=== PATIENT | female | born 2000 | race Caucasian/White ===

== ENCOUNTER 2020-04-26 18:08 | Emergency (ER) | payer MEDICAID, SELFPAY ==
[2020-04-26 18:10] VITALS: BP 152/108; PULSE 99; RESP 17; TEMP 36.5; O2SAT 98; BMI 35.1
--- NOTE | 2020-04-26 19:00 | ED.VIS.LOWEX ---
History of Present Illness Chief Complaint: Lower Extremity Injury Informant: Patient Occurred: Days Narrative: Patient is a 20-year-old female without any past medical history presenting with concern for DVT of her left leg. She has had worsening left leg pain for the past 5 days. She states sometimes it even goes numb when she standing. Is mostly in her calf region. She notes she is switched to a different brand of control in January is wondering if that could be a precipitating factor. She denies any history of DVT. She states she feels a slight pressure in her calf and sometimes feels cramping. Initially she thought it was exercise related and was using ibuprofen and ice. She denies any associated trauma. No numbness or tingling. Patient denies any associated chest pain, shortness of breath or difficulty breathing. No other complaints at this time. Past Medical History - Allergies and Home Meds Allergies/Adverse Reactions: Allergies sulfamethoxazole [From Bactrim] Allergy (Verified 04/26/20 18:09) Rash trimethoprim [From Bactrim] Allergy (Verified 04/26/20 18:09) Rash Past Medical History: None Surgical History: noncontributory Lives: Spouse/ Significant Other Review of Systems General: Denies: Chills, Fever, Sweats Eyes: Denies: Visual changes - bilaterally, Diplopia ENT: Denies: Rhinorrhea, Sore throat Cardiovascular: Denies: Chest pain, Palpitations Respiratory: Denies: Dyspnea, Cough, Dyspnea on exertion Gastrointestinal: Denies: Abdominal pain, Nausea, Vomiting, Diarrhea, Melena, Hematochezia Genitourinary: Denies: Dysuria, Hematuria, Frequency Musculoskeletal: Reports: Swelling - left calf , Extremity Pain - left calf . Denies: Back pain Skin: Denies: Rash, Wounds Neurological: Denies: Headache, Weakness, Numbness Physical Exam Vital Signs/Narrative: Vital Signs Temp Pulse Resp BP Pulse Ox 04/26/20 18:10 97.7 F L 99 17 152/108 H 98 Inital Vital Signs reviewed: Yes - Extremity Exam Left Hip: Negative for: Deformity, Edema, Limited ROM Left Femur: Negative for: Deformity, Edema, Limited ROM Left Knee: Negative for: Deformity, Edema, Limited ROM Left Tib Fib: - - mild TTP of left calf. No palpable cords. Negative for: Deformity, Edema, Limited ROM Left Ankle: Negative for: Deformity, Edema, Limited ROM Left Foot: Negative for: Deformity, Edema, Limited ROM General: Well nourished, Well developed Head: Normocephalic, Atraumatic Eyes: Perrl, EOMI ENT: No Trauma, Moist Mucous Membranes Neck: Nontender, Full ROM Cardiovascular: Regular rate, Regular rhythm, No murmurs Respiratory: No distress, CTA bilaterally, Chest nontender Abdomen: Soft, Nontender, Nondistended, Normal bowel sounds Back: Nontender Skin: Normal color, No rash Neurological: Alert, Oriented x3, Cranial nerves II-XII grossly intact, Normal Strength, Normal Sensation Psychological: Normal affect Diagnostic/Tx/Re-eval Clinical Impression(s) from Imaging Studies Venous Duplex 04/26/20 19:03 IMPRESSION: No demonstrated deep vein thrombosis. Electronically Signed: Kate Ignacio MD at 19:52 EDT Tel , Service support , - Medical Decision Making Patient evaluated for atraumatic pain of her left lower leg. She is concerned she might have a DVT. She is a normal physical exam. She is neuro vastly intact. Venous duplex does not show any DVT. She does not have any findings consistent with joint infection or cellulitis. Patient is instructed to alternate Tylenol and ibuprofen for pain. The exact cause of her pain is not clear however think she is stable for outpatient follow-up. ED Disposition - Plan for ED Patient: Disposition: Home or Assisted Living Diagnosis: Left leg pain Instructions: ED Muscle Pain Leg Cramps, ED Peripheral Edema, Unilateral Additional Instructions: You do not have a blood clot today. The exact cause your pain is not clear but I think you are safe to follow-up with your primary care doctor. Alternate Tylenol and ibuprofen for pain. Return to emergency room with any worsening symptoms, shortness of breath or difficulty breathing.
--- NOTE | 2020-04-26 19:03 | US_ITS ---
STUDY: VENOUS DOPPLER ULTRASOUND - LEFT LOWER EXTREMITY REASON FOR EXAM: Female, 20 years old. LEFT THIGH AND CALF PAIN MEDIAL AND LATERAL TECHNIQUE: Ultrasound evaluation of the deep vein system to include espinoza-scale imaging and compression was performed. Espinoza-scale imaging and Doppler sonographic evaluation, including duplex spectral analysis and qualitative color flow sonography, was performed. COMPARISON: None. FINDINGS: Common Femoral Vein: Normal compression, spontaneity and augmentation. Normal color Doppler. Common Femoral Vein/Greater Saphenous Junction: Normal compression. Femoral Proximal: Normal compression. Femoral Middle: Normal compression, spontaneity and augmentation. Normal color Doppler. Femoral Distal: Normal compression. Popliteal Vein: Normal compression, spontaneity and augmentation. Normal color Doppler. Posterior Tibial Vein: Normal compression. Peroneal Vein: Normal compression. US/Venous Duplex Imag/Limited/Uni IMPRESSION: No demonstrated deep vein thrombosis. Electronically Signed: Kate Ignacio MD at 19:52 EDT Tel , Service support ,
[2020-04-26] MEDS: Acetaminophen 325 MG Tablet 650 MG PO (19:17)
== END 2020-04-26 20:17 | disposition home or self-care (01) ==
PROVIDERS: Emergency Provider Emergency Medicine
DX: M79.605 Pain in left leg (principal)
CPT/HCPCS: 93971; 99283

== ENCOUNTER → 2022-09-24 | Outpatient (CLI) | payer OTHER, SELFPAY ==
--- NOTE | 2022-09-24 08:59 | US_ITS ---
STUDY: ULTRASOUND BREAST - BILATERAL REASON FOR EXAM: Female, 22 years old. Bilateral breast itchiness. TECHNIQUE: Axial and longitudinal images of the BILATERAL breast were performed with a high resolution ultrasound transducer. # OF IMAGES: 143 COMPARISON: None. FINDINGS: BILATERAL Breast: The entire right and left breast were examined with ultrasound. Dense fibroglandular tissue. No sonographic abnormality is seen. US/Breast Complete Bilateral IMPRESSION: No sonographic abnormality is seen. ASSESSMENT CATEGORY: BIRADS Category 1: Negative. A letter regarding these results will be sent to the patient by the facility within 30 days. Electronically Signed: Bandar Stephens MD at 9:42 EST ,
== END | disposition home or self-care (01) ==
LOC: OPBI 08:55
PROVIDERS: PCP Nurse Practitioner Primary Care; Referring Provider Student in an Organized Health Care Education/Training Program; Visit Provider Student in an Organized Health Care Education/Training Program
DX: R21 Rash and other nonspecific skin eruption (principal)
CPT/HCPCS: 76641

== ENCOUNTER 2022-10-09 08:09 | Emergency (ER) | payer OTHER, SELFPAY ==
[2022-10-09 08:10] VITALS: BP 195/118; PULSE 120; RESP 16; TEMP 36; O2SAT 98; BMI 37.1
--- NOTE | 2022-10-09 09:20 | RAD_ITS ---
STUDY: X-RAY CHEST REASON FOR EXAM: Female, 22 years old. cough, R CP TECHNIQUE: PA and lateral views of the chest. COMPARISON: None. FINDINGS: The lungs are clear and expanded. There is no demonstrated pleural abnormality. Normal size heart. Normal mediastinum and celina. Normal visualized pulmonary arteries. Normal visualized aortic arch and descending thoracic aorta. Normal visualized thoracic spine. Normal visualized ribs, clavicles, and shoulders. There is no demonstrated abnormality of the visualized soft tissue structures of the upper abdomen. RAD/Chest PA and Lateral IMPRESSION: Normal x-ray examination of the chest. Electronically Signed: Darrin Chance MD at 9:40 EST ,
--- NOTE | 2022-10-09 09:37 | EX.ED.VIS.UR ---
HPI HPI - URI History of Present Illness Chief Complaint: Cough Informant: patient Onset/Context/Timing Onset: Yesterday Context: Gradual Onset Timing: Continuous Current Severity: Moderate Maximum Severity: Moderate Narrative Narrative: Patient started having nonproductive cough yesterday, this morning she noticed some dyspnea with exertion going up a flight of stairs and at 1 point this morning she started having pain in her chest just right of her sternum. It hurts worse to move and to take deep breaths. She does not have any medical problems, including asthma. No known sick contacts. She took a COVID test yesterday that was negative. She is vaccinated against COVID and influenza this year. She denies any recent long travel, leg pain or swelling, history of DVT or PE. ROS ROS ED Constitutional Constitutional ED: Denies chills or fever(s) ENT ENT ED: Reports nasal congestion and sore throat; Denies ear pain Cardiovascular Cardiovascular: Reports chest pain; Denies orthopnea or palpitations Respiratory/Chest Respiratory/Chest: Reports cough and dyspnea on exertion; Denies orthopnea Gastrointestinal Gastrointestinal: Denies abdominal pain, diarrhea, nausea or vomiting Genitourinary Genitourinary ED: Denies dysuria or hematuria Musculoskeletal Musculoskeletal: Denies myalgias or neck pain Integumentary Denies abscess or rash Neurologic Neurologic: Reports headache(s); Denies paresthesias or weakness Psychiatric Psychiatric: Denies depression or suicidal thoughts Endocrine Endocrinology: Denies polydipsia or polyuria PFSH PFSH Home Medications norgestimate 0.25 mg-ethinyl estradiol 35 mcg tablet 1 ea PO DAILY 04/26/20 [History Last Taken Unknown] albuterol sulfate 90 mcg/actuation aerosol inhaler (Ventolin HFA) 1 - 2 puff inhalation Q4H PRN PRN Wheezing ##1 10/09/22 [Rx Last Taken Unknown] hydrochlorothiazide 50 mg tablet 50 mg PO DAILY 10/09/22 [History Last Taken Unknown] Allergy/AdvReac Type Severity Reaction Status Date / Time sulfamethoxazole Allergy Rash Verified 10/09/22 10:23 [From Bactrim] trimethoprim [From Bactrim] Allergy Rash Verified 10/09/22 10:23 Social History Smoking Status: Never smoker EXAM Physical Exam Const Vital Signs: 10/09/22 08:10 10/09/22 08:44 10/09/22 09:52 Temperature 96.8 F L Temperature Source Oral Pulse Rate 120 H Respiratory Rate 16 Respiratory Effort Normal Respiratory Depth Normal Respiratory Pattern Normal Blood Pressure 195/118 H 140/92 H Blood Pressure Mean 143 108 Pulse Ox 98 Oxygen Delivery Method Room Air Positive well nourished and well developed General Appearance ED: well developed and NAD HEENT Reports moist mucous membranes normocephalic and atraumatic Throat: Negative for posterior oropharynx abnormal Eyes PERRL and EOMs intact bilaterally Neck no lymphadenopathy, supple and no meningeal signs Chest Wall Chest Narrative: Tenderness right chest wall reproducing her pain. No crepitance or subcutaneous emphysema. Resp normal respiratory effort and clear to auscultation bilaterally Cardio no murmurs Rate: regular rate; Negative for tachycardic Rhythm: regular rhythm Extremity normal to inspection, full ROM and no calf tenderness Neuro oriented x3, CN's II-XII intact bilaterally and no sensory deficits noted Sensorium / Orientation: alert Motor Exam: strength 5/5 throughout Skin Lesions: no lesions Rashes: no rashes MDM MDM MDM Narrative Medical decision making narrative: Swabs for COVID and influenza negative. Two-view chest x-ray normal my interpretation. She was given ibuprofen for her chest discomfort which helped. I reassured her. I had nurses recheck her blood pressure because initially it was 195/119, it is 140/92 on reevaluation. She states he has a history of blood pressure issues and her nurse practitioner put her on HCTZ, she does not like it because of the diuretic action and she is having to urinate all of the time and wonders if there is something else that she can take. I advised her that certainly there is no advised her to follow-up to look into getting onto a different class of blood pressure medication. I rechecked her pulse prior to discharge, it is around 100, not 120. I do not think this is a PE or any other intrathoracic dangerous pathology at this time we discussed reasons to return she comfortable with that plan. Radiography Chest X-Ray - ED: 2 View, Read by ED Physician, No Acute Disease and No Infiltrates Diagnostic Testing: Clinical Impression(s) from Imaging Studies Chest X-Ray 10/09/22 09:20 IMPRESSION: Normal x-ray examination of the chest. Electronically Signed: Darrin Chance MD at 9:40 EST , Differential Diagnosis Differential Diagnosis: Musculoskeletal chest pain, pneumothorax, pneumonia Differential Diagnosis: PE Why less likely: Less likely in context of acute illness and no risk factors or history of thromboembolic disease Discharge Plan Triage Chief Complaint: Cough ED Provider: Ayan Tinoco Dx/Rx/DC Orders Clinical Impression: Acute bronchitis Instructions: ED Bronchitis with Wheezing (Adult) Prescriptions: New albuterol sulfate [Ventolin HFA] 90 mcg/actuation HFA aerosol inhaler 1 - 2 puff inhalation Q4H PRN PRN (Reason: Wheezing) Qty: 1 0RF No Action norgestimate-ethinyl estradiol 1 EACH tablet 1 ea PO DAILY hydrochlorothiazide 50 mg tablet 50 mg PO DAILY Label Comments: TAKE 1 TABLET BY MOUTH EVERY DAY Primary Care Provider: Brionna Bui NP Referrals: Brionna Bui NP, [facility] [Primary Care Provider] - 10-14 Days if not better Disposition Disposition: Home, Self Care
[2022-10-09 09:52] VITALS: BP 140/92
[2022-10-09] MEDS: Ibuprofen 600 MG Tablet PO (09:53)
== END 2022-10-09 11:48 | disposition home or self-care (01) ==
PROVIDERS: Emergency Provider Emergency Medicine; PCP Nurse Practitioner Primary Care; Visit Provider Emergency Medicine
DX: J20.9 Acute bronchitis, unspecified (principal); R51.9 Headache, unspecified; Z20.822 Contact with and (suspected) exposure to COVID-19
CPT/HCPCS: 71046; 87428; 99283

== ENCOUNTER → 2023-01-07 | Outpatient (CLI) | payer OTHER, SELFPAY ==
[2023-01-07 09:56] LABS: Absolute Lymphocyte Count 3.67 X10^3/uL (0.83-4.51); Basophil# 0.09 X10^3/uL; Basophil% 0.6 % (0-1); Eosinophils% 2.2 % (0-5); Hematocrit 42.6 % (37-47); Hemoglobin 14.3 g/dL (12.0-15.0); Lymphocyte # 3.67 X10^3/ul (0.83-4.51); Lymphocyte % 26.4 % (19-41); Mean Corp Hgb Conc 33.6 g/dL (32-36); Mean Corpuscular Hgb 29.5 pg (27.0-32.0); Mean Platelet Vol. 10.2 fl (6.2-12.0); Monocyte% 5.8 % (0-10); NRBC Flagged by Analyzer 0 % (0-5); Neutrophil # 8.96 X10^3/uL (2.7-7.7); Neutrophil % 64.6 % (47-70); Platelet Count 420 K/mm3 (150-450); RBC Distribution Width CV 12.3 % (11.6-14.6); RBC Distribution Width SD 39.8 fl (35.1-43.9); Red Blood Count 4.84 M/mm3 (4.2-5.4); White Blood Count 13.9 K/mm3 (4.4-11.0)
[2023-01-07 10:36] LABS: ALB/GLOB Ratio 0.8 RATIO (0.9-2.4); AST(SGOT) 26 U/L (15-37); Alanine Aminotransfer ALT/SGPT 67 U/L (13-56); Albumin, Serum 3.6 g/dL (3.2-5.0); Alkaline Phosphatase 126 U/L (45-117); Anion Gap 8 (5-15); BUN 14 mg/dL (7-18); BUN/Creat Ratio 16.5 RATIO (10-20); Calcium,Total 9.8 mg/dL (8.5-10.1); Chloride 103 mmol/L (98-107); Creatinine, Serum 0.85 mg/dL (0.55-1.02); EST Glomerular Filtration Rate 87 mL/min (>60); Est Glom Filt Rate - Afr Amer 105 mL/min (>60); Free T3 2.5 pg/mL (2.18-3.98); Globulin 4.7 g/dL (2.2-4.2); Glucose 118 mg/dL (74-106); Potassium 3.9 mmol/L (3.5-5.1); Protein, Total 8.3 g/dL (6.4-8.2); Sodium Level 137 mmol/L (136-145); T4 Free Direct 1.09 ng/dL (0.76-1.46); Thyroid Stim Hormone (TSH) 3.68 uIU/mL (0.358-3.74)
[2023-01-08 16:09] LABS: Anti-Thyroglobulin AB < 1.0 IU/mL (0.0-0.9); Thyroglobulin, Serum Qt. 21.4 ng/mL (1.5-38.5); Thyroid Peroxidase AB 16 IU/mL (0-34)
== END | disposition home or self-care (01) ==
LOC: LAB 08:42
PROVIDERS: PCP Nurse Practitioner Primary Care; Visit Provider Family Medicine
DX: R63.5 Abnormal weight gain (principal); I10 Essential (primary) hypertension
CPT/HCPCS: 36415; 80053; 82533; 84432; 84439; 84443; 84481; 85025; 86376; 86800

== ENCOUNTER → 2023-03-11 | Outpatient (CLI) | payer OTHER, SELFPAY ==
[2023-03-11 08:35] LABS: Absolute Lymphocyte Count 2.94 X10^3/uL (0.83-4.51); Absolute Neutrophil Count 8.2 X10^3/uL (2.0-7.7); Basophil% 0.8 % (0-1); Eosinophil# 0.45 X10^3/uL; Eosinophils% 3.6 % (0-5); Hematocrit 44.6 % (37-47); Hemoglobin 14.4 g/dL (12.0-15.0); Lymphocyte # 2.94 X10^3/ul (0.83-4.51); Lymphocyte % 23.6 % (19-41); Mean Corp Hgb Conc 32.3 g/dL (32-36); Mean Corpuscular Hgb 28.5 pg (27.0-32.0); Mean Corpuscular Volume 88.3 fL (81-99); Mean Platelet Vol. 9.8 fl (6.2-12.0); Monocyte# 0.71 X10^3/uL; Monocyte% 5.7 % (0-10); NRBC Flagged by Analyzer 0 % (0-5); Neutrophil # 8.19 X10^3/uL (2.7-7.7); Neutrophil % 65.9 % (47-70); Platelet Count 352 K/mm3 (150-450); RBC Distribution Width CV 11.9 % (11.6-14.6); RBC Distribution Width SD 38.3 fl (35.1-43.9); Red Blood Count 5.05 M/mm3 (4.2-5.4); White Blood Count 12.4 K/mm3 (4.4-11.0)
== END | disposition home or self-care (01) ==
LOC: LAB 08:24
PROVIDERS: PCP Family Medicine; Referring Provider Family Medicine; Visit Provider Family Medicine
DX: D72.829 Elevated white blood cell count, unspecified (principal)
CPT/HCPCS: 36415; 85025

== ENCOUNTER → 2023-03-25 | Outpatient (CLI) | payer OTHER, SELFPAY ==
[2023-03-25 11:01] LABS: Absolute Lymphocyte Count 2.87 X10^3/uL (0.83-4.51); Absolute Neutrophil Count 6.7 X10^3/uL (2.0-7.7); Basophil# 0.06 X10^3/uL; Basophil% 0.6 % (0-1); Eosinophils% 2.9 % (0-5); Hematocrit 43.9 % (37-47); Hemoglobin 14.4 g/dL (12.0-15.0); Lymphocyte # 2.87 X10^3/ul (0.83-4.51); Lymphocyte % 27.5 % (19-41); Mean Corp Hgb Conc 32.8 g/dL (32-36); Mean Corpuscular Hgb 28.6 pg (27.0-32.0); Mean Corpuscular Volume 87.1 fL (81-99); Mean Platelet Vol. 10.2 fl (6.2-12.0); Monocyte# 0.45 X10^3/uL; Monocyte% 4.3 % (0-10); NRBC Flagged by Analyzer 0 % (0-5); Neutrophil % 64.2 % (47-70); Platelet Count 396 K/mm3 (150-450); RBC Distribution Width CV 11.9 % (11.6-14.6); RBC Distribution Width SD 37.9 fl (35.1-43.9); Red Blood Count 5.04 M/mm3 (4.2-5.4); White Blood Count 10.4 K/mm3 (4.4-11.0)
[2023-03-25 11:52] LABS: Estradiol 63.9 pg/mL; Luteinizing Hormone 8.4 mIU/mL; Prolactin 7.8 ng/mL; T4 Free Direct 1.12 ng/dL (0.76-1.46)
[2023-03-31 12:08] LABS: Testosterone, % Free 3.03 % (0.50-2.80); Testosterone, Free 1.12 ng/dL (0.10-0.85); Testosterone, Total 37 ng/dL (13-71)
== END | disposition home or self-care (01) ==
LOC: WOBLAB 09:53
PROVIDERS: PCP Family Medicine; Visit Provider Nurse Practitioner Women's Health
DX: N93.9 Abnormal uterine and vaginal bleeding, unspecified (principal)
CPT/HCPCS: 36415; 82670; 83001; 83002; 84146; 84402; 84403; 84439; 84443; 85025

== ENCOUNTER → 2023-06-25 | Outpatient (CLI) | payer OTHER, SELFPAY ==
[2023-06-25 10:13] LABS: Internal QC Validated? YES +Cl - CLEAR BKGD; Pregnancy, Serum, hCG Quali. NEGATIVE Negative
== END | disposition home or self-care (01) ==
LOC: LAB 09:12
PROVIDERS: PCP Family Medicine; Referring Provider Family Medicine; Visit Provider Family Medicine
DX: N92.6 Irregular menstruation, unspecified (principal)
CPT/HCPCS: 36415; 84703

== ENCOUNTER → 2023-06-27 | Outpatient (CLI) | payer OTHER, SELFPAY | END | disposition home or self-care (01) | LOC: LABSPEC 15:23 | PROVIDERS: PCP Family Medicine; Referring Provider Family Medicine; Visit Provider Family Medicine | DX: R10.2 Pelvic and perineal pain (principal) | CPT/HCPCS: 87086; 87088 ==

== ENCOUNTER 2023-07-01 18:35 | Emergency (ER) | payer OTHER, SELFPAY ==
[2023-07-01 18:39] VITALS: BP 164/115; PULSE 104; RESP 18; TEMP 36.7; O2SAT 97; BMI 39.2
--- NOTE | 2023-07-01 19:09 | ED.VIS.FEGU ---
HPI <RM Zheng - Last Filed: 07/01/23 20:29> HPI - Female History of Present Illness Chief Complaint: Female C/O Narrative Narrative: 23-year-old female has had bilateral pelvic pain over the last 2 weeks that is worse on the left. She states her periods were regular and she stopped control 2 months ago to try and conceive. Last menstrual period was May 19. Last week she was nauseated and thought she might be but had a negative serum test. Today the pelvic pain worsened and she vomited so she went to urgent care. She states her urine dip was negative. On pelvic exam they told her her cervix had a lesion and they sent swabs for testing. She denies dysuria, frequency, hematuria, or vaginal discharge. No abdominal surgical history. PFSH <MR Zheng - Last Filed: 07/01/23 20:29> PFS Home Medications norgestimate 0.25 mg-ethinyl estradiol 35 mcg tablet 1 ea PO DAILY 04/26/20 [History Last Taken Unknown] albuterol sulfate 90 mcg/actuation aerosol inhaler (Ventolin HFA) 1 - 2 puff inhalation Q4H PRN PRN Wheezing ##1 10/09/22 [Rx Last Taken Unknown] hydrochlorothiazide 50 mg tablet 50 mg PO DAILY 10/09/22 [History Last Taken Unknown] Allergy/AdvReac Type Severity Reaction Status Date / Time sulfamethoxazole Allergy Rash Verified 07/01/23 18:39 [From Bactrim] trimethoprim [From Bactrim] Allergy Rash Verified 07/01/23 18:39 Social History Smoking Status: Never smoker ROS <RM Zheng - Last Filed: 07/01/23 20:29> ROS ED ROS Narrative Constitutional: Negative for fever, chills, malaise. CVS: Negative for chest pain, syncope. Respiratory: Negative for shortness of breath. GI: Positive for abdominal pain, nausea, vomiting. : Negative for dysuria, hematuria or frequency. EXAM <RM Zheng - Last Filed: 07/01/23 20:29> Physical Exam Narrative Exam Narrative: CONST: Patient sitting in no acute distress. EYES: Normal inspection. NECK: Normal inspection. RESP: No respiratory distress, CTAB. CVS: Regular rate and rhythm, no murmur, no gallop. ABD: Obese abdomen is soft with bilateral pelvic tenderness, no guarding or rebound, nondistended. SKIN: Color normal, no rash, warm, dry, intact. EXTREMITIES: Normal appearance, no pedal edema. NEURO: Oriented x4. PSYCH: Normal affect. Const Vital Signs: 07/01/23 18:39 Temperature 98.1 F Temperature Source Temporal Pulse Rate 104 H Respiratory Rate 18 Blood Pressure 164/115 H Blood Pressure Mean 131 Pulse Ox 97 Oxygen Delivery Method Room Air <Dr. Surjit Kellogg DO - Last Filed: 07/01/23 21:22> Physical Exam Const Vital Signs: 07/01/23 18:39 Temperature 98.1 F Temperature Source Temporal Pulse Rate 104 H Respiratory Rate 18 Blood Pressure 164/115 H Blood Pressure Mean 131 Pulse Ox 97 Oxygen Delivery Method Room Air MDM <RM Zheng - Last Filed: 07/01/23 20:29> MDM MDM Narrative Medical decision making narrative: History gathered from: Patient and spouse Patient presents with 2 weeks of pelvic pain worse on the left. She had a negative urinalysis at urgent care and had STI swabs pending. She appears well and nontoxic. She is hypertensive and her heart rate is 104, otherwise normal vital signs. She does not look septic or toxic. She has a normal heart rate during my exam with no murmurs. Lungs clear. She has bilateral pelvic tenderness, greater on the left with no peritoneal signs. She is not tender over McBurney's point. Differential includes , ectopic, ovarian cyst or other etiology. Urinalysis shows no acute findings and test is negative. Transvaginal ultrasound shows no acute findings. She was treated symptomatically with IM Toradol and I recommended [id number] pain relievers and follow-up with [facility]. Lab Data Attestation: I reviewed the patient's lab results. Labs: Laboratory Results - last 24 hr 07/01/23 07/01/23 19:15 19:30 Serum , Qual NEGATIVE Urine Color Yellow Urine Clarity Cloudy Urine pH 7.0 Ur Specific [place] 1.010 Urine Protein Negative Urine Glucose (UA) Normal Urine Ketones Negative Urine Occult Blood Negative Urine Nitrite Negative Urine Bilirubin Negative Urine Urobilinogen Normal Ur Leukocyte Esterase Negative Urine RBC 0 SEEN Urine WBC 0 SEEN Ur Squamous Epith Cells 0 SEEN Amorphous Sediment 1+ Urine Bacteria 0 SEEN Urine Mucus 0 SEEN Radiography Diagnostic Testing: Clinical Impression(s) from Imaging Studies Transvaginal US 07/01/23 19:10 IMPRESSION: Normal pelvic sonogram Electronically Signed: Tej Smith MD at 20:00 EST Reading Location ID and State: [address] [place] [address] Tel , Service support , <Dr. Surjit Kellogg, DO - Last Filed: 07/01/23 21:22> [facility] Narrative Medical decision making narrative: History gathered from: Patient and spouse Patient presents with 2 weeks of pelvic pain worse on the left. She had a negative urinalysis at urgent care and had STI swabs pending. She appears well and nontoxic. She is hypertensive and her heart rate is 104, otherwise normal vital signs. She does not look septic or toxic. She has a normal heart rate during my exam with no murmurs. Lungs clear. She has bilateral pelvic tenderness, greater on the left with no peritoneal signs. She is not tender over McBurney's point. Differential includes , ectopic, ovarian cyst or other etiology. Urinalysis shows no acute findings and test is negative. Transvaginal ultrasound shows no acute findings. She was treated symptomatically with IM Toradol and I recommended [id number] pain relievers and follow-up with [facility]. I have personally performed a face to face assessment of the patient and have reviewed the SAMANTA Note. I performed a substantive portion of the visit including all aspects of the following. My pettit findings include: History is 23-year-old female presenting with lower abdominal pelvic pain of 2 weeks duration. She states is constant and seems to be getting worse. Today she had some emesis. She had abnormally prolonged period last month and ended on . She went to [facility] urgent care where she states that a pelvic exam was performed in which she was told she had a spot on her cervix. She states that if things got worse she was to come to emergency and she has a follow-up appointment with gynecology the beginning of July. Patient denies any fevers. No vaginal bleeding currently or discharge. No colon issues. Exam is tender palpation suprapubic adnexal region. No acute distress clinically appears well Medical Decison offered pelvic examination directly to the patient. Informed her that she had just had 1 but I am happy to render my opinion but most likely would necessitate gynecology's evaluation. Patient declines noting the invasiveness of the exam and the fact that she just had 1. Urinalysis shows no overt infection. test is negative. Pelvic ultrasound is negative. She received a dose of Toradol. At this point the patient has had 2-week of symptoms. She has outpatient follow-up arranged I think at this time is appropriate. Lab Data Labs: Laboratory Results - last 24 hr 07/01/23 07/01/23 19:15 19:30 Serum , Qual NEGATIVE Urine Color Yellow Urine Clarity Cloudy Urine pH 7.0 Ur Specific [place] 1.010 Urine Protein Negative Urine Glucose (UA) Normal Urine Ketones Negative Urine Occult Blood Negative Urine Nitrite Negative Urine Bilirubin Negative Urine Urobilinogen Normal Ur Leukocyte Esterase Negative Urine RBC 0 SEEN Urine WBC 0 SEEN Ur Squamous Epith Cells 0 SEEN Amorphous Sediment 1+ Urine Bacteria 0 SEEN Urine Mucus 0 SEEN Radiography Diagnostic Testing: Clinical Impression(s) from Imaging Studies Transvaginal US 07/01/23 19:10 IMPRESSION: Normal pelvic sonogram Electronically Signed: Tej Smith MD at 20:00 EST Reading Location ID and State: [address] [place] [address] Tel , Service support , Discharge Plan Triage Chief Complaint: Female C/O Other Complaint: Nausea/Vomiting ED Midlevel Provider: Norma Spangler ED Provider: Surjit Kellogg Dx/Rx/DC Orders Clinical Impression: Pelvic pain Instructions: ED Pelvic Pain, Unknown Cause Prescriptions: No Action norgestimate-ethinyl estradiol 1 EACH tablet 1 ea PO DAILY hydrochlorothiazide 50 mg tablet 50 mg PO DAILY Patient Comments: TAKE 1 TABLET BY MOUTH EVERY DAY albuterol sulfate [Ventolin HFA] 90 mcg/actuation HFA aerosol inhaler 1 - 2 puff inhalation Q4H PRN PRN (Reason: Wheezing) Qty: 1 0RF Primary Care Provider: Leila Au Referrals: Leila Au, DO [Primary Care Provider] - Activity Restrictions/Additional Instructions: Your test is negative and your transvaginal ultrasound showed no abnormalities. I am not sure what is causing her pelvic pain recommend Tylenol and ibuprofen and follow-up with [facility]. Disposition Disposition: Home, Self Care Discharge Date/Time: 07/01/23 20:53
--- NOTE | 2023-07-01 19:10 | US_ITS ---
STUDY: ULTRASOUND TRANSVAGINAL CLINICAL: Female, 23 years old. pelvic pain, left TECHNIQUE: Transvaginal COMPARISON: None. FINDINGS: Normal uterine size measuring 7.2 x 4.2 x 3.1 cm in maximal craniocaudal dimension. There are no myometrial masses. Normal endometrial thickness measuring 5 mm. There are no endometrial masses, and there is no fluid in the endometrial cavity. Normal uterine cervix. Normal right ovary, measuring 4 x 2.2 x 2.5 cm. There are multiple follicles without a dominant cyst. Normal left ovary, measuring 4.2 x 2.3 x 2.7 cm. There are multiple follicles without a dominant cyst. There is no free fluid in the pelvis. US/Transvaginal Non- IMPRESSION: Normal pelvic sonogram Electronically Signed: Tej Smith MD at 20:00 EST ,
[2023-07-01 19:38] LABS: Bacteria 0 SEEN /hpf (None Seen); Mucous, Urine 0 SEEN /hpf (<or=2+); Red Blood Cells-Urine 0 SEEN /hpf (0-5); Squamous Epithelial Cells - UA 0 SEEN /hpf (5-10); White Blood Cells 0 SEEN /hpf (0-5)
[2023-07-01 19:40] LABS: Color, Urine Yellow (Yellow); Glucose, Dipstick Normal (Normal); Ketone-Dipstick Negative (Negative); Leukocyte Esterase-Dipstick Negative /ul (Negative); Nitrite-Dipstick Negative (Negative); Occult Blood-Urine Negative /ul (Negative); Protein-Dipstick Negative (Negative); Urine Bilirubin Dipstick Negative (Negative); Urine Clarity Cloudy (Clear); Urine Urobilinogen Normal (Normal)
[2023-07-01 19:46] LABS: Amorphous Sediment 1+
[2023-07-01 19:53] LABS: Internal QC Validated? YES +Cl - CLEAR BKGD; Pregnancy, Serum, hCG Quali. NEGATIVE Negative
[2023-07-01] MEDS: Ketorolac 30 MG/ML Syringe IV (20:45)
== END 2023-07-01 20:53 | disposition home or self-care (01) ==
PROVIDERS: Physician Assistant; Emergency Provider Emergency Medicine; PCP Family Medicine; Visit Provider Emergency Medicine
DX: R10.2 Pelvic and perineal pain (principal)
CPT/HCPCS: 76830; 81001; 84703; 96374; 99284; A4216

== ENCOUNTER 2024-11-11 07:30 | Outpatient (RCR) | payer SELFPAY | END 2024-12-08 23:59 | LOC: NS 07:30 | PROVIDERS: PCP Family Medicine; Referring Provider Family Medicine; Visit Provider Family Medicine | DX: Z71.3 Dietary counseling and surveillance (principal); E66.9 Obesity, unspecified; Z68.35 Body mass index [BMI] 35.0-35.9, adult | CPT/HCPCS: 97802 ==

== ENCOUNTER 2024-12-16 07:16 | Outpatient (RCR) | payer SELFPAY | END 2025-01-08 23:59 | LOC: NS 07:16 | PROVIDERS: PCP Family Medicine; Referring Provider Family Medicine; Visit Provider Family Medicine | DX: Z71.3 Dietary counseling and surveillance (principal); E66.9 Obesity, unspecified; Z68.34 Body mass index [BMI] 34.0-34.9, adult ==

== ENCOUNTER → 2024-12-16 | Outpatient (CLI) | payer BC, SELFPAY ==
[2024-12-16 08:07] LABS: Hemoglobin A1c 5.5 % (<=5.6)
[2024-12-19 03:09] LABS: Thyroid Stim Immunoglob <0.10 IU/L (0.00-0.55)
== END | disposition home or self-care (01) ==
PROVIDERS: PCP Family Medicine; Referring Provider Family Medicine; Visit Provider Family Medicine
DX: R76.8 Other specified abnormal immunological findings in serum (principal); E11.9 Type 2 diabetes mellitus without complications
CPT/HCPCS: 36415; 83036; 84443; 84445

== ENCOUNTER → 2025-05-27 | Outpatient (CLI) | payer OTHER, SELFPAY ==
--- OUTSIDE RECORDS SUMMARY | 2025-05-27 08:08 | XMS RPT_ITS | CCD ---
Author Organization [facility] Care Team Providers Care Records Management Analyst Name Role Phone Margaret Morales Unavailable MARGARET MORALES Attending Unavailable MORALES MARGARET Referring Unavailable MORALES MARGARET Attending Unavailable MORALESDARYLY Referring Unavailable Margaret Morales M Primary Care Provider OMRALES MARGARET Referring Unavailable MORALES, MARGARET Referring Unavailable MoralesMargaret Primary Care Provider [phone] Alessandro Jeronimo MD Primary Care Provider Alessandro Jeronimo MD Primary Care Provider PODLOGAR DISTRIBUTION DISPATCHER.BRIONNA FUENTES Primary Care Physician PODLOGAR DISTRIBUTION DISPATCHER.BRIONNA FUENTES Primary Care Unavail able SIMRAN CHI, FRANK Sams Attending Unavailab le Podlogar WAFER FAB TECHNICIAN, WAFER FAB TECHNICIAN-C Brionna Primary Care Provider [phone] Podlogar WAFER FAB TECHNICIAN, WAFER FAB TECHNICIAN-C Brionna Referring Provider Roof WAFER FAB TECHNICIAN, WAFER FAB TECHNICIAN-C Chandrakant Junior Attending Provider Alessandro Jeronimo MD Primary Care Provider Jossy Au DO Primary Care Provider Jossy Au DO Primary Care Provider James Cheng MD Primary Care Provider James Cheng MD Attending Provider James Cheng MD Referring Provider James Cheng Referring Unavailable Skylar, Chalon Primary Care Unavailable Skylar, Chalon Attending Unavailable Skylar, Chalon Primary Care Unavailable Skylar, Chalon Attending Unavailable Skylar, Chalon Referring Unavailable Skylar, Chalon Primary Care Unavailable Skylar, Chalon Attending Unavailable Skylar, Chalon Referring Unavailable Skylar, Chalon Primary Care Unavailable Skylar, Chalon Attending Unavailable Skylar, Chalon Referring Unavailable Skylar, Chalon Primary Care Unavailable Skylar, Chalon Attending Unavailable CHRISTINE PAULINO Attending Unavailable SELF Referring Unavailable ROE, JOSSY YEH Primary Care Unavailabl MAGALY Osborne Attending Unavailable ROE, JOSSY YEH Primary Care Unavailabl e HAURY, TASHI Referring Unavailable ROE, JOSSY YEH Primary Care Unavailabl e HAURY, TASHI Referring Unavailable ROE, JOSSY RUBA Primary Care Unavailabl e HAURY, TASHI Referring Unavailable ROE, JOSSY YEH Primary Care Unavailabl e HAURY, TASHI Referring Unavailable ROE, JOSSY YEH Primary Care Unavailabl e CIOCEMARIELOSINNA C Referring Unavailable ROE, JOSSY YEH Primary Care Unavailabl e CIOCE NINA C Attending Unavailable HAURY, TASHI Referring Unavailable ROE, JOSSY RUBA Primary Care Unavailabl e HAURY, TASHI Referring Unavailable ROE, JOSSY RUBA Primary Care Unavailabl e HAURY, TASHI Attending Unavailable ROE, JOSSY YEH Primary Care Unavailabl e ROE, JOSSY RUBA Primary Care Unavailabl e Allergies Allergy Classification Reported Allergen(s) Allergy Type Date of Onset Reaction(s) Facility (8 sources) Sulfonamides (Antibiotic) Propensity to adverse reactions to drug 05-07-20 17 [facility] Work Phone: (20 sources) Sulfamethoxazole / Trimethoprim; Translations: [sulfamethoxazole-tr imethoprim] Drug Allergy 04-01-20 [address] [facility] (9 sources) Sulfamethoxazole Drug Allergy 04-26-20 [facility] (9 sources) Trimethoprim Drug Allergy 04-26-20 [facility] (1 source) Sulfamethoxazole Drug Allergy 09-25-19 [facility] (1 source) Trimethoprim Drug Allergy 09-25-19 [facility] Medications Current Medications Medication Drug Class(es) Dates Sig (Normalized) Sig (Original) [id number] 200 actuat albuterol 0.09 mg/actuat metered dose inhaler (8 sources) beta2-Adrenergic Agonist Start: 10-09-2022 Albuterol Sulfate (Ventolin Hfa) 90 mcg/actuation HFA aerosol inhaler Active 1 - 2 NMA INHALATION EVERY 4 HOURS NEEDED as needed for Wheezing October 09, 2022 1:00am Start: 10-09-2022 take 1 puff(s) by in halation every four hours as needed Albuterol Sulfate (Ventolin Hfa) 90 mcg/actuation HFA aerosol inhaler Active 1 - 2 PUFF INHALATION EVERY 4 HOURS NEEDED October 09, 2022 12:00am amoxicillin 875 mg / clavulanate 125 mg oral tablet (9 sources) Penicillin-class Antibacterial Start: 05-31-2024 End: 06-07-2024 take 1 tablet by mouth twice daily amoxicillin-clavulanate potassium (AUGMENTIN) 875-125 mg per tablet Take 1 tablet by mouth two times a day for 7 days. 14 tablet 05/31/2024 06/07/2024 Active Start: 01-12-2023 End: 01-19-2023 Amoxicillin-Pot Clavulanate 875-125 mg tablet Discontinued 1 {tbl} PO TWICE A DAY 14 January 12, 2023 12:00am January 18, 2023 12:00am January 19, 2023 12:04am Start: 01-12-2023 End: 01-19-2023 take 1 tablet by mouth twice daily Amoxicillin-Pot Clavulanate Discontinued 1 TABLET PO TWICE A DAY 14 January 11, 2023 11:00pm January 18, 2023 11:04pm benzonatate 100 mg oral capsule (9 sources) Non-narcotic Antitussive Start: 06-12-2022 End: 09-15-2024 take 2 capsules by mouth three times daily as needed benzonatate (TESSALON PERLE) 100 mg capsule Indications: Acute bronchitis due to COVID-19 virus Take 2 capsules by mouth three times daily as needed. 30 capsule 06/12/2022 09/15/2024 Discontinued (Other) Comment on above: Take 2 capsules by m outh three times daily as needed. bifidobacterium animalis [id number] unt / lactobacillus acidophilus [id number] unt oral capsule (8 sources) take 1 capsule by mouth once daily Probiotic Product (PROBIOTIC-10) Cap take 1 capsule by mouth daily. 0 Active cholecalciferol 1.25 mg oral capsule (15 sources) Vitamin D Start: 09-16-2024 take 1 capsule by mouth every week cholecalciferol, Vitamin D3, (VITAMIN D3) 1,250 mcg (50,000 unit) cap capsule Indications: Vitamin D deficiency Take 1 capsule by mouth one time a week. for 3 months 12 capsule 09/16/2024 Active ergocalciferol 1.25 mg oral capsule (13 sources) Provitamin D2 Compound Start: 09-16-2024 take 1 capsule by mouth every week ergocalciferol 50,000 unit capsule (VITAMIN D2, DRISDOL) Take 50,000 Units by mouth one time a week. 09/16/2024 Active fluticasone propionate 0.05 mg/actuat metered dose nasal spray (8 sources) Corticosteroid fluticasone 50 M CG/ACT Suspension 2 sprays by Nasal route daily. 0 Active hydroCHLOROthiazide 50 mg oral tablet (20 sources) Thiazide Diuretic Start: 07-23-2022 End: 09-15-2024 take 1 tablet by mouth once daily Hydrochlorothiazide 50 mg tablet Active 50 mg PO DAILY October 09, 2022 1:00am Start: 06-25-2022 End: 07-23-2022 take 1 tablet by mouth once daily hydroCHLOROthiazide (HYDRODIURIL, ESIDRIX) 25 mg tablet Indications: Hypertension, unspecified type Take 1 tablet by mouth once daily. 30 tablet 1 06/25/2022 07/23/2022 Discontinued Start: 05-14-2022 End: 06-25-2022 take 1 capsule by mouth once daily hydroCHLOROthiazide (HYDRODIURIL, ESIDRIX) 12.5 mg capsule Indications: Hypertension, unspecified type Take 1 capsule by mouth once daily. 30 capsule 12 05/14/2022 06/25/2022 Discontinued (Changing Therapy/Dosage Form) Comment on above: Take 1 capsule by mo uth once daily. Take 1 tablet by nathan th once daily. ibuprofen 800 mg oral tablet (8 sources) Nonsteroidal Anti-inflammatory Drug take 1 tablet by mouth every six hours as needed ibuprofen 800 MG Tab take 800 mg by mouth every 6 hours as needed. 0 Active levothyroxine sodium 0.025 mg oral tablet (11 sources) l-Thyroxine Start: 10-15-19 25 levothyroxine (SYNTHROID) 25 mcg tablet TAKE 1/2 TAB DAILY on empty stomach in the morning with water. Wait 30 minutes to eat. NO vitamins/minerals/sup plements for 4 hours after. 30 tablet 5 10/14/2024 Active metFORMIN hydrochloride 500 mg oral tablet (13 sources) Biguanide Start: 09-17-19 25 take 1 tablet by mouth every twelve hours metFORMIN (GLUCOPHAGE) 500 mg tablet Take 1 tablet by mouth every 12 hours. 09/17/2024 Active Multiple Vitamins-Minerals (MULTIVITAMIN ADULT PO) (8 sources) take 1 tablet by mouth once daily Multiple Vitamins-Minerals (MULTIVITAMIN ADULT PO) take 1 tablet by mouth daily. 0 Active take 1 tablet by mouth once alejandra y Multiple Vitamins-Minerals (MULTIVITAMIN ADULT PO) take 1 tablet by mouth daily. Active ondansetron 4 mg oral tablet (17 sources) Serotonin-3 Receptor Antagonist Start: 09-17-2024 take 1 tablet by mouth every eight hours as needed ondansetron (ZOFRAN) 4 mg tablet Take 4 mg by mouth three times a day as needed. 09/17/2024 Active Start: 08-15-2023 take 1 tablet by nathan th every eight hours as needed for nausea and vomiting Ondansetron Hcl 8 mg tablet Active 8 mg PO Q8H as needed for nausea and vomiting September 25, 2023 1:00am ONETOUCH VERIO FLEX METER (13 sources) Start: 09-17-2024 ONETOUCH VERIO FLEX METER 1 (ONE) KIT DAILY 09/17/2024 Active vit no.124/iron/fol ic ( VITAMIN ORAL) (5 sources) End: 09-15-2024 vit no.124/iron/fol ic ( VITAMIN ORAL) Take by mouth. 09/15/2024 Discontinued (Other) vit no. 124/iron/folic ( VITAMIN ORAL) Take by mouth. Active vit no. 124/iron/folic ( VITAMIN ORAL) Take by mouth. 0 Active Comment on above: Take by mouth. tirzepatide (MOUNJARO) 2.5 mg/0.5 mL pen injector (5 sources) Start: 2024 inject 2.5 mg by subcutaneous injection every week tirzepatide (MOUNJARO) 2.5 mg/0.5 mL pen injector Indications: Diabetes mellitus treated with injections of non-insulin medication (HCC) Inject 2.5 mg subcutaneously one time a week. 4 Each 5 10/13/2024 Active tirzepatide (MOUNJARO) 5 mg/0.5 mL pen injector (7 sources) Start: 2024 inject 5 mg by subcutaneous injection every week tirzepatide (MOUNJARO) 5 mg/0.5 mL pen injector Inject 5 mg subcutaneously one time a week. 4 each 5 12/02/2024 Active triamcinolone acetonide 1 mg/ml topical cream (2 sources) Corticosteroid Start: 2021 End: 2021 triamcinolone acetonide (KENALOG) 0.1 % cream Indications: Skin eruption Apply 1 application to affected area twice daily. Apply to affected area. Location: bilateral hands 45 g 1 06/25/2022 07/25/2022 Active Comment on above: Apply 1 application to affected area twice daily. Apply to affected area. Location: bilateral hands Completed/Discontinued Medications Medication Drug Class(es) Dates Sig (Normalized) Sig (Original) Norgestimate-Ethin yl Estradiol (17 sources) Progestin, Estrogen Start: 04-26-2020 End: 09-25-2023 Norgestimate-Ethinyl Estradiol 1 EACH tablet Discontinued 1 NMA PO DAILY April 26, 2020 12:00am September 25, 2023 9:08am Start: 04-26-2020 Norgestimate-E thinyl Estradiol Active 1 EACH PO DAILY April 26, 2020 12:00am Start: 04-26-2020 Norgestimate-E thinyl Estradiol Active 1 EACH PO DAILY April 25, 2020 11:00pm End: 07-15-2023 take 1 tablet by mouth once daily norgestimate 0.25 mg-ethinyl estradiol 35 mcg (SPRINTEC, ORTHO-CYCLEN) 0.25-35 mg-mcg per tablet Take 1 tablet by mouth once daily. 07/15/2023 Discontinued End: 07-15-2023 take 1 tablet by mouth once daily norgestimate 0.25 mg-ethinyl estradiol 35 mcg (SPRINTEC, ORTHO-CYCLEN) 0.25-35 mg-mcg per tablet Take 1 tablet by mouth once daily. 0 07/15/2023 Discontinued take 1 tablet by nathan th once daily norgestimate 0.25 mg-ethinyl estradiol 35 mcg (SPRINTEC, ORTHO-CYCLEN) 0.25-35 mg-mcg per tablet Take 1 tablet by mouth once daily. 0 Active Comment on above: Take 1 tablet by nathan th once daily. predniSONE 10 mg oral tablet (9 sources) Start: End: 2 Prednisone 10 mg tablet Discontinued 10 mg PO daily 09 08May 20, 2022 12:00am May 31, 2022 12:00am June 01, 2022 12:09am Take 4 tabs once daily days 1-3 3 tabs once daily days 4-6 2 tabs once daily days 7-9 and 1 tab once daily days 10-12. pseudoePHEDrine hydrochloride 120 mg oral tablet (1 source) alpha-Adrenergic Agonist End: take 120 mg by mouth twice daily Pseudoephedrine HCl (SUDAFED PO) take 120 mg by mouth 2 times daily. 08/19/2018 Discontinued Problems Active Problems Problem Classification Problem Date Documented Date Episodic/Chronic Abdominal pain (5 sources) Pain in pelvis; Translations: [Pelvic and perineal pain] 07-01-2023 Episodic Acute bronchitis (8 sources) Acute bronchitis; Translations: [Acute bronchitis, unspecified] 10-17-2022 Episodic Allergic reactions (8 sources) Atopic dermatitis; Translations: [Atopic eczema] 05-07-2017 Chronic Allergic reactions (9 sources) Inflammatory dermatosis; Translations: [Irritant contact dermatitis, unspecified cause] 05-20-2022 Episodic Diabetes mellitus without complication (7 sources) Diabetic on non-insulin injectable medication; Translations: [Type 2 diabetes mellitus without complication] Onset: 10-13-2024 10-13-2024 Chronic Essential hypertension (5 sources) Hypertensive disorder; Translations: [Essential (primary) hypertension] Chronic Immunizations and screening for infectious disease (6 sources) Patient encounter status; Translations: [Encounter for immunization] Onset: 12-20-2024 Episodic Menstrual disorders (11 sources) Dysmenorrhea; Translations: [Irregular periods] Onset: 12-24-2024 Resolved: 08-19-2018 08-19-2018 Chronic Noninfectious gastroenteritis (2 sources) Gastroenteritis; Translations: [Noninfective gastroenteritis and colitis, unspecified] 08-15-2023 Episodic Nutritional deficiencies (2 sources) Vitamin D deficiency; Translations: [Vitamin D deficiency, unspecified] Onset: 12-14-2024 09-16-2024 Chronic Other complications of (1 source) Supervision of high risk , unspecified, unspecified trimester; Translations: [Supervision of high risk , antepartum (HCC)] Onset: 05-18-2025 Episodic Other connective tissue disease (9 sources) Pain in left lower limb; Translations: [Pain in left leg] 04-27-2020 Episodic Other endocrine disorders (1 source) Polycystic ovary; Translations: [Polycystic ovarian syndrome] 12-26-2024 Chronic Other endocrine disorders (1 source) Polycystic ovarian syndrome; Translations: [PCOS (polycystic ovarian syndrome)] Onset: 05-18-2025 Chronic Other female genital disorders (1 source) Lesion of cervix; Translations: [Noninflammatory disorder of cervix uteri, unspecified] 07-15-2023 Episodic Other female genital disorders (1 source) Disorder of uterine cervix; Translations: [Other specified noninflammatory disorders of cervix uteri] 07-15-2023 Episodic Other female genital disorders (1 source) Labial cyst; Translations: [Vulvar cyst] 02-14-2025 Episodic Other nutritional; endocrine; and metabolic disorders (6 sources) Obesity, unspecified; Translations: [Obesity (BMI 30.0-34.9)] Onset: 08-19-2018 08-19-2018 Chronic Other nutritional; endocrine; and metabolic disorders (9 sources) Body mass index 30+ - obesity; Translations: [BMI 34.0-34.9,adult] Onset: 08-19-2018 08-19-2018 Chronic Other nutritional; endocrine; and metabolic disorders (20 sources) Obese class II; Translations: [Obesity, unspecified] Onset: 11-14-2020 Chronic Other nutritional; endocrine; and metabolic disorders (2 sources) Obese class I; Translations: [Obesity (BMI 30.0-34.9)] Onset: 08-19-2018 08-19-2018 Other and delivery including normal (1 source) Encounter for supervision of normal , unspecified, first trimester; Translations: [ with uncertain dates in first trimester (HCC)] Onset: 05-18-2025 Episodic Other skin disorders (1 source) Eruption; Translations: [Rash and other nonspecific skin eruption] Episodic Other skin disorders (1 source) Symptom of skin and integumentary tissue; Translations: [Other skin changes] Onset: 09-18-2022 Episodic Other upper respiratory disease (8 sources) Allergic rhinitis; Translations: [Allergic rhinitis] 05-07-2017 Chronic Other upper respiratory infections (11 sources) Ethmoidal sinusitis; Translations: [Chronic ethmoidal sinusitis] 01-12-2023 Chronic Other upper respiratory infections (1 source) Acute maxillary sinusitis; Translations: [Acute maxillary sinusitis, unspecified] 05-31-2024 Episodic Residual codes; unclassified (1 source) 10 weeks gestation of ; Translations: [10 weeks gestation of (HCC)] Onset: 05-18-2025 Episodic Thyroid disorders (2 sources) 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; Translations: [Autoimmune thyroiditis] Onset: 05-18-2025 10-14-2024 Chronic Unclassified (1 source) Patient encounter status; Translations: [Encounter for routine history and physical examination of adult] Unclassified (9 sources) Abrasion, right great toe, initial encounter 04-15-2022 Unclassified (1 source) Vaginal Problem Onset: 02-14-2025 Past or Other Problems Problem Classification Problem Date Documented Da te Episodic/Chronic Acute and chronic tonsillitis (8 sources) Amygdalolith; Translations: [Calculus of tonsil] Resolved: 08-19-2018 08-19-2018 Chronic Diabetes mellitus without complication (3 sources) Hyperglycemia; Translations: [Impaired fasting glucose] Onset: 10-13-2024 09-15-2024 Episodic Nonmalignant breast conditions (4 sources) Pain of breast; Translations: [Mastodynia] Onset: 11-10-2024 09-15-2024 Episodic Other lower respiratory disease (10 sources) Lung mass; Translations: [Nodule of right lung] Onset: 08-19-2018 08-19-2018 Episodic Other screening for suspected conditions (not mental disorders or infectious disease) (2 sources) Raised TSH level; Translations: [Other specified abnormal findings of blood chemistry] Onset: 10-13-2024 10-13-2024 Episodic Sprains and strains (6 sources) Sprain of ligaments of cervical spine, initial encounter; Translations: [Sprain of ligaments of cervical spine] Resolved: 08-19-2018 08-19-2018 Episodic Unclassified (2 sources) Cervical spine sprain; Translations: [Sprain of ligaments of cervical spine] Resolved: 08-19-2018 08-19-2018 Results Test Name Value Interpretation Reference Range Facility Bacteria Ur Culton Bacteria identified Cx Nom (U) ORGANISM ID: 1 <10,000 CFU/ml Normal urogenital suellen Normal [facility] Comment on above: Performed By: #### 6 30-4 ####[facility] [id number] [place] [address] [place] C. trachomatis+N. gonorrhoea e DNA JONATAN+probe Ql (Unsp spec)on 05-18-2025 C. trachomatis rRNA JONATAN+probe Ql (Unsp spec) Not detected Normal Not detected [facility] Comment on above: Order Comment: Speci men Type: SWABOrdering Facility: [facility] Address: [address] [place] [address] Performed By: #### 3 6902-5, TIMOTHY ####[facility] [id number] [place] [address] [place] N. gonorrhoeae rRNA JONATAN+probe Ql (Unsp spec) Not detected Normal Not detected [facility] Comment on above: Order Comment: Speci men Type: SWABOrdering Facility: [facility] Address: [address] [place] [address] Performed By: #### 3 6902-5, TRVAHEVER ####[facility] [id number] [place] [address] [place] TRICHOMONAS VAGINALIS NAATon 05-18-2025 T. vaginalis DNA JONATAN+probe Ql (Unsp spec) Not detected Normal Not detected [facility] Comment on above: Order Comment: Speci men Type: SWABOrdering Facility: [facility] Address: [address] [place] [address] Performed By: #### 3 6902-5, TIOMTHY ####[facility] [id number] [place] [address] [place] CNPNon 05-10-2025 CNPN Telephone (OBGYWM) ALICIA MULLINS ([id number]) 2000 F Date Time Provider Department 05/10/25 TANYA GLASS During your visit today, we recorded the following information about you: Magaly Epps RN 05/10/2025 8:35 AM Signed LMP 02/23/25 approximately 10w6d per LMP, but patient states she had an US elsewhere last week and was measuring 8 weeks. She has a NOB on 05/18. States she was working in her flower garden yesterday and now has hives up and down her one arm. Asking if she can take Benadryl. Is this okay or do you prefer she use a topical cream. She has hx of eczema. Having flares up recently, but hasn't used her Betamethasone cream since . Please advise. Thank you. BRADLEY James Karmon, MD 05/10/2025 11:29 AM Signed Benadryl is safe to use. MD Emerita Clark Trisha, RN 05/10/2025 11:33 AM Signed Left message for patient to call office. BRADLEY Villaseñor Tara, RN 05/10/2025 11:53 AM Signed Pt called back AND notified. Pt states her hives have disappeared at the moment, but good to know. Juan Paredes RN Allergies As of Date: 05/10/2025 Noted Allergy Reaction BACTRIM (SULFAMETHOXAZOLE-TRIMETH* 2 - Rash Date Reviewed: 02/14/2025 Reviewed by: Marina Hernández MA - Fully Assessed Reason for Visit: Early OB Hives [Other] Prescriptions as of 05/10/2025 - tirzepatide (MOUNJARO) 5 mg/0.5 mL pen injector Inject 5 mg subcutaneously one time a week. - levothyroxine (SYNTHROID) 25 mcg tablet TAKE 1/2 TAB DAILY on empty stomach in the morning with water. Wait 30 minutes to eat. NO vitamins/minerals/supplements for 4 hours after. - ONETOUCH VERIO TEST STRIPS test strip 1 (ONE) STRIP DAILY - ONETOUCH VERIO FLEX METER 1 (ONE) KIT DAILY - ONETOUCH DELICA PLUS LANCET 33 gauge once daily. - metFORMIN (GLUCOPHAGE) 500 mg tablet Take 1 tablet by mouth every 12 hours. - ondansetron (ZOFRAN) 4 mg tablet Take 4 mg by mouth three times a day as needed. - ergocalciferol 50,000 unit capsule (VITAMIN D2, DRISDOL) Take 50,000 Units by mouth one time a week. - cholecalciferol, Vitamin D3, (VITAMIN D3) 1,250 mcg (50,000 unit) cap capsule Take 1 capsule by mouth one time a week. for 3 months Problem List As Of Date 05/10/2025 Noted Resolved Obesity, Class II, BMI 35-39.9 [E66.812] 11/14/2020 Encounter Status:Closed by JUAN PAREDES on 05/10/25 [facility] ([id number]) 2000 F Date Time Provider Department 04/20/25 MARYANN CHAMPION OBSHARI During your visit today, we recorded the following information about you: Magaly Epps, BRADLEY 04/20/2025 12:49 PM Signed LMP 03/07 approximately 6w2d Patient called in with concern about giving herself Listeria. She ate some chicken in the fridge last night that she is unsure how long it had been there. Said that it smelled and tasted okay. She's had x2 episodes of diarrhea today, mostly watery with some formed stool. Denies vomiting. Encouraged patient to hydrate by pushing fluids and eating a bland diet and to continue to monitor her symptoms. Please advise. BRADLEY James Courtney, APRN.CNM 04/20/2025 3:03 PM Signed Agree with plan of care. Keep well hydrated so that she does not get dehydrated. Maryann Champion APRN.Negar Vickers RN 04/20/2025 3:17 PM Signed Patient notified. Negar Miguel RN Allergies As of Date: 04/20/2025 Noted Allergy Reaction BACTRIM (SULFAMETHOXAZOLE-TRIMETH* 2 - Rash Date Reviewed: 02/14/2025 Reviewed by: Marina Hernández MA - Fully Assessed Reason for Visit: Early OB Diarrhea [Other] Prescriptions as of 04/20/2025 - tirzepatide (MOUNJARO) 5 mg/0.5 mL pen injector Inject 5 mg subcutaneously one time a week. - levothyroxine (SYNTHROID) 25 mcg tablet TAKE 1/2 TAB DAILY on empty stomach in the morning with water. Wait 30 minutes to eat. NO vitamins/minerals/supplements for 4 hours after. - ONETOUCH VERIO TEST STRIPS test strip 1 (ONE) STRIP DAILY - ONETOUCH VERIO FLEX METER 1 (ONE) KIT DAILY - ONETOUCH DELICA PLUS LANCET 33 gauge once daily. - metFORMIN (GLUCOPHAGE) 500 mg tablet Take 1 tablet by mouth every 12 hours. - ondansetron (ZOFRAN) 4 mg tablet Take 4 mg by mouth three times a day as needed. - ergocalciferol 50,000 unit capsule (VITAMIN D2, DRISDOL) Take 50,000 Units by mouth one time a week. - cholecalciferol, Vitamin D3, (VITAMIN D3) 1,250 mcg (50,000 unit) cap capsule Take 1 capsule by mouth one time a week. for 3 months Problem List As Of Date 04/20/2025 Noted Resolved Obesity, Class II, BMI 35-39.9 [E66.812] 11/14/2020 Encounter Status:Closed by MARYANN CHAMPION on 04/20/25 [facility] 04-19-2025 CNPN Telephone (OBGYWM) ALICIA MULLINS ([id number]) 2000 F Date Time Provider Department 04/19/25 PAYAM FGIUEROA OBGYWM During your visit today, we recorded the following information about you: Juan Paredes RN 04/19/2025 8:18 AM Signed LMP 03/07/25 + test today, ega 6w1d Newly dx type 2 DM, saw in 08/2024 because had difficulty getting . Pt currently does not have health insurance. just started job last week and will have insurance in 23 days. PFA # given to Pt. Advised Pt that she can see care center prior to NOB here, or if desires to be self pay, may schedule visit to be seen here. Pt desires to see care center initially AND NOB scheduled for 05/19/25 AND appt added to wait list. Advised Pt to continue following diabetic provider for type 2 DM control AND if any abdominal pain/vaginal bleeding to contact the office. Pt voiced understanding. Juan Paredes RN Allergies As of Date: 04/19/2025 Noted Allergy Reaction BACTRIM (SULFAMETHOXAZOLE-TRIMETH* 2 - Rash Date Reviewed: 02/14/2025 Reviewed by: Marina Hernández MA - Fully Assessed Reason for Visit: new OB [Other] Prescriptions as of 04/19/2025 - tirzepatide (MOUNJARO) 5 mg/0.5 mL pen injector Inject 5 mg subcutaneously one time a week. - levothyroxine (SYNTHROID) 25 mcg tablet TAKE 1/2 TAB DAILY on empty stomach in the morning with water. Wait 30 minutes to eat. NO vitamins/minerals/supplements for 4 hours after. - ONETOUCH VERIO TEST STRIPS test strip 1 (ONE) STRIP DAILY - ONETOUCH VERIO FLEX METER 1 (ONE) KIT DAILY - ONETOUCH DELICA PLUS LANCET 33 gauge once daily. - metFORMIN (GLUCOPHAGE) 500 mg tablet Take 1 tablet by mouth every 12 hours. - ondansetron (ZOFRAN) 4 mg tablet Take 4 mg by mouth three times a day as needed. - ergocalciferol 50,000 unit capsule (VITAMIN D2, DRISDOL) Take 50,000 Units by mouth one time a week. - cholecalciferol, Vitamin D3, (VITAMIN D3) 1,250 mcg (50,000 unit) cap capsule Take 1 capsule by mouth one time a week. for 3 months Problem List As Of Date 04/19/2025 Noted Resolved Obesity, Class II, BMI 35-39.9 [E66.812] 11/14/2020 Encounter Status:Closed by JUAN PAREDES on 04/19/25 [facility] CNOVon 02-14-2025 CNOV Office Visit (OBGYWM ) ALICIA MULLINS ([id number]) 2000 F Date Time Provider Department 02/14/25 10:10 AM MAGALY TOVAR OBSHARI During your visit today, we recorded the following information about you: Blood pressure Weight 104/60 82.9 kg Magaly Tovar MD 02/14/2025 3:54 PM Signed Supervisor Fishing offered: Patient declines. Alicia Mullins is a 25 year old female who presents for problem visit . HPI: Labia cyst. Started on . Started on keflex by PCP. Started draining a few days ago. Still hurts. 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 History Comments: Sexual Activity: Yes; Male Contraception: No contraception data on record PAST MEDICAL HISTORY Diagnosis Date Elevated fasting glucose Essential hypertension NEGATIVE MEDICAL HISTORY PCOS (polycystic ovarian syndrome) PAST SURGICAL HISTORY Procedure Laterality Date EXTRACTION ERUPTED TOOTH/EXR 2022 FAMILY HISTORY Problem Relation Age of Onset Hypertension Mother Hypertension Father other (frateranl twin [other]) Sister Heart Sister open heart surg at 16yrs old Hypothyroidism Sister other (type 2 diabetes) Maternal Grandmother Colon Cancer Maternal Grandfather other (type 2 diabetes) Paternal Grandmother Social History Tobacco Use Smoking status: Never Smokeless tobacco: Never Vaping Use Vaping status: Never Used Substance Use Topics Alcohol use: Not Currently Drug use: Not Currently Current Outpatient Medications Medication Sig tirzepatide (MOUNJARO) 5 mg/0.5 mL pen injector Inject 5 mg subcutaneously one time a week. levothyroxine (SYNTHROID) 25 mcg tablet TAKE 1/2 TAB DAILY on empty stomach in the morning with water. Wait 30 minutes to eat. NO vitamins/minerals/supplements for 4 hours after. ONETOUCH VERIO TEST STRIPS test strip 1 (ONE) STRIP DAILY ONETOUCH VERIO FLEX METER 1 (ONE) KIT DAILY ONETOUCH DELICA PLUS LANCET 33 gauge once daily. metFORMIN (GLUCOPHAGE) 500 mg tablet Take 1 tablet by mouth every 12 hours. ondansetron (ZOFRAN) 4 mg tablet Take 4 mg by mouth three times a day as needed. ergocalciferol 50,000 unit capsule (VITAMIN D2, DRISDOL) Take 50,000 Units by mouth one time a week. cholecalciferol, Vitamin D3, (VITAMIN D3) 1,250 mcg (50,000 unit) cap capsule Take 1 capsule by mouth one time a week. for 3 months (Patient not taking: Reported on 10/13/2024) No current facility-administered medications for this visit. Allergies As of Date: 02/14/2025 Allergen Noted Reaction BACTRIM [SULFAMETHOXAZOLE-TRIMETH* Rash Fully Assessed 02/14/2025 REVIEW OF SYSTEMS Abdomen: No bloating, early satiety, indigestion, or increased flatulence. No abdominal pain, nausea, vomiting, diarrhea, or constipation. Bladder: No dysuria, gross hematuria, urinary frequency, urinary urgency, or incontinence. Breast: No breast lumps, nipple d/c, overlying skin changes, redness or skin retraction. Expanded ROS: N/A Allergies and current medication updated:Yes SENSITIVE EXAM: The sensitive examination was discussed with the Patient or Patient's Authorized Battery Inspector. As applicable, any other physician, advance practice provider, medical student, or other health professional student that will be observing or involved in the sensitive examination for educational or training purposes was discussed with the Patient or Authorized Battery Inspector. The Patient or Authorized Battery Inspector has agreed to proceed with the sensitive examination. (Sensitive examination includes inspection and/or palpation of the breasts, pelvis, prostate and anorectal regions). EXAM: BP 104/60 Wt 182 lb 12.8 oz (82.9kg) LMP 09/09/2024 GENERAL: pleasant, female in no apparent distress HEENT: Normocephalic, atraumatic, mucus membranes moist, and no lesions NECK: Supple, full range of motion, and no adenopathy DERMATOLOGY: Normal, without lesions, non-icteric, and non-hirsute BREAST: deferred CHEST: Normal inspiratory effort ABDOMEN: Deferred PELVIC: external genitalia normal, normal Bartholin's glands, urethra, [place]'s glands, no vulvar lesions, no cervical lesions, good vaginal support, physiologic discharge present, normal appearing perineal body and perianal region, Small cyst draining on inner left labia. Expressed for a small amount of purulent fluid BIMANUAL: deferred NEURO: alert and oriented x3,exam grossly non-focal EXTREMITIES: normal ASSESSMENT AND PLAN: Assessment AND Plan Labial cyst Continue kelfex. Sitz bath ok Magaly Tovar MD Allergies As of Date: 02/14/2025 Noted Allergy Reaction BACTRIM (SULFAMETHOXAZOLE-TRIMETH* 2 - Rash Date Reviewed: 02/14/2025 Reviewed by: Ludy Hernández (more content not included)... Normal [facility]ison 12-26-2024 Indication irregular menstrual cycle Impression The uterus is anteverted and measures 79 mm x 32 mm x 43 mm. The endometrial thickness is 5.1 mm. Morphology of ovaries bilaterally is polycystic. The right ovary measures 39 mm x 20 mm x 25 mm. The left ovary measures 41 mm x 24 mm x 22 mm. There is trace free fluid visualized. Recommendations polycystic morphology of ovaries. Clinical correlation. Menstrual History LMP on 11/18/2024. Cycle: irregular cycle Method Transabdominal, transvaginal, 3D ultrasound examination, Color Doppler examination. View: Adequate visualization Uterus Uterus: Visualized Uterus position: anteverted Description of uterine malformations: none Myometrium: normal Endometrium: normal Cervix details: normal Uterus length 79 mm Uterus width 43 mm Uterus height 32 mm Uterus Vol 57.8 cm Endometrial thickness, total 5.1 mm Fibroids: No fibroids identified Polyps: No polyps identified Right Ovary Rt ovary: Visualized Rt ovary morphology: premenopausal polycystic Rt ovary D1 39 mm Rt ovary D2 20 mm Rt ovary D3 25 mm Rt ovary Vol 10.2 cm Left Ovary Lt ovary: Visualized Lt ovary morphology: premenopausal polycystic Lt ovary D1 41 mm Lt ovary D2 24 mm Lt ovary D3 22 mm Lt ovary Vol 10.9 cm Cul de Sac Visualized. free fluid visualized: trace Performed By: Krystal Puente RDMS Read By: Sari Roque M.D. MATERNAL MEDICINE [facility] US [place] 12-24-2024 Radiology Study observation (narrative) [facility] Thyroid Stim Immunoglobon THY STIM IMMUNO <0.10 Normal 0.00-0.55 [facility] Comment on above: Order Comment: Order Date: 10/14/24 Order Info: [id number] - TSIMM Result Comment: Perf ormed at: [facility] [id number] Booster Pump Operator: Nikki Fernández MD, Phone: [phone] Performed By: #### L [id number], R457.7985, L6058.7010 #### [facility] [address] [place], [address] [facility] ALICIA MULLINS ([id number]) 2000 F Date Time Provider Department 12/17/24 NINA PHILLIPS During your visit today, we recorded the following information about you: Chon Guerrier 12/17/2024 10:31 AM Signed Initiated PA for tirzepatide (MOUNJARO) 5 mg/0.5 mL pen injector through [employer] via [employer] Questions Completed Waiting for determination NICOLE MEJIA Shop Service Technician II Endocrinology AND Metabolism [place] [facility] Chon Guerrier 12/17/2024 11:25 AM Signed Received the following message: Called plan and spoke to Arielle, who states a prior authorization is needed. Answered clinical questions verbally. Faxed clinical notes and lab results to [facility] Prior Authorizations [phone] Transmitted successfully. Was advised we could receive a determination in 5 calendar days. NICOLE MEJIA Shop Service Technician II Endocrinology AND Metabolism [place] [facility] X-20 Karen De La Cruz 12/22/2024 12:44 PM Signed tirzepatide (MOUNJARO) 5 mg/0.5 mL pen injector has been approved Notified patient through bryanna Low Prior Data Input Clerk Endocrinology and Metabolism [place] Allergies As of Date: 12/17/2024 Noted Allergy Reaction BACTRIM (SULFAMETHOXAZOLE-TRIMETH* 2 - Rash Date Reviewed: 10/13/2024 Reviewed by: Magaly Quinonez MA - Fully Assessed Reason for Visit: Insurance Authorization [[id number]] Cmt: tirzepatide (MOUNJARO) 5 mg/0.5 mL pen injector [[employer]] Prescriptions as of 12/22/2024 - tirzepatide (MOUNJARO) 5 mg/0.5 mL pen injector Inject 5 mg subcutaneously one time a week. - levothyroxine (SYNTHROID) 25 mcg tablet TAKE 1/2 TAB DAILY on empty stomach in the morning with water. Wait 30 minutes to eat. NO vitamins/minerals/supplements for 4 hours after. - ONETOUCH VERIO TEST STRIPS test strip 1 (ONE) STRIP DAILY - ONETOUCH VERIO FLEX METER 1 (ONE) KIT DAILY - ONETOUCH DELICA PLUS LANCET 33 gauge once daily. - metFORMIN (GLUCOPHAGE) 500 mg tablet Take 1 tablet by mouth every 12 hours. - ondansetron (ZOFRAN) 4 mg tablet Take 4 mg by mouth three times a day as needed. - ergocalciferol 50,000 unit capsule (VITAMIN D2, DRISDOL) Take 50,000 Units by mouth one time a week. - cholecalciferol, Vitamin D3, (VITAMIN D3) 1,250 mcg (50,000 unit) cap capsule Take 1 capsule by mouth one time a week. for 3 months Problem List As Of Date 12/17/2024 Noted Resolved Obesity, Class II, BMI 35-39.9 [E66.812] 11/14/2020 Encounter Status:Closed by CHON GUERRIER on 12/17/24 Normal [facility] Hemoglobin A1con 12-16-2024 HbA1c (Bld) [Mass fraction] 5.5 % Normal <=5.6 [facility] Comment on above: Order Comment: Order Date: 10/14/24 Order Info: [id number] - A1C Result Comment: Norm al < 5.7 % Prediabetic 5.7 - 6.4 % Diabetic >or= 6.5 % Please note range changes. Performed By: #### L 501.9985, L501.9520, L3400.4700 #### [facility] [address] [place] [address]. [place], [place], [id number] Hemoglobin A1c percentageOrd ered By: James Cheng on 12-16-2024 HbA1c (Bld) [Mass fraction] 5.5 % <5.7 [facility] Comment on above: Normal < 5.7 % Predi abetic 5.7 - 6.4 % Diabetic >or= 6.5 % Please note range changes. TSH DL <= 0.005 mIU/L QnOrde red By: James Cheng on 12-16-2024 TSH Qn 4.010 uIU/mL 0.300-4.20 0 [facility] Thyroid Stim Hormone (TSH)on 12-16-2024 TSH 4.010 uIU/mL Normal 0.300-4.20 0 [facility] Comment on above: Order Comment: Order Date: 10/14/24 Order Info: [id number] - TSH Performed By: #### L 501.9985, L501.9520, L3400.4700 #### [facility] [address] [place], [address] Thyroid stimulating immunogl obulins detectionOrdered By: James Cheng on 12-16-2024 Thyroid stimulating immunoglobulins Ql (S) <0.10 IU/L 0.00-0.55 [facility] Comment on above: Performed at: [address] [id number] Director: Nikki Fernández MD, Phone: [phone] 25(OH)D3 [facility] 2024 25-hydroxyvitamin D3 [Mass/Vol] 45.0 ng/mL Normal 31.0-80.0 [facility] Comment on above: Order Comment: Speci men Type: BLOOD SPECIMENOrdering Facility: [facility] Address: [address] [place] [address] Performed By: #### 1 989-3 ####[facility] [id number] [place] [address] [place] DBT Breast - left diagnostic for implanton 11-10-2024 IMPRESSION: There is no mammographic evidence of malignancy in the left breast. Return to annual screening mammogram is recommended. Annual mammogram will be due at age 40. BI-RADS Category 1: Negative RISK: Based on the Tyrer-Cuzick (TC) risk assessment model, this patient has a 11.4% lifetime risk of developing breast cancer, meaning they are at average risk for developing breast cancer. However, this is only an estimate based on available history provided on the patient's questionnaire. We encourage all patients to talk with their providers about these results, further recommendations for managing breast health, and appropriate supplemental screening options if the patient has dense breast tissue. Interpreting Radiologist: Dacia Oates M.D. Electronically signed on: 11/10/2024 Process Development Chemist: FLORENCE Transcribe Date/Time: Nov 10 2024 11:13A Dictated by: DACIA OATES MD This examination was interpreted and the report reviewed and electronically signed by: DACIA OATES MD on Nov 10 2024 11:26AM [facility] DIVISION OF RADIOLOGY * * *Final Report* * * DATE OF EXAM: Nov 10 2024 11:21AM [facility] 0628 - KIMBER[facility] DIAG W ODELL LT / PROCEDURE REASON: Breast pain * * * * Physician Interpretation * * * * RESULT: [facility] [address] [place] [address] #[id number] - KIMBERLY DIAG W ODELL LT HISTORY: 24 year-old patient seen for diagnostic evaluation of diffuse pain in the left breast. Patient states no personal history of breast cancer. The patient has a family history of ovarian cancer. COMPARISON STUDIES: The present examination has been compared to a prior imaging study dated 11/10/2024 (ultrasound). MAMMOGRAM TECHNIQUE: The study was acquired using full field digital technology and interpreted from soft copy. Digital Breast Tomosynthesis (DBT) images were obtained and used to assist in the interpretation of this examination. MAMMOGRAM FINDINGS: There are scattered areas of fibroglandular density. No suspicious masses, calcifications or other abnormalities are seen in the left breast. There are no significant interval changes. DIVISION OF RADIOLOGY Provider, [facility] - 11/10/2024 * * *Final Report* * * DATE OF EXAM: Nov 10 2024 11:21AM [facility] 0628 - KIMBERLY DIAG W ODELL LT / PROCEDURE REASON: Breast pain * * * * Physician Interpretation * * * * RESULT: [facility] [address] [id number] #[id number] - [facility] DIAG W ODELL LT HISTORY: 24 year-old patient seen for diagnostic evaluation of diffuse pain in the left breast. Patient states no personal history of breast cancer. The patient has a family history of ovarian cancer. COMPARISON STUDIES: The present examination has been compared to a prior imaging study dated 11/10/2024 (ultrasound). MAMMOGRAM TECHNIQUE: The study was acquired using full field digital technology and interpreted from soft copy. Digital Breast Tomosynthesis (DBT) images were obtained and used to assist in the interpretation of this examination. MAMMOGRAM FINDINGS: There are scattered areas of fibroglandular density. No suspicious masses, calcifications or other abnormalities are seen in the left breast. There are no significant interval changes. IMPRESSION IMPRESSION: There is no mammographic evidence of malignancy in the left breast. Return to annual screening mammogram is recommended. Annual mammogram will be due at age 38. BI-RADS Category 1: Negative RISK: Based on the Tyrer-Cuzick (TC) risk assessment model, this patient has a 11.4% lifetime risk of developing breast cancer, meaning they are at average risk for developing breast cancer. However, this is only an estimate based on available history provided on the patient's questionnaire. We encourage all patients to talk with their providers about these results, further recommendations for managing breast health, and appropriate supplemental screening options if the patient has dense breast tissue. Interpreting Radiologist: Dacia Oates M.D. Electronically signed on: 11/10/2024 Process Development Chemist: FLORENCE Transcribe Date/Time: Nov 10 2024 11:13A Dictated by: DACIA OATES MD This examination was interpreted and the report reviewed and electronically signed by: DACIA OATES MD on Nov 10 2024 11:26AM EST [facility] Radiology Study observation (narrative) [facility] DBT Breast - left diagnostic for implantOrdered By: Ccf Provider on 11-10-[address] [facility] KIMBERLY DIAG W ODELL LTon 025 KIMBERLY DIAG W ODELL LT * * *Final Report* * * DATE OF EXAM: Nov 10 2024 11:21AM [facility] 0628 - [place]IMBER[place] DIAG W ODELL LT / PROCEDURE REASON: Breast pain * * * * Physician Interpretation * * * * RESULT: [place] [address] [place] [id number] #[id number] - KIMBERLY DIAG W ODELL LT HISTORY: 24 year-old patient seen for diagnostic evaluation of diffuse pain in the left breast. Patient states no personal history of breast cancer. The patient has a family history of ovarian cancer. COMPARISON STUDIES: The present examination has been compared to a prior imaging study dated 11/10/2024 (ultrasound). MAMMOGRAM TECHNIQUE: The study was acquired using full field digital technology and interpreted from soft copy. Digital Breast Tomosynthesis (DBT) images were obtained and used to assist in the interpretation of this examination. MAMMOGRAM FINDINGS: There are scattered areas of fibroglandular density. No suspicious masses, calcifications or other abnormalities are seen in the left breast. There are no significant interval changes. IMPRESSION: There is no mammographic evidence of malignancy in the left breast. Return to annual screening mammogram is recommended. Annual mammogram will be due at age 38. BI-RADS Category 1: Negative RISK: Based on the Tyrer-Cuzick (TC) risk assessment model, this patient has a 11.4% lifetime risk of developing breast cancer, meaning they are at average risk for developing breast cancer. However, this is only an estimate based on available history provided on the patient's questionnaire. We encourage all patients to talk with their providers about these results, further recommendations for managing breast health, and appropriate supplemental screening options if the patient has dense breast tissue. Interpreting Radiologist: Dacia Oates M.D. Electronically signed on: 11/10/2024 Process Development Chemist: FLORENCE Transcribe Date/Time: Nov 10 2024 11:13A Dictated by: DACIA OATES MD This examination was interpreted and the report reviewed and electronically signed by: DACIA OATES MD on Nov 10 2024 11:26AM EST [id number] Normal [facility] CNOVon 10-13-2024 CNOV Office Visit (ENWSTR ) ALICIA MULLINS ([id number]) 2000 F Date Time Provider Department 10/13/24 7:15 AM NINA PHILLIPSTR During your visit today, we recorded the following information about you: Temperature Pulse Weight 99.3 degrees 98/minute 97.7 kg Nina Phillips, PRACHI.ASSISTANT MECHANIC 10/13/2024 7:39 AM Signed NEW CONSULT OFFICE PROGRESS NOTE Reason for Consultation: DM Type 2 Referring Physician: SELF My final recommendations will be communicated back to the requesting physician by way of shared Medical record or letter via [place] mail. HISTORY OF PRESENT ILLNESS; Alicia Mullins is a 24 year old FEMALE is presenting as a new patient to me regarding DM Type 2. She was initially diagnosed with diabetes in new onset 2024. 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 Paternal and maternal The patient has no known microvascular complications of diabetes. Alicia has no know macrovascular complications of diabetes.. DM Education No Knows how to carb count No DIETARY HISTORY: Breakfast: skips or had coffee, - in the past month high protein, following diabetic plate idea Lunch previously sandwich and some cut veggies, OR snacks at work, chips -- now is making salad eggs and veggies cut up Dinner whatever eat at home or eat out -- now is cooking at home, more keto meals Snacks chips Drinks water, tea, non sweetened Exercise: has started to yoga and twice weekly valerie CURRENT DM MEDS METFORMIN 500 mg BID SMBG Type of Monitor: Other Frequency of Monitorin times a day BG Values: Breakfast: 94-125 Lunch: Dinner: Bed-time: Values over past week: Highest ; Lowest Hypoglycemia: no Diet: as per above Exercise: as per above DM REVIEW OF SYSTEMS Last Eye Exam : none Last Podiatry Exam: declined Cardiorespiratory: negative, denies chest pain, pressure Claudication: no Dyslipidemia: No High Blood Pressure: No CURRENT LABS Latest Ref Rng 09/15/2024 Glucose 74 - 99 mg/dL 181 (H) BUN 7 - 21 mg/dL 8 Creatinine 0.58 - 0.96 mg/dL 0.57 (L) Sodium 136 - 144 mmol/L 137 Potassium 3.7 - 5.1 mmol/L 3.6 (L) Chloride 98 - 107 mmol/L 104 CO2 22 - 30 mmol/L 22 Anion Gap 8 - 15 mmol/L 11 eGFR >=60 mL/min/1.73m? 129 Hemoglobin A1C 4.3 - 5.6 % 6.8 (H) Estimated Average Glucose mg/dL 148 Legend: (H) High (L) Low Recent Labs 11/14/20 0832 05/14/22 0930 08/06/22 0848 09/15/24 0752 ALT 15 18 -- 83* AST 16 19 -- 46* TSH 3.330 -- -- 3.380 TPROT 7.6 7.6 -- 8.1* ALB 4.5 4.3 -- 4.5 CA 9.4 9.2 8.9 9.3 TBILI 0.2 0.2 -- 0.5 ALKPHOS 71 78 -- 133* GLUC 118* 106* 117* 181* BUN 9 11 12 8 CREAT 0.56* 0.62 0.54* 0.57* NA 137 137 139 137 K 4.1 4.2 4.1 3.6* CHLOR 102 102 106* 104 CO2 24 24 26 22 ANION 11 11 7* 11 EGFROTH >60 128 132 129 GLUCFAST -- -- -- 170* HBA1C -- -- -- 6.8* B12 -- -- -- 673 Recent Labs 11/14/20 0832 05/14/22 0930 09/15/24 0752 TG 171* 182* -- CHOL 200* 197 -- HDL 44 42 -- VLDL 34* 36* -- LDL 122* 119* -- FASTTIME -- 12 -- TCHDL 4.55 4.69 -- LDLHDL 2.77* 2.83* -- NONHDL 156* 155* -- HBA1C -- -- 6.8* HBA0 -- -- 148 B12 -- -- 673 PAST MEDICAL HISTORY Diagnosis Date Elevated fasting glucose Essential hypertension NEGATIVE MEDICAL HISTORY PAST SURGICAL HISTORY Procedure Laterality Date EXTRACTION ERUPTED TOOTH/EXR 2022 FAMILY HISTORY Problem Relation Age of Onset Hypertension Mother Hypertension Father other (frateranl twin [other]) Sister Heart Sister open heart surg at 16yrs old Hypothyroidism Sister other (type 2 diabetes) Maternal Grandmother Colon Cancer Maternal Grandfather other (type 2 diabetes) Paternal Grandmother Social History Tobacco Use Smoking status: Never Smokeless tobacco: Never Vaping Use Vaping status: Never Used Substance Use Topics Alcohol use: Not Currently Drug use: Not Currently Current Outpatient Medications Medication Sig cholecalciferol, Vitamin D3, (VITAMIN D3) 1,250 mcg (50,000 unit) cap capsule Take 1 capsule by mouth one time a week. for 3 months No current facility-administered medications for this visit. ALLERGIES Allergen Reactions Bactrim [Sulfametho* Rash REVIEW OF SYSTEMS - POSITIVES IN BOLD GENERAL:No weight loss, malaise or fevers HEENT:Negative for frequent or significant headaches, No changes in hearing or vision, no nose bleeds or other nasal problems NECK:Negative for lumps, goiter, pain and significant neck swelling RESPIRATORY: Negative for cough, hemoptysis, wheezing, COPD, dyspnea or shortness of breath CARDIOVASCULAR: Negative for chest pain, leg swelling, hypertensi (more content not included)... Normal [facility] CNPNon 10-13-2024 CNPN Telephone (STED) ALICIA MULLINS ([id number]) 2000 F Date Time Provider Department 10/13/24 NINA PHILLIPS During your visit today, we recorded the following information about you: Magaly Miguel RN 10/13/2024 9:48 AM Signed EPA submitted through [employer]loud/Unit[employer] for pts Mounjaro 2.5mg/0.5 ml. Attached TAJ notes/pertinent labs. Awaiting payor response. Allergies As of Date: 10/13/2024 Noted Allergy Reaction BACTRIM (SULFAMETHOXAZOLE-TRIMETH* 2 - Rash Date Reviewed: 10/13/2024 Reviewed by: Magaly Quinonez MA - Fully Assessed Reason for Visit: EPA/EPic/Mounjaro 2.5 mg/0.5 ml [Other] Prescriptions as of 10/13/2024 - ONETOUCH VERIO TEST STRIPS test strip 1 (ONE) STRIP DAILY - ONETOUCH VERIO FLEX METER 1 (ONE) KIT DAILY - ONETOUCH DELICA PLUS LANCET 33 gauge once daily. - metFORMIN (GLUCOPHAGE) 500 mg tablet Take 1 tablet by mouth every 12 hours. - ondansetron (ZOFRAN) 4 mg tablet Take 4 mg by mouth three times a day as needed. - ergocalciferol 50,000 unit capsule (VITAMIN D2, DRISDOL) Take 50,000 Units by mouth one time a week. - tirzepatide (MOUNJARO) 2.5 mg/0.5 mL pen injector Inject 2.5 mg subcutaneously one time a week. - cholecalciferol, Vitamin D3, (VITAMIN D3) 1,250 mcg (50,000 unit) cap capsule Take 1 capsule by mouth one time a week. for 3 months Problem List As Of Date 10/13/2024 Noted Resolved Obesity, Class II, BMI 35-39.9 [E66.812] 11/14/2020 Encounter Status:Closed by MAGALY MIGUEL on 10/13/24 Normal [facility] THYROGLOBULIN ANTIBODYon Thyroglobulin Ab Qn [IU]/mL Normal <4.0 [facility] Comment on above: Order Comment: Specmohsen ojeda Type: BLOOD SPECIMENOrdering Facility: [facility] Address: [address] [place] [address] Result Comment: The Thyroglobulin Antibody test was performed using the [employer]el DXI paramagnetic particle chemiluminescent immunoassay method. Results obtained with different assay methods or kits cannot be used interchangeably. Performed By: #### T CINTHIA ####[facility] [id number] [address] OF [facility] THYROID PEROXIDASE ANTIBODYo n 10-13-2024 TPO Ab Qn 10.7 [IU]/mL High <5.6 [facility] Comment on above: Order Comment: Suzette ojeda Type: BLOOD SPECIMENOrdering Facility: [facility] Address: [address] [place] [address] Result Comment: Thyr oid Peroxidase Antibody test is used as an aid in diagnosis of autoimmune thyroid disease. Clinical correlation is required. Performed By: #### M ICRO ####[facility] LABCLIA [id number] [address] [address] [facility] Phuong 09-16-2024 GINAN Telephone (OBGYWM) ALICIA MULLINS ([id number]) 2000 F Date Time Provider Department 09/16/24 TASHI COLON During your visit today, we recorded the following information about you: Magaly Epps RN 09/16/2024 11:31 AM Signed The prescription printed. Do you have it back at your desk to sign? Magaly Epps RN Allergies As of Date: 09/16/2024 Noted Allergy Reaction BACTRIM (SULFAMETHOXAZOLE-TRIMETH* 2 - Rash Date Reviewed: 09/15/2024 Reviewed by: Tashi Colon APRN.ASSISTANT MECHANIC - Fully Assessed Reason for Visit: Vitamin D [Other] Primary Visit Diagnosis:Vitamin D deficiency [E55.9] Order(s):VITAMIN D 25 HYDROXY [SQVITD] Order #: [id number] FUTURE cholecalciferol, Vitamin D3, (VITAMIN D3) 1,250 mcg (50,000 unit) cap capsuleTake 1 capsule by mouth one time a week. for 3 monthsDisp: 12 capsuleRfl: 0 Prescriptions as of 09/16/2024 - cholecalciferol, Vitamin D3, (VITAMIN D3) 1,250 mcg (50,000 unit) cap capsule Take 1 capsule by mouth one time a week. for 3 months Problem List As Of Date 09/16/2024 Noted Resolved Obesity, Class II, BMI 35-39.9 [E66.812] 11/14/2020 Prescriptions ordered this encounter Disp Refills Start End CHOLECALCIFEROL (VITAMIN D3) 1,250 M* 12 c* 0 09/16/2024 Class: Print RX Route: ORAL Sig: Take 1 capsule by mouth one time a week. for 3 months Encounter Status:Closed by MAGALY EPPS on 09/16/24 Normal [facility] 25(OH)D3 SerPl-mCncon 2024 25-hydroxyvitamin D3 [Mass/Vol] 10.0 ng/mL Low 31.0-80.0 [facility] Comment on above: Order Comment: Speci men Type: BLOOD SPECIMENOrdering Facility: [facility] Address: [address] [place] [address] Result Comment: Clas sification of 25 OH Vitamin D status: Deficiency/Insufficiency: < or = 30 ng/ml. Sufficiency/Optimal Levels: 31-80 ng/mL Toxicity: > 100 ng/mL. Test performed by chemiluminescent immunoassay. Performed By: #### 1 989-3 ####[facility] LABCLIA [id number] [facility] [id number] [place] [address] [place] [facility] CBC panel Auto (Bld)on 09-15 Erythrocyte distribution width (RBC) [Ratio] 12.0 % 11.5 - 15.0 % [facility] Hematocrit (Bld) [Volume fraction] 45.0 % 36.0 - 46.0 % [facility] Hemoglobin (Bld) [Mass/Vol] 15.2 g/dL 11.5 - 15.5 g/dL [facility] Interpretation and review of laboratory results Abnormal [facility] MCH (RBC) [Entitic mass] 28.6 pg 26.0 - 34.[address] [facility] MCHC (RBC) [Mass/Vol] 33.8 g/dL 30.5 - 36.0 g/dL [facility] MCV (RBC) [Entitic vol] 84.7 fL 80.0 - 100.[address] [facility] Nucleated RBC (Bld) [#/Vol] NINF [facility] Platelet mean volume (Bld) [Entitic vol] 9.9 fL 9.0 - 12.[address] [facility] Platelets (Bld) [#/Vol] 343 10*3/uL [facility] RBC (Bld) [#/Vol] 5.31 10*6/uL High 3.90 - 5.20 m/uL [facility] WBC (Bld) [#/Vol] 10.60 10*3/uL [facility] Erythrocyte distribution width (RBC) [Ratio] 12.0 % Normal 11.5-15.0 [facility] Comment on above: Order Comment: Speci men Type: BLOOD SPECIMENOrdering Facility: [facility] Address: [address] [place] [address] Performed By: #### 5 8410-2 ####[facility] RIVERNCTRISTIAN [id number] [place] [address] [place] Hematocrit (Bld) [Volume fraction] 45.0 % Normal 36.0-46.0 [facility] Comment on above: Order Comment: Speci men Type: BLOOD SPECIMENOrdering Facility: [facility] Address: [address] [place] [address] Performed By: #### 5 8410-2 ####[facility] RIVERNCLI [id number] [place] [address] [place] Hemoglobin (Bld) [Mass/Vol] 15.2 g/dL Normal 11.5-15.5 [facility] Comment on above: Order Comment: Speci men Type: BLOOD SPECIMENOrdering Facility: [facility] Address: [address] [place] [address] Performed By: #### 5 8410-2 ####[facility] RIVERNCLIA [id number] [place] [address] [place] MCH (RBC) [Entitic mass] 28.6 pg Normal 26.0-34.0 [facility] Comment on above: Order Comment: Speci men Type: BLOOD SPECIMENOrdering Facility: [facility] Address: [address] [place] [address] Performed By: #### 5 8410-2 ####[facility] RIVERNCLIA [id number] [place] [address] [place] MCHC (RBC) [Mass/Vol] 33.8 g/dL Normal 30.5-36.0 [facility] Comment on above: Order Comment: Speci men Type: BLOOD SPECIMENOrdering Facility: [facility] Address: [address] [place] [address] Performed By: #### 5 8410-2 ####[facility] INOCONCHAS DAMNCTRISTIAN [id number] [place] [address] [place] MCV (RBC) [Entitic vol] 84.7 fL Normal 80.0-100.0 [facility] Comment on above: Order Comment: Speci men Type: BLOOD SPECIMENOrdering Facility: [facility] Address: [address] [place] [address] Performed By: #### 5 8410-2 ####[facility] RIVERNCLIA [id number] [place] [address] [place] Nucleated RBC (Bld) [#/Vol] 10*3/uL Normal <0.01 [facility] Comment on above: Order Comment: Speci men Type: BLOOD SPECIMENOrdering Facility: [facility] Address: [address] [place] [address] Performed By: #### 5 8410-2 ####[facility] RIVERNCLIA [id number] [place] [address] [place] Platelet mean volume (Bld) [Entitic vol] 9.9 fL Normal 9.0-12.7 [facility] Comment on above: Order Comment: Speci men Type: BLOOD SPECIMENOrdering Facility: [facility] Address: [address] [place] [address] Performed By: #### 5 8410-2 ####[facility] RIVERNCLIA [id number] [place] [address] [place] Platelets (Bld) [#/Vol] 343 10*3/uL Normal 150-400 [facility] Comment on above: Order Comment: Speci men Type: BLOOD SPECIMENOrdering Facility: [facility] Address: [address] [place] [address] Performed By: #### 5 8410-2 ####[facility] RIVERNCLIA [id number] [place] [address] [place] RBC (Bld) [#/Vol] 5.31 10*6/uL High 3.90-5.20 [facility] Comment on above: Order Comment: Speci men Type: BLOOD SPECIMENOrdering Facility: [facility] Address: [address] [place] [address] Performed By: #### 5 8410-2 ####[facility] RIVERNCLIA [id number] [place] [address] [place] WBC (Bld) [#/Vol] 10.60 10*3/uL Normal 3.70-11.00 [facility] Comment on above: Order Comment: Speci men Type: BLOOD SPECIMENOrdering Facility: [facility] Address: [address] [place] [address] Performed By: #### 5 8410-2 ####[facility] RIVERNCLIA [id number] [address] OF [place] CNOVon 09-15-2024 CNOV Office Visit (OBGYWM ) ALICIA MULLINS ([id number]) 2000 F Date Time Provider Department 09/15/24 7:15 AM TASHI COLON During your visit today, we recorded the following information about you: Blood pressure Weight Height Last Period 138/96 103 kg 1.626 m 09/09/24 Tashi Colon APRN.ASSISTANT MECHANIC 09/15/2024 7:49 AM Addendum Alicia is a 24 year old who presents for an annual gynecologic exam with complaints, irregular bleeding. Bleeding is inconsistent/irregular. Trying to become . Has been trying for a year. Has had ultrasound at [facility] in the past. 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: 09/09/2024 (Approximate), Having periods Age at Menarche: Age at First : Age at Menopause: Animal Husbandry Worker History Comments: Sexual Activity: Yes; Male Contraception: No contraception data on record PAST MEDICAL HISTORY Diagnosis Date Essential hypertension NEGATIVE MEDICAL HISTORY PAST SURGICAL HISTORY Procedure Laterality Date EXTRACTION ERUPTED TOOTH/EXR 2022 FAMILY HISTORY Problem Relation Age of Onset Hypertension Mother Hypertension Father other (frateranl twin [other]) Sister Heart Sister open heart surg at 16yrs old Hypothyroidism Sister other (type 2 diabetes) Maternal Grandmother Colon Cancer Maternal Grandfather other (type 2 diabetes) Paternal Grandmother SOCIAL HISTORY Social History Tobacco Use Smoking status: Never Smokeless tobacco: Never Vaping Use Vaping status: Never Used Substance Use Topics Alcohol use: Not Currently Drug use: Not Currently REVIEW OF SYSTEMS Abdomen: No abdominal pain, nausea, vomiting, diarrhea, or constipation. No bloating, early satiety, indigestion, or increased flatulence. Bladder: No dysuria, gross hematuria, urinary frequency, urinary urgency, or incontinence. Breast: No breast lumps, nipple d/c, overlying skin changes, redness or skin retraction + pain to left breast Allergies and current medication updated:Yes SENSITIVE EXAM: The sensitive examination was discussed with the Patient or Patient's Authorized Battery Inspector. As applicable, any other physician, advance practice provider, medical student, or other health professional student that will be observing or involved in the sensitive examination for educational or training purposes was discussed with the Patient or Authorized Battery Inspector. The Patient or Authorized Battery Inspector has agreed to proceed with the sensitive examination. (Sensitive examination includes inspection and/or palpation of the breasts, pelvis, prostate and anorectal regions). EXAM: BP 138/96 Ht 5' 4 (1.63m) Wt 227 lb (103.0kg) LMP 09/09/2024 BMI 38.95 kg/(m2). GENERAL: pleasant, female in no apparent distress HEENT: Normocephalic, atraumatic, mucus membranes moist, and no lesions NECK: Supple, full range of motion, no adenopathy, and thyroid normal DERMATOLOGY: Normal, without lesions, non-icteric, and non-hirsute BREAST: soft, non-tender, symmetric, no dominant mass, normal nipple-areolar complex, no lymphadenopathy, and no nipple discharge + eczema to left CHEST: Normal inspiratory effort ABDOMEN: soft, non-tender, and no masses PELVIC: external genitalia normal, normal Bartholin's glands, urethra, [place]'s glands, no vulvar lesions, no cervical lesions, good vaginal support, physiologic discharge present, normal appearing perineal body and perianal region BIMANUAL: uterus normal size, shape and consistency, no adnexal masses, and non-tender, limited due to habitus RECTOVAGINAL: deferred. NEURO: alert and oriented x3,exam grossly non-focal EXTREMITIES: normal ASSESSMENT/PLAN: 1) Health maintenance: Pap/HPV up to date 2022. Deferred until 2025. Mammogram starting age 40. Nutrition, exercise and routine health maintenance exams reviewed. Calcium/Vitamin D supplementation information provided. HPV vaccine: discussed, not interested 2) Contraception: none. Recommend PNV. 3) STD screening: Declined STD check. 4) Follow up one year or sooner as needed 2. Irregular menstrual cycle - ICD9: 626.4, ICD10: N92.6 - Labs and ultrasound ordered - Consider referral to [facility] - Consider semen analysis 3. Essential hypertension - ICD9: 401.9, ICD10: I10 - Discussed risks of HTN with - No longer taking meds - Recommend taking BP nightly and following up with PCP - Let PCP know trying to achieve 4. Breast pain - ICD9: 611.71, ICD10: N64.4 - Reports tenderness throughout - Had imaging at [facility] in 2022 - reviewed - Nipple is consistent with ecz (more content not included)... Normal [facility] CNPNon 09-15-2024 CNPN Telephone (OBGYWM) ALICIA MULLINS ([id number]) 2000 F Date Time Provider Department 09/15/24 TASHI COLON During your visit today, we recorded the following information about you: Allergies As of Date: 09/15/2024 Noted Allergy Reaction BACTRIM (SULFAMETHOXAZOLE-TRIMETH* 2 - Rash Date Reviewed: 09/15/2024 Reviewed by: Tashi Colon APRN.ASSISTANT MECHANIC - Fully Assessed Reason for Visit: Results [95] Primary Visit Diagnosis:Elevated fasting glucose [R73.01] Order(s):CONSULT TO ENDOCRINOLOGY [9007] Order #: [id number]: 1 FUTURE Problem List As Of Date 09/15/2024 Noted Resolved Obesity, Class II, BMI 35-39.9 [E66.812] 11/14/2020 Encounter Status:Closed by NEGAR MIGUEL on 09/15/24 Normal [facility] Comprehensive metabolic 2000 panelOrdered By: Harriett Drew on 09-15-2024 Albumin [Mass/Vol] 4.5 g/dL 3.9 - 4.9 g/dL [facility] ALP [Catalytic activity/Vol] 133 U/L High 34 - 123 U/L [facility] ALT [Catalytic activity/Vol] 83 U/L High 7 - 38 U/L [facility] Anion gap [Moles/Vol] 11 mmol/L 8 - 15 mmol/L [facility] AST [Catalytic activity/Vol] 46 U/L High 13 - 35 U/L [facility] Bilirubin [Mass/Vol] 0.5 mg/dL 0.2 - 1 .3 mg/dL [facility] Calcium [Mass/Vol] 9.3 mg/dL 8.5 - 10. 2 mg/dL [facility] Chloride [Moles/Vol] 104 mmol/L 98 - 10 7 mmol/L [facility] CO2 [Moles/Vol] 22 mmol/L 22 - 30 mmol/L [facility] Creatinine [Mass/Vol] 0.57 mg/dL Low 0.58 - 0.96 mg/dL [facility] GFR/1.73 sq M.predicted among non-blacks MDRD (S/P/Bld) [Vol rate/Area] 129 mL/min/{1.73_m2} - PINF [facility] Comment on above: Estimated Glomerular Filtration Rate (eGFR) is calculated using the 2020 CKD-EPI creatinine equation. This equation utilizes serum creatinine, sex, and age as parameters. The creatinine assay has traceable calibration to isotope dilution-mass spectrometry. Refer to KDIGO guidelines for clinical interpretation. In patients with unstable renal function, e.g. those with acute kidney injury, the eGFR may not accurately reflect actual GFR. Glucose [Mass/Vol] 181 mg/dL High 74 - 99 mg/dL [facility] Comment on above: The [place] Diabete s Association (ADA) provides guidance for cutoff values for fasting glucose and random glucose. The ADA defines fasting as no caloric intake for at least 8 hours. Fasting plasma glucose results between 100 to 125 mg/dL indicate increased risk for diabetes (prediabetes). Fasting plasma glucose results greater than or equal to 126 mg/dL meet the criteria for diagnosis of diabetes. In the absence of unequivocal hyperglycemia, results should be confirmed by repeat testing. In a patient with classic symptoms of hyperglycemia or hyperglycemic crisis, random plasma glucose results greater than or equal to 200 mg/dL meet the criteria for diagnosis of diabetes. Reference: Standards of Medical Care in Diabetes 2016, [place] [employer] Association. Diabetes Care. 2016.39(Suppl 1). Interpretation and review of laboratory results Abnormal [facility] Potassium [Moles/Vol] 3.6 mmol/L Low 3.7 - 5.1 mmol/L [facility] Protein [Mass/Vol] 8.1 g/dL High 6.3 - 8.0 g/dL [facility] Sodium [Moles/Vol] 137 mmol/L 136 - 144 mmol/L [facility] Urea nitrogen [Mass/Vol] 8 mg/dL 7 - 21 mg/dL [facility] Comprehensive metabolic 2000 panelon 09-15-2024 Albumin [Mass/Vol] 4.5 g/dL Normal 3.9-4.9 [facility] Comment on above: Order Comment: Speci men Type: BLOOD SPECIMENOrdering Facility: [facility] Address: [address] [place] [address] Performed By: #### 2 4323-8 ####[facility] SHANICE MILLTOWNCLIA [id number] [place] [address] [place] ALP [Catalytic activity/Vol] 133 U/L High 34-123 [facility] Comment on above: Order Comment: Speci men Type: BLOOD SPECIMENOrdering Facility: [facility] Address: [address] [place] [address] Performed By: #### 2 4323-8 ####[facility] MILLTOWNCLIA [id number] [place] [address] [place] ALT [Catalytic activity/Vol] 83 U/L High 7-38 [facility] Comment on above: Order Comment: Speci men Type: BLOOD SPECIMENOrdering Facility: [facility] Address: [address] [place] [address] Performed By: #### 2 4323-8 ####[facility] MILLTOWNCLIA [id number] [place] [address] [place] Anion gap [Moles/Vol] 11 mmol/L Normal 8-15 [facility] Comment on above: Order Comment: Speci men Type: BLOOD SPECIMENOrdering Facility: [facility] Address: [address] [place] [address] Performed By: #### 2 4323-8 ####[facility] SHANICE MILLTOWNCLIA [id number] [place] [address] [place] AST [Catalytic activity/Vol] 46 U/L High 13-35 [facility] Comment on above: Order Comment: Speci men Type: BLOOD SPECIMENOrdering Facility: [facility] Address: [address] [place] [address] Performed By: #### 2 4323-8 ####[facility] SHANICE MILLTOWNCLIA [id number] [place] [address] [place] Bilirubin [Mass/Vol] 0.5 mg/dL Normal 0.2-1.3 [facility] Comment on above: Order Comment: Speci men Type: BLOOD SPECIMENOrdering Facility: [facility] Address: [address] [place] [address] Performed By: #### 2 4323-8 ####[facility] MILLWNCLIA [id number] [place] [address] [place] Calcium [Mass/Vol] 9.3 mg/dL Normal 8.5-10.2 [facility] Comment on above: Order Comment: Speci men Type: BLOOD SPECIMENOrdering Facility: [facility] Address: [address] [place] [address] Performed By: #### 2 4323-8 ####[facility] RIVERNCLIA [id number] [place] [address] [place] Chloride [Moles/Vol] 104 mmol/L Normal 98-107 [facility] Comment on above: Order Comment: Speci men Type: BLOOD SPECIMENOrdering Facility: [facility] Address: [address] [place] [address] Performed By: #### 2 4323-8 ####[facility] CHILDREN'S HOSPITALLIA [id number] [place] [address] [place] CO2 [Moles/Vol] 22 mmol/L Normal 22-30 [facility] Comment on above: Order Comment: Speci men Type: BLOOD SPECIMENOrdering Facility: [facility] Address: [address] [place] [address] Performed By: #### 2 4323-8 ####[facility] RIVERNCLIA [id number] [place] [address] [place] Creatinine [Mass/Vol] 0.57 mg/dL Low 0.58-0.96 [facility] Comment on above: Order Comment: Suzette ojeda Type: BLOOD SPECIMENOrdering Facility: [facility] Address: [address] [place] [address] Performed By: #### 2 4323-8 ####[facility]ERNCS[facility] [id number] [place] [address] [place] Creatinine and Glomerular filtration rate.predicted panel (S/P/Bld) 129 mL/min/1.73m??? Normal >=60 [facility] Comment on above: Order Comment: Suzette ojeda Type: BLOOD SPECIMENOrdering Facility: [facility] Address: [address] [place] [address] Result Comment: Joelle mated Glomerular Filtration Rate (eGFR) is calculated using the 2020 CKD-EPI creatinine equation. This equation utilizes serum creatinine, sex, and age as parameters. The creatinine assay has traceable calibration to isotope dilution-mass spectrometry. Refer to KDIGO guidelines for clinical interpretation. In patients with unstable renal function, e.g. those with acute kidney injury, the eGFR may not accurately reflect actual GFR. Performed By: #### 2 4323-8 ####[facility] [id number] [place] [address] [place] Glucose [Mass/Vol] 181 mg/dL High 74-99 [facility] Comment on above: Order Comment: Suzette ojeda Type: BLOOD SPECIMENOrdering Facility: [facility] Address: [address] [place] [address] Result Comment: The [place] Diabetes Association (ADA) provides guidance for cutoff values for fasting glucose and random glucose. The ADA defines fasting as no caloric intake for at least 8 hours. Fasting plasma glucose results between 100 to 125 mg/dL indicate increased risk for diabetes (prediabetes). Fasting plasma glucose results greater than or equal to 126 mg/dL meet the criteria for diagnosis of diabetes. In the absence of unequivocal hyperglycemia, results should be confirmed by repeat testing. In a patient with classic symptoms of hyperglycemia or hyperglycemic crisis, random plasma glucose results greater than or equal to 200 mg/dL meet the criteria for diagnosis of diabetes. Reference: Standards of Medical Care in Diabetes 2016, [place] Diabetes Association. Diabetes Care. 2016.39(Suppl 1). Performed By: #### 2 4323-8 ####[facility] MILLTOWNCLIA [id number] [place] [address] [place] Potassium [Moles/Vol] 3.6 mmol/L Low 3.7-5.1 [facility] Comment on above: Order Comment: Speci men Type: BLOOD SPECIMENOrdering Facility: [facility] Address: [address] [place] [address] Performed By: #### 2 4323-8 ####[facility] MILLTOWNCLIA [id number] [place] [address] [place] Protein [Mass/Vol] 8.1 g/dL High 6.3-8.0 [facility] Comment on above: Order Comment: Speci men Type: BLOOD SPECIMENOrdering Facility: [facility] Address: [address] [place] [address] Performed By: #### 2 4323-8 ####[facility] RIVERNCLIA [id number] [place] [address] [place] Sodium [Moles/Vol] 137 mmol/L Normal 136-144 [facility] Comment on above: Order Comment: Speci men Type: BLOOD SPECIMENOrdering Facility: [facility] Address: [address] [place] [address] Performed By: #### 2 4323-8 ####[facility] MILLTOWNCLIA [id number] [place] [address] [place] Urea nitrogen [Mass/Vol] 8 mg/dL Normal 7-21 [facility] Comment on above: Order Comment: Speci men Type: BLOOD SPECIMENOrdering Facility: [facility] Address: [address] [place] [address] Performed By: #### 2 4323-8 ####[facility] MILLTOWNCLIA [id number] [place] [address] [place] DHEA-S BLDon 09-15-2024 DHEA-S [Mass/Vol] 142.8 ug/dL Normal 98.8-340.0 [facility] Comment on above: Order Comment: Speci men Type: BLOOD SPECIMENOrdering Facility: [facility] Address: [address] [place] [address] Result Comment: Refe rence ranges are age and gender specific. For additional information, reference range tables can be found in the laboratory test directory. The normal values are based on the following source: Dehydroepiandrosterone sulfate (DHEA S) [package insert V 17.0 Slovak]. [facility], [place], [place]: March 2013. Performed By: ###Alejandro CAI, 2243-4, 53771-3, 62771-9 ####[facility] [id number] [place] [address] [place] Estradiol SerPl-mCncon 09-15 E2 [Mass/Vol] 54 pg/mL Normal [facility] Comment on above: Order Comment: Speci men Type: BLOOD SPECIMENOrdering Facility: [facility] Address: [address] [place] [address] Result Comment: This test is not suitable for patients receiving treatment with the drug Fulvestrant (Faslodex). The drug causes an interference leading to falsely elevated estradiol results. Menstrual cycle Estradiol reference ranges: Follicular : < 234 pg/mL Ovulation : 41 to 398 pg/mL Luteal : < 342 pg/mL Estradiol reference ranges vary by gestational period: First trimester : 154 to 3243 pg/mL Second trimester : 1561 to 84961 pg/mL Third trimester : 8285 to >21853 pg/mL Post-menopausal Estradiol reference range: < 41 pg/mL Reference: 1. Estradiol - E2 (Estradiol III) [package insert V 3.0 Slovak]. [facility], [place], [place], January 2016. Performed By: #### Leia CAI, 2243-4, 27818-9, 34017-3 ####[facility] [id number] [place] [address] [place] FSH SerPl-aCncon 09-15-2024 Follitropin Qn 6.5 m[IU]/mL Normal See comment [facility] Comment on above: Order Comment: Suzette ojeda Type: BLOOD SPECIMENOrdering Facility: [facility] Address: [address] [place] [address] Result Comment: Refe rence range: Follicular: 3.5-12.5 mIU/mL Ovulation: 4.7-21.5 mIU/mL Luteal: 1.7-7.7 mIU/mL Postmenopausal: 25.8-134.8 mIU/mL Performed By: #### D TRELL, 2243-4, 19669-7, 21566-8 ####[facility] LABIA [id number] [place] [address] [place] Glucose p fast SerPl-mCncon 09-15-2024 Glucose post fast [Mass/Vol] 170 mg/dL High 74-99 [facility] Comment on above: Order Comment: Speci lynette Type: BLOOD SPECIMENOrdering Facility: [facility] Address: [address] [place] [address] Result Comment: [place] Diabetes Association guidelines state that a diabetes mellitus diagnosis is preliminarily made when the fasting plasma glucose meets or exceeds 126 mg/dL. In the absence of unequivocal hyperglycemia, results should be confirmed with repeat testing. Patients are at increased risk for diabetes mellitus (prediabetes) when the fasting glucose is 100 to 125 mg/dL. Performed By: #### 1 558-6 ####[facility] [id number] [address] [place] HYDROXYPROGESTERONE-17on 17-HYDROXYPROGESTERON E QUANTITATIVE BY HPLC-MS/MS, SERUM OR PLASMA 32.12 ng/dL Normal <=206.00 [facility] Comment on above: Order Comment: Suzette lynette Type: BLOOD SPECIMENOrdering Facility: [facility] Address: [address] [place] [address] Result Comment: INTE RPRETIVE INFORMATION for 17-Hydroxyprogesterone in females: Follicular 15 to 70 ng/dL Luteal 35 to 290 ng/dL REFERENCE INTERVAL: 17-Hydroxyprogesterone Qnt, HPLC-MS/MS Access complete set of age- and/or gender-specific reference intervals for this test in the [facility] Laboratory Test Directory ([employer]). This test was developed and its performance characteristics determined by [facility]. It has not been cleared or approved by the US Food and Drug Administration. This test was performed in a CLIA certified laboratory and is intended for clinical purposes. Performed By: [facility] [address] [place] [address] Elementary Science Teacher: Marco Feldman MD, PhD CLIA Number: [id number] Performed By: #### H PROG ####[facility] Hitch RadioIA [id number] [place] [address] HbA1c (Bld)on 09-15-2024 Average glucose Estimated from glycated hemoglobin (Bld) [Mass/Vol] 148 mg/dL Normal [facility] Comment on above: Order Comment: Speci men Type: BLOOD SPECIMENOrdering Facility: [facility] Address: [address] [place] [address] Result Comment: eAG: (Estimated average glucose) is a calculated value from HgbA1c and is service liaison representative of the average blood glucose level in the last 2-3 month period. Performed By: #### 5 5454-3 ####[facility] [id number] [facility] [id number] [place] [address] [place] HbA1c (Bld) [Mass fraction] 6.8 % High 4.3-5.6 [facility] Comment on above: Order Comment: Suzette ojeda Type: BLOOD SPECIMENOrdering Facility: [facility] Address: [address] [place] [address] Result Comment: Amer ican Diabetes Association guidelines indicate that patients with HgbA1c in the range 5.7-6.4% are at increased risk for development of diabetes, and intervention by lifestyle modification may be beneficial. HgbA1c greater or equal to 6.5% is considered diagnostic of diabetes. Performed By: #### 5 5454-3 ####[facility] [id number] [place] [address] [place] LH SerPl-aCncon 09-15-2024 Lutropin Qn 8.0 m[IU]/mL Normal See comment [facility] Comment on above: Order Comment: Speci men Type: BLOOD SPECIMENOrdering Facility: [facility] Address: [address] [place] [address] Result Comment: Refe rence range: Follicular: 2.4-12.6 mIU/mL Midcycle: 14.0-95.6 mIU/mL Luteal: 1.0-11.4 mIU/mL Post Phuong: 7.7-58.5 mIU/mL Performed By: #### D TRELL, 2243-4, 98860-0, 38054-4 ####[facility] [id number] [place] [address] [place] Prolactin SerPl-mCncon 09-15 Prolactin [Mass/Vol] 6.0 ng/mL Normal 4.4-33.8 [facility] Comment on above: Order Comment: Speci men Type: BLOOD SPECIMENOrdering Facility: [facility] Address: [address] [place] [address] Result Comment: Prol actin test is performed using the [facility] Electrochemiluminescence Immunoassay method. Results obtained with different methods or kits cannot be used interchangeably. Performed By: #### 2 132-9, 2842-3, 3016-3 ####[facility] [id number] [place] [address] [place] TESTOSTERONE, FREE AND TOTAL , BY EQUILIBRIUM ULTRAFILTRATION MASS SPECTROMETRYon 09-15-2024 Testosterone [Mass/Vol] 42.3 ng/dL Normal 10.0-55.0 [facility] Comment on above: Order Comment: Speci men Type: BLOOD SPECIMENOrdering Facility: [facility] Address: [address] [place] [address] Performed By: #### T FTEST ####[facility] LAB[facility]IA [id number] [place] [address] Testosterone Free [Mass/Vol] 1.10 ng/dL High 0.10-0.85 [facility] Comment on above: Order Comment: Speci men Type: BLOOD SPECIMENOrdering Facility: [facility] Address: [address] [place] [address] Performed By: #### T FTEST ####[facility] LABCLIA [id number] [place] [address] Testosterone Free/Testosterone.tot al [Mass fraction] 2.61 % Normal 0.50-2.80 [facility] Comment on above: Order Comment: Speci men Type: BLOOD SPECIMENOrdering Facility: [facility] Address: [address] [place] [address] Performed By: #### T FTEST ####[facility] LABCLIA [id number] [place] [address] [facility] 09-15-2024 TSH Qn 3.380 m[IU]/L Normal 0.270-4.20 0 [facility] Comment on above: Order Comment: Speci men Type: BLOOD SPECIMENOrdering Facility: [facility] Address: [address] [place] [address] Result Comment: If t he patient is , TSH reference range varies by gestational period: First Trimester (weeks 9-12): 0.180-2.990 mIU/L Second Trimester: 0.110-3.980 mIU/L Third Trimester: 0.480-4.710 mIU/L Ulises Elizondo et al. A Practical Approach for the Verifications and Determination of Site- and Trimester-Specific Reference Intervals for Thyroid Function tests in . Thyroid, 2019:29:3:412-420. Robson E, et al. 2017 Guidelines of the [place] Thyroid Association for the Diagnosis and Management of Thyroid Disease during and the . Thyroid, 2017:27:3:315-389. Performed By: #### 2 132-9, 2842-3, 3016-3 ####[facility] [id number] [address] [place] Vit B12 SerPl-ncon 05- 025 Cobalamin (Vitamin B12) [Mass/Vol] 673 pg/mL Normal 232-1245 [facility] Comment on above: Order Comment: Speci men Type: BLOOD SPECIMENOrdering Facility: [facility] Address: [address] [place] [address] Performed By: #### 2 132-9, 2842-3, 3016-3 ####[facility] [id number] [facility] DEER[facility]EL[facility] [address] [facility] CNOVon 05-31-2024 CNOV Office Visit (UCWSTR ) ALICIA MULLINS ([id number]) 2000 F Date Time Provider Department 05/31/24 8:15 AM JACK AGUILAR [facility] During your visit today, we recorded the following information about you: Temperature Pulse Respiration Blood pressure 97.7 degrees 101/minute 21/minute 130/88 Weight 105.7 kg Jack Aguilar PA-C 05/31/2024 8:56 AM Signed This note was created using GreenSandriter. Subjective Alicia Mullins is a 24 year old female. HPI Presents with a chief complaint of right sided sinus pressure and sore throat for 8 days. She states yesterday sinus pressure and sore throat seem to worsen. She denies a fever. She has had a cough. Some postnasal drip. No vomiting or diarrhea. 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 She tried some ibuprofen [id number]. Review of Systems Constitutional: Negative. HENT: Positive for congestion, sinus pressure, sinus pain and sore throat. Negative for ear pain. Respiratory: Positive for cough. Cardiovascular: Negative. Gastrointestinal: Negative. Genitourinary: Negative. Musculoskeletal: Negative. All other systems reviewed and are negative. PAST MEDICAL HISTORY Diagnosis Date Essential hypertension NEGATIVE MEDICAL HISTORY Current Outpatient Medications Medication Sig Dispense Refill amoxicillin-clavulanate potassium (AUGMENTIN) 875-125 mg per tablet Take 1 tablet by mouth two times a day for 7 days. 14 tablet 0 vit no.124/iron/folic ( VITAMIN ORAL) Take by mouth. (Patient not taking: Reported on 05/31/2024) hydroCHLOROthiazide (HYDRODIURIL, ESIDRIX) 50 mg tablet Take 1 tablet by mouth once daily. (Patient not taking: Reported on 07/01/2023) 90 tablet 1 benzonatate (TESSALON PERLE) 100 mg capsule Take 2 capsules by mouth three times daily as needed. 30 capsule 0 No current facility-administered medications for this visit. PAST SURGICAL HISTORY Procedure Laterality Date NONE FAMILY HISTORY Problem Relation Age of Onset Hypertension Mother Hypertension Father other (frateranl twin [other]) Sister other (type 2 diabetes) Maternal Grandmother Colon Cancer Maternal Grandfather other (type 2 diabetes) Paternal Grandmother Social History Tobacco Use Smoking status: Never Smokeless tobacco: Never Vaping Use Vaping status: Never Used Substance Use Topics Alcohol use: Not Currently Drug use: Not Currently Objective BP 130/88 Pulse 101 Temp 36.5 ?C (97.7 ?F) Resp 21 Wt 105.7 kg (233 lb 0.4 oz) LMP 07/31/2023 (Approximate) SpO2 98% BMI 40.00 kg/m? Physical Exam Vitals reviewed. Constitutional: Appearance: Normal appearance. HENT: Head: Normocephalic and atraumatic. Right Ear: Tympanic membrane, ear canal and external ear normal. Left Ear: Tympanic membrane, ear canal and external ear normal. Nose: Congestion present. Right Sinus: Maxillary sinus tenderness present. Mouth/Throat: Mouth: Mucous membranes are moist. Pharynx: Oropharynx is clear. Cardiovascular: Rate and Rhythm: Normal rate and regular rhythm. Heart sounds: Normal heart sounds. Pulmonary: Effort: Pulmonary effort is normal. Breath sounds: Normal breath sounds. Musculoskeletal: Cervical back: Neck supple. Lymphadenopathy: Cervical: No cervical adenopathy. Skin: General: Skin is warm and dry. Neurological: Mental Status: She is alert. Assessment and Plan ASSESSMENT/PLAN: 1. Acute non-recurrent maxillary sinusitis - ICD9: 461.0, ICD10: J01.00 - Will begin treatment with Augmentin 875 mg PO BID for 7 days - Supportive care with plenty of fluids, rest, and analgesia prn. - Follow up in 3-5 days if symptoms persist or worsen. Jack Aguilar PA-C Allergies As of Date: 05/31/2024 Noted Allergy Reaction BACTRIM (SULFAMETHOXAZOLE-TRIMETH* 2 - Rash Date Reviewed: 05/31/2024 Reviewed by: Crystal Ambrocio MA - Fully Assessed Reason for Visit: Sore Throat [200] Cmt: Pt has tonsil stones and are irritating, sinus, PENALOZA x 1 week Primary Visit Diagnosis:Acute non-recurrent maxillary sinusitis [J01.00] Order(s):amoxicillin-clavulan ate potassium (AUGMENTIN) 875-125 mg per tabletTake 1 tablet by mouth two times a day for 7 days.Disp: 14 tabletRfl: 0 Prescriptions as of 05/31/2024 - amoxicillin-clavulanate potassium (AUGMENTIN) 875-125 mg per tablet Take 1 tablet by mouth two times a day for 7 days. - vit no.124/iron/folic ( VITAMIN ORAL) Take by mouth. - hydroCHLOROthiazide (HYDRODIURIL, ESIDRIX) 50 mg tablet Take 1 tablet by mouth once daily. - benzonatate (TESSALON PERLE) 100 mg capsule Take 2 capsules by mouth three times daily as needed. Problem List As Of Date 05/31/2024 Noted Resolved Obesity, Class II, BMI 35-39.9 [E66.812] 11/14/2020 Prescriptions ordered this encounter Disp Refills Start End A (more content not included)... Normal [facility] Amorphous sediment detection in urine sediment by light microscopyOrdered By: Norma Spangler on 07-01-2023 Amorphous sediment LM Ql (Urine sed) 1+ [facility] Basophil percentageOrdered B y: Norma Spangler on 07-01-2023 Basophil percentage 0 SEEN /hpf 0-5 [facility] Beta hCG serum qualOrdered B y: Norma Spangler on 07-01-2023 Beta HCG ( test) Ql Negative [facility] Bilirubin Test strip Ql (U)O rdered By: Norma Spangler on 07-01-2023 Bilirubin Ql (U) Negative Negative [facility] Ketones Test strip Ql (U)Ord ered By: Norma Spangler on 07-01-2023 Ketones Ql (U) Negative Negative [facility] Mucus LM Ql (Urine sed)Order ed By: Norma Spangler on 07-01-2023 Mucus Ql (Urine sed) 0 SEEN /hpf [facility] Nitrite Test strip Ql (U)Ord ered By: Norma Spangler on 07-01-2023 Nitrite Ql (U) Negative Negative [facility] Protein Test strip Ql (U)Ord ered By: Norma Spangler on 07-01-2023 Protein Ql (U) Negative Negative [facility] Squamous epithelial cells de tection in urine sediment by light microscopyOrdered By: Norma Spangler on 07-01-2023 Epithelial cells.squamous LM Ql (Urine sed) 0 SEEN /hpf 5-10 [facility] Urine blood detectionOrdered By: Norma Spangler on 07-01-2023 RBC Ql (U) Negative Negative [facility] RBC Ql (U) 0 SEEN /hpf 0-5 [facility] Urine clarityOrdered By: Oriana Spangler on 07-01-2023 Clarity (U) Cloudy Clear [facility] Urine color determinationOrd ered By: Norma Spangler on 07-01-2023 Color (U) Yellow Yellow [facility] Urine glucose detectionOrder ed By: Norma Spangler on 07-01-2023 Glucose Ql (U) Normal mg/dl Normal [facility] Urine leukocyte esterase det ection by dipstickOrdered By: Norma Spangler on 07-01-2023 Leukocyte esterase Test strip Ql (U) Negative Negative [facility] Urine pHOrdered By: Norma buckley on 07-01-2023 pH (U) 7.0 [pH] 5.0 - 8.0 [facility] Urine sediment bacteria coun t by microscopy (number/high power field)Ordered By: Norma Spangler on 07-01-2023 Bacteria LM.HPF (Urine sed) [#/Area] 0 /[HPF] None Seen [facility] Urine specific gravity measu rementOrdered By: Norma Spangler on 07-01-2023 Specific gravity (U) [Rel density] 1.010 1.002-1.03 0 [facility] Urobilinogen Auto test strip Ql (U)Ordered By: Norma Spangler on 07-01-2023 Urobilinogen Ql (U) Normal mg/dl Normal [facility] Culture, urineOrdered By: Ludy Rdz on 06-27-2023 Bacteria identified Cx Nom (U) Mixed Gram Pos & Gram Neg Org [facility] Beta hCG serum qualOrdered B y: Jossy Au on 06-25-2023 Beta HCG ( test) Ql Negative [facility] Absolute lymphocyte countOrd ered By: Tashi Colon on 03-25-2023 Lymphocytes Auto (Unsp spec) [#/Vol] 2.87 10*3/uL 0.83-4.51 [facility] Basophil percentageOrdered B y: Tashi Colon on 03-25-2023 Basophils/100 WBC (Bld) 0.6 % 0-1 [facility] Eosinophils/100 WBC (Bld) 2.9 % 0-5 [facility] Neutrophils (Bld) [#/Vol] 6.7 10*3/uL 2.0-7.7 [facility] Neutrophils/100 WBC (Bld) 64.2 % 47-70 [facility] Testosterone [Mass/Vol] 37 ng/dL 13-71 [facility] WBC (Bld) [#/Vol] 10.4 10*3/uL 4.4-11.0 [facility] Blood erythrocytes count (nu mber/volume)Ordered By: Tashi Colon on 03-25-2023 RBC (Bld) [#/Vol] 5.04 10*6/uL 4.2-5.4 [facility] Blood hemoglobin measurement (mass/volume)Ordered By: Tashi Colon on 03-25-2023 Hemoglobin (Bld) [Mass/Vol] 14.4 g/dL 12.0-15.0 [facility] Blood lymphocytes/100 leukoc ytesOrdered By: Tashi Colon on 03-25-2023 Lymphocytes/100 WBC (Bld) 27.5 % 19-41 [facility] Blood monocytes/100 leukocyt esOrdered By: Tashi Colon on 03-25-2023 Monocytes/100 WBC (Bld) 4.3 % 0-10 [facility] Blood platelet mean volumeOr dered By: Tashi Colon on 03-25-2023 Platelet mean volume (Bld) [Entitic vol] 10.2 fL 6.2-12.0 [facility] Determination of erythrocyte mean corpuscular volume (MCV)Ordered By: Tashi Colon on 03-25-2023 MCV (RBC) [Entitic vol] 87.1 fL 81-99 [facility] Free testosterone percentage Ordered By: Tashi Colon on 03-25-2023 Testosterone Free/Testosterone.tot al [Mass fraction] 3.03 % 0.50-2.80 [facility] Comment on above: Performed at: [address] [id number] Director: Boris Chiang PhD, Phone: [phone] at: [address] [id number] Director: Nikki Fernández MD, Phone: [phone] Hematocrit Auto (Bld) [Volum e fraction]Ordered By: Tashi Colon on 03-25-2023 Hematocrit (Bld) [Volume fraction] 43.9 % 37-47 [facility] - Chemistry and C hemistry - challengeOrdered By: Tashi Colon on 03-25-2023 Free T4 [Mass/Vol] 1.12 ng/dL 0.76-1.46 [facility] - Hematology and Cell countsOrdered By: Tashi Colon on 03-25-2023 Erythrocyte distribution width (RBC) [Entitic vol] 37.9 fL 35.1-43.9 [facility] Erythrocyte distribution width (RBC) [Ratio] 11.9 % 11.6-14.6 [facility] Immature granulocytes/100 WBC (Bld) 0.500 % 0.0-0.9 [facility] Comment on above: IG% - Immature Granu locytes (promyelocytes, myelocytes and metamyelocytes) > 1% indicates that a LEFT SHIFT is Present. MCH (RBC) [Entitic mass] 28.6 pg 27.0-32.0 [facility] Nucleated RBC/100 WBC (Bld) [Ratio] 0 % 0-5 [facility] MCHC Auto (RBC) [Mass/Vol]Or dered By: Tashi Colon on 03-25-2023 MCHC (RBC) [Mass/Vol] 32.8 g/dL 32-36 [facility] No Panel InformationOrdered By: Tashi Colon on 03-25-2023 Follicle Stimulating Hormone 6.0 mIU/mL [facility] Comment on above: NORMAL REFERENCE RAN GES FEMALE FOLLICULAR 2.3 - 12.6 mIU/mL MID-CYCLE PEAK 5.2 - 17.5 mIU/mL LUTEAL 1.7 - 12.9 mIU/mL POST-MENOPAUSAL ON MHT 5.9 - 72.8 mIU/mL NOT ON MHT 12.7 - 132.2 mlU/mL MALE 0.7 - 10.8 mIU/mL Luteinizing Hormone 8.4 mIU/mL [facility] Comment on above: NORMAL REFERENCE RAN [facility] FEMALE FOLLICULAR 1.9 - 26.2 mIU/mL MID-CYCLE PEAK 22.8 - 76.1 mIU/mL LUTEAL 0.6 - 16.6 mIU/mL POST-MENOPAUSAL ON MHT 1.1 - 52.4 mIU/mL NOT ON MHT 8.6 - 61.8 mIU/mL MALE 1.2 - 10.6 mIU/mL Thyroid Stimulating Hormone (TSH) 2.40 uIU/mL 0.358-3.74 [facility] Platelets bldOrdered By: Windy Colon on 03-25-2023 Platelets (Bld) [#/Vol] 396 10*3/uL 150-450 [facility] Serum or plasma estradiol (E 2) measurement (mass/volume)Ordered By: Tashi Colon on 03-25-2023 E2 [Mass/Vol] 63.9 pg/mL [facility] Comment on above: NORMAL REFERENCE RAN GES FEMALE FOLLICULAR 21.4 - 164.8 pg/mL MID-CYCLE PEAK 49.9 - 367.2 pg/mL LUTEAL 40.2 - 259.0 pg/mL POST-MENOPAUSAL ON MHT <11.0 - 462.1 pg/mL NOT ON MHT <11.0 - 58.3 pg/mL MALE <11.0 - 52.5 pg/mL NOTE:[employer] HAS CONFIRMED THE DRUG FULVETRANT (FASLODEX) MAY CAUSE FALSELY ELEVATED ESTRADIOL RESULTS WHEN USING THIS TEST METHOD. IF PATIENT IS TAKING FULVESTRANT AN ALTERNATIVE METHOD SHOULD BE USED TO DETERMINE ESTRADIOL CONCENTRATION. Serum or plasma prolactin me asurement (mass/volume)Ordered By: Tashi Colon on 03-25-2023 Prolactin [Mass/Vol] 7.8 ng/mL [facility] Comment on above: NORMAL REFERENCE RAN GES FEMALE NON- 2.2 - 30.3 ng/mL 8.1 - 347.6 ng/mL POST-MENOPAUSAL 0.7 - 31.5 ng/mL MALE 2.5 - 17.4 ng/mL Serum or plasma testosterone free measurement (mass/volume)Ordered By: Tashi Colon on 03-25-2023 Testosterone Free [Mass/Vol] 1.12 ng/dL 0.10-0.85 [facility] Absolute lymphocyte countOrd ered By: Jossy Au on 03-11-2023 Lymphocytes Auto (Unsp spec) [#/Vol] 2.94 10*3/uL 0.83-4.51 [facility] Basophil percentageOrdered B y: Jossy Au on 03-11-2023 Basophils/100 WBC (Bld) 0.8 % 0-1 [facility] Eosinophils/100 WBC (Bld) 3.6 % 0-5 [facility] Neutrophils (Bld) [#/Vol] 8.2 10*3/uL 2.0-7.7 [facility] Neutrophils/100 WBC (Bld) 65.9 % 47-70 [facility] WBC (Bld) [#/Vol] 12.4 10*3/uL 4.4-11.0 [facility] Blood erythrocytes count (nu mber/volume)Ordered By: Jossy Au on 03-11-2023 RBC (Bld) [#/Vol] 5.05 10*6/uL 4.2-5.4 [facility] Blood hemoglobin measurement (mass/volume)Ordered By: Jossy Au on 03-11-2023 Hemoglobin (Bld) [Mass/Vol] 14.4 g/dL 12.0-15.0 [facility] Blood lymphocytes/100 leukoc ytesOrdered By: Jossy Au on 03-11-2023 Lymphocytes/100 WBC (Bld) 23.6 % 19-41 [facility] Blood monocytes/100 leukocyt esOrdered By: Jossy Au on 03-11-2023 Monocytes/100 WBC (Bld) 5.7 % 0-10 [facility] Blood platelet mean volumeOr dered By: Jossy Au on 03-11-2023 Platelet mean volume (Bld) [Entitic vol] 9.8 fL 6.2-12.0 [facility] Determination of erythrocyte mean corpuscular volume (MCV)Ordered By: Jossy Au on 03-11-2023 MCV (RBC) [Entitic vol] 88.3 fL 81-99 [facility] Hematocrit Auto (Bld) [Volum e fraction]Ordered By: Jossy Au on 03-11-2023 Hematocrit (Bld) [Volume fraction] 44.6 % 37-47 [facility] Laboratory - Hematology and Cell countsOrdered By: Jossy Au on 03-11-2023 Erythrocyte distribution width (RBC) [Entitic vol] 38.3 fL 35.1-43.9 [facility] Erythrocyte distribution width (RBC) [Ratio] 11.9 % 11.6-14.6 [facility] Immature granulocytes/100 WBC (Bld) 0.400 % 0.0-0.9 [facility] Comment on above: IG% - Immature Granu locytes (promyelocytes, myelocytes and metamyelocytes) > 1% indicates that a LEFT SHIFT is Present. MCH (RBC) [Entitic mass] 28.5 pg 27.0-32.0 [facility] Nucleated RBC/100 WBC (Bld) [Ratio] 0 % 0-5 [facility] MCHC Auto (RBC) [Mass/Vol]Or dered By: Jossy Au on 03-11-2023 MCHC (RBC) [Mass/Vol] 32.3 g/dL 32-36 [facility] Platelets bldOrdered By: Puneet Au on 03-11-2023 Platelets (Bld) [#/Vol] 352 10*3/uL 150-450 [facility] Absolute lymphocyte countOrd ered By: Jossy Au on 01-07-2023 Lymphocytes Auto (Unsp spec) [#/Vol] 3.67 10*3/uL 0.83-4.51 [facility] Basophil percentageOrdered B y: Jossy Au on 01-07-2023 Basophils/100 WBC (Bld) 0.6 % 0-1 [facility] Bilirubin [Mass/Vol] 0.20 mg/dL 0.20-1.00 [facility] Comment on above: For patients on eltr ombopag therapy, use of Dimension [place] TBIL is not recommended. Chloride [Moles/Vol] 103 mmol/L 98-107 [facility] Eosinophils/100 WBC (Bld) 2.2 % 0-5 [facility] Glucose [Mass/Vol] 118 mg/dL 74-106 [facility] Comment on above: Fasting Glucose resu lt from 100 to 125 mg/dL suggests IMPAIRED HOMEOSTASIS per A.D.A. criteria. Neutrophils (Bld) [#/Vol] 9.0 10*3/uL 2.0-7.7 [facility] Neutrophils/100 WBC (Bld) 64.6 % 47-70 [facility] Potassium [Moles/Vol] 3.9 mmol/L 3.5-5.1 [facility] Protein [Mass/Vol] 8.3 g/dL 6.4-8.2 [facility] Sodium [Moles/Vol] 137 mmol/L 136-145 [facility] WBC (Bld) [#/Vol] 13.9 10*3/uL 4.4-11.0 [facility] Blood erythrocytes count (nu mber/volume)Ordered By: Jossy Au on 01-07-2023 RBC (Bld) [#/Vol] 4.84 10*6/uL 4.2-5.4 [facility] Blood hemoglobin measurement (mass/volume)Ordered By: Jossy Au on 01-07-2023 Hemoglobin (Bld) [Mass/Vol] 14.3 g/dL 12.0-15.0 [facility] Blood lymphocytes/100 leukoc ytesOrdered By: Jossy Au on 05-30-2023 Lymphocytes/100 WBC (Bld) 26.4 % 19-41 [facility] Blood monocytes/100 leukocyt esOrdered By: Jossy Au on 01-07-2023 Monocytes/100 WBC (Bld) 5.8 % 0-10 [facility] Blood platelet mean volumeOr dered By: Jossy Au on 01-07-2023 Platelet mean volume (Bld) [Entitic vol] 10.2 fL 6.2-12.0 [facility] Determination of erythrocyte mean corpuscular volume (MCV)Ordered By: Jossy Au on 01-07-2023 MCV (RBC) [Entitic vol] 88.0 fL 81-99 [facility] Hematocrit Auto (Bld) [Volum e fraction]Ordered By: Jossy Au on 01-07-2023 Hematocrit (Bld) [Volume fraction] 42.6 % 37-47 [facility] - Chemistry and C hemistry - challengeOrdered By: Jossyravi Au on 01-07-2023 ALP [Catalytic activity/Vol] 126 U/L 45-117 [facility] ALT [Catalytic activity/Vol] 67 U/L 13-56 [facility] CO2 [Moles/Vol] 26.0 mmol/L 21.0-32.0 [facility] Free T4 [Mass/Vol] 1.09 ng/dL 0.76-1.46 [facility] Globulin (S) [Mass/Vol] 4.7 g/dL 2.2-4.2 [facility] Urea nitrogen/Creatinine [Mass ratio] 16.5 mg/mg 10-20 [facility] - Hematology and Cell countsOrdered By: Jossy Au on 01-07-2023 Erythrocyte distribution width (RBC) [Entitic vol] 39.8 fL 35.1-43.9 [facility] Erythrocyte distribution width (RBC) [Ratio] 12.3 % 11.6-14.6 [facility] Immature granulocytes/100 WBC (Bld) 0.400 % 0.0-0.9 [facility] Comment on above: IG% - Immature Granu locytes (promyelocytes, myelocytes and metamyelocytes) > 1% indicates that a LEFT SHIFT is Present. MCH (RBC) [Entitic mass] 29.5 pg 27.0-32.0 [facility] Nucleated RBC/100 WBC (Bld) [Ratio] 0 % 0-5 [facility] Auto ([facility]BC) [Mass/Vol]Or dered By: Jossy Au on 01-07-2023 MCHC (RBC) [Mass/Vol] 33.6 g/dL 32-36 [facility] No Panel InformationOrdered By: Jossy Au on 01-07-2023 Thyroglobulin Antibody < 1.0 IU/mL 0.0-0.9 [facility] Comment on above: Thyroglobulin Antibo dy measured by Shelton CoulterMethodology Thyroglobulin Level 21.4 ng/mL 1.5-38.5 [facility] Comment on above: According to the [facility] [employer] of [employer],the reference interval for Thyroglobulin (TG) should berelated to euthyroid patients and not for patients whounderwent thyroidectomy. TG reference intervals for thesepatients depend on the residual mass of the thyroid tissueleft after surgery. Establishing a post-operative baselineis recommended. The assay limit of quantitation is 0.1ng/mLThyroglobulin measured by Shelton Kimball ImmunometricAssay Estimated GFR (MDRD) Amer 105 mL/min >60 [facility] Comment on above: GFR Calc Estimated GFR (MDRD) Non-Af Amer 87 mL/min >60 [facility] Comment on above: Non- GFR Calc Free Triiodothyronine (T3) pg/dL 2.5 pg/mL 2.18-3.98 [facility] Thyroid Stimulating Hormone (TSH) 3.68 uIU/mL 0.358-3.74 [facility] Platelets bldOrdered By: Puneet Au on 01-07-2023 Platelets (Bld) [#/Vol] 420 10*3/uL 150-450 [facility] Serum or plasma albumin arnold urement (mass/volume)Ordered By: Jossy Au on 01-07-2023 Albumin [Mass/Vol] 3.6 g/dL 3.2-5.0 [facility] Serum or plasma albumin/glob ulin mass ratioOrdered By: Jossy Au on 01-07-2023 Albumin/Globulin [Mass ratio] 0.8 {ratio} 0.9-2.4 [facility] Serum or plasma calcium arnold urement (mass/volume)Ordered By: Jossy Au on 01-07-2023 Calcium [Mass/Vol] 9.8 mg/dL 8.5-10.1 [facility] Serum or plasma cortisol ángela surement (mass/volume)Ordered By: Jossy Au on 01-07-2023 Cortisol [Mass/Vol] 6.70 ug/dL 3.44-22.45 [facility] Comment on above: Adult (AM) 5.27 - 22 .45 ug/dL Adult (PM) 3.44 - 16.76 ug/dLPlease note revised CORTISOL reference range effective 2019. Serum or plasma creatinine m easurement (mass/volume)Ordered By: Jossy Au on 01-07-2023 Creatinine [Mass/Vol] 0.85 mg/dL 0.55-1.02 [facility] Comment on above: The validity of the calculated GFR & GFRAA in patients over 70 years has not been determined. Clinical correlation is essential. Serum or plasma thyroperoxid ase antibody assay (units/volume)Ordered By: Jossy Au on 01-07-2023 TPO Ab Qn 16 [IU]/mL 0-34 [facility] Comment on above: Performed at: [address] [id number] Director: Boris Chiang PhD, Phone: [phone] Serum or plasma urea nitroge n measurement (mass/volume)Ordered By: Jossy Au on 01-07-2023 Urea nitrogen [Mass/Vol] 14 mg/dL 7-18 [facility] Thin prep Papanicolaou smear with manual screeningOrdered By: Jossy Au on 01-07-2023 Thin prep Papanicolaou smear with manual screening 26 U/L 15-37 [facility] Thin prep Papanicolaou smear with manual screening 8 5-15 [facility] XR Chest PA and Lateralon IMPRESSION: Mild central bronchointerstitial prominence suspicious for a viral process/bronchiolitis. Process Development Chemist: RIGO Transcribe Date/Time: Jun 12 2022 11:45A Dictated by : LENORA GERMAIN MD This examination was interpreted and the report reviewed and electronically signed by: LENORA GERMAIN MD on Jun 12 2022 11:46AM [facility] DIVISION OF RADIOLOGY * * *Final Report* * * DATE OF EXAM: Jun 12 2022 11:30AM WOX [id number] - XR CHEST 2V FRONTAL/LAT / PROCEDURE REASON: Acute cough * * * * Physician Interpretation * * * * EXAMINATION: CHEST RADIOGRAPH (2 VIEW FRONTAL & LATERAL) CLINICAL HISTORY: Acute cough MQ: XC2_6 EXAM DATE/TIME: 06/12/2022 11:30 AM COMPARISON: No relevant prior studies available. RESULT: Lines, tubes, and devices: None. Lungs and pleura: No consolidation. Mild central bronchointerstitial prominence suspicious for a viral process/bronchiolitis. No lung mass. No pleural effusion. No pneumothorax. Cardiomediastinal silhouette: Normal cardiomediastinal silhouette. Bones and soft tissues: Unremarkable. DIVISION OF RADIOLOGY Provider, [facility] - 06/12/2022 * * *Final Report* * * DATE OF EXAM: Jun 12 2022 11:30AM WOX [id number] - XR CHEST 2V FRONTAL/LAT / PROCEDURE REASON: Acute cough * * * * Physician Interpretation * * * * EXAMINATION: CHEST RADIOGRAPH (2 VIEW FRONTAL & LATERAL) CLINICAL HISTORY: Acute cough MQ: XC2_6 EXAM DATE/TIME: 06/12/2022 11:30 AM COMPARISON: No relevant prior studies available. RESULT: Lines, tubes, and devices: None. Lungs and pleura: No consolidation. Mild central bronchointerstitial prominence suspicious for a viral process/bronchiolitis. No lung mass. No pleural effusion. No pneumothorax. Cardiomediastinal silhouette: Normal cardiomediastinal silhouette. Bones and soft tissues: Unremarkable. IMPRESSION IMPRESSION: Mild central bronchointerstitial prominence suspicious for a viral process/bronchiolitis. Process Development Chemist: RIGO Transcribe Date/Time: Jun 12 2022 11:45A Dictated by : LENORA GERMAIN MD This examination was interpreted and the report reviewed and electronically signed by: LENORA GERMAIN MD on Jun 12 2022 11:46AM [facility] Radiology Study observation (narrative) [facility] XR Chest PA and LateralOrder ed By: [facility] Provider on 06-12-[address] [facility] CT CHEST WO CONTRASTon 01-19 CT CHEST WO CONTRAST Comparison: September 05, 2018. Axial, sagittal, and coronal computed tomography of the chest was performed without contrast. Macrolobulated nodule within the right posterior costophrenic angle measuring 3.2 x 1.2 cm is unchanged compared to prior scans. There is dependent atelectasis bilaterally. The lungs are negative for dominant mass or airspace consolidation elsewhere. There is no evidence for effusion, pneumothorax or severe interstitial change. Within the thoracic inlet, the thyroid gland is grossly unremarkable. The major airways are patent. There is no mediastinal or hilar mass or lymphadenopathy. The heart is not enlarged. There is no evidence of pericardial fluid. The upper abdominal structures are unremarkable. There are minimal degenerative changes of the spine. The skeletal structures are otherwise negative for progressive process or acute fracture. IMPRESSION: Stable nodularity of the right posterior costophrenic angle. No evidence for new or worrisome change as compared to the prior study. Interpreted by: Daniel Chance DO Signed by: Daniel Chance DO 01/19/19 Final result Normal [facility] Provider Note - EDon 01-04-2 019 Protein mass conc TIME SEEN: Time [id number] 14:09 CHIEF COMPLAINT/REASON FOR VISIT: REASON FOR VISITheadache began this morning(1) ALLERGIES: Allergies: Bactrim: Drug, Rash, Active OUTPATIENT MEDICATION, REVIEW/ADD MEDICATIONS: * Incomplete Medication History as of 04-Jan-2019 14:06 documented in Structured Notes PAST MEDICAL HISTORY: Past Medical History: noncontributory (1) PAST SURGICAL HISTORY: Past Surgical History: noncontributory (1) SUBSTANCE USE: Smoking Statusnever smoker(1) Alcohol Use Statusalcohol never used (1) Street Drug/Inhalant/Medication Use Statusstreet drug/inhalants/medication never used (1) Exposure to Second Hand Smokenone (1) HISTORY ATTESTATION: AttestationI have reviewed and confirmed nurse's/medic's notes for patient's medications, allergies, medical history, and surgical history VITAL SIGNS: 2. Vital Signs: Date/TimeTemp (degrees F) (degrees F)Temp (degrees C) (degrees C)Heart Rate (beats/min) beats/minBP Systolic (mm Hg) SystolicBP Diastolic (mm Hg) Diastolic (mm Hg) 04-Jan-2019 14:[id number] Respiration (breaths/min) Respiration (breaths/min)SpO2 (%) SpO2 (%)Height (ft) Height (ft)Height (remainder in inches) Height (in)Height (cm) Height (cm) 068634948.5 BSA (m2)BMI (kg/m2) BMI (kg/m2)Weight (lbs) Weight (lbs)Weight (kg) Weight (kg)Presence of Pain [id number] of pain/discomfort Pain Rating 6/10 PROGRESS NOTE: ED Course: HPI: A 18-year-old female presents to the urgent care with concern for headache and left-sided neck pain that occurred this morning. She rolled over in bed and hit the left side of her head off of her boyfriend's hand. No loss consciousness, no vomiting. No vision changes. She does have a diffuse headache and left side of her head in the left side of the neck and trapezius area and down in the left arm. No paresthesias or weakness in the extremities. No dizziness or vertiginous type symptoms. No blurry vision or double vision. No history of head injuries. She is not on blood thinners. No other injuries. REVIEW OF SYSTEMS: Review of systems is otherwise negative unless stated above or in history of present illness. 10 systems reviewed and otherwise negative. PMH: Reviewed and noncontributory PSH: Reviewed and noncontributory Social History: Reviewed. Allergies reviewed. PHYSICAL EXAM: GENERAL: Vitals noted, no distress. Alert and oriented x 3. Non-toxic. HEAD: Normocephalic, atraumatic.There is diffuse over left-sided scalp without overlying hematoma, ecchymosis or step-offs. EYES: Pupils equal, round and reactive to light bilaterally, extraocular eye movements are intact bilaterally, sclera are anicteric, no nystagmus. ENT: Posterior oropharynx pink and moist, uvula is midline, no exudate or erythema. , L and raccoon sign negative, without hemotympanum. . TMs without effusion, normal light reflex, no erythema or edema of the external acoustic meatus or mastoid process bilaterally. NECK: Normal range of motion in flexion, extension, and lateral rotation. No meningismus. No palpable cervical lymphadenopathy, trachea midline.Tenderness along the left paravertebral muscles of the cervical spine, trapezius and sternocleidomastoid muscle and the left posterior scalp area. CARDIAC: Regular rate and rhythm. No murmurs rubs or gallops. No JVD. Radial pulses 2+ bilaterally. PULMONARY: Lungs clear bilaterally with good aeration. No wheezes rales or rhonchi. No respiratory distress. EXTREMITIES: Patient exhibits good range of motion in all 4 extremities and good muscular tone. SKIN: Warm and dry, capillary refill is less than 2 seconds, no cyanosis or pallor. NEURO: Cranial nerves II through XII intact, motor and sensory function of the upper and lower extremities is intact, proprioception and cerebellar function are within normal limits, no ataxia, dysarthria, or aphasia.Normal gait. Romberg negative. MEDICAL DECISION MAKING: Patient seen and examined by myself. Patient is neurologically intact without deficits. No severe mechanism of injury, no vomiting. Clinically, appears well. Suspect strain from jerking her neck, back, after hitting the left side of her head on the patient's hand. She is tender along the paravertebral muscles and the trapezius and pain is worse when she tries to abduct the left shoulder as well as shrugging the shoulders and turned the neck to the right. Stretching the left side muscles. She is educated regarding range of motion exercises as well as warm compresses. She'll be started on anti-inflammatories and muscle relaxers. She'll follow up with primary care provider a few days. Denies chance return for confusion, vision changes, vertiginous type symptoms or changes in symptoms. Low suspicion for vertebral artery dissectio or acute intracranial hemorrhage at this point, given her presentation. Discharged stable condition. Final impression Acute left sided neck pain, headache DIAGNOSES/PROBLEM LIST: Problem [id number] HeadacheED [id number] Neck pain, acuteED [id number] DISCHARGE DISPOSITION: Disposition: discharged Discharge Type: home CONDITION ON DISCHARGE: Condition on Dispositionstable MEDICATION RECONCILIATION AND DISCHARGE MEDS: * Incomplete Medication History as of 04-Jan-2019 14:06 documented in Structured Notes MedicationInstructionsStart DateStop DateQuantityRefillsSubmitted By cyclobenzaprine 10 mg oral tablet1 tab(s) orally every 8 hours as needed for muscle spasms. Do not drive after taking. [id number], John B naproxen 500 mg oral tablet1 tab(s) orally every 12 hours with food as needed for pain. 14Chandrakant Duffy [id number] Salgado CO-SIGN/ATTESTATION: Attestation: Supervising physician on site, available for consultation, non-participatory in the evaluation of the care of this patient. Electronic Signatures: Chandrakant Leonard (RM) (Signed 04-Jan-2019 14:28) Authored: Time Seen/ED Notes, Chief Complaint/Reason for Visit via Triage Note, Patient History, History Attestation, Vital Signs, Progress Note, ED Disposition (REQUIRED), Attestation Joshua Thibodeaux) (Signed 04-Jan-2019 16:13) Co-Signer: Time Seen/ED Notes, Chief Complaint/Reason for Visit via Triage Note, Patient History, History Attestation, Vital Signs, Progress Note, ED Disposition (REQUIRED), Attestation Last Updated: 04-Jan-2019 16:13 by Joshua Thibodeaux) Normal [facility] HEP PANEL A,B,Con 09-20-2018 HBSAB Non Reactive Normal [facility] Comment on above: Result Comment: (NOT E) Non Reactive: Inconsistent with immunity, less than 10 mIU/mL Reactive: Consistent with immunity, greater than 9.9 mIU/mL Performed By: #### L IVR, GGT, TSH2 #### Testing performed at [address] [address] #### LHEPP #### [place] [address] HBSAG SCREEN Negative Normal Negative [facility] Comment on above: Performed By: #### L IVR, GGT, TSH2 #### Testing performed at [address] [address] #### LHEPP #### Testing performed at [address] [place] [address] HEP A AB TOTAL Negative Normal Negative [facility] Comment on above: Performed By: #### L IVR, GGT, TSH2 #### Testing performed at [place] [id number] #### LHEPP #### Testing performed at [address] [address] HEP B CORE AB Negative Normal Negative [facility] Comment on above: Performed By: #### L IVR, GGT, TSH2 #### [place] [address] #### LHEPP #### Testing performed at [address] [address] HEP C VIRUS AB 0.2 s/co ratio Normal 0.0-0.9 [facility] Comment on above: Result Comment: (NOT E) Negative: < 0.8 Indeterminate: 0.8 - 0.9 Positive: > 0.9 The CDC recommends that a positive HCV antibody result be followed up with a HCV Nucleic Acid Amplification test ([id number]). PERFORMED AT [facility] Performed By: #### L IVR, GGT, TSH2 #### [place] [address] #### LHEPP #### Testing performed at [address] [address] FREE T3on 09-19-2018 T3 free mass conc 3.56 pg/mL Normal 2.77-5.27 [facility] Comment on above: Performed By: #### L IVR, GGT, TSH2 #### Testing performed at [address] [address] #### LHEPP #### Testing performed at [address] [address] FREE T4on 09-19-2018 T4 free mass conc 1.50 ng/dL Normal 0.78-2.19 [facility] Comment on above: Result Comment: Test ing performed at [facility], [place] [address] Performed By: #### C MPF, LIP2, RTSH, ACBC, T42 #### [place] [address] GGTon 09-19-2018 Gamma glutamyl transferase enzyme act/vol 72 U/L High 12-43 [facility] Comment on above: Result Comment: Test ing performed at [place] [address] Performed By: #### L IVR, GGT, TSH2 #### [place] [address] #### LHEPP #### Testing performed at [address] [place] [address] LIVER PANELon 09-19-2018 Albumin mass conc 4.2 g/dL Normal 2.9-5.3 [facility] Comment on above: Performed By: #### L IVR, GGT, TSH2 #### [place] [address] #### LHEPP #### Testing performed [address] [facility] [place] [address] ALP enzyme act/vol 101 U/L Normal 38-126 [facility] Comment on above: Performed By: #### L IVR, GGT, TSH2 #### [place] [address] #### LHEPP #### Testing performed at [address] [place] [address] ALT enzyme act/vol 61 U/L High 9-52 [facility] Comment on above: Result Comment: Test ing performed at [place] [address] Performed By: #### L IVR, GGT, TSH2 #### [place] [address] #### LHEPP #### Testing performed [address] [place] [address] [address] AST enzyme act/vol 35 U/L Normal 14-36 [facility] Comment on above: Performed By: #### L IVR, GGT, TSH2 #### Testing performed at [address] [address] #### LHEPP #### Testing performed [address] [facility] [place] [address] Bilirubin mass conc 0.4 mg/dL Normal 0.2-1.3 [facility] Comment on above: Performed By: #### L IVR, GGT, TSH2 #### Testing performed at [place] [id number] #### LHEPP #### Testing performed at [address] [address] Bilirubin.direct mass conc 0.2 mg/dL Normal 0-0.4 [facility] Comment on above: Performed By: #### L IVR, GGT, TSH2 #### [place] [address] #### LHEPP #### Testing performed at [address] [address] Protein mass conc 7.5 g/dL Normal 6.3-8.2 [facility] Comment on above: Performed By: #### L IVR, GGT, TSH2 #### [place] [address] #### LHEPP #### Testing performed at [address] [address] TSHon 09-19-2018 Thyrotropin Qn 2.520 uIU/ML Normal 0.46-4.68 [facility] Comment on above: Result Comment: Test ing performed at [place] [address] Performed By: #### L IVR, GGT, TSH2 #### Testing performed at [place] [id number] #### LHEPP #### Testing performed [address] [facility] [place] [address] CT CHEST WO CONTRASTon 09-05 CT CHEST WO CONTRAST Patient 54 : 2000 Age: 18 years Gender: Female Order Date: 09/05/2018 9:49 AM EXAM: CT CHEST WO CONTRAST NUMBER OF IMAGES: [id number] INDICATION: R91.1 Lung nodule COMPARISON: CT abdomen with contrast dated April 05, 2017. FINDINGS: Several centimeters greatest diameter area of endobronchial thickening and some surrounding interstitial density in the medial right posterior costophrenic sulcal region which has an appearance compatible with scar. This is minimally more conspicuous when compared with images from the contrast-enhanced abdominal and pelvic CT scan dated April 05, 2017. There are no calcifications are other elements within this area of soft tissue density which overlies an area of minimal pleural tenting and which extends along the posterior aspect of the right hemidiaphragm. The lungs are otherwise clear. The major airways are widely patent. No enlarged axillary, mediastinal, hilar lymph nodes are identified. The heart is not enlarged. Moderate generalized hepatic steatosis is seen in the visualized portions of the liver. Is no evidence of adrenal mass. No osseous lesion is identified. IMPRESSION: Minimal increase in conspicuity of an area of bronchial and endobronchial disease most compatible with scarring in the right lower lobe on 19 month follow-up. PET scan could be performed for further evaluation to determine whether this area is now quiescent or alternatively follow-up CT evaluation can be done in 3 months. Hepatic steatosis is incidentally again noted. Interpreted by: Mark Mcclendon MD Signed by: Mark Mcclendon MD 09/05/18 Final result Normal [facility] CBCon 08-19-2018 ABSOLUTE BAS 0.0 X10 Normal [facility] Comment on above: Result Comment: Test ing performed at [place] [address] Performed By: #### C MPF, LIP2, RTSH, ACBC, T42 #### [place] [address] ABSOLUTE EOS 0.50 X10 Normal [facility] Comment on above: Performed By: #### C MPF, LIP2, RTSH, ACBC, T42 #### [place] [address] ABSOLUTE NEUTROPHIL COUNT 6.2 x10 Normal 1.0-7.0 [facility] Comment on above: Performed By: #### C MPF, LIP2, RTSH, ACBC, T42 #### Testing performed at [address] [address] Basophils/100 WBC (Bld) 0.5 % Normal 0.0-2.0 [facility] Comment on above: Performed By: #### C MPF, LIP2, RTSH, ACBC, T42 #### Testing performed at [address] [address] DTYPE AUTO DIFF Normal [facility] Comment on above: Performed By: #### C MPF, LIP2, RTSH, ACBC, T42 #### Testing performed at [address] [address] Eosinophils/100 WBC (Bld) 4.7 % Normal 0.0-11.0 [facility] Comment on above: Performed By: #### C MPF, LIP2, RTSH, ACBC, T42 #### Testing performed at [address] [address] Lymphocytes #/vol (Bld) 2.40 X10 Normal [facility] Comment on above: Performed By: #### C MPF, LIP2, RTSH, ACBC, T42 #### Testing performed at [address] [address] Lymphocytes/100 WBC (Bld) 24.9 % Normal 20.0-55.0 [facility] Comment on above: Performed By: #### C MPF, LIP2, RTSH, ACBC, T42 #### Testing performed at [address] [address] Monocytes #/vol (Bld) 0.7 X10 Normal [facility] Comment on above: Performed By: #### C MPF, LIP2, RTSH, ACBC, T42 #### Testing performed at [address] [address] Monocytes/100 WBC (Bld) 7.2 % Normal 0.0-10.0 [facility] Comment on above: Performed By: #### C MPF, LIP2, RTSH, ACBC, T42 #### Testing performed at [place] [id number] Neutrophils/100 WBC (Bld) 62.7 % Normal 37.0-75.0 [facility] Comment on above: Performed By: #### C MPF, LIP2, RTSH, ACBC, T42 #### [place] [address] Erythrocyte distribution width Ratio (RBC) 12.7 % Normal 11.5-14.5 [facility] Comment on above: Performed By: #### C MPF, LIP2, RTSH, ACBC, T42 #### [place] [address] Hematocrit Volume Fraction (Bld) 43.2 % Normal 36.0-48.0 [facility] Comment on above: Performed By: #### C MPF, LIP2, RTSH, ACBC, T42 #### [place] [address] Hemoglobin mass conc (Bld) 14.9 g/dL Normal 12.0-16.0 [facility] Comment on above: Performed By: #### C MPF, LIP2, RTSH, ACBC, T42 #### Testing performed at [place] [id number] MCH Entitic mass (RBC) 30.1 pg Normal 26.0-35.0 [facility] Comment on above: Performed By: #### C MPF, LIP2, RTSH, ACBC, T42 #### Testing performed at [place] [id number] MCHC mass conc (RBC) 34.4 g/dL Normal 27.0-37.0 [facility] Comment on above: Performed By: #### C MPF, LIP2, RTSH, ACBC, T42 #### [place] [address] MCV Entitic volume (RBC) 87.3 fL Normal 80.0-100.0 [facility] Comment on above: Performed By: #### C MPF, LIP2, RTSH, ACBC, T42 #### [place] [address] Platelet mean volume Entitic volume (Bld) 8.4 fL Normal 7.4-11.0 [facility] Comment on above: Performed By: #### C MPF, LIP2, RTSH, ACBC, T42 #### [place] [address] Platelets #/vol (Bld) 336 /cmm Normal 130.0- 400. 0 [facility] Comment on above: Performed By: #### C MPF, LIP2, RTSH, ACBC, T42 #### [place] [address] RBC #/vol (Bld) 4.95 /cmm Normal 4.0-5.4 [facility] Comment on above: Performed By: #### C MPF, LIP2, RTSH, ACBC, T42 #### [place] [address] WBC #/vol (Bld) 9.8 /cmm Normal 3.6-11.0 [facility] Comment on above: Performed By: #### C MPF, LIP2, RTSH, ACBC, T42 #### [place] [address] CMP FASTINGon 08-19-2018 A:G RATIO 1.3 RATIO Normal 1.3-2.2 [facility] Comment on above: Performed By: #### C MPF, LIP2, RTSH, ACBC, T42 #### [place] [address] Albumin mass conc 4.4 G/dl Normal 3.5-5.0 [facility] Comment on above: Performed By: #### C MPF, LIP2, RTSH, ACBC, T42 #### [place] [address] ALP enzyme act/vol 94 U/L Normal 38-126 [facility] Comment on above: Performed By: #### C MPF, LIP2, RTSH, ACBC, T42 #### [place] [address] ALT enzyme act/vol 85 U/L High 9-52 [facility] Comment on above: Performed By: #### C MPF, LIP2, RTSH, ACBC, T42 #### [place] [address] AST enzyme act/vol 46 U/L High 14-36 [facility] Comment on above: Performed By: #### C MPF, LIP2, RTSH, ACBC, T42 #### [place] [address] Bilirubin mass conc 0.6 mg/dL Normal 0.2-1.3 [facility] Comment on above: Performed By: #### C MPF, LIP2, RTSH, ACBC, T42 #### [place] [address] Calcium mass conc 9.4 mg/dL Normal 8.4-10.2 [facility] Comment on above: Performed By: #### C MPF, LIP2, RTSH, ACBC, T42 #### [place] [address] Chloride molar conc 104 mmol/L Normal 98-107 [facility] Comment on above: Result Comment: Mitchell cruz note: Triglyceride levels of 600mg/dL or higher may positively bias chloride results by approximately 2.1 mmol Performed By: #### C MPF, LIP2, RTSH, ACBC, T42 #### [place] [address] CO2 molar conc 26 mmol/L Normal 22-30 [facility] Comment on above: Performed By: #### C MPF, LIP2, RTSH, ACBC, T42 #### [place] [address] Creatinine mass conc 0.6 mg/dL Low 0.7-1.2 [facility] Comment on above: Performed By: #### C MPF, LIP2, RTSH, ACBC, T42 #### [place] [address] EST. GFR, >60 Normal [facility] Comment on above: Performed By: #### C MPF, LIP2, RTSH, ACBC, T42 #### [place] [address] EST. GFR,Non >60 Normal [facility] Comment on above: Performed By: #### C MPF, LIP2, RTSH, ACBC, T42 #### [place] [address] GFR/1.73 sq M predicted among non-blacks MDRD vol rate/area (S/P/Bld) Average GFR for 20-29 years old = 116. Normal [facility] Comment on above: Result Comment: Overhauler Helper sisi Kidney disease, GFR = <60. Kidney failure, GFR = <15. The GFR estimate is not adjusted for extreme body surface area or acute process, nor has it been validated for women or ethnic groups other than and . Testing performed at [place] [address] Performed By: #### C MPF, LIP2, RTSH, ACBC, T42 #### [place] [address] Glucose mass conc 98 mg/dL Normal 70-100 [facility] Comment on above: Result Comment: NORMAL <100 mg/dL PREDIABETES 101-126 mg/dL DIABETES 126 mg/dL or higher Performed By: #### C MPF, LIP2, RTSH, ACBC, T42 #### [place] [address] Potassium molar conc 4.2 mmol/L Normal 3.5-5.1 [facility] Comment on above: Performed By: #### C MPF, LIP2, RTSH, ACBC, T42 #### Testing performed at [address] [address] Protein mass conc 7.9 g/dL Normal 6.3-8.2 [facility] Comment on above: Performed By: #### C MPF, LIP2, RTSH, ACBC, T42 #### Testing performed at [place] [id number] Sodium molar conc 141 mmol/L Normal 137-145 [facility] Comment on above: Performed By: #### C MPF, LIP2, RTSH, ACBC, T42 #### Testing performed at [place] [id number] Urea nitrogen mass conc 15 mg/dL Normal 7-20 [facility] Comment on above: Performed By: #### C MPF, LIP2, RTSH, ACBC, T42 #### [place] [address] FREE T4on 08-19-2018 T4 free mass conc 1.00 ng/dL Normal 0.78-2.19 [facility] Comment on above: Result Comment: Test ing performed at [place] [address] Performed By: #### C MPF, LIP2, RTSH, ACBC, T42 #### Testing performed at [address] [address] LIPID PROFILEon 08-19-2018 Cholesterol in HDL mass conc 40 mg/dL Normal 33-75 [facility] Comment on above: Performed By: #### C MPF, LIP2, RTSH, ACBC, T42 #### Testing performed at [address] [address] Cholesterol in LDL mass conc 103 mg/dL Normal [facility] Comment on above: Performed By: #### C MPF, LIP2, RTSH, ACBC, T42 #### Testing performed at [place] [id number] Cholesterol in VLDL mass conc 21 mg/dL Normal 5.0-25 [facility] Comment on above: Performed By: #### C MPF, LIP2, RTSH, ACBC, T42 #### [place] [address] Cholesterol mass conc 164 mg/dL Normal 107-217 [facility] Comment on above: Performed By: #### C MPF, LIP2, RTSH, ACBC, T42 #### [place] [address] Cholesterol.total/Cho lesterol in HDL mass ratio 4.10 {ratio} Normal [facility] Comment on above: Result Comment: RISK TOTAL/HDL RATIO MEN WOMEN 1/2 AVERAGE 3.43 3.27 AVERAGE 4.97 4.44 2X AVERAGE 9.55 7.05 3X AVERAGE 23.99 11.04 Testing performed at [place] [address] Performed By: #### C MPF, LIP2, RTSH, ACBC, T42 #### [place] [address] Triglyceride mass conc 105 mg/dL Normal 0-150 [facility] Comment on above: Performed By: #### C MPF, LIP2, RTSH, ACBC, T42 #### [place] [address] TSH,REFLEX FREE T4on 019 TSH,REFLEX FREE T4 4.700 uIU/ML High 0.46-4.68 [facility] Comment on above: Result Comment: Test ing performed at [place] [address] Performed By: #### C MPF, LIP2, RTSH, ACBC, T42 #### [place] [address] Vital Signs Date Time Vital Sign Value Performing Clinician Randy ch 02-14-2025 10:20-0400 Body mass index (BMI) [Ratio] 31.38 kg/m2 Magaly Tovar MD Work Phone: [facility] 02-14-2025 10:20-0400 Body weight 82.92 kg Magaly Tovar MD Work Phone: [facility] 02-14-2025 10:20-0400 Diastolic blood pressure 60 mm[Hg] Magaly Tovar MD Work Phone: [facility] 02-14-2025 10:20-0400 Systolic blood pressure 104 mm[Hg] Magaly Tovar MD Work Phone: [facility] 12-16-2024 07:27-0400 Body height 162.56 cm James Cheng MD Work Phone: [facility] 12-16-2024 07:27-0400 Body weight 91.08 kg James Cheng MD Work Phone: [facility] 11-11-2024 07:36-0400 Body weight 93.53 kg James Cheng MD Work Phone: [facility] 10-13-2024 07:16-0500 Body mass index (BMI) [Ratio] 36.97 kg/m2 Nina Cioce DISTRIBUTION DISPATCHER.ASSISTANT MECHANIC Work Phone: [facility] 10-13-2024 07:16-0500 Body temperature 99.3 [degF] Nina Cioce DISTRIBUTION DISPATCHER.ASSISTANT MECHANIC Work Phone: [facility] 10-13-2024 07:16-0500 Body weight 97.7 kg Nina Cioce DISTRIBUTION DISPATCHER.ASSISTANT MECHANIC Work Phone: [facility] 10-13-2024 07:16-0500 Heart rate 98 /min Nina Cioce DISTRIBUTION DISPATCHER.ASSISTANT MECHANIC Work Phone: [facility] 10-13-2024 07:16-0500 SaO2% (BldA) [Mass fraction] 98 % Nina Cioce DISTRIBUTION DISPATCHER.ASSISTANT MECHANIC Work Phone: [facility] 09-15-2024 07:13-0500 Body height 162.6 cm Tashi Colon APRN.ASSISTANT MECHANIC Work Phone: [facility] 09-15-2024 07:13-0500 Body mass index (BMI) [Ratio] 38.96 kg/m2 Tashi Colon DISTRIBUTION DISPATCHER.ASSISTANT MECHANIC Work Phone: [facility] 09-15-2024 07:13-0500 Body weight 102.97 kg Tashi Colon DISTRIBUTION DISPATCHER.ASSISTANT MECHANIC Work Phone: [facility] 09-15-2024 07:13-0500 Diastolic blood pressure 96 mm[Hg] Tashi Colon DISTRIBUTION DISPATCHER.ASSISTANT MECHANIC Work Phone: [facility] 09-15-2024 07:13-0500 Systolic blood pressure 138 mm[Hg] Tashi Colon DISTRIBUTION DISPATCHER.ASSISTANT MECHANIC Work Phone: [facility] 05-31-2024 08:25-0400 Body mass index (BMI) [Ratio] 40 kg/m2 Jack Athy PA-C Work Phone: [facility] 05-31-2024 08:25-0400 Body temperature 97.7 [degF] Jack Athy PA-C Work Phone: [facility] 05-31-2024 08:25-0400 Body weight 105.7 kg Jack Athy PA-C Work Phone: [facility] 05-31-2024 08:25-0400 Diastolic blood pressure 88 mm[Hg] Jack Athy PA-C Work Phone: [facility] 05-31-2024 08:25-0400 Heart rate 101 /min Jack Athy PA-C Work Phone: [facility] 05-31-2024 08:25-0400 Respiratory rate 21 /min Jack Athy PA-C Work Phone: [facility] 05-31-2024 08:25-0400 SaO2% (BldA) [Mass fraction] 98 % Jack Athy PA-C Work Phone: [facility] 05-31-2024 08:25-0400 Systolic blood pressure 130 mm[Hg] Jack Athy PA-C Work Phone: [facility] 07-15-2023 11:55-0500 Body height 162.6 cm Payam Figueroa MD Work Phone: [facility] 07-15-2023 11:55-0500 Body weight 101.42 kg Payam Figueroa MD Work Phone: [facility] 07-15-2023 11:55-0500 Diastolic blood pressure 100 mm[Hg] Payam Figueroa MD Work Phone: [facility] 07-15-2023 11:55-0500 Systolic blood pressure 152 mm[Hg] Payam Figueroa MD Work Phone: [facility] 07-01-2023 18:39-0500 Body height 162.56 cm [facility] 07-01-2023 18:39-0500 Body mass index (BMI) [Ratio] 39.2 kg/m2 [facility] 07-01-2023 18:39-0500 Body temperature 98.1 [degF] [facility] 07-01-2023 18:39-0500 Body weight 103.82 kg [facility] 07-01-2023 18:39-0500 Diastolic blood pressure 115 mm[Hg] [facility] 07-01-2023 18:39-0500 Heart rate 104 /min [facility] 07-01-2023 18:39-0500 Respiratory rate 18 /min [facility] 07-01-2023 18:39-0500 SaO2% (BldA) [Mass fraction] 97 % [facility] 07-01-2023 18:39-0500 Systolic blood pressure 164 mm[Hg] [facility] 01-12-2023 11:08-0400 Body temperature 97.8 [degF] WAFER FAB TECHNICIAN-C Brionna Podlogar WAFER FAB TECHNICIAN Work Phone: [facility] 01-12-2023 11:08-0400 Diastolic blood pressure 78 mm[Hg] WAFER FAB TECHNICIAN-C Brionna Podlogar WAFER FAB TECHNICIAN Work Phone: [facility] 01-12-2023 11:08-0400 Heart rate 98 /min WAFER FAB TECHNICIAN-C Brionna Podlogar WAFER FAB TECHNICIAN Work Phone: [facility] 01-12-2023 11:08-0400 Respiratory rate 16 /min WAFER FAB TECHNICIAN-C Brionna Podlogar WAFER FAB TECHNICIAN Work Phone: [facility] 01-12-2023 11:08-0400 SaO2% (BldA) [Mass fraction] 97 % WAFER FAB TECHNICIAN-C Brionna Bui WAFER FAB TECHNICIAN Work Phone: [facility] 01-12-2023 11:08-0400 Systolic blood pressure 128 mm[Hg] WAFER FAB TECHNICIAN-C Brionna Bui WAFER FAB TECHNICIAN Work Phone: [facility] 09-18-2022 13:28-0500 Body height 162.[address] FRANK KHALIL MD [facility] 09-18-2022 13:28-0500 Body weight 98.[address] FRANK KHALIL MD [facility] 09-18-2022 13:28-0500 Diastolic Blood Pressure Non-Invasive [address] FRANK KHALIL MD [facility] 09-18-2022 13:28-0500 Heart rate 114 /min DR FRANK KHALIL MD [facility] 09-18-2022 13:28-0500 Respiratory rate 20 /min DR FRANK KHALIL MD [facility] 09-18-2022 13:28-0500 Systolic Blood Pressure Non-Invasive [address] FRANK KHALIL MD [facility] 08-06-2022 09:27-0500 Diastolic blood pressure 86 mm[Hg] Brionna Podloggenia DISTRIBUTION DISPATCHER.ASSISTANT MECHANIC Work Phone: [facility] 08-06-2022 09:27-0500 Heart rate 93 /min Brionna Bui DISTRIBUTION DISPATCHER.ASSISTANT MECHANIC Work Phone: [facility] 08-06-2022 09:27-0500 Systolic blood pressure 127 mm[Hg] Brionna Podlogar DISTRIBUTION DISPATCHER.ASSISTANT MECHANIC Work Phone: [facility] 08-06-2022 08:12-0500 Body weight 98.61 kg Brionna Podlogar DISTRIBUTION DISPATCHER.ASSISTANT MECHANIC Work Phone: [facility] 08-06-2022 08:12-0500 Respiratory rate 16 /min Brionna Podlogar DISTRIBUTION DISPATCHER.ASSISTANT MECHANIC Work Phone: [facility] 08-06-2022 08:12-0500 SaO2% (BldA) [Mass fraction] 94 % Brionna Podlogar DISTRIBUTION DISPATCHER.ASSISTANT MECHANIC Work Phone: [facility] 07-23-2022 08:11-0500 Body weight 97.8 kg Brionna Podlogar DISTRIBUTION DISPATCHER.ASSISTANT MECHANIC Work Phone: [facility] 07-23-2022 08:11-0500 Diastolic blood pressure 93 mm[Hg] Brionna Podlogar DISTRIBUTION DISPATCHER.ASSISTANT MECHANIC Work Phone: [facility] 07-23-2022 08:11-0500 Heart rate 88 /min Brionna Podlogar DISTRIBUTION DISPATCHER.ASSISTANT MECHANIC Work Phone: [facility] 07-23-2022 08:11-0500 Respiratory rate 16 /min Brionna Podlogar DISTRIBUTION DISPATCHER.ASSISTANT MECHANIC Work Phone: [facility] 07-23-2022 08:11-0500 SaO2% (BldA) [Mass fraction] 95 % Brionna Podlogar DISTRIBUTION DISPATCHER.ASSISTANT MECHANIC Work Phone: [facility] 07-23-2022 08:11-0500 Systolic blood pressure 141 mm[Hg] Brionna Podlogar DISTRIBUTION DISPATCHER.ASSISTANT MECHANIC Work Phone: [facility] 06-25-2022 08:44-0500 Diastolic blood pressure 86 mm[Hg] Brionna Podlogar DISTRIBUTION DISPATCHER.ASSISTANT MECHANIC Work Phone: [facility] 06-25-2022 08:44-0500 Heart rate 95 /min Brionna Podlogar DISTRIBUTION DISPATCHER.ASSISTANT MECHANIC Work Phone: [facility] 06-25-2022 08:44-0500 Systolic blood pressure 146 mm[Hg] Brionna Podlogar DISTRIBUTION DISPATCHER.ASSISTANT MECHANIC Work Phone: [facility] 06-25-2022 08:19-0500 Body weight 98.52 kg Brionna Podlogar DISTRIBUTION DISPATCHER.ASSISTANT MECHANIC Work Phone: [facility] 06-25-2022 08:19-0500 Respiratory rate 18 /min Brionna Podlogar DISTRIBUTION DISPATCHER.ASSISTANT MECHANIC Work Phone: [facility] 06-25-2022 08:19-0500 SaO2% (BldA) [Mass fraction] 98 % Brionna Podlogar DISTRIBUTION DISPATCHER.ASSISTANT MECHANIC Work Phone: [facility] 05-14-2022 08:27-0400 Diastolic blood pressure 91 mm[Hg] Brionna Podlogar DISTRIBUTION DISPATCHER.ASSISTANT MECHANIC Work Phone: [facility] 05-14-2022 08:27-0400 Heart rate 93 /min Brionna Podlogar DISTRIBUTION DISPATCHER.ASSISTANT MECHANIC Work Phone: [facility] 05-14-2022 08:27-0400 Systolic blood pressure 141 mm[Hg] Brionna Podlogar DISTRIBUTION DISPATCHER.ASSISTANT MECHANIC Work Phone: [facility] 08-19-2018 08:40-0500 BMI (Body Mass Index) 34.04 kg/m2 [facility] Work Phone: 08-19-2018 08:40-0500 Body Temperature 97.7 [degF] [facility] Work Phone: 08-19-2018 08:40-0500 BP Diastolic 68 mm[Hg] [facility] Work Phone: 08-19-2018 08:40-0500 BP Systolic 118 mm[Hg] [facility] Work Phone: 08-19-2018 08:40-0500 Height 164.5 cm [facility] Work Phone: 08-19-2018 08:40-0500 Pulse (Heart Rate) 84 /min Margaret Morales [facility] Work Phone: 08-19-2018 08:40-0500 Pulse Oximetry 97 % Margaret Morales [facility] Work Phone: 08-19-2018 08:40-0500 Respiratory Rate 12 /min Margaret Morales [facility] Work Phone: 08-19-2018 08:40-0500 Weight 92.08 kg Margaret Morales [facility] Work Phone: Encounters Encounter Date Encounter Type Care Provider Facility Start: 05-18-2025 End: 05-18-2025 ambulatory CHRISTINE MAYFIELDCALF Facility:[facility] Start: 04-20-2025 End: 04-20-2025 Telephone encounter Maryann Champion PRITIM Work Phone: OB/Gynecology Comment on above: Early OB Diarrhea Start: 04-19-2025 End: 04-19-2025 Telephone encounter Payam Figueroa MD Work Phone: OB/Gynecology Comment on above: new OB Start: 02-14-2025 End: 02-14-2025 ambulatory MAGALY TOVAR Facility:[facility] Start: 02-14-2025 End: 02-14-2025 Office outpatient visit 15 minutes Magaly Tovar MD Work Phone: OB/Gynecology Comment on above: Labial cyst (Primary Dx) Start: 01-28-2025 ambulatory Chalon Skylar Facility:[facility] Start: 01-19-2025 ambulatory Chalon Skylar Facility:[facility] Start: 12-24-2024 End: 12-24-2024 Patient encounter procedure [facility]/Gynecology Start: 12-24-2024 End: 12-24-2024 ambulatory Chipper [employer] [facility] [employer] Work Phone: OB/Gynecology Start: 12-17-2024 End: 12-17-2024 ambulatory Nina Phillips APRN.ASSISTANT MECHANIC Work Phone: Endocrinology Comment on above: Pre Approval Start: 12-17-2024 End: 12-17-2024 Telephone encounter Nina Phillips APRN.ASSISTANT MECHANIC Work Phone: Endocrinology Comment on above: Insurance Authorizat ion (tirzepatide (MOUNJARO) 5 mg/0.5 mL pen injector [[facility]]) Start: 12-16-2024 End: 01-08-[address] James Cheng MD -Nutritional Servic es Work Phone: Start: 12-16-[address] James Cheng MD -Nutritional Services Work Phone: Start: 12-16-2024 End: 01-08-2025 ambulatory James Cheng MD Work Phone: [facility] Work Phone: Start: 12-16-2024 End: 12-16-[address] James Cheng MD -Laboratory Work Phone: Start: 12-16-2024 End: 12-16-2024 ambulatory James Cheng Facility:[facility] Start: 12-15-2024 End: 02-14-2025 Follow-up encounter Tashi Colon APRN.ASSISTANT MECHANIC Work Phone: OB/Gynecology Start: 12-14-2024 End: 12-14-2024 ambulatory TASHI COLON Facility:[facility] Start: 11-11-2024 End: 12-08-[address] James Cheng MD -Nutritional Servic es Work Phone: Start: 11-11-2024 End: 12-08-2024 ambulatory James Cheng Facility:[facility] Start: 11-10-2024 End: 01-10-2025 Follow-up encounter Tashi Colon APRN.ASSISTANT MECHANIC Work Phone: OB/Gynecology Start: 11-10-2024 End: 11-10-2024 ambulatory TASHI COLON Facility:[facility] Start: 11-10-2024 End: 11-10-2024 Subsequent hospital visit by physician Diagnostic Mammo [facility] Mammogram Start: 10-13-2024 End: 10-13-2024 Telephone encounter Nina Phillips APRN.CNP Work Phone: Endocrinology Comment on above: EPA/EPic/Mounjaro 2. 5 mg/0.5 ml Start: 10-13-2024 End: 10-15-2024 ambulatory Nina Phillips APRN.CNP Work Phone: Endocrinology Comment on above: Hypothyroidism Start: 10-13-2024 End: 10-13-2024 Patient encounter procedure Nina Phillips APRN.CNP Work Phone: Endocrinology Comment on above: Controlled type 2 di abetes mellitus without complication, without long-term current use of insulin (HCC) (Primary Dx); Elevated fasting glucose; Diabetes mellitus treated with injections of non-insulin medication (HCC); TSH elevation Start: 09-23-2024 End: 11-23-2024 Follow-up encounter Tashi Colon APRN.CNP Work Phone: OB/Gynecology Start: 09-16-2024 End: 09-16-2024 Telephone encounter Tashi Colon APRN.CNP Work Phone: OB/Gynecology Comment on above: Vitamin D Start: 09-15-2024 End: 09-15-2024 Telephone encounter Tashi Colon APRN.CNP Work Phone: OB/Gynecology Comment on above: Results Start: 09-15-2024 End: 09-15-2024 ambulatory TASHI COLON Facility:[facility] Start: 09-15-2024 End: 09-15-2024 Patient encounter procedure Tashi Colon APRN.CNP Work Phone: OB/Gynecology Comment on above: Encounter for gyneco logical examination with abnormal finding (Primary Dx); Irregular menstrual cycle; Essential hypertension; Breast pain Start: 09-15-2024 End: 09-15-2024 Patient encounter status Tashi Colon APRN.CNP Work Phone: [facility] Work Phone: Start: 05-31-2024 End: 05-31-2024 ambulatory JOSSY AU Facility:[facility] Start: 05-31-2024 End: 05-31-2024 Patient encounter procedure Jack Aguilar PA-C Work Phone: [facility] Comment on above: Acute non-recurrent maxillary sinusitis (Primary Dx) Start: 01-19-2024 ambulatory Payam Dupree Work Phone: OB/Gynecology Comment on above: Fertility Questions Start: 07-15-2023 End: 07-15-2023 Patient encounter procedure Payam Figueroa MD Work Phone: OB/Gynecology Comment on above: Pelvic pain (Primary Dx); Cervical lesion; Encounter for screening for malignant neoplasm of cervix; Friable cervix Start: 07-02-2023 Telephone encounter Tanya Nasreen hernandez DISTRIBUTION DISPATCHER.ASSISTANT MECHANIC Work Phone: [facility] Comment on above: Results Start: 07-01-2023 End: 07-01-2023 Emergency department patient visit [facility] Work Phone: Start: 06-27-2023 End: 06-27-2023 ambulatory [facility] Work Phone: Start: 06-27-2023 End: 06-27-2023 Patient encounter procedure [facility], Specimen Work Phone: Start: 06-25-2023 End: 06-25-2023 ambulatory [facility] Work Phone: Start: 06-25-2023 End: 06-25-2023 Patient encounter procedure [facility] Work Phone: Start: 03-25-2023 End: 03-25-2023 ambulatory WAFER FAB TECHNICIAN-C Brionna Bui WAFER FAB TECHNICIAN Work Phone: [facility] Work Phone: Start: 03-25-2023 End: 03-25-2023 Patient encounter procedure WAFER FAB TECHNICIAN-C Brionna Bui WAFER FAB TECHNICIAN Work Phone: [facility], [place] 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 Start: 03-11-2023 End: 03-11-2023 ambulatory WAFER FAB TECHNICIAN-C Brionna Bui WAFER FAB TECHNICIAN Work Phone: [facility] Work Phone: Start: 03-11-2023 End: 03-11-2023 Patient encounter procedure WAFER FAB TECHNICIAN-C Brionna Willsar WAFER FAB TECHNICIAN [facility] Start: 01-12-2023 End: 01-12-2023 Patient encounter procedure WAFER FAB TECHNICIAN-C Brionna Bui WAFER FAB TECHNICIAN Work Phone: [facility] Work Phone: Start: 01-07-2023 End: 01-07-2023 ambulatory WAFER FAB TECHNICIAN-C Brionna Willsar WAFER FAB TECHNICIAN Work Phone: [facility] Work Phone: Start: 01-07-2023 End: 01-07-2023 Patient encounter procedure WAFER FAB TECHNICIAN-C Brionna Bui WAFER FAB TECHNICIAN [facility] Start: 09-24-2022 End: 09-24-2022 ambulatory [facility] Work Phone: Start: 09-24-2022 End: 09-24-2022 Patient encounter procedure [facility] Start: 09-18-2022 End: 09-18-2022 Emergency department patient visit BRIONNA BUI APRNDayronASSISTANT MECHANIC Facility:B Start: 09-18-2022 End: 09-18-2022 Emergency department patient visit DR FRANK KHALIL MD [facility] Start: 08-07-2022 Telephone encounter Brionna starr DISTRIBUTION DISPATCHER.ASSISTANT MECHANIC Work Phone: [facility] [place] Comment on above: Results Start: 08-06-2022 End: 08-06-2022 Patient encounter procedure Brionna Podlogar DISTRIBUTION DISPATCHER.ASSISTANT MECHANIC Work Phone: [facility] [place] Comment on above: Hypertension, unspec ified type Start: 07-23-2022 End: 07-23-2022 Patient encounter procedure Brionna Podlogar DISTRIBUTION DISPATCHER.ASSISTANT MECHANIC Work Phone: [facility] [place] Comment on above: Hypertension, unspec ified type Start: 06-25-2022 End: 06-25-2022 Patient encounter procedure Brionna Podlogar DISTRIBUTION DISPATCHER.ASSISTANT MECHANIC Work Phone: [facility] [place] Comment on above: Hypertension, unspec ified type (Primary Dx); Skin eruption Start: 06-12-2022 End: 06-12-2022 Subsequent hospital visit by physician Xr [facility] [place] Work Phone: Radiology Comment on above: Acute cough [R05.1] Start: 05-14-2022 End: 05-14-2022 Patient encounter procedure Brionna Podloggenia NORRISN.ASSISTANT MECHANIC Work Phone: [facility] [place] Comment on above: Hypertension, unspec ified type (Primary Dx); Encounter for immunization; Screening for cholesterol level; Obesity, Class II, BMI 35-39.9 Start: 02-26-2019 End: 02-26-2019 Telephone encounter Nena Gonzalez [facility] ly Medicine Comment on above: Results Start: 02-16-2019 End: 02-16-2019 Telephone encounter [facility] Comment on above: 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 Comment on above: Results Start: 11-23-2018 End: 11-23-2018 Telephone encounter Samia Jeff [facility] Comment on above: Results Start: 10-05-2018 End: 10-05-2018 Patient encounter procedure Margaret Morales Work Phone: [facility] Start: 10-05-2018 End: 10-05-2018 Telephone encounter Nena Gonzalez [facility] Comment on above: Results Start: 09-19-2018 Patient encounter procedure MARGARET MORALES [facility] Start: 09-05-2018 End: 09-08-2018 Patient encounter procedure MARGARET MORALES [facility] Start: 08-19-2018 End: 08-19-2018 Patient encounter procedure Nicole Valencia [facility] Comment on above: Other Start: 08-19-2018 End: 08-19-2018 Periodic preventive med est patient 18-39 yrs Margaret Gladis Joseph Work Phone: [facility] Comment on above: Encounter for routin e history and physical examination of adult (Primary Dx); Nodule of right lung; BMI 34.0-34.9,adult Procedures Date Procedure Procedure Detail Performing Clinician Start: 12-24-2024 Us pelvic nonobstetr ic real-time image complete Tashi Colon APRN.ASSISTANT MECHANIC Work Phone: Start: 11-10-2024 Digital breast tomosynthesis unilateral Tashi Colon APRN.ASSISTANT MECHANIC Work Phone: Start: 07-01-2023 Transvaginal echography Start: 06-27-2023 Bacteria identified in Urine by Culture Start: 06-27-2023 Urine culture Start: 06-12-2022 Radiologic exam ches t 2 views Marco Blandon DISTRIBUTION DISPATCHER.ASSISTANT MECHANIC Work Phone: Start: 05-14-2022 INFLUENZA VACCINE QUADRIVALENT 6 MO - 64 YRS IM Brionna Bui DISTRIBUTION DISPATCHER.ASSISTANT MECHANIC Work Phone: Start: 01-19-2019 Ct thorax w/o contra st material MARGARET MORALES Start: 09-05-2018 CT (OUTSIDE) Margaret veronica Work Phone: Start: 09-05-2018 Ct thorax w/o contra st material MARGARET MORALES Plan of Treatment Date Care Activity Detail Author Start: 04-15-2032 Urine microalbumin profile DTaP,Tdap,Td Vaccine (8 - Td or Tdap) [facility] Start: 07-15-2026 Screening for malignant neoplasm of cervix Cervical Cancer Screening [facility] Start: 09-16-2025 End: 09-16-2025 Patient encounter procedure 09/16/2025 7:15 AM EST Office Visit OB/Gynecology [address] [place] [address] Tashi Colon APRN.ASSISTANT MECHANIC [address] [place] [address] Annual OB/Gynecology Comment on above: Annual Start: 05-19-2025 End: 05-19-2025 Patient encounter procedure 05/19/2025 8:15 AM EDT Initial Office Visit OB/Gynecology [address] [place] [address] Christine Paulino APRN.ASSISTANT MECHANIC [address] [place] [address] NOB-LMP 03/07/25 OB/Gynecology Comment on above: NOB-LMP 03/07/25 Start: 04-20-2025 End: 04-20-2025 Patient encounter procedure 04/20/2025 12:15 PM EDT Office Visit Endocrinology [address] [place] [address] Nina Phillips DISTRIBUTION DISPATCHER.ASSISTANT MECHANIC [address] [place] [address] 6 MO OV Endocrinology Comment on above: 6 MO OV Start: 04-11-2025 End: 07-11-2025 Comprehensive metabolic 2000 panel - Serum or Plasma COMPREHENSIVE METABOLIC PANEL Lab Routine Controlled type 2 diabetes mellitus without complication, without long-term current use of insulin (HCC) Expected: 04/11/2025, Expires: 07/11/[address] [facility] Work Phone: Comment on above: Expected: 04/11/2025, Expires: Start: 04-11-2025 End: 07-11-2025 Hemoglobin A1c in Blood HEMOGLOBIN A1C Lab Routine Controlled type 2 diabetes mellitus without complication, without long-term current use of insulin (HCC) Expected: 04/11/2025, Expires: 07/11/[address] [facility] Comment on above: Expected: 04/11/2025, Expires: Start: 04-11-2025 Influenza vaccination [facility] Start: 04-11-2025 End: 07-11-2025 LIPID PANEL, NONFASTING LIPID PANEL, NONFASTING Lab Routine Controlled type 2 diabetes mellitus without complication, without long-term current use of insulin (HCC) Expected: 04/11/2025, Expires: 07/11/[address] [facility] Comment on above: Expected: 04/11/2025, Expires: Start: 04-11-2025 End: 07-11-2025 Microalbumin/Creatinine [Mass Ratio] in Urine ALBUMIN/CREATININE RATIO, URINE Lab Routine Controlled type 2 diabetes mellitus without complication, without long-term current use of insulin (HCC) Expected: 04/11/2025, Expires: 07/11/[address] [facility] Comment on above: Expected: 04/11/2025, Expires: Start: 2025 HPV Vaccine (1 - 3-dose SCDM series) HPV Vaccine (1 - 3-dose SCDM series) [facility] Start: 12-24-2024 End: 12-24-2024 ambulatory 12/24/2024 8:00 AM EDT Procedure OB/Gynecology [address] [place] [address] [facility], Chipper Machine Operator [facility] [address] [place] [address] Irregular menstrual cycle [N92.6] OB/Gynecology Comment on above: Irregular menstrual cycle [N92.6] Start: 12-14-2024 End: 03-15-2025 25-hydroxyvitamin D3 [Mass/volume] in Serum or Plasma VITAMIN D 25 HYDROXY Lab Routine Vitamin D deficiency Expected: 12/14/2024, Expires: 03/15/[address] 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 Comment on above: Expected: 11/29/2024, Expires: Start: 11-10-2024 End: 11-10-2024 Patient encounter procedure Mammogram Comment on above: Breast pain [N64.4] Comp- Lt breast pain diffuse. Unilat due to age, still start with MG. Start: 11-08-2024 End: 11-08-2024 ambulatory 11/08/2024 1:00 PM EDT Education Endocrinology [address] [place] [address] Molly Vazquez, RD [address] [address] Controlled type 2 diabetes mellitus without complication, without long-term current use of insulin (HCC) [E11.9] Endocrinology Comment on above: Controlled type 2 diabetes mellitus with out complication, without long-term current use of insulin (HCC) [E11.9] Start: 10-19-2024 End: 10-19-2024 ambulatory OB/Gynecology Comment on above: Dx: Irregular menstrual cycle [N92.6] Start: 10-13-2024 End: 01-12-2025 THYROGLOBULIN ANTIBODY [facility] Comment on above: Expected: 10/13/2024, Expires: Start: 10-13-2024 End: 01-12-2025 THYROID PEROXIDASE ANTIBODY 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 Comment on above: Expected: 09/15/2024, Expires: Start: 09-15-2024 End: 12-15-2024 25-hydroxyvitamin D3 [Mass/volume] in Serum or Plasma [facility] Comment on above: Expected: 09/15/2024, Expires: Start: 09-15-2024 End: 12-15-2024 Cobalamin (Vitamin B12) [Mass/volume] in Serum or Plasma [facility] Comment on above: Expected: 09/15/2024, Expires: Start: 09-15-2024 End: 12-15-2024 DHEA-S BLD [facility] Comment on above: Expected: 09/15/2024, Expires: Start: 09-15-2024 End: 12-15-2024 Estradiol (E2) [Mass/volume] in Serum or Plasma [facility] Comment on above: Expected: 09/15/2024, Expires: Start: 09-15-2024 End: 12-15-2024 Fasting glucose [Mass/volume] in Serum or Plasma [facility] Comment on above: Expected: 09/15/2024, Expires: Start: 09-15-2024 End: 12-15-2024 Follitropin [Units/volume] in Serum or Plasma [facility] Comment on above: Expected: 09/15/2024, Expires: Start: 09-15-2024 End: 12-15-2024 Hemoglobin A1c in Blood [facility] Comment on above: Expected: 09/15/2024, Expires: Start: 09-15-2024 End: 12-15-2024 Lutropin [Units/volume] in Serum or Plasma [facility] Comment on above: Expected: 09/15/2024, Expires: Start: 09-15-2024 End: 12-15-2024 Prolactin [Mass/volume] in Serum or Plasma [facility] Comment on above: Expected: 09/15/2024, Expires: Start: 09-15-2024 End: 12-15-2024 TESTOSTERONE, FREE AND TOTAL, BY EQUILIBRIUM ULTRAFILTRATION MASS SPECTROMETRY [facility] Comment on above: Expected: 09/15/2024, Expires: Start: 09-15-2024 End: 12-15-2024 Thyrotropin [Units/volume] in Serum or Plasma [facility] Work Phone: Comment on above: Expected: 09/15/2024, Expires: Start: 09-15-2024 End: 09-15-2025 US Pelvis PELVIC US [facility] Anc Imaging Routine Irregular menstrual cycle Expected: 09/15/2024, Expires: 09/15/[address] [facility] Comment on above: Expected: 09/15/2024, Expires: Start: 08-21-2024 PAP TESTING PAP TESTING [facility] Start: 07-01-2024 BP Controlled (<130/80) BP Controlled (<130/80) [facility] Start: 04-11-2024 Covid-19 Vaccine () Covid-19 Vaccine () [facility] Start: 04-11-2024 Influenza vaccination [facility] Start: 02-02-2024 End: 02-02-2024 Patient encounter procedure 02/02/2024 4:00 PM EDT Office Visit OB/Gynecology [address] [place] [address] Tashi Colon APRN.ASSISTANT MECHANIC [address] [place] [address] Spotting, no full period since August, fertility OB/Gynecology Comment on above: Spotting, no full period since August, fertility Start: 08-11-2023 Behavioral Health Screening Behavioral Health Screening [facility] Start: 08-06-2023 ANNUAL PCP TEAM CHRONIC DISEASE VISIT ANNUAL PCP TEAM CHRONIC DISEASE VISIT [facility] Start: 07-23-2023 ANNUAL PCP TEAM CHRONIC DISEASE VISIT ANNUAL PCP TEAM CHRONIC DISEASE VISIT [facility] Start: 07-01-2023 [facility] Start: 06-25-2023 ANNUAL PCP TEAM CHRONIC DISEASE VISIT ANNUAL PCP TEAM CHRONIC DISEASE VISIT [facility] Start: 05-14-2023 COVID-19 VACCINE (4 - Booster for Moderna series) COVID-19 VACCINE (4 - Booster for Moderna series) [facility] Comment on above: Postponed from 10/19/2021 (Declined at t his time) Start: 05-14-2023 HEPATITIS B (1 of 3 - 3-dose series) HEPATITIS B (1 of 3 - 3-dose series) [facility] Comment on above: Postponed from 1998 (Declined at t his time) Start: 05-14-2023 HEPATITIS C SCREENING HEPATITIS C SCREENING [facility] Comment on above: Postponed from 02/10/2016 (Declined at t his time) Start: 05-14-2023 HIV SCREENING HIV SCREENING [facility] Comment on above: Postponed from 02/10/2016 (Declined at t his time) Start: 05-14-2023 HPV VACCINE (1 - 2-dose series) HPV VACCINE (1 - 2-dose series) [facility] Comment on above: Postponed from 2009 (Declined at t his time) Start: 05-14-2023 Urine microalbumin profile DTAP,TDAP,TD (1 - Tdap) [facility] Comment on above: Postponed from 2017 (Declined at t his time) Start: 04-11-2023 Covid-19 Vaccine () Covid-19 Vaccine () [facility] Start: 04-11-2023 Influenza vaccination Influenza Vaccine (#1) [facility] Start: 08-11-2022 Depression Assessment Depression Assessment [facility] Start: 06-25-2022 End: 08-25-2022 Basic metabolic 2000 panel - Serum or Plasma BASIC METABOLIC PNL Lab Routine Hypertension, unspecified type Expected: 06/25/2022, Expires: 08/25/[address] [facility] Work Phone: Comment on above: Expected: 06/25/2022, Expires: 3 Start: 05-14-2022 End: 07-14-2022 Comprehensive metabolic 2000 panel - Serum or Plasma [facility] Work Phone: Comment on above: Expected: 05/14/2022, Expires: 2 Start: 05-14-2022 End: 07-14-2022 Lipid 1996 panel - Serum or Plasma [facility] Work Phone: Comment on above: Expected: 05/14/2022, Expires: 2 Start: 08-11-2021 DEPRESSION ASSESSMENT DEPRESSION ASSESSMENT [facility] Start: 03-28-2021 Tetanus vaccination TETANUS [facility] Work Phone: Start: 04-11-2019 Influenza vaccination INFLUENZA VACCINE (#1) [facility] Start: 2019 Screening for malignant neoplasm of cervix PAP SMEAR DISCUSSION [facility] Start: 11-24-2018 End: 11-25-[address] CHEST WITHOUT CONTRAST Imaging Routine Nodule of right lung Expected: 11/24/2018, Expires: 11/25/2019 [facility] Comment on above: Expected: 11/24/2018, Expires: 0 Start: 08-19-2018 End: 08-19-2019 CBC, EDIF, PLATELET CBC, EDIF, PLATELET Routine Encounter for routine history and physical examination of adult Expected: 08/19/2018, Expires: 08/19/2019 [facility] Work Phone: Comment on above: Expected: 08/19/2018, Expires: 0 Start: 08-19-2018 End: 08-19-2019 Comprehensive metabolic 2000 panel - Serum or Plasma COMPREHENSIVE METABOLIC PANEL Routine Encounter for routine history and physical examination of adult Expected: 08/19/2018, Expires: 08/19/2019 [facility] Work Phone: Comment on above: Expected: 08/19/2018, Expires: 0 Start: 08-19-2018 End: 08-19-[address] CHEST WITHOUT CONTRAST Routine Nodule of right lung Expected: 08/19/2018, Expires: 08/19/2019 [facility] Work Phone: Comment on above: Expected: 08/19/2018, Expires: 0 Start: 08-19-2018 End: 08-19-2019 LIPID PANEL W CALCULATED LDL LIPID PANEL W CALCULATED LDL Routine Encounter for routine history and physical examination of adult Expected: 08/19/2018, Expires: 08/19/2019 [facility] Work Phone: Comment on above: Expected: 08/19/2018, Expires: 0 Start: 08-19-2018 End: 08-19-2019 TSH W/FT4 REFLEX TSH W/FT4 REFLEX Routine Encounter for routine history and physical examination of adult Expected: 08/19/2018, Expires: 08/19/2019 [facility] Work Phone: Comment on above: Expected: 08/19/2018, Expires: 0 Start: 2017 Third diphtheria, tetanus and acellular pertussis (DTaP) vaccination TDAP (ADULT) [facility] Start: 02-10-2016 Anxiety Screening Anxiety Screening [facility] Start: 02-10-2016 BP CONTROLLED (<130/80) BP CONTROLLED (<130/80) [facility] Start: 02-10-2016 Depression Screening Depression Screening [facility] Start: 02-10-2016 GONORRHEA SCREEN GONORRHEA SCREEN [facility] Work Phone: Start: 02-10-2016 Hepatitis C Screening Hepatitis C Screening [facility] Start: 02-10-2016 Hepatitis C screening Hepatitis C Screening [facility] Start: 02-10-2016 HIV Screening HIV Screening [facility] Start: 02-10-2016 HIV screening HIV Screening [facility] Start: 2014 Screening for Chlamydia trachomatis CHLAMYDIA SCREEN [facility] Work Phone: Start: 2013 HPV Vaccine (1 - 3-dose series) HPV Vaccine (1 - 3-dose series) [facility] Start: 2013 Vaccination for human papillomavirus HPV VACCINE ADOL (1 - Female 3-dose series) [facility] Start: 02-10-2012 PEDS TO ADULT TRANSITION ANNUAL ASSESSMENT PEDS TO ADULT TRANSITION ANNUAL ASSESSMENT [facility] Start: 2011 HIV screening HIV SCREENING DISCUSSION [facility] Work Phone: Start: 2010 PEDS TO ADULT TRANSITION INITIAL DISCUSSION PEDS TO ADULT TRANSITION INITIAL DISCUSSION [facility] Start: 2009 Vaccination for human papillomavirus HPV VACCINE ADOL (1 - Female 3-dose series) [facility] Work Phone: Start: 2007 HPV Vaccine (1 - 2-dose series) HPV Vaccine (1 - 2-dose series) [facility] Start: 1998 GONORRHEA SCREEN GONORRHEA SCREEN [facility] Biopsy cervix single/mult/excision of lesion spx CERVICAL BIOPSY OR EXCISION Procedures Routine Cervical lesion Ordered: 07/15/[address] [facility] Work Phone: Comment on above: Ordered: 07/15/2023 End: 10-15-2025 MG Breast - left Diagnostic for implant [facility] LEFT Radiology Routine Breast pain 1 Occurrences starting 09/15/2024 until 10/15/[address] [facility] Comment on above: 1 Occurrences starting 09/15/2024 until 10/15/2025 PAP TEST PAP TEST Lab [facility] Encounter for screening for malignant neoplasm of cervix Ordered: 07/15/[address] [facility] Work Phone: Comment on above: Ordered: 07/15/2023 Patient Education ED Pelvic Pain , Unknown Cause [facility] Work Phone: Patient referral [facility] Work Phone: End: 10-15-2025 US Breast - left limited US BREAST LTD LEFT Radiology Routine Breast pain 1 Occurrences starting 09/15/2024 until 10/15/[address] [facility] Comment on above: 1 Occurrences starting 09/15/2024 until 10/15/2025 [facility] Immunization Date Immunization Notes Care Provider Ish montelongo 05-14-2022 influenza, injectabl e, quadrivalent, contains preservative Brionna Podloggenia DISTRIBUTION DISPATCHER.ASSISTANT MECHANIC Work Phone: [facility] 05-14-2022 influenza virus vacc ine, unspecified formulation Tanya Cano DISTRIBUTION DISPATCHER.ASSISTANT MECHANIC Work Phone: [facility] 04-15-2022 tetanus toxoid, redu dilan diphtheria toxoid, and acellular pertussis vaccine, adsorbed [facility] 08-19-2018 influenza virus vacc ine, unspecified formulation [facility] 03-28-2016 Meningococcal Vaccin e IM (Conjugate) [facility] Work Phone: 03-28-2011 Meningococcal Vaccin e IM (Conjugate) [facility] Work Phone: 03-28-2011 tetanus toxoid, redu dilan diphtheria toxoid, and acellular pertussis vaccine, adsorbed [facility] Work Phone: 11-10-2006 varicella virus vaccine Margaretelvia Morales [facility] Work Phone: 05-19-2003 diphtheria, tetanus toxoids and acellular pertussis vaccine Margaret [facility] Work Phone: 05-19-2003 measles, mumps and rubella virus vaccine [facility] Work Phone: 05-19-2003 poliovirus vaccine, inactivated Margaret [facility] Work Phone: 05-06-2001 varicella virus vaccine Margaret Morales [facility] Work Phone: 08-25-1999 diphtheria, tetanus toxoids and acellular pertussis vaccine [facility] Work Phone: 08-25-1999 poliovirus vaccine, inactivated [facility] Work Phone: 07-26-1999 measles, mumps and rubella virus vaccine [facility] Work Phone: 07-04-1999 influenza virus vacc ine, whole virus [facility] Work Phone: 06-02-1999 haemophilus influenz ae type b vaccine, conjugate unspecified formulation [facility] Work Phone: 06-02-1999 influenza virus vacc ine, whole virus [facility] Work Phone: 1998 hepatitis B vaccine, pediatric or pediatric/adolescent dosage [facility] Work Phone: 1998 diphtheria, tetanus toxoids and acellular pertussis vaccine Margaret [facility] Work Phone: 1998 haemophilus influenz ae type b vaccine, conjugate unspecified formulation [facility] Work Phone: 1998 diphtheria, tetanus toxoids and acellular pertussis vaccine [facility] Work Phone: 1998 haemophilus influenz ae type b vaccine, conjugate unspecified formulation [facility] Work Phone: 1998 poliovirus vaccine, inactivated [facility] Work Phone: 1998 diphtheria, tetanus toxoids and acellular pertussis vaccine [facility] Work Phone: 1998 haemophilus influenz ae type b vaccine, conjugate unspecified formulation [facility] Work Phone: 1998 hepatitis B vaccine, pediatric or pediatric/adolescent dosage [facility] Work Phone: 1998 poliovirus vaccine, inactivated [facility] Work Phone: 1998 hepatitis B vaccine, pediatric or pediatric/adolescent dosage [facility] Work Phone: Payers Date Payer Category Payer Unknown [id number] 2025 Medicaid [place]ICAID [place] [id number] 2024 Unknown [id number] 2024 Self-pay [id number] 2024 Self-pay [id number] 2023 Blue Cross Blue Shield [id number] 2023 Unknown [id number] 2022 Unknown [id number] 2022 Unknown [id number] 2018 Unknown [facility] xxxxxxxxxxx 2018-Present xxxxxxxxxxx [id number] 2018 Unknown [id number] 1998 Unknown [id number] 1998 Unknown [id number] 1998 Unknown [id number] Unknown [id number] Unknown [id number] Unknown [id number] Unknown [id number] Unknown [id number] Social History Date Type Detail Facility Start: 08-19-2018 End: 06-12-2022 Tobacco smoking status NHIS Never smoker [facility] Sex Assigned At Not on file [facility] Work Phone: Start: 04-01-2019 End: 06-12-2022 Tobacco use and exposure Smokeless tobacco non-user [facility] Start: 08-27-2021 End: 12-27-2024 Alcohol intake Ex-drinker (finding) [facility] Start: 08-27-2021 End: 07-23-2022 History SDOH Alcohol Frequency [address] [facility] Start: 08-27-2021 End: 07-23-2022 History SDOH Alcohol Std Drinks [address] [facility] Start: 08-27-2021 End: 07-23-2022 History SDOH Social Connections Phone [address] [facility] Start: 08-27-2021 History SDOH Physica l Activity DPW [address] [facility] Start: 08-27-2021 End: 07-23-2022 History SDOH Financial [address] [facility] Start: 2000 Sex Assigned At Female C [facility] Start: 06-02-2022 End: 06-12-2022 Exposure to SARS-CoV-2 (event) Not sure [facility] Start: 07-23-2022 History SDOH Social Connections [employer] [address] [facility] Tobacco smoking status No Smokin g Status Entered [facility] Start: 05-20-2022 End: 07-01-2023 Tobacco smoking status NHIS Unknown if ever smoked [facility] Start: 04-26-2020 Spouse/ Signif icant Other [facility] Start: 07-22-2022 End: 07-15-2023 History of Social function [facility] Start: 07-22-2022 End: 07-15-2023 Social connection and isolation panel [facility] Start: 04-01-2019 How often do you att end anglican or yazidism services? Patient refused [facility] Do you belong to any clubs or organizations such as anglican groups, unions, fraternal or athletic groups, or school groups? No [facility] Are you now , , , , never or living with a partner? [facility] How often to you hav e a drink containing alcohol? Monthly or less [facility] How many standard drinks containing alcohol do you have on a typical day? 1 or [address] [facility] How often do you hav e 6 or more drinks on 1 occasion? Never [facility] Do you feel stress - tense, restless, nervous, or anxious, or unable to sleep at night because your mind is troubled all the time - these days [OSQ] Not at all [facility] (I/We) worried wheth er (my/our) food would run out before (I/we) got money to buy more. Never true [facility] Start: 04-23-2021 Gender identity Identifies as female gender (finding) [facility] Start: 04-23-2021 Sexual orientation Heterosexual (fin ding) [facility] How often to you hav e a drink containing alcohol? 2-4 times a month [facility] Do you feel stress - tense, restless, nervous, or anxious, or unable to sleep at night because your mind is troubled all the time - these days [OSQ] Only a little [facility] NEGATED: Highlighted row [facility] Medical Equipment Procedure Code Equipment Code Equipment Origin al Text Equipment Identifier Dates Start: 09-17-2024 Functional Status Date Assessment Result Facility 09-18-2022 Functional Status Independent [facility] Mental Status Date Assessment Result Facility 09-18-2022 Mental Status Orientation Oriented x 4 [facility] Clinical Notes 05-14-2022 to 05-16-2025 Telephone Encounter - Negar Miguel RN - 04/20/2025 3:16 PM EDTTelephone Encounter - Negar Miguel RN - 04/20/2025 3:16 PM EDTTelephone Encounter - Juan Paredes RN - 04/19/2025 8:07 AM EDT Note Date & Type Note Facility 05-16-2025 Note HNO ID: [id number] Author: CHRISTINE PAULINO APRN.ASSISTANT MECHANIC Service: ? Author Type: Nurse Practitioner Type: Progress Notes Filed: 05/18/2025 09:03 Note Text: Patient declined mercury washer. INITIAL OB ASSESSMENT HPI: Alicia is a 25 year old White Female here to establish Obstetrical Care. Patient's last menstrual period was 02/23/2025 (exact date). from OB Dating Form. was planned Complaints: (!) Rash or viral illness (possible eczema flare on breast) OB History Gravida1 Para0 Term0 Preterm0 AB0 Living0 SAB0 IAB0 Ectopic0 Multiple0 Live Births0 Previous history: Prior : never History of 4th degree laceration: No History of shoulder dystocia: No History of Hypertensive disorders including pre-eclampsia or gestational hypertension: No History of gestational diabetes: No Patient's Risk Screening for delivery: Have you had a prior small between 20w and 36w6d? No How many pregnancies have you had before? 0 Did you have a previous baby with a GBS Infection? No Please select all that apply for any prior : N/A MEDICAL/PSYCHOSOCIAL HISTORY: History of hemorrhage or bleeding concerns: No Thyroid Disease: Yes History of chronic hypertension: No History of pre-existing diabetes: Yes No results found for: ABORHD BMI 29.29 kg/(m2) Last Pap: 07/25/2023 History of abnormal pap: No Prior treatment for cervical dysplasia: none. Last HPV: History of STDs: None Partner History of STDs: None Did you have a partner with Herpes? No Tobacco use: No E-Cigarette/Vaping Use: No Caffeine use: Yes, under 200mg/day Drug use: No Alcohol use: No Multivitamin with Folic acid: Yes Would refuse blood transfusion if medically necessary: No Social Needs: How often does this describe you? I don't have enough money to pay my bills: Never Within the past 12 months, have you worried that your food would run out before you had money to buy more? Never In the past 12 months, has lack of reliable transportation kept you from going to medical appointments or work, or from getting things needed for daily living? Never In the past 12 months, have you had any concerns about having a place to live, or about the condition or quality of your housing? Never Would you like more information on any of the following (please check all that apply)? Centering (group care classes), Candy Attendant, and Bridge Instructor care Social History: Do you have any history of depression, anxiety, PTSD, or other mood problems? Yes , anxiety Do you have a history of abuse or trauma that may impact your experience? No Are you currently employed? Yes Depression/Anxiety Screening: denies symptoms of depression. OB Depression and Anxiety Screening- This Encounter Feeling down, depressed, or hopeless: Not at all Little interest or pleasure in doing things: Not at all Feeling nervous, anxious, or on edge More than half the days Not being able to stop or control worrying Not at all Anxiety Pre-Screening Total (If >/= 3 additional questions will be reviewed) 2 Genetic Screening: Partner present: No Patient verbalized knowledge of partner family health history: Yes Do you or your partner have any personal or family history of defects not previously discussed: No Do you have history of a complicated by anomaly, genetic condition, or demise: No Preeclampsia Risk Screening: Screening for prevention of preeclampsia: High risk factors: Type I or II diabetes mellitus Moderate risk ractors: Nulliparity OB Risk Screening: Completed, no positive findings documented. 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 levothyroxine (SYNTHROID) 25 mcg tablet TAKE 1/2 TAB DAILY on empty stomach in the morning with water. Wait 30 minutes to eat. NO vitamins/minerals/supplements for 4 hours after. 30 tablet 5 metFORMIN (GLUCOPHAGE) 500 mg tablet Take 1 tablet by mouth every 12 hours. aspirin, enteric coated (ECOTRIN LOW STRENGTH) 81 mg EC tablet Take 1 tablet by mouth once daily. 90 tablet 3 No current facility-administered medications for this visit. Allergies As of Date: 05/18/2025 Allergen Noted Reaction BACTRIM [SULFAMETHOXAZOLE-TRIMETH*04/01/20 19 Rash Fully Assessed 05/16/2025 Does patient have penicillin allergy: No REVIEW OF SYSTEMS: GENERAL: Negative for: Fever or Chills HEENT: Negative for: Headache, Impaired Vision, Rin (more content not included)... [facility] 04-20-2025 Telephone encounter Note Patient notified. Negar Miguel RN [facility] 04-20-2025 Miscellaneous Notes Patient notified. Negar Miguel RN Agree with plan of care. Keep well hydrated so that she does not get dehydrated. Maryann Champion APRN.CNM LMP 7 approximately 6w2d Patient called in with concern about giving herself Listeria. She ate some chicken in the fridge last night that she is unsure how long it had been there. Said that it smelled and tasted okay. She's had x2 episodes of diarrhea today, mostly watery with some formed stool. Denies vomiting. Encouraged patient to hydrate by pushing fluids and eating a bland diet and to continue to monitor her symptoms. Please advise. Magaly Epps RN documented in this encounter [facility] 04-20-2025 Telephone encounter Note Agree with plan of care. Keep well hydrated so that she does not get dehydrated. Maryann Champion APRN.CNM [facility] Work Phone: 04-20-2025 Telephone encounter Note LMP 7 approximately 6w2d Patient called in with concern about giving herself Listeria. She ate some chicken in the fridge last night that she is unsure how long it had been there. Said that it smelled and tasted okay. She's had x2 episodes of diarrhea today, mostly watery with some formed stool. Denies vomiting. Encouraged patient to hydrate by pushing fluids and eating a bland diet and to continue to monitor her symptoms. Please advise. Magaly Epps RN [facility] 04-19-2025 Telephone encounter Note LMP 03/07/25 + test today, ega 6w1d Newly dx type 2 DM, saw [facility] in 08/2024 because had difficulty getting . Pt currently does not have health insurance. just started job last week and will have insurance in 23 days. PFA # given to Pt. Advised Pt that she can see care center prior to NOB here, or if desires to be self pay, may schedule visit to be seen here. Pt desires to see care center initially & NOB scheduled for 05/19/25 & appt added to wait list. Advised Pt to continue following diabetic provider for type 2 DM control & if any abdominal pain/vaginal bleeding to contact the office. Pt voiced understanding. Juan Paredes RN [facility] 04-19-2025 Miscellaneous Notes LMP 03/07/25 + test today, ega 6w1d Newly dx type 2 DM, saw E[facility] in 08/2024 because had difficulty getting . Pt currently does not have health insurance. just started job last week and will have insurance in 23 days. PFA # given to Pt. Advised Pt that she can see care center prior to NOB here, or if desires to be self pay, may schedule visit to be seen here. Pt desires to see care center initially & NOB scheduled for 05/19/25 & appt added to wait list. Advised Pt to continue following diabetic provider for type 2 DM control & if any abdominal pain/vaginal bleeding to contact the office. Pt voiced understanding. Juan Paredes RN documented in this encounter [facility] 02-14-2025 Note HNO ID: [id number] Author: MAGALY TOVAR MD Service: ? Author Type: Physician Type: Progress Notes Filed: 02/14/2025 15:54 Note Text: Supervisor Fishing offered: Patient declines. Alicia Mullins is a 25 year old female who presents for problem visit . HPI: Labia cyst. Started on . Started on keflex by PCP. Started draining a few days ago. Still hurts. 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 History Comments: Sexual Activity: Yes; Male Contraception: No contraception data on record PAST MEDICAL HISTORY Diagnosis Date Elevated fasting glucose Essential hypertension NEGATIVE MEDICAL HISTORY PCOS (polycystic ovarian syndrome) PAST SURGICAL HISTORY Procedure Laterality Date EXTRACTION ERUPTED TOOTH/EXR 2022 FAMILY HISTORY Problem Relation Age of Onset Hypertension Mother Hypertension Father other (frateranl twin [other]) Sister Heart Sister open heart surg at 16yrs old Hypothyroidism Sister other (type 2 diabetes) Maternal Grandmother Colon Cancer Maternal Grandfather other (type 2 diabetes) Paternal Grandmother Social History Tobacco Use Smoking status: Never Smokeless tobacco: Never Vaping Use Vaping status: Never Used Substance Use Topics Alcohol use: Not Currently Drug use: Not Currently Current Outpatient Medications Medication Sig tirzepatide (MOUNJARO) 5 mg/0.5 mL pen injector Inject 5 mg subcutaneously one time a week. levothyroxine (SYNTHROID) 25 mcg tablet TAKE 1/2 TAB DAILY on empty stomach in the morning with water. Wait 30 minutes to eat. NO vitamins/minerals/supplements for 4 hours after. ONETOUCH VERIO TEST STRIPS test strip 1 (ONE) STRIP DAILY ONETOUCH VERIO FLEX METER 1 (ONE) KIT DAILY ONETOUCH DELICA PLUS LANCET 33 gauge once daily. metFORMIN (GLUCOPHAGE) 500 mg tablet Take 1 tablet by mouth every 12 hours. ondansetron (ZOFRAN) 4 mg tablet Take 4 mg by mouth three times a day as needed. ergocalciferol 50,000 unit capsule (VITAMIN D2, DRISDOL) Take 50,000 Units by mouth one time a week. cholecalciferol, Vitamin D3, (VITAMIN D3) 1,250 mcg (50,000 unit) cap capsule Take 1 capsule by mouth one time a week. for 3 months (Patient not taking: Reported on 10/13/2024) No current facility-administered medications for this visit. Allergies As of Date: 02/14/2025 Allergen Noted Reaction BACTRIM [SULFAMETHOXAZOLE-TRIMETH*04/01/20 19 Rash Fully Assessed 02/14/2025 REVIEW OF SYSTEMS Abdomen: No bloating, early satiety, indigestion, or increased flatulence. No abdominal pain, nausea, vomiting, diarrhea, or constipation. Bladder: No dysuria, gross hematuria, urinary frequency, urinary urgency, or incontinence. Breast: No breast lumps, nipple d/c, overlying skin changes, redness or skin retraction. Expanded ROS: N/A Allergies and current medication updated:Yes SENSITIVE EXAM: The sensitive examination was discussed with the Patient or Patient's Authorized Battery Inspector. As applicable, any other physician, advance practice provider, medical student, or other health professional student that will be observing or involved in the sensitive examination for educational or training purposes was discussed with the Patient or Authorized Battery Inspector. The Patient or Authorized Battery Inspector has agreed to proceed with the sensitive examination. (Sensitive examination includes inspection and/or palpation of the breasts, pelvis, prostate and anorectal regions). EXAM: BP 104/60 Wt 182 lb 12.8 oz (82.9kg) LMP 09/09/2024 GENERAL: pleasant, female in no apparent distress HEENT: Normocephalic, atraumatic, mucus membranes moist, and no lesions NECK: Supple, full range of motion, and no adenopathy DERMATOLOGY: Normal, without lesions, non-icteric, and non-hirsute BREAST: deferred CHEST: Normal inspiratory effort ABDOMEN: Deferred PELVIC: external genitalia normal, normal Bartholin's glands, urethra, [place]'s glands, no vulvar lesions, no cervical lesions, good vaginal support, physiologic discharge present, normal appearing perineal body and perianal region, Small cyst draining on inner left labia. Expressed for a small amount of purulent fluid BIMANUAL: deferred NEURO: alert and oriented x3,exam grossly non-focal EXTREMITIES: normal ASSESSMENT AND PLAN: Assessment AND Plan Labial cyst Continue kelfex. Sitz bath ok Magaly Tovar MD [facility] 02-14-2025 History of Present illness Narrative Supervisor Fishing offered: Patient declines. Alicia Mullins is a 25 year old female who presents for problem visit . HPI: Labia cyst. Started on . Started on keflex by PCP. Started draining a few days ago. Still hurts. 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 History Comments: Sexual Activity: Yes; Male Contraception: No contraception data on record PAST MEDICAL HISTORY Diagnosis Date Elevated fasting glucose Essential hypertension NEGATIVE MEDICAL HISTORY PCOS (polycystic ovarian syndrome) PAST SURGICAL HISTORY Procedure Laterality Date EXTRACTION ERUPTED TOOTH/EXR 2022 FAMILY HISTORY Problem Relation Age of Onset Hypertension Mother Hypertension Father other (frateranl twin [other]) Sister Heart Sister open heart surg at 16yrs old Hypothyroidism Sister other (type 2 diabetes) Maternal Grandmother Colon Cancer Maternal Grandfather other (type 2 diabetes) Paternal Grandmother Social History Tobacco Use Smoking status: Never Smokeless tobacco: Never Vaping Use Vaping status: Never Used Substance Use Topics Alcohol use: Not Currently Drug use: Not Currently Current Outpatient Medications Medication Sig tirzepatide (MOUNJARO) 5 mg/0.5 mL pen injector Inject 5 mg subcutaneously one time a week. levothyroxine (SYNTHROID) 25 mcg tablet TAKE 1/2 TAB DAILY on empty stomach in the morning with water. Wait 30 minutes to eat. NO vitamins/minerals/supplements for 4 hours after. ONETOUCH VERIO TEST STRIPS test strip 1 (ONE) STRIP DAILY ONETOUCH VERIO FLEX METER 1 (ONE) KIT DAILY ONETOUCH DELICA PLUS LANCET 33 gauge once daily. metFORMIN (GLUCOPHAGE) 500 mg tablet Take 1 tablet by mouth every 12 hours. ondansetron (ZOFRAN) 4 mg tablet Take 4 mg by mouth three times a day as needed. ergocalciferol 50,000 unit capsule (VITAMIN D2, DRISDOL) Take 50,000 Units by mouth one time a week. cholecalciferol, Vitamin D3, (VITAMIN D3) 1,250 mcg (50,000 unit) cap capsule Take 1 capsule by mouth one time a week. for 3 months (Patient not taking: Reported on 10/13/2024) No current facility-administered medications for this visit. Allergies As of Date: 02/14/2025 Allergen Noted Reaction BACTRIM [SULFAMETHOXAZOLE-TRIMETH*04/01/20 19 Rash Fully Assessed 02/14/2025 REVIEW OF SYSTEMS Abdomen: No bloating, early satiety, indigestion, or increased flatulence. No abdominal pain, nausea, vomiting, diarrhea, or constipation. Bladder: No dysuria, gross hematuria, urinary frequency, urinary urgency, or incontinence. Breast: No breast lumps, nipple d/c, overlying skin changes, redness or skin retraction. Expanded ROS: N/A Allergies and current medication updated:Yes SENSITIVE EXAM: The sensitive examination was discussed with the Patient or Patient's Authorized Battery Inspector. As applicable, any other physician, advance practice provider, medical student, or other health professional student that will be observing or involved in the sensitive examination for educational or training purposes was discussed with the Patient or Authorized Battery Inspector. The Patient or Authorized Battery Inspector has agreed to proceed with the sensitive examination. (Sensitive examination includes inspection and/or palpation of the breasts, pelvis, prostate and anorectal regions). EXAM: BP 104/60 Wt 182 lb 12.8 oz (82.9kg) LMP 09/09/2024 GENERAL: pleasant, female in no apparent distress HEENT: Normocephalic, atraumatic, mucus membranes moist, and no lesions NECK: Supple, full range of motion, and no adenopathy DERMATOLOGY: Normal, without lesions, non-icteric, and non-hirsute BREAST: deferred CHEST: Normal inspiratory effort ABDOMEN: Deferred PELVIC: external genitalia normal, normal Bartholin's glands, urethra, [place]'s glands, no vulvar lesions, no cervical lesions, good vaginal support, physiologic discharge present, normal appearing perineal body and perianal region, Small cyst draining on inner left labia. Expressed for a small amount of purulent fluid BIMANUAL: deferred NEURO: alert and oriented x3,exam grossly non-focal EXTREMITIES: normal ASSESSMENT AND PLAN: Assessment & Plan Labial cyst Continue kelfex. Sitz bath ok Magaly Tovar MD documented in this encounter [facility] 12-24-2024 Note HNO ID: [id number] Author: SARI ROQUE MD Service: ? Author Type: Physician Type: Progress Notes Filed: 12/26/2024 09:38 Note Text: The patient presents for requested ultrasound. Full report available in the Imaging tab in Qloud. Sari Roque MD [facility] 12-24-2024 History of Present illness Narrative The patient presents for requested ultrasound. Full report available in the Imaging tab in Epic. Sari Roque MD documented in this encounter [facility] 12-17-2024 Telephone encounter Note Images from the original note were not included. Received the following message: Called plan and spoke to Arielle, who states a prior authorization is needed. Answered clinical questions verbally. Faxed clinical notes and lab results to [place] Prior Authorizations [phone] Transmitted successfully. Was advised we could receive a determination in 5 calendar days. NICOLE MEJIA Shop Service Technician Endocrinology & Metabolism [facility] X-[address] [facility] 12-17-2024 Miscellaneous Notes Images from the original note were not included. Received the following message: Called plan and spoke to Arielle, who states a prior authorization is needed. Answered clinical questions verbally. Faxed clinical notes and lab results to [place] Prior Authorizations [phone] Transmitted successfully. Was advised we could receive a determination in 5 calendar days. NICOLE MEJIA Shop Service Technician Endocrinology & Metabolism [facility] X-20 Images from the original note were not included. Initiated PA for tirzepatide (MOUNJARO) 5 mg/0.5 mL pen injector through [facility] via [employer] Questions Completed Waiting for determination NICOLE MEJIA Shop Service Technician II Endocrinology & Metabolism [facility] X-20 documented in this encounter [facility] 12-17-2024 Telephone encounter Note Images from the original note were not included. Initiated PA for tirzepatide (MOUNJARO) 5 mg/0.5 mL pen injector through [facility] via [employer] Questions Completed Waiting for determination NICOLE MEJIA Shop Service Technician II Endocrinology & Metabolism [facility] X-[address] [facility] 12-17-2024 Telephone encounter Note Sent patient request to [facility] shanice. Stephenie Christie MA [facility] 12-17-2024 Miscellaneous Notes Sent patient request to KRISTY prasad. Stephenie Christie MA documented in this encounter [facility] 11-10-2024 History of Present illness Narrative Radiology Service Progress Note PATIENT NAME: Alicia Mullins DATE OF SERVICE: November 10, 2024 TIME: 11:08 AM PATIENT IDENTITY VERIFICATION COMPLETED USING TWO (2) IDENTIFIERS: Name and Date of confirmed by patient verbally. FALL SCREENING: Has the patient had 2 falls in the last year or 1 fall with injury or currently using an Ambulatory Assistive Device (Walker, Cane, Wheelchair, Crutches, etc.)? No PATIENT GENDER DATA: Assigned female at . status: : No status: NO. PATIENT RELEVANT IMPLANT DATA REVIEWED: Not Applicable PATIENT PRESENTS WITH AN IMPLANTABLE OR ATTACHED TRAFFIC CONTROL OFFICER: No RADIOLOGY DEPARTMENT: Mammography PERIPHERAL IV DATA: Not applicable SIGNED BY: RT Debra(R) November 10, 2024 11:08 AM documented in this encounter [facility] 11-10-2024 Note HNO ID: [id number] Author: KARON LEMUS RT(Gal) Service: ? Author Type: Technologist Type: Progress Notes Filed: 11/10/2024 11:08 Note Text: Radiology Service Progress Note PATIENT NAME: Alicia Mullins DATE OF SERVICE: November 10, 2024 TIME: 11:08 AM PATIENT IDENTITY VERIFICATION COMPLETED USING TWO (2) IDENTIFIERS: Name and Date of confirmed by patient verbally. FALL SCREENING: Has the patient had 2 falls in the last year or 1 fall with injury or currently using an Ambulatory Assistive Device (Walker, Cane, Wheelchair, Crutches, etc.)? No PATIENT GENDER DATA: Assigned female at . status: : No status: NO. PATIENT RELEVANT IMPLANT DATA REVIEWED: Not Applicable PATIENT PRESENTS WITH AN IMPLANTABLE OR ATTACHED TRAFFIC CONTROL OFFICER: No RADIOLOGY DEPARTMENT: Mammography PERIPHERAL IV DATA: Not applicable SIGNED BY: RT Debra(R) November 10, 2024 11:08 AM [facility] 10-15-2024 Telephone encounter Note Phoned patient as requested Left voicemail for patient to return call. Magaly Quinonez MA [facility] 10-15-2024 Miscellaneous Notes Phoned patient as requested Left voicemail for patient to return call. Magaly Quinonez MA Please call the patient. Her TSH was 3.3 which is elevated for a 24 year old AND her antibody is positive HASHIMOTOs autoimmune hypothyroid. I will start her on 12.5 mcg of SYNTHROID daily. Request she recheck her TSH and Free T4 in 6 weeks. (NOVEMBER 29, no fasting needed) PLEASE CALL OFFICE FOR FURTHER ADJUST. Synthroid is to be taken on EMPTY stomach in the morning with some water, wait 30 minutes to eat breakfast. NO VITAMINS, MINERALS, other SUPPLEMENTS for at least 4 hours. Sent to her local pharmacy. In regards to her question regarding MOUNJARO - Mounjaro is used for diabetes, one of the side effects is appetite suppression and weight loss among other benefits. 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 Mounjaro is a tool to help the process only . Patient's request for medication is as follows Requested Prescriptions Signed Prescriptions Disp Refills levothyroxine (SYNTHROID) 25 mcg tablet 30 tablet 5 Sig: TAKE 1/2 TAB DAILY on empty stomach in the morning with water. Wait 30 minutes to eat. NO vitamins/minerals/supplements for 4 hours after. Order entered - please phone pharmacy and notify patient. Nina Phillips APRN.GINA documented in this encounter [facility] 10-14-2024 Telephone encounter Note Please call the patient. Her TSH was 3.3 which is elevated for a 24 year old AND her antibody is positive HASHIMOTOs autoimmune hypothyroid. I will start her on 12.5 mcg of SYNTHROID daily. Request she recheck her TSH and Free T4 in 6 weeks. (NOVEMBER 29, no fasting needed) PLEASE CALL OFFICE FOR FURTHER ADJUST. Synthroid is to be taken on EMPTY stomach in the morning with some water, wait 30 minutes to eat breakfast. NO VITAMINS, MINERALS, other SUPPLEMENTS for at least 4 hours. Sent to her local pharmacy. In regards to her question regarding MOUNJARO - Mounjaro is used for diabetes, one of the side effects is appetite suppression and weight loss among other benefits. 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 Mounjaro is a tool to help the process only . Patient's request for medication is as follows Requested Prescriptions Signed Prescriptions Disp Refills levothyroxine (SYNTHROID) 25 mcg tablet 30 tablet 5 Sig: TAKE 1/2 TAB DAILY on empty stomach in the morning with water. Wait 30 minutes to eat. NO vitamins/minerals/supplements for 4 hours after. Order entered - please phone pharmacy and notify patient. Nina Phillips APRN.ASSISTANT MECHANIC [facility] 10-13-2024 Telephone encounter Note EPA submitted through [employer]loud/[employer] for pts Mounjaro 2.5mg/0.5 ml. Attached TAJ notes/pertinent labs. Awaiting payor response. [facility] 10-13-2024 Miscellaneous Notes EPA submitted through [employer] for pts Mounjaro 2.5mg/0.5 ml. Attached TAJ notes/pertinent labs. Awaiting payor response. documented in this encounter [facility] 10-13-2024 History of Present illness Narrative NEW CONSULT OFFICE PROGRESS NOTE Reason for Consultation: DM Type 2 Referring Physician: SELF My final recommendations will be communicated back to the requesting physician by way of shared Medical record or letter via [place] mail. HISTORY OF PRESENT ILLNESS; Alicia Mullins is a 24 year old FEMALE is presenting as a new patient to me regarding DM Type 2. She was initially diagnosed with diabetes in new onset 2024. 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 Paternal and maternal The patient has no known microvascular complications of diabetes. Alicia has no know macrovascular complications of diabetes.. DM Education No Knows how to carb count No DIETARY HISTORY: Breakfast: skips or had coffee, - in the past month high protein, following diabetic plate idea Lunch previously sandwich and some cut veggies, OR snacks at work, chips -- now is making salad eggs and veggies cut up Dinner whatever eat at home or eat out -- now is cooking at home, more keto meals Snacks chips Drinks water, tea, non sweetened Exercise: has started to yoga and twice weekly valerie CURRENT DM MEDS METFORMIN 500 mg BID SMBG Type of Monitor: Other Frequency of Monitorin times a day BG Values: Breakfast: 94-125 Lunch: Dinner: Bed-time: Values over past week: Highest ; Lowest Hypoglycemia: no Diet: as per above Exercise: as per above DM REVIEW OF SYSTEMS Last Eye Exam : none Last Podiatry Exam: declined Cardiorespiratory: negative, denies chest pain, pressure Claudication: no Dyslipidemia: No High Blood Pressure: No CURRENT LABS Latest Ref Rng 09/15/2024 Glucose 74 - 99 mg/dL 181 (H) BUN 7 - 21 mg/dL 8 Creatinine 0.58 - 0.96 mg/dL 0.57 (L) Sodium 136 - 144 mmol/L 137 Potassium 3.7 - 5.1 mmol/L 3.6 (L) Chloride 98 - 107 mmol/L 104 CO2 22 - 30 mmol/L 22 Anion Gap 8 - 15 mmol/L 11 eGFR >=60 mL/min/1.73m 129 Hemoglobin A1C 4.3 - 5.6 % 6.8 (H) Estimated Average Glucose mg/dL 148 Legend: (H) High (L) Low Recent Labs 11/14/20 0832 05/14/22 0930 08/06/22 0848 09/15/24 0752 ALT 15 18 -- 83* AST 16 19 -- 46* TSH 3.330 -- -- 3.380 TPROT 7.6 7.6 -- 8.1* ALB 4.5 4.3 -- 4.5 CA 9.4 9.2 8.9 9.3 TBILI 0.2 0.2 -- 0.5 ALKPHOS 71 78 -- 133* GLUC 118* 106* 117* 181* BUN 9 11 12 8 CREAT 0.56* 0.62 0.54* 0.57* NA 137 137 139 137 K 4.1 4.2 4.1 3.6* CHLOR 102 102 106* 104 CO2 24 24 26 22 ANION 11 11 7* 11 EGFROTH >60 128 132 129 GLUCFAST -- -- -- 170* HBA1C -- -- -- 6.8* B12 -- -- -- 673 Recent Labs 11/14/20 0832 05/14/22 0930 09/15/24 0752 TG 171* 182* -- CHOL 200* 197 -- HDL 44 42 -- VLDL 34* 36* -- LDL 122* 119* -- FASTTIME -- 12 -- TCHDL 4.55 4.69 -- LDLHDL 2.77* 2.83* -- NONHDL 156* 155* -- HBA1C -- -- 6.8* HBA0 -- -- 148 B12 -- -- 673 PAST MEDICAL HISTORY Diagnosis Date Elevated fasting glucose Essential hypertension NEGATIVE MEDICAL HISTORY PAST SURGICAL HISTORY Procedure Laterality Date EXTRACTION ERUPTED TOOTH/EXR 2022 FAMILY HISTORY Problem Relation Age of Onset Hypertension Mother Hypertension Father other (frateranl twin [other]) Sister Heart Sister open heart surg at 16yrs old Hypothyroidism Sister other (type 2 diabetes) Maternal Grandmother Colon Cancer Maternal Grandfather other (type 2 diabetes) Paternal Grandmother Social History Tobacco Use Smoking status: Never Smokeless tobacco: Never Vaping Use Vaping status: Never Used Substance Use Topics Alcohol use: Not Currently Drug use: Not Currently Current Outpatient Medications Medication Sig cholecalciferol, Vitamin D3, (VITAMIN D3) 1,250 mcg (50,000 unit) cap capsule Take 1 capsule by mouth one time a week. for 3 months No current facility-administered medications for this visit. ALLERGIES Allergen Reactions Bactrim [Sulfametho* Rash REVIEW OF SYSTEMS - POSITIVES IN BOLD GENERAL:No weight loss, malaise or fevers HEENT:Negative for frequent or significant headaches, No changes in hearing or vision, no nose bleeds or other nasal problems NECK:Negative for lumps, goiter, pain and significant neck swelling RESPIRATORY: Negative for cough, hemoptysis, wheezing, COPD, dyspnea or shortness of breath CARDIOVASCULAR: Negative for chest pain, leg swelling, hypertension, CHF or palpitations PHYSICAL EXAMINATION: Pulse 98 Temp 37.4 C (99.3 F) (Temporal Artery) Wt 97.7 kg (215 lb 6.4 oz) LMP 09/09/2024 (Approximate) SpO2 98% BMI 36.97 kg/m General appearance: Well appearing, alert, in no acute distress, well-hydrated, well nourished. and Morbidly obese Skin: Skin color, texture, turgor normal, no suspicious rashes or lesions Head: Normocephalic, no masses, lesions, tenderness or abnormalities Eyes: ROSALBA Neck: thyroid symmetric to inspection Acanthosis: none noted Extremities: Edema: none Neuro: Negative., Oriented X 3 ASSESSMENT/PLAN (E11.9) Controlled type 2 diabetes mellitus without complication, without long-term current use of insulin ([facility]) (primary encounter diagnosis) Comment: Patient is on METFORMIN 500 BID Will start GLP1 to assist with DM2 control and weight loss Patient is planning is trying to achieve optimum physical condition prior to Consult to DM ED Consult to ENDO COUNSELOR AT LAW Recommended diet: Low carbohydrate and Low saturated fat, low simple sugar, high fiber diet Exercise minimally 150 minutes per week, increase as tolerated. Adequate hydration - 1/2 body wgt in oz of water daily, unless fluid restriction applies. I instructed the patient to monitor blood sugars 1 PRE MEAL VARIED times per day If blood sugars are persistently high or low, to call our office. Patient to continue to follow up with her PCP and with other consultants regarding her other medical problems. Plan: COMPREHENSIVE METABOLIC PANEL, LIPID PANEL, NONFASTING, ALBUMIN/CREATININE RATIO, URINE, HEMOGLOBIN A1C, CONSULT TO DIABETES EDUCATION DSME, ENDOCRINOLOGY DIETITIAN VISIT (MNT) Nina Phillips CNP documented in this encounter [facility] 10-13-2024 Note HNO ID: [id number] Author: NINA PHILLIPS APRN.CNP Service: ? Author Type: Nurse Practitioner Type: Progress Notes Filed: 10/13/2024 07:39 Note Text: NEW CONSULT OFFICE PROGRESS NOTE Reason for Consultation: DM Type 2 Referring Physician: SELF My final recommendations will be communicated back to the requesting physician by way of shared Medical record or letter via [place] mail. HISTORY OF PRESENT ILLNESS; Alicia Mullins is a 24 year old FEMALE is presenting as a new patient to me regarding DM Type 2. She was initially diagnosed with diabetes in new onset 2024. 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 Paternal and maternal The patient has no known microvascular complications of diabetes. Alicia has no know macrovascular complications of diabetes.. DM Education No Knows how to carb count No DIETARY HISTORY: Breakfast: skips or had coffee, - in the past month high protein, following diabetic plate idea Lunch previously sandwich and some cut veggies, OR snacks at work, chips -- now is making salad eggs and veggies cut up Dinner whatever eat at home or eat out -- now is cooking at home, more keto meals Snacks chips Drinks water, tea, non sweetened Exercise: has started to yoga and twice weekly valerie CURRENT DM MEDS METFORMIN 500 mg BID SMBG Type of Monitor: Other Frequency of Monitorin times a day BG Values: Breakfast: 94-125 Lunch: Dinner: Bed-time: Values over past week: Highest ; Lowest Hypoglycemia: no Diet: as per above Exercise: as per above DM REVIEW OF SYSTEMS Last Eye Exam : none Last Podiatry Exam: declined Cardiorespiratory: negative, denies chest pain, pressure Claudication: no Dyslipidemia: No High Blood Pressure: No CURRENT LABS Latest Ref Rng 09/15/2024 Glucose 74 - 99 mg/dL 181 (H) BUN 7 - 21 mg/dL 8 Creatinine 0.58 - 0.96 mg/dL 0.57 (L) Sodium 136 - 144 mmol/L 137 Potassium 3.7 - 5.1 mmol/L 3.6 (L) Chloride 98 - 107 mmol/L 104 CO2 22 - 30 mmol/L 22 Anion Gap 8 - 15 mmol/L 11 eGFR >=60 mL/min/1.73m? 129 Hemoglobin A1C 4.3 - 5.6 % 6.8 (H) Estimated Average Glucose mg/dL 148 Legend: (H) High (L) Low Recent Labs 11/14/20 0832 05/14/22 0930 08/06/22 0848 09/15/24 0752 ALT 15 18 -- 83* AST 16 19 -- 46* TSH 3.330 -- -- 3.380 TPROT 7.6 7.6 -- 8.1* ALB 4.5 4.3 -- 4.5 CA 9.4 9.2 8.9 9.3 TBILI 0.2 0.2 -- 0.5 ALKPHOS 71 78 -- 133* GLUC 118* 106* 117* 181* BUN 9 11 12 8 CREAT 0.56* 0.62 0.54* 0.57* NA 137 137 139 137 K 4.1 4.2 4.1 3.6* CHLOR 102 102 106* 104 CO2 24 24 26 22 ANION 11 11 7* 11 EGFROTH >60 128 132 129 GLUCFAST -- -- -- 170* HBA1C -- -- -- 6.8* B12 -- -- -- 673 Recent Labs 11/14/20 0832 05/14/22 0930 09/15/24 0752 TG 171* 182* -- CHOL 200* 197 -- HDL 44 42 -- VLDL 34* 36* -- LDL 122* 119* -- FASTTIME -- 12 -- TCHDL 4.55 4.69 -- LDLHDL 2.77* 2.83* -- NONHDL 156* 155* -- HBA1C -- -- 6.8* HBA0 -- -- 148 B12 -- -- 673 PAST MEDICAL HISTORY Diagnosis Date Elevated fasting glucose Essential hypertension NEGATIVE MEDICAL HISTORY PAST SURGICAL HISTORY Procedure Laterality Date EXTRACTION ERUPTED TOOTH/EXR 2022 FAMILY HISTORY Problem Relation Age of Onset Hypertension Mother Hypertension Father other (frateranl twin [other]) Sister Heart Sister open heart surg at 16yrs old Hypothyroidism Sister other (type 2 diabetes) Maternal Grandmother Colon Cancer Maternal Grandfather other (type 2 diabetes) Paternal Grandmother Social History Tobacco Use Smoking status: Never Smokeless tobacco: Never Vaping Use Vaping status: Never Used Substance Use Topics Alcohol use: Not Currently Drug use: Not Currently Current Outpatient Medications Medication Sig cholecalciferol, Vitamin D3, (VITAMIN D3) 1,250 mcg (50,000 unit) cap capsule Take 1 capsule by mouth one time a week. for 3 months No current facility-administered medications for this visit. ALLERGIES Allergen Reactions Bactrim [Sulfametho* Rash REVIEW OF SYSTEMS - POSITIVES IN BOLD GENERAL:No weight loss, malaise or fevers HEENT:Negative for frequent or significant headaches, No changes in hearing or vision, no nose bleeds or other nasal problems NECK:Negative for lumps, goiter, pain and significant neck swelling RESPIRATORY: Negative for cough, hemoptysis, wheezing, COPD, dyspnea or shortness of breath CARDIOVASCULAR: Negative for chest pain, leg swelling, hypertension, CHF or palpitations PHYSICAL EXAMINATION: Pulse 98 Temp 37.4 ?C (99.3 ?F) (Temporal Artery) Wt 97.7 kg (215 lb 6.4 oz) LMP 09/09/2024 (Approximate) SpO2 98% BMI 36.97 kg/m? General appearance: Well appearing, alert, i (more content not included)... [facility] 09-16-2024 Telephone encounter Note The prescription printed. Do you have it back at your desk to sign? Magaly Epps RN [facility] 09-16-2024 Miscellaneous Notes The prescription printed. Do you have it back at your desk to sign? Magaly Epps RN documented in this encounter [facility] 09-15-2024 Instructions Tashi Colon APRN.ASSISTANT MECHANIC - 09/15/2024 7:29 AM EST Calcium and Vitamin D Supplementation (from the National Institutes of Health Office of Dietary Supplements 2011) Calcium is required by the body for blood vessel, muscle, hormone and nerve functioning. Most of the body's calcium is stored in the bones and teeth where it supports structure and function. Bone is continuously broken down and reformed. When bone breakdown exceeds formation, especially in postmenopausal women, bone loss can increase the risk of osteoporosis and fractures. In addition to low calcium intake, women who smoke, have a family history of osteoporosis, are thin, or , or who take certain medications such as cancer chemotherapy, seizure mediations and steroids are at increased risk of osteoporosis. The calcium requirements in women change with age. The National Institutes of Health (NIH) recommends: 1000mg elemental calcium for premenopausal women age 19-50 1200mg elemental calcium for postmenopausal women and all women over 50 Milk, yogurt, and cheese are rich natural sources of calcium and are the major food contributors in the [place]. For example, 8oz of milk (whole, lowfat or skim) contains about 300mg calcium, 8oz of yogurt contains 415mg. Nondairy sources include salmon and sardines and vegetables, such as [place] cabbage, kale, and broccoli. Foods fortified with calcium include many fruit juices, tofu and cereals. For more food calcium content information, visit http://ods.od.nih.gov/factsheets/c ronium. Calcium supplements come in several different forms. Remember that the recommendations are for millgrams (mg) of elemental calcium which may be less than the total weight of the supplement. The amount of elemental calcium is required to be printed on the label. Calcium carbonate is the least expensive form. It must be taken on a full stomach to be properly absorbed. Some patients may experience gas or constipation. Calcium phosphate and calcium citrate may be taken either with or without food and tend to have less side effects but are generally more expensive. Because of its ability to neutralize stomach acid, calcium carbonate is found in some basx-hvz-odtwuba antacid products, such as Tums and Rolaids . Depending on its strength, each chewable pill or softchew provides 200 to 400 mg of elemental calcium. The percentage of calcium absorbed depends on the total amount of elemental calcium consumed at one time. Absorption is highest in doses <500mg. So a woman who takes 1,000mg/day of calcium from supplements should split the dose and take 500mg at two separate times during the day. Too much calcium can cause kidney stones, constipation, difficulty absorbing other nutrients and calcium buildup in blood vessels. Women under 50 should not exceed 2500mg/day (2000mg/day for women over 50) of calcium from food and supplements. Excessive alcohol and caffeine intake can inhibit absorption of calcium. Calcium can reduce the absorption of some medications if taken at the same time of day (bisphosphonates, thyroid medication, Phenytoin and other seizure medications, some antibiotics and iron supplements). Vitamin D promotes calcium absorption in the gut and maintains adequate blood levels of calcium and phosphate for normal bone growth and bone remodeling. Vitamin D also helps regulate cell growth as well as nerve, muscle and immune system function. Vitamin D is produced in the skin as a result of ultraviolet sunlight rays and must be altered in the liver and kidney to become its active form. Recommended intake according to the National Institutes of Health is 600 International Units (IU) for girls and women ages 1-70 and 800 IU for women over 70. Very few foods in nature contain vitamin D. The flesh of fatty fish (such as salmon, tuna, and mackerel) and fish liver oils are among the best sources. Small amounts of vitamin D are found in beef liver, cheese, mushrooms and egg yolks. Most people meet at least some of their vitamin D needs through exposure to sunlight. Season, time of day, length of day, cloud cover, smog, skin melanin content, and sunscreen are among the factors that affect UV radiation exposure and vitamin D synthesis. Despite the importance of the sun for vitamin D synthesis, it is prudent to limit exposure of skin to sunlight and avoid tanning beds. UV radiation is a carcinogen responsible for most of the estimated 1.5 million skin cancers that occur annually in the [place]. Lifetime cumulative UV damage to skin is also responsible for some age-associated dryness and other cosmetic changes. In supplements and fortified foods, vitamin D is available in two forms, D2 (ergocalciferol) and D3 (cholecalciferol). The two are equivalent at normal supplement doses. For women who require high supplement doses because of vitamin D deficiency, D3 may work better to raise blood levels. Some medications can prevent proper absorption of Vitamin D. These include laxatives, corticosteroids like prednisone, the seizure drugs phenobarbital and phenytoin, the weight-loss drug orlistat ( Xenical and AlliTM) and the cholesterol-lowering drug cholestyramine (Questran , LoCholest , and Prevalite ). Talk to your doctor about adjusting your recommended daily vitamin D dosage if you take these medications. You should not exceed 4000 mg of vitamin D supplementation daily unless specifically prescribed by your doctor. documented in this encounter [facility] 09-15-2024 Note HNO ID: [id number] Author: TASHI COLON APRN.GINA Service: ? Author Type: Nurse Practitioner Type: Progress Notes Filed: 09/15/2024 07:49 Note Text: Alicia is a 24 year old who presents for an annual gynecologic exam with complaints, irregular bleeding. Bleeding is inconsistent/irregular. Trying to become . Has been trying for a year. Has had ultrasound at [facility] in the past. 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: 09/09/2024 (Approximate), Having periods Age at Menarche: Age at First : Age at Menopause: Animal Husbandry Worker History Comments: Sexual Activity: Yes; Male Contraception: No contraception data on record PAST MEDICAL HISTORY Diagnosis Date Essential hypertension NEGATIVE MEDICAL HISTORY PAST SURGICAL HISTORY Procedure Laterality Date EXTRACTION ERUPTED TOOTH/EXR 2022 FAMILY HISTORY Problem Relation Age of Onset Hypertension Mother Hypertension Father other (frateranl twin [other]) Sister Heart Sister open heart surg at 16yrs old Hypothyroidism Sister other (type 2 diabetes) Maternal Grandmother Colon Cancer Maternal Grandfather other (type 2 diabetes) Paternal Grandmother SOCIAL HISTORY Social History Tobacco Use Smoking status: Never Smokeless tobacco: Never Vaping Use Vaping status: Never Used Substance Use Topics Alcohol use: Not Currently Drug use: Not Currently REVIEW OF SYSTEMS Abdomen: No abdominal pain, nausea, vomiting, diarrhea, or constipation. No bloating, early satiety, indigestion, or increased flatulence. Bladder: No dysuria, gross hematuria, urinary frequency, urinary urgency, or incontinence. Breast: No breast lumps, nipple d/c, overlying skin changes, redness or skin retraction + pain to left breast Allergies and current medication updated:Yes SENSITIVE EXAM: The sensitive examination was discussed with the Patient or Patient's Authorized Battery Inspector. As applicable, any other physician, advance practice provider, medical student, or other health professional student that will be observing or involved in the sensitive examination for educational or training purposes was discussed with the Patient or Authorized Battery Inspector. The Patient or Authorized Battery Inspector has agreed to proceed with the sensitive examination. (Sensitive examination includes inspection and/or palpation of the breasts, pelvis, prostate and anorectal regions). EXAM: BP 138/96 Ht 5' 4 (1.63m) Wt 227 lb (103.0kg) LMP 09/09/2024 BMI 38.95 kg/(m2). GENERAL: pleasant, female in no apparent distress HEENT: Normocephalic, atraumatic, mucus membranes moist, and no lesions NECK: Supple, full range of motion, no adenopathy, and thyroid normal DERMATOLOGY: Normal, without lesions, non-icteric, and non-hirsute BREAST: soft, non-tender, symmetric, no dominant mass, normal nipple-areolar complex, no lymphadenopathy, and no nipple discharge + eczema to left CHEST: Normal inspiratory effort ABDOMEN: soft, non-tender, and no masses PELVIC: external genitalia normal, normal Bartholin's glands, urethra, [place]'s glands, no vulvar lesions, no cervical lesions, good vaginal support, physiologic discharge present, normal appearing perineal body and perianal region BIMANUAL: uterus normal size, shape and consistency, no adnexal masses, and non-tender, limited due to habitus RECTOVAGINAL: deferred. NEURO: alert and oriented x3,exam grossly non-focal EXTREMITIES: normal ASSESSMENT/PLAN: 1) Health maintenance: Pap/HPV up to date 2022. Deferred until 2025. Mammogram starting age 40. Nutrition, exercise and routine health maintenance exams reviewed. Calcium/Vitamin D supplementation information provided. HPV vaccine: discussed, not interested 2) Contraception: none. Recommend PNV. 3) STD screening: Declined STD check. 4) Follow up one year or sooner as needed 2. Irregular menstrual cycle - ICD9: 626.4, ICD10: N92.6 - Labs and ultrasound ordered - Consider referral to [facility] - Consider semen analysis 3. Essential hypertension - ICD9: 401.9, ICD10: I10 - Discussed risks of HTN with - No longer taking meds - Recommend taking BP nightly and following up with PCP - Let PCP know trying to achieve 4. Breast pain - ICD9: 611.71, ICD10: N64.4 - Reports tenderness throughout - Had imaging at [facility] in 2022 - reviewed - Nipple is consistent with eczema - Recommend up to date imaging as this issue has persisted Tashi Colon, DISTRIBUTION DISPATCHER.ASSISTANT MECHANIC Medical Decision Making: Problems: Moderate: 2+ stable chronic illnesses Data: Unique test result(s) reviewed: 2 Unique test(s) ordered: 3+ Risk: Min (more content not included)... [facility] 09-15-2024 History of Present illness Narrative Alicia is a 24 year old who presents for an annual gynecologic exam with complaints, irregular bleeding. Bleeding is inconsistent/irregular. Trying to become . Has been trying for a year. Has had ultrasound at [facility] in the past. 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: 09/09/2024 (Approximate), Having periods Age at Menarche: Age at First : Age at Menopause: Animal Husbandry Worker History Comments: Sexual Activity: Yes; Male Contraception: No contraception data on record PAST MEDICAL HISTORY Diagnosis Date Essential hypertension NEGATIVE MEDICAL HISTORY PAST SURGICAL HISTORY Procedure Laterality Date EXTRACTION ERUPTED TOOTH/EXR 2022 FAMILY HISTORY Problem Relation Age of Onset Hypertension Mother Hypertension Father other (frateranl twin [other]) Sister Heart Sister open heart surg at 16yrs old Hypothyroidism Sister other (type 2 diabetes) Maternal Grandmother Colon Cancer Maternal Grandfather other (type 2 diabetes) Paternal Grandmother SOCIAL HISTORY Social History Tobacco Use Smoking status: Never Smokeless tobacco: Never Vaping Use Vaping status: Never Used Substance Use Topics Alcohol use: Not Currently Drug use: Not Currently REVIEW OF SYSTEMS Abdomen: No abdominal pain, nausea, vomiting, diarrhea, or constipation. No bloating, early satiety, indigestion, or increased flatulence. Bladder: No dysuria, gross hematuria, urinary frequency, urinary urgency, or incontinence. Breast: No breast lumps, nipple d/c, overlying skin changes, redness or skin retraction + pain to left breast Allergies and current medication updated:Yes SENSITIVE EXAM: The sensitive examination was discussed with the Patient or Patient's Authorized Battery Inspector. As applicable, any other physician, advance practice provider, medical student, or other health professional student that will be observing or involved in the sensitive examination for educational or training purposes was discussed with the Patient or Authorized Battery Inspector. The Patient or Authorized Battery Inspector has agreed to proceed with the sensitive examination. (Sensitive examination includes inspection and/or palpation of the breasts, pelvis, prostate and anorectal regions). EXAM: BP 138/96 Ht 5' 4 (1.63m) Wt 227 lb (103.0kg) LMP 09/09/2024 BMI 38.95 kg/(m^2). GENERAL: pleasant, female in no apparent distress HEENT: Normocephalic, atraumatic, mucus membranes moist, and no lesions NECK: Supple, full range of motion, no adenopathy, and thyroid normal DERMATOLOGY: Normal, without lesions, non-icteric, and non-hirsute BREAST: soft, non-tender, symmetric, no dominant mass, normal nipple-areolar complex, no lymphadenopathy, and no nipple discharge + eczema to left CHEST: Normal inspiratory effort ABDOMEN: soft, non-tender, and no masses PELVIC: external genitalia normal, normal Bartholin's glands, urethra, [place]'s glands, no vulvar lesions, no cervical lesions, good vaginal support, physiologic discharge present, normal appearing perineal body and perianal region BIMANUAL: uterus normal size, shape and consistency, no adnexal masses, and non-tender, limited due to habitus RECTOVAGINAL: deferred. NEURO: alert and oriented x3,exam grossly non-focal EXTREMITIES: normal ASSESSMENT/PLAN: 1) Health maintenance: Pap/HPV up to date 2022. Deferred until 2025. Mammogram starting age 40. Nutrition, exercise and routine health maintenance exams reviewed. Calcium/Vitamin D supplementation information provided. HPV vaccine: discussed, not interested 2) Contraception: none. Recommend PNV. 3) STD screening: Declined STD check. 4) Follow up one year or sooner as needed 2. Irregular menstrual cycle - ICD9: 626.4, ICD10: N92.6 - Labs and ultrasound ordered - Consider referral to [facility] - Consider semen analysis 3. Essential hypertension - ICD9: 401.9, ICD10: I10 - Discussed risks of HTN with - No longer taking meds - Recommend taking BP nightly and following up with PCP - Let PCP know trying to achieve 4. Breast pain - ICD9: 611.71, ICD10: N64.4 - Reports tenderness throughout - Had imaging at [facility] in 2022 - reviewed - Nipple is consistent with eczema - Recommend up to date imaging as this issue has persisted Tashi Colon APRN.CNP Medical Decision Making: Problems: Moderate: 2+ stable chronic illnesses Data: Unique test result(s) reviewed: 2 Unique test(s) ordered: 3+ Risk: Minimal: Minimal risk from testing/treatment Medical Decision Making Level: 4 - Moderate documented in this encounter [facility] 05-31-2024 Note HNO ID: [id number] Author: JACK AGUILAR PA-C Service: ? Author Type: Physician Financial Service Rep Type: Progress Notes Filed: 05/31/2024 08:56 Note Text: This note was created using Nanomix[employer]. Subjective Alicia Mullins is a 24 year old female. HPI Presents with a chief complaint of right sided sinus pressure and sore throat for 8 days. She states yesterday sinus pressure and sore throat seem to worsen. She denies a fever. She has had a cough. Some postnasal drip. No vomiting or diarrhea. 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 She tried some ibuprofen [id number]. Review of Systems Constitutional: Negative. HENT: Positive for congestion, sinus pressure, sinus pain and sore throat. Negative for ear pain. Respiratory: Positive for cough. Cardiovascular: Negative. Gastrointestinal: Negative. Genitourinary: Negative. Musculoskeletal: Negative. All other systems reviewed and are negative. PAST MEDICAL HISTORY Diagnosis Date Essential hypertension NEGATIVE MEDICAL HISTORY Current Outpatient Medications Medication Sig Dispense Refill amoxicillin-clavulanate potassium (AUGMENTIN) 875-125 mg per tablet Take 1 tablet by mouth two times a day for 7 days. 14 tablet 0 vit no.124/iron/folic ( VITAMIN ORAL) Take by mouth. (Patient not taking: Reported on 05/31/2024) hydroCHLOROthiazide (HYDRODIURIL, ESIDRIX) 50 mg tablet Take 1 tablet by mouth once daily. (Patient not taking: Reported on 07/01/2023) 90 tablet 1 benzonatate (TESSALON PERLE) 100 mg capsule Take 2 capsules by mouth three times daily as needed. 30 capsule 0 No current facility-administered medications for this visit. PAST SURGICAL HISTORY Procedure Laterality Date NONE FAMILY HISTORY Problem Relation Age of Onset Hypertension Mother Hypertension Father other (frateranl twin [other]) Sister other (type 2 diabetes) Maternal Grandmother Colon Cancer Maternal Grandfather other (type 2 diabetes) Paternal Grandmother Social History Tobacco Use Smoking status: Never Smokeless tobacco: Never Vaping Use Vaping status: Never Used Substance Use Topics Alcohol use: Not Currently Drug use: Not Currently Objective BP 130/88 Pulse 101 Temp 36.5 ?C (97.7 ?F) Resp 21 Wt 105.7 kg (233 lb 0.4 oz) LMP 07/31/2023 (Approximate) SpO2 98% BMI 40.00 kg/m? Physical Exam Vitals reviewed. Constitutional: Appearance: Normal appearance. HENT: Head: Normocephalic and atraumatic. Right Ear: Tympanic membrane, ear canal and external ear normal. Left Ear: Tympanic membrane, ear canal and external ear normal. Nose: Congestion present. Right Sinus: Maxillary sinus tenderness present. Mouth/Throat: Mouth: Mucous membranes are moist. Pharynx: Oropharynx is clear. Cardiovascular: Rate and Rhythm: Normal rate and regular rhythm. Heart sounds: Normal heart sounds. Pulmonary: Effort: Pulmonary effort is normal. Breath sounds: Normal breath sounds. Musculoskeletal: Cervical back: Neck supple. Lymphadenopathy: Cervical: No cervical adenopathy. Skin: General: Skin is warm and dry. Neurological: Mental Status: She is alert. Assessment and Plan ASSESSMENT/PLAN: 1. Acute non-recurrent maxillary sinusitis - ICD9: 461.0, ICD10: J01.00 - Will begin treatment with Augmentin 875 mg PO BID for 7 days - Supportive care with plenty of fluids, rest, and analgesia prn. - Follow up in 3-5 days if symptoms persist or worsen. Jack Aguilar PA-C [facility] 05-31-2024 History of Present illness Narrative This note was created using NoteWriter. Subjective Alicia Mullins is a 24 year old female. HPI Presents with a chief complaint of right sided sinus pressure and sore throat for 8 days. She states yesterday sinus pressure and sore throat seem to worsen. She denies a fever. She has had a cough. Some postnasal drip. No vomiting or diarrhea. 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 She tried some ibuprofen [id number]. Review of Systems Constitutional: Negative. HENT: Positive for congestion, sinus pressure, sinus pain and sore throat. Negative for ear pain. Respiratory: Positive for cough. Cardiovascular: Negative. Gastrointestinal: Negative. Genitourinary: Negative. Musculoskeletal: Negative. All other systems reviewed and are negative. PAST MEDICAL HISTORY Diagnosis Date Essential hypertension NEGATIVE MEDICAL HISTORY Current Outpatient Medications Medication Sig Dispense Refill amoxicillin-clavulanate potassium (AUGMENTIN) 875-125 mg per tablet Take 1 tablet by mouth two times a day for 7 days. 14 tablet 0 vit no.124/iron/folic ( VITAMIN ORAL) Take by mouth. (Patient not taking: Reported on 05/31/2024) hydroCHLOROthiazide (HYDRODIURIL, ESIDRIX) 50 mg tablet Take 1 tablet by mouth once daily. (Patient not taking: Reported on 07/01/2023) 90 tablet 1 benzonatate (TESSALON PERLE) 100 mg capsule Take 2 capsules by mouth three times daily as needed. 30 capsule 0 No current facility-administered medications for this visit. PAST SURGICAL HISTORY Procedure Laterality Date NONE FAMILY HISTORY Problem Relation Age of Onset Hypertension Mother Hypertension Father other (frateranl twin [other]) Sister other (type 2 diabetes) Maternal Grandmother Colon Cancer Maternal Grandfather other (type 2 diabetes) Paternal Grandmother Social History Tobacco Use Smoking status: Never Smokeless tobacco: Never Vaping Use Vaping status: Never Used Substance Use Topics Alcohol use: Not Currently Drug use: Not Currently Objective BP 130/88 Pulse 101 Temp 36.5 C (97.7 F) Resp 21 Wt 105.7 kg (233 lb 0.4 oz) LMP 07/31/2023 (Approximate) SpO2 98% BMI 40.00 kg/m Physical Exam Vitals reviewed. Constitutional: Appearance: Normal appearance. HENT: Head: Normocephalic and atraumatic. Right Ear: Tympanic membrane, ear canal and external ear normal. Left Ear: Tympanic membrane, ear canal and external ear normal. Nose: Congestion present. Right Sinus: Maxillary sinus tenderness present. Mouth/Throat: Mouth: Mucous membranes are moist. Pharynx: Oropharynx is clear. Cardiovascular: Rate and Rhythm: Normal rate and regular rhythm. Heart sounds: Normal heart sounds. Pulmonary: Effort: Pulmonary effort is normal. Breath sounds: Normal breath sounds. Musculoskeletal: Cervical back: Neck supple. Lymphadenopathy: Cervical: No cervical adenopathy. Skin: General: Skin is warm and dry. Neurological: Mental Status: She is alert. Assessment and Plan ASSESSMENT/PLAN: 1. Acute non-recurrent maxillary sinusitis - ICD9: 461.0, ICD10: J01.00 - Will begin treatment with Augmentin 875 mg PO BID for 7 days - Supportive care with plenty of fluids, rest, and analgesia prn. - Follow up in 3-5 days if symptoms persist or worsen. Jack Aguilar PA-C documented in this encounter [facility] 01-20-2024 Telephone encounter Note She is welcome to schedule a visit to discuss. However, no evaluation needed until as been attempting for 1 year. Payam Figueroa MD [facility] 01-20-2024 Miscellaneous Notes She is welcome to schedule a visit to discuss. However, no evaluation needed until as been attempting for 1 year. Payam Figueroa MD documented in this encounter [facility] 07-15-2023 History of Present illness Narrative Alicia Mullins is a 23 year old female who presents for problem visit. HPI: Patient reports pelvic pain for the past 4 weeks. She stopped control in November. Patient started trying to conceive in May. She went to urgent care & then the ED for this pain. In urgent care she was told she had a cervical lesion. Also she reports some spotting after intercourse for the last 2-3 weeks. She was having nausea but then started taking the PNV at night & that resolved. tests have all been negative. 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 History Comments: Sexual Activity: Yes; Male Contraception: No contraception data on record PAST MEDICAL HISTORY Diagnosis Date Essential hypertension NEGATIVE MEDICAL HISTORY PAST SURGICAL HISTORY Procedure Laterality Date NONE FAMILY HISTORY Problem Relation Age of Onset Hypertension Mother Hypertension Father other (frateranl twin [other]) Sister other (type 2 diabetes) Maternal Grandmother Colon Cancer Maternal Grandfather other (type 2 diabetes) Paternal Grandmother Social History Tobacco Use Smoking status: Never Smokeless tobacco: Never Vaping Use Vaping Use: Never used Substance Use Topics Alcohol use: Not Currently Drug use: Not Currently Current Outpatient Medications Medication Sig vit no.124/iron/folic ( VITAMIN ORAL) Take by mouth. hydroCHLOROthiazide (HYDRODIURIL, ESIDRIX) 50 mg tablet Take 1 tablet by mouth once daily. (Patient not taking: Reported on 07/01/2023) benzonatate (TESSALON PERLE) 100 mg capsule Take 2 capsules by mouth three times daily as needed. norgestimate 0.25 mg-ethinyl estradiol 35 mcg (SPRINTEC, ORTHO-CYCLEN) 0.25-35 mg-mcg per tablet Take 1 tablet by mouth once daily. (Patient not taking: Reported on 07/01/2023) No current facility-administered medications for this visit. Allergies As of Date: 07/15/2023 Allergen Noted Reaction BACTRIM [SULFAMETHOXAZOLE-TRIMETH*04/01/20 19 Rash Fully Assessed 07/15/2023 Allergies and current medication updated:Yes EXAM: BP 152/100 Ht 5' 4 (1.63m) Wt 223 lb 9.6 oz (101.4kg) LMP 05/19/2023 BMI 38.36 kg/(m^2). GENERAL: pleasant, female in no apparent distress ABDOMEN: soft and no masses; mild lower abdominal tenderness PELVIC: external genitalia normal, normal Bartholin's glands, urethra, [place]'s glands, no vulvar lesions, no cervical lesions other than 2 small white lesions at 11 o'clock, good vaginal support, physiologic discharge present, normal appearing perineal body and perianal region BIMANUAL: uterus normal size, shape and consistency, no adnexal masses, and mildly tender ASSESSMENT AND PLAN: 23yo female with pelvic pain, cervical lesions & friable cervix Pap today Reviewed negative vaginal infection testing Pelvic US at 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 07-02-2023 Miscellaneous Notes Patient notified of results, verbalizes understanding of instructions. Shira Sauceda LPN Please inform patient that her results have returned and are negative. Gonorrhea and chlamydia are negative BV negative Joana and trich negative HSV and herpes negative. Please advise patient. documented in this encounter [facility] 09-18-2022 Hospital Discharge instructions Patient Education 09/18/2022 14:08:13 Allergic Reaction, Other (General) General Allergic Reactions An allergic reaction is a set of symptoms caused by an allergen. An allergen is something that causes a person s immune system to react. When a person comes in contact with an allergen, it causes the body to release chemicals. These include the chemical histamine. Histamine causes swelling and itching. It may affect the entire body. This is called a general allergic reaction. Often symptoms affect only 1 part of the body. This is called a local allergic reaction. You are having an allergic reaction. Almost anything can cause one. Different people are allergic to different things. It is usually something that you ate or swallowed, came into contact with by getting or putting it on your skin or clothes, or something you breathed in the air. This can be very annoying and sometimes scary. Most of us think of allergic reactions when we have a rash or itchy skin. Symptoms can include: Itching of the eyes, nose, and roof of the mouth Runny or stuffy nose Watery eyes Sneezing or coughing A blocked feeling in the ear Red, itchy rash called hives Red and purple spots Rash, redness, welts, blisters Itching, burning, stinging, pain Dry, flaky, cracking, scaly skin Severe symptoms include: Swelling of the face, lips, or other parts of the body Hoarse voice Trouble swallowing, feeling like your throat is closing Trouble breathing, wheezing Nausea, vomiting, diarrhea, stomach cramps Feeling faint or lightheaded, rapid heart rate Sometimes the cause may be obvious. But there are so many things that can cause a reaction that you may not be able to figure out. The most important things to help find your allergen are: Remembering when it started What you were doing at the time or just before that Any activities you were involved in Any new products or contacts Below are some common causes. But remember that almost anything can cause a reaction. You may not even be aware that you came into contact with one of these things: Dust, mold, pollen Plants (common ones are poison julianna and poison oak, but there are many others) Animals Foods such as shrimp, shellfish, peanuts, milk products, gluten, and eggs. Also food colorings, flavorings, and additives. Insect bites or stings such as bees, mosquitos, fleas, ticks Medicines such as penicillin, sulfa medicines, amoxicillin, aspirin, and ibuprofen. But any medicine can cause a reaction. Jewelry such as nickel or gold. This can be new, or something you ve worn for a while, including zippers and buttons. Latex such as in gloves, clothes, toys, balloons, or some tapes. Some people allergic to latex may also have problems with foods like bananas, avocados, kiwi, papaya, or chestnuts. Lotions, perfumes, cosmetics, soaps, shampoos, skincare products, nail products Chemicals or dyes in clothing, linen, form setter steel forms, hair dyes, soaps, iodine Many viruses and common colds can cause a rash that is not an allergic reaction. Sometimes it is hard to tell the difference between allergies, sensitivity, or an intolerance to something. This is especially true with food. Many things can cause diarrhea, vomiting, stomach cramps, and skin irritation. Home care The goal of treatment is to help relieve the symptoms and get you feeling better. The rash will usually fade over several days. But it can sometimes last a couple of weeks. Over the next couple of days, there may be times when it is gets a little worse, and then better again. Here are some things to do: If you know what you are allergic to, stay away from it. Future reactions could be worse than this one. Avoid tight clothing and anything that heats up your skin (hot showers or baths, direct sunlight). Heat will make itching worse. An ice pack will relieve local areas of intense itching and redness. To make an ice pack, put ice cubes in a plastic bag that seals at the top. Wrap it in a thin, clean towel. Don t put the ice directly on the skin because it can damage the skin. Oral diphenhydramine is an xjax-xec-ckblztp antihistamine sold at pharmacy and grocery stores. Unless a prescription antihistamine was given, diphenhydramine may be used to reduce itching if large areas of the skin are involved. It may make you sleepy. So be careful using it in the daytime or when going to school, working, or driving. Note: Don t use diphenhydramine if you have glaucoma or if you are a man with trouble urinating due to an enlarged prostate. There are other antihistamines that won t make you so sleepy. These are good choices for daytime use. Ask your pharmacist for suggestions. Don t use diphenhydramine cream on your skin. It can cause a further reaction in some people. To help prevent an infection, don't scratch the affected area. Scratching may worsen the reaction and damage your skin. It can also lead to an infection. Always check the affected for signs of an infection. Call your healthcare provider and ask what you can use to help decrease the itching. To decrease allergic reactions, try the following: Use heat-steam to clean your home Use high-efficiency particulate (HEPA) vacuums and filters Stay away from food and pet triggers Kill any cockroaches Clean your house often Follow-up care Follow up with your healthcare provider, or as advised. If you had a severe reaction today, or if you have had several mild to medium allergic reactions in the past, ask your provider about allergy testing. This can help you find out what you are allergic to. If your reaction included dizziness, fainting, or trouble breathing or swallowing, ask your provider about carrying auto-injectable epinephrine. Call 911 Call 911 if any of these occur: Trouble breathing or swallowing, wheezing Cool, moist, pale skin Shortness of breath Hoarse voice or trouble speaking Confused Very drowsy or trouble awakening Fainting or loss of consciousness Rapid heart rate Feeling of dizziness or weakness or a sudden drop in blood pressure Feeling of doom Feeling lightheaded Severe nausea or vomiting, or diarrhea Seizure Swelling in the face, eyelids, lips, mouth, throat or tongue Drooling When to seek medical advice Call your healthcare provider right away if any of these occur: Spreading areas of itching, redness or swelling Nausea or stomach cramps or abdominal pain Continuing or recurring symptoms Spreading areas of redness, swelling, or itching Signs of infection at the affected site: oSpreading redness oIncreased pain or swelling oFluid or colored drainage from the site oFever of 100.4 F (38 C) or above lasting for 24 to 48 hours, or as directed by your provider [id number] [employer]. [address] [place] [address]. All rights reserved. This information is not intended as a substitute for professional medical care. Always follow your healthcare professional's instructions. Follow Up Care 09/18/2022 13:22:03 With:BRIONNA BUI APRN.CNP Address: [address] [place] [phone] When:2-4 days [facility] 09-18-2022 Note Discharge Instructions Thank you for allowing [facility] to assist you with your healthcare needs. The following is important discharge information regarding your hospital visit. Diagnosis from Today's Visit Skin irritation due to topical agent Allergic reaction - minor What to Do Next Instructions from Your Care Team Discharge Return to Work, School, or Sports (Return to Work, School, or Sports) - Ordered -- 09/19/22, May return to: work, 09/18/22 14:08:00 EST Post Acute Orders No qualifying data available. You Need to Schedule the Following Appointments Follow Up with BRIONNA BUI APRN.CNP When Within 2-4 days Where: [address] [place] [phone]- [phone] Allergies Bactrim Medications Please ask your primary doctor or pharmacist before taking any other medication not listed, including over the counter drugs, herbal medications, vitamins and or supplements as they may interact with your home medications. What How Much When Instructions Last Dose Unchanged hydroCHLOROthiazide (hydroCHLOROthiazide 50 mg oral tablet) 1 tab(s) by mouth Every day Please take this list to your next doctor s visit. Bring all medications you take, including over the counter medications, herbals and other supplements with you to your doctor s visit. Patients and families are reminded to discard old lists and to update any records with all medication providers or retail pharmacies. Education Materials General Allergic Reactions An allergic reaction is a set of symptoms caused by an allergen. An allergen is something that causes a person s immune system to react. When a person comes in contact with an allergen, it causes the body to release chemicals. These include the chemical histamine. Histamine causes swelling and itching. It may affect the entire body. This is called a general allergic reaction. Often symptoms affect only 1 part of the body. This is called a local allergic reaction. You are having an allergic reaction. Almost anything can cause one. Different people are allergic to different things. It is usually something that you ate or swallowed, came into contact with by getting or putting it on your skin or clothes, or something you breathed in the air. This can be very annoying and sometimes scary. Most of us think of allergic reactions when we have a rash or itchy skin. Symptoms can include: Itching of the eyes, nose, and roof of the mouth Runny or stuffy nose Watery eyes Sneezing or coughing A blocked feeling in the ear Red, itchy rash called hives Red and purple spots Rash, redness, welts, blisters Itching, burning, stinging, pain Dry, flaky, cracking, scaly skin Severe symptoms include: Swelling of the face, lips, or other parts of the body Hoarse voice Trouble swallowing, feeling like your throat is closing Trouble breathing, wheezing Nausea, vomiting, diarrhea, stomach cramps Feeling faint or lightheaded, rapid heart rate Sometimes the cause may be obvious. But there are so many things that can cause a reaction that you may not be able to figure out. The most important things to help find your allergen are: Remembering when it started What you were doing at the time or just before that Any activities you were involved in Any new products or contacts Below are some common causes. But remember that almost anything can cause a reaction. You may not even be aware that you came into contact with one of these things: Dust, mold, pollen Plants (common ones are poison julianna and poison oak, but there are many others) Animals Foods such as shrimp, shellfish, peanuts, milk products, gluten, and eggs. Also food colorings, flavorings, and additives. Insect bites or stings such as bees, mosquitos, fleas, ticks Medicines such as penicillin, sulfa medicines, amoxicillin, aspirin, and ibuprofen. But any medicine can cause a reaction. Jewelry such as nickel or gold. This can be new, or something you ve worn for a while, including zippers and buttons. Latex such as in gloves, clothes, toys, balloons, or some tapes. Some people allergic to latex may also have problems with foods like bananas, avocados, kiwi, papaya, or chestnuts. Lotions, perfumes, cosmetics, soaps, shampoos, skincare products, nail products Chemicals or dyes in clothing, linen, form setter steel forms, hair dyes, soaps, iodine Many viruses and common colds can cause a rash that is not an allergic reaction. Sometimes it is hard to tell the difference between allergies, sensitivity, or an intolerance to something. This is especially true with food. Many things can cause diarrhea, vomiting, stomach cramps, and skin irritation. Home care The goal of treatment is to help relieve the symptoms and get you feeling better. The rash will usually fade over several days. But it can sometimes last a couple of weeks. Over the next couple of days, there may be times when it is gets a little worse, and then better again. Here are some things to do: If you know what you are allergic to, stay away from it. Future reactions could be worse than this one. Avoid tight clothing and anything that heats up your skin (hot showers or baths, direct sunlight). Heat will make itching worse. An ice pack will relieve local areas of intense itching and redness. To make an ice pack, put ice cubes in a plastic bag that seals at the top. Wrap it in a thin, clean towel. Don t put the ice directly on the skin because it can damage the skin. Oral diphenhydramine is an zetd-dxs-elnoxrv antihistamine sold at pharmacy and grocery stores. Unless a prescription antihistamine was given, diphenhydramine may be used to reduce itching if large areas of the skin are involved. It may make you sleepy. So be careful using it in the daytime or when going to school, working, or driving. Note: Don t use diphenhydramine if you have glaucoma or if you are a man with trouble urinating due to an enlarged prostate. There are other antihistamines that won t make you so sleepy. These are good choices for daytime use. Ask your pharmacist for suggestions. Don t use diphenhydramine cream on your skin. It can cause a further reaction in some people. To help prevent an infection, don't scratch the affected area. Scratching may worsen the reaction and damage your skin. It can also lead to an infection. Always check the affected for signs of an infection. Call your healthcare provider and ask what you can use to help decrease the itching. To decrease allergic reactions, try the following: Use heat-steam to clean your home Use high-efficiency particulate (HEPA) vacuums and filters Stay away from food and pet triggers Kill any cockroaches Clean your house often Follow-up care Follow up with your healthcare provider, or as advised. If you had a severe reaction today, or if you have had several mild to medium allergic reactions in the past, ask your provider about allergy testing. This can help you find out what you are allergic to. If your reaction included dizziness, fainting, or trouble breathing or swallowing, ask your provider about carrying auto-injectable epinephrine. Call 911 Call 911 if any of these occur: Trouble breathing or swallowing, wheezing Cool, moist, pale skin Shortness of breath Hoarse voice or trouble speaking Confused Very drowsy or trouble awakening Fainting or loss of consciousness Rapid heart rate Feeling of dizziness or weakness or a sudden drop in blood pressure Feeling of doom Feeling lightheaded Severe nausea or vomiting, or diarrhea Seizure Swelling in the face, eyelids, lips, mouth, throat or tongue Drooling When to seek medical advice Call your healthcare provider right away if any of these occur: Spreading areas of itching, redness or swelling Nausea or stomach cramps or abdominal pain Continuing or recurring symptoms Spreading areas of redness, swelling, or itching Signs of infection at the affected site: oSpreading redness oIncreased pain or swelling oFluid or colored drainage from the site oFever of 100.4 F (38 C) or above lasting for 24 to 48 hours, or as directed by your provider [id number] [employer]. [address] [place] [address], [place] [address]. All rights reserved. This information is not intended as a substitute for professional medical care. Always follow your healthcare professional's instructions. Additional Information VACCINATE! IT SAVES LIVES! Members of the community who have not yet received the COVID-19 vaccine and would like to receive it can visit one of [facility] vaccine clinics. There are many vaccine clinic locations within the [facility]. For locations and available times, please visit [email or web address]. It is important to note that some COVID mobile vaccine clinics are held outdoors and may be canceled in rainy or stormy conditions. To learn more about pediatric vaccinations (ages 5-11), we invite you to visit the [facility] webpage. [email or web address] [email or web address].[email or web address] To learn more about the COVID-19 vaccine, we invite you to visit the [facility] website for a list of frequently asked questions. [email or web address] [email or web address] [facility] Patient Portal Access Instructions: Stay connected with your healthcare team and access your personal medical information anytime with the [facility] Patient Portal. If you would like a full copy of your medical records please contact the [facility] Medical Records Department Friday through Friday between 8a.m. and 4:30p.m. Please follow the directions below to access the portal: 1.Access the email account you provided upon registration to the hospital.2.Look for an invitation email from [facility].3.Open the email and access the invitation link: Accept Invitation to [facility].Fill in the required em to create your account. Sign into www.[facility] [employer] with your username and password that you created in the above steps to stay up to date. You can then view a summary of results, a summary of your visits, and the ability to download your summaries to your computer or send the information securely to a physician. Remember that your healthcare information is confidential, so carefully consider who you will allow to register on the [email or web address] Patient Portal for access to your information. You can also access the [email or web address] Patient Portal on the [employer] shruti. Simply click on Health Records under Health Data and then click on the [employer] logo. HOW TO SAFELY DISPOSE OF PRESCRIPTION MEDICATIONS Please use one of the following methods to safely dispose of your unused medications. 1.Use a drug disposal kit: the drug disposal pouch allows you to safely discard your old and unused drugs. Ask your nurse to give you one when you are discharged.2.Visit a local take-back location: Many local pharmacies and police departments have programs that collect old and unwanted prescription drugs. Call your local pharmacy or go to http://[employer].Revolut/3K8Ar6f to find one close to you.3.Make use of household items: Use cat litter or old coffee grounds to dispose medications if other options are not available. Mix your drugs with these household products, seal them in an airtight container and throw it into the garbage. Call [facility]: [phone] to be sure your drugs can be disposed of in this way. Some medicines may require a different approach.4.Never flush your medications down the toilet. IF YOU HAVE BEEN PRESCRIBED AN OPIOIDS FOR PAIN If you have been prescribed an opioid (such as hydrocodone, oxycodone or morphine), it is critical to understand the possible side effects and risks of opioid pain medications. Even when taken as directed, opioids can have several side effects including: Tolerance, meaning you might need to take more of a medication for the same pain relief. Nausea, vomiting and/or constipation. Sleepiness, dizziness, dry mouth, confusion, depression or itching. Physical dependence, meaning you have withdrawal symptoms when a medication is stopped ? this can develop within a few days. KNOW YOUR RESPONSIBILITIES It is important to know exactly how much and how often to take the opioid pain medications you are prescribed. Never take opioids in higher amounts or more often than prescribed. Do not combine opioids with alcohol or other drugs that cause drowsiness, such as benzodiazepines, also known as benzos, including diazepam and alprazolam, muscle relaxants or sleep aids. Never sell or share prescription opioids. This is illegal. Store opioids in a secure place and out of reach of others (including children, family, friends and visitors). The last page(s) of this document has been signed and retained as a CHART COPY Signatures Patient Education Materials Allergic Reaction, Other (General) Medication Leaflets My discharge plan and instructions have been reviewed and explained to me and I,ALICIA MULLINS M understand my current condition and have read and understand these discharge instructions. I have received a written copy of the plan/instructions. If I have questions, I am aware that I should contact my doctor. 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 Aubree Dominguez LPN Please call patient and let her know her blood work is in acceptable ranges. Brionna Bui APRN.GINA documented in this encounter [facility] 08-06-2022 History of Present illness Narrative 08/06/2022 Patient presents with: Blood Pressure: Follow up SUBJECTIVE: This is a 22 year old that is here today for Above Complaints. BP remained elevated after last appointment. Patient called in with higher BP readings and HCTZ increased to 50 mg. Has been taking and tolerating without side effects. Has not been checking BP at home. Did not bring home cuff today. Denies visual changes, headaches, slurred speech, facial drooping, dizziness, lightheadedness, extremity numbness, tingling or weaknesses. PAST MEDICAL HISTORY Diagnosis Date Essential hypertension NEGATIVE MEDICAL HISTORY ALLERGIES Bactrim [Sulfamethoxazole-Trimethoprim] MEDICATIONS Current Outpatient Medications Medication Sig hydroCHLOROthiazide (HYDRODIURIL, ESIDRIX) 50 mg tablet Take 1 tablet by mouth once daily. norgestimate 0.25 mg-ethinyl estradiol 35 mcg (SPRINTEC, ORTHO-CYCLEN) 0.25-35 mg-mcg per tablet Take 1 tablet by mouth once daily. benzonatate (TESSALON PERLE) 100 mg capsule Take 2 capsules by mouth three times daily as needed. No current facility-administered medications for this visit. Medications and allergies reviewed by this provider. SOCIAL HISTORY Social History Tobacco Use Smoking status: Never Smokeless tobacco: Never Vaping Use Vaping Use: Never used Substance Use Topics Alcohol use: Not Currently Drug use: Not Currently REVIEW OF SYSTEMS All other reviewed and negative other than HPI. OBJECTIVE: BP 127/86 Pulse 93 Resp 16 Wt 98.6 kg (217 lb 6.4 oz) LMP 07/27/2022 (Approximate) SpO2 94% BMI 36.18 kg/m . Vital signs reviewed by this provider. APPEARANCE Well appearing, alert, in no acute distress, well-hydrated, well nourished. EYES conjunctiva and sclera normal. HEART RRR with normal S1 and S2, no murmurs, no gallops, no JVD appreciated LUNG clear to auscultation. No wheezes, rhonchi or rales EXTREMITIES Extremities normal, No deformities, No skin discoloration, No edema, and Normal pulses bilaterally. SKIN Skin color, texture, turgor normal, no suspicious rashes or lesions to exposed skin BP CONTROLLED (<130/80) Never done DEPRESSION ASSESSMENT Never done DTAP,TDAP,TD(1 - Tdap) due on 05/14/2023 HEPATITIS B(1 of 3 - 3-dose series) due on 05/14/2023 HPV VACCINE(1 - 2-dose series) due on 05/14/2023 HEPATITIS C SCREENING due on 05/14/2023 HIV SCREENING due on 05/14/2023 COVID-19 VACCINE(4 - Booster for Moderna series) due on 05/14/2023 ANNUAL PCP TEAM CHRONIC DISEASE VISIT due on 08/06/2023 PAP TESTING due on 08/21/2024 INFLUENZA Completed MENINGOCOCCAL B: Consider based on risk Discontinued ASSESSMENT/PLAN: 1. Hypertension, unspecified type - ICD9: 401.9, ICD10: I10 Improved control. Parameters of monitoring explained to patient. - Continue current medication(s) - Check BMP today - Encouraged dietary sodium restriction/DASH diet - Recommended regular aerobic exercise. - Recommend home blood pressure monitoring, to bring results in on next visit - Discussed need and benefit for weight loss. - Recheck in 6 months, sooner should new symptoms or problems arise. - Goal of BP <140/90 - Recommend home or pharmacy blood pressure monitoring - Recommended no refined sugar, low refined starch, healthy oil intake (olive oil), healthy protein (fish) along the lines of the Mediterranean diet. - HYDROCHLOROTHIAZIDE 50 MG TABLET Brionna Bui APRN.GINA Prescription instructions reviewed with patient as applicable. Patient advised if symptoms do not improve or if symptoms worsen sooner, to contact their primary care physician. Potential red flag symptoms discussed with the patient. Reviewed appropriate action plan to take if red flag symptoms occur. Patient agreeable to treatment plan. I spent a total of 20 minutes on the date of the service which included preparing to see the patient, [id number] patient care, completing clinical documentation, obtaining and/or reviewing separately obtained history, performing a medically appropriate examination, counseling and educating the patient/family/caregiver, and ordering medications, tests, or procedures. documented in this encounter [facility] 07-23-2022 History of Present illness Narrative 07/23/2022 Patient presents with: Follow Up: Blood pressure SUBJECTIVE: This is a 22 year old that is here today for Above Complaints. BP remained elevated at last appointment after being started on HCTZ at the previous appointment. Contiues to take medication without side effects. Did get a BP cuff but not sure she is putting it on right or that it is the right size because BP was 170 on the top one day. Did not bring cuff with her today. Denies visual changes, headache, lightheadedness, dizziness, extremity numbness, tingling, weakness, facial drooping or slurred speech. PAST MEDICAL HISTORY Diagnosis Date NEGATIVE MEDICAL HISTORY ALLERGIES Bactrim [Sulfamethoxazole-Trimethoprim] MEDICATIONS Current Outpatient Medications Medication Sig triamcinolone acetonide (KENALOG) 0.1 % cream Apply 1 application to affected area twice daily. Apply to affected area. Location: bilateral hands hydroCHLOROthiazide (HYDRODIURIL, ESIDRIX) 25 mg tablet Take 1 tablet by mouth once daily. benzonatate (TESSALON PERLE) 100 mg capsule Take 2 capsules by mouth three times daily as needed. norgestimate 0.25 mg-ethinyl estradiol 35 mcg (SPRINTEC, ORTHO-CYCLEN) 0.25-35 mg-mcg per tablet Take 1 tablet by mouth once daily. No current facility-administered medications for this visit. Medications and allergies reviewed by this provider. SOCIAL HISTORY Social History Tobacco Use Smoking status: Never Smokeless tobacco: Never Vaping Use Vaping Use: Never used Substance Use Topics Alcohol use: Not Currently Drug use: Not Currently REVIEW OF SYSTEMS All other reviewed and negative other than HPI. OBJECTIVE: BP 141/93 Pulse 88 Resp 16 Wt 97.8 kg (215 lb 9.6 oz) LMP 08/27/2021 (Exact Date) SpO2 95% BMI 35.88 kg/m . Vital signs reviewed by this provider. APPEARANCE Well appearing, alert, in no acute distress, well-hydrated, well nourished. EYES PERRLA, conjunctiva and sclera normal. HEART RRR with normal S1 and S2, no murmurs, no gallops, no JVD appreciated LUNG clear to auscultation. No wheezes, rhonchi, or rales SKIN Skin color, texture, turgor normal, no suspicious rashes or lesions BP CONTROLLED (<130/80) Never done DEPRESSION ASSESSMENT Never done DTAP,TDAP,TD(1 - Tdap) due on 05/14/2023 HEPATITIS B(1 of 3 - 3-dose series) due on 05/14/2023 HPV VACCINE(1 - 2-dose series) due on 05/14/2023 HEPATITIS C SCREENING due on 05/14/2023 HIV SCREENING due on 05/14/2023 COVID-19 VACCINE(4 - Booster for Moderna series) due on 05/14/2023 ANNUAL PCP TEAM CHRONIC DISEASE VISIT due on 06/25/2023 PAP TESTING due on 08/21/2024 INFLUENZA Completed MENINGOCOCCAL B: Consider based on risk Discontinued ASSESSMENT/PLAN: 1. Hypertension, unspecified type - ICD9: 401.9, ICD10: I10 - suboptimal control - Continue current medication(s) - Encouraged dietary sodium restriction/DASH diet - Recommended regular aerobic exercise. - Recommend home blood pressure monitoring, to bring results in on next visit - Discussed need and benefit for weight loss. - Recheck in 2 weeks, sooner should new symptoms or problems arise. - Goal of BP <140/90 - Recommend home or pharmacy blood pressure monitoring - Recommended no refined sugar, low refined starch, healthy oil intake (olive oil), healthy protein (fish) along the lines of the Mediterranean diet. - HYDROCHLOROTHIAZIDE 50 MG TABLET - bring home cuff to next office appointment to validate Brionna Bui APRN.GINA Prescription instructions reviewed with patient as applicable. Patient advised if symptoms do not improve or if symptoms worsen sooner, to contact their primary care physician. Potential red flag symptoms discussed with the patient. Reviewed appropriate action plan to take if red flag symptoms occur. Patient agreeable to treatment plan. I spent a total of 22 minutes on the date of the service which included preparing to see the patient, [id number] patient care, completing clinical documentation, obtaining and/or reviewing separately obtained history, performing a medically appropriate examination, counseling and educating the patient/family/caregiver, and ordering medications, tests, or procedures. documented in this encounter [facility] 06-25-2022 History of Present illness Narrative 06/25/2022 Patient presents with: Blood Pressure: Follow up SUBJECTIVE: This is a 22 year old that is here today for Above Complaints. BP elevated at last appointment and started on HCTZ. Taking medication as prescribed. Not checking BP at home. Denies visual changes, headaches, dizziness, lightheadedness, slurred speech, facial drooping, extremity numbness, tingling or weakness Reports has noticed some itching and a rash to her hands since she started. Thinks maybe an eczema flare. Using cerave lotions and Aquaphor with minimal relief. Is itching and feels raw. PAST MEDICAL HISTORY Diagnosis Date NEGATIVE MEDICAL HISTORY ALLERGIES Bactrim [Sulfamethoxazole-Trimethoprim] MEDICATIONS Current Outpatient Medications Medication Sig benzonatate (TESSALON PERLE) 100 mg capsule Take 2 capsules by mouth three times daily as needed. hydroCHLOROthiazide (HYDRODIURIL, ESIDRIX) 12.5 mg capsule Take 1 capsule by mouth once daily. norgestimate 0.25 mg-ethinyl estradiol 35 mcg (SPRINTEC, ORTHO-CYCLEN) 0.25-35 mg-mcg per tablet Take 1 tablet by mouth once daily. No current facility-administered medications for this visit. Medications and allergies reviewed by this provider. SOCIAL HISTORY Social History Tobacco Use Smoking status: Never Smokeless tobacco: Never Vaping Use Vaping Use: Never used Substance Use Topics Alcohol use: Not Currently Drug use: Not Currently REVIEW OF SYSTEMS All other reviewed and negative other than HPI. OBJECTIVE: BP 146/86 Pulse 95 Resp 18 Wt 98.5 kg (217 lb 3.2 oz) LMP 08/27/2021 (Exact Date) SpO2 98% BMI 36.14 kg/m . Vital signs reviewed by this provider. APPEARANCE Well appearing, alert, in no acute distress, well-hydrated, well nourished. EYES conjunctiva and sclera normal. HEART RRR with normal S1 and S2, no murmurs, no gallops, no JVD appreciated LUNG clear to auscultation. No wheezes, rhonchi, or rales SKIN dorsal bilateral hands with some scattered papules otherwise skin color, texture, turgor normal, no suspicious rashes or lesions BP CONTROLLED (<130/80) Never done DEPRESSION ASSESSMENT Never done DTAP,TDAP,TD(1 - Tdap) due on 05/14/2023 HEPATITIS B(1 of 3 - 3-dose series) due on 05/14/2023 HPV VACCINE(1 - 2-dose series) due on 05/14/2023 HEPATITIS C SCREENING due on 05/14/2023 HIV SCREENING due on 05/14/2023 COVID-19 VACCINE(4 - Booster for Moderna series) due on 05/14/2023 ANNUAL PCP TEAM CHRONIC DISEASE VISIT due on 06/25/2023 PAP TESTING due on 08/21/2024 INFLUENZA Completed MENINGOCOCCAL B: Consider based on risk Discontinued ASSESSMENT/PLAN: 1. Hypertension, unspecified type - ICD9: 401.9, ICD10: I10 (primary diagnosis) - suboptimal control - Continue current medication(s) - Encouraged dietary sodium restriction/DASH diet - Recommended regular aerobic exercise. - Recommend home blood pressure monitoring, to bring results in on next visit - Follow up in 1 month for BP recheck, sooner if needed - Goal of BP <140/90 - Recommended no refined sugar, low refined starch, healthy oil intake (olive oil), healthy protein (fish) along the lines of the Mediterranean diet. - BASIC METABOLIC PNL - HYDROCHLOROTHIAZIDE 25 MG TABLET 2. Skin eruption - ICD9: 782.1, ICD10: R21 - consider eczema vs related to HCTZ - TRIAMCINOLONE ACETONIDE 0.1 % TOPICAL CREAM - discussed skin care - follow-up in one month, sooner if needed Brionna Bui APRN.CNP Prescription instructions reviewed with patient as applicable. Patient advised if symptoms do not improve or if symptoms worsen sooner, to contact their primary care physician. Potential red flag symptoms discussed with the patient. Reviewed appropriate action plan to take if red flag symptoms occur. Patient agreeable to treatment plan. I spent a total of 25 minutes on the date of the service which included preparing to see the patient, [id number] patient care, completing clinical documentation, obtaining and/or reviewing separately obtained history, performing a medically appropriate examination, counseling and educating the patient/family/caregiver, and ordering medications, tests, or procedures. documented in this encounter [facility] 06-12-2022 History of Present illness Narrative Radiology Service Progress Note PATIENT NAME: Alicia Mullins DATE OF SERVICE: June 12, 2022 TIME: 11:31 AM PATIENT IDENTITY VERIFICATION COMPLETED USING TWO (2) IDENTIFIERS: Name and Date of confirmed by patient verbally. FALL SCREENING: Has the patient had 2 falls in the last year or 1 fall with injury or currently using an Ambulatory Assistive Device (Walker, Cane, Wheelchair, Crutches, etc.)? No PATIENT GENDER DATA: Female. status: : No status: NO. PATIENT RELEVANT IMPLANT DATA REVIEWED: Not Applicable RADIOLOGY DEPARTMENT: General X-ray: Exam(s) Completed: Chest X-Ray PERIPHERAL IV DATA: Not applicable SIGNED BY: RT Sanjana(R) June 12, 2022 11:31 AM documented in this encounter [facility] 05-14-2022 History of Present illness Narrative 05/14/2022 Patient presents with: Blood Pressure: Follow up SUBJECTIVE: This is a 22 year old that is here today for Above Complaints. Since lat office appointment has been in good health without ER appointments or hospitalizations. Has not been taking blood pressures at home. Recently had BP taken at another appointment and it was 140/?. Patient here today to have BP checked. PAST MEDICAL HISTORY Diagnosis Date NEGATIVE MEDICAL HISTORY ALLERGIES Bactrim [Sulfamethoxazole-Trimethoprim] MEDICATIONS Current Outpatient Medications Medication Sig norgestimate 0.25 mg-ethinyl estradiol 35 mcg (SPRINTEC) 0.25-35 mg-mcg per tablet Take 1 tablet by mouth once daily. No current facility-administered medications for this visit. Medications and allergies reviewed by this provider. SOCIAL HISTORY Social History Tobacco Use Smoking status: Never Smokeless tobacco: Never Vaping Use Vaping Use: Never used Substance Use Topics Alcohol use: Not Currently Drug use: Not Currently REVIEW OF SYSTEMS GENERAL: No weight loss, malaise or fevers HEENT: Negative for frequent or significant headaches, No changes in hearing or vision, no nose bleeds or other nasal problems RESPIRATORY: Negative for cough, hemoptysis, wheezing, COPD, dyspnea or shortness of breath CARDIOVASCULAR: Negative for chest pain, leg swelling, hypertension, CHF or palpitations All other reviewed and negative other than HPI. OBJECTIVE: Pulse (P) 98 Resp (P) 16 Wt (P) 99.2 kg (218 lb 12.8 oz) LMP 08/27/2021 (Exact Date) SpO2 (P) 97% BMI (P) 36.41 kg/m . Vital signs reviewed by this provider. APPEARANCE Well appearing, alert, in no acute distress, well-hydrated, well nourished. and Obese EYES conjunctiva and sclera normal. HEART RRR with normal S1 and S2, no murmurs, no gallops, no JVD appreciated LUNG clear to auscultation. No wheezes, rhonchi, or rales EXTREMITIES Extremities normal, No deformities, No skin discoloration, and No edema SKIN Skin color, texture, turgor normal, no suspicious rashes or lesions to exposed skin DTAP,TDAP,TD(1 - Tdap) Never done DEPRESSION ASSESSMENT Never done INFLUENZA(1) due on 04/11/2022 HEPATITIS B(1 of 3 - 3-dose series) due on 05/14/2023 HPV VACCINE(1 - 2-dose series) due on 05/14/2023 HEPATITIS C SCREENING due on 05/14/2023 HIV SCREENING due on 05/14/2023 COVID-19 VACCINE(4 - Booster for Moderna series) due on 05/14/2023 PAP TESTING due on 08/21/2024 MENINGOCOCCAL B: Consider based on risk Discontinued ASSESSMENT/PLAN: 1. Hypertension, unspecified type - ICD9: 401.9, ICD10: I10 (primary diagnosis) - newly diagnosed - Begin HCTZ - Encouraged dietary sodium restriction/DASH diet - Recommended regular aerobic exercise. - Recommend home blood pressure monitoring, to bring results in on next visit - Discussed need and benefit for weight loss. - Follow up in 1 month for BP recheck. - Goal of BP <130/80 - Recommended no refined sugar, low refined starch, healthy oil intake (olive oil), healthy protein (fish) along the lines of the Mediterranean diet. - HYDROCHLOROTHIAZIDE 12.5 MG CAPSULE 2. Encounter for immunization - ICD9: V03.89, ICD10: Z23 - INFLUENZA VACCINE QUADRIVALENT 6 MO - 64 YRS IM 3. Screening for cholesterol level - ICD9: V77.91, ICD10: Z13.220 - LIPID PANEL BASIC - COMP METABOLIC PANEL 4. Obesity, Class II, BMI 35-39.9 - ICD9: 278.00, ICD10: E66.9 Weight increasing - Behavioral intervention - LIPID PANEL BASIC - COMP METABOLIC PANEL - Lengthy discussion in office today regarding diet and exercise. Discussed use of small plate to eat meals from, drink 1 glass of water 10-15 minutes prior to eating meal, drink 8 glasses of water daily, eat fresh fruit and vegetable during meal first then lean protein such as grilled/baked chicken breast or fish, limit carbohydrate intake (less pasta, breads, rice and snack foods) as well as limiting sugars (desserts etc). Important to count / track your calories and exercise as well. Brionna Podlogar, DISTRIBUTION DISPATCHER.ASSISTANT MECHANIC Prescription instructions reviewed with patient as applicable. Patient advised if symptoms do not improve or if symptoms worsen sooner, to contact their primary care physician. Potential red flag symptoms discussed with the patient. Reviewed appropriate action plan to take if red flag symptoms occur. Patient agreeable to treatment plan. I spent a total of 30 minutes on the date of the service which included preparing to see the patient, [id number] patient care, completing clinical documentation, obtaining and/or reviewing separately obtained history, performing a medically appropriate examination, counseling and educating the patient/family/caregiver, and ordering medications, tests, or procedures. documented in this encounter [facility] Evaluation + Plan note No data available for this section [facility] Evaluation note Diagnosis Hypertension, unspecified type- Primary Encounter for immunization Need for other specified prophylactic vaccination against single bacterial disease Screening for cholesterol level Screening for lipoid disorders Obesity, Class II, BMI 35-39.9 Obesity, unspecified [facility] Diagnosis Hypertension, unspecified type- Primary Skin eruption Rash and other nonspecific skin eruption [facility] Diagnosis Hypertension, unspecified type [facility] Diagnosis Hypertension, unspecified type documented [facility] this encounter [facility] noteNo assessment information availableWWayne [facility] Work Phone: Evaluation note* Diagnosis Onset Date Resolution Status Ethmoid sinusitis acute [facility] Work Phone: Evtudation note* Diagnosis Pelvic pain- Primary Cervical lesion Unspecified noninflammatory disorder of cervix Encounter for screening for malignant neoplasm of cervix Screening for malignant neoplasm of the cervix Friable cervix Other specified noninflammatory disorder of cervix [facility] Diagnosis Acute non-recurrent maxillary sinusitis- Primary [facility] Diagnosis Encounter for gynecological examination with abnormal finding- Primary Routine gynecological examination Irregular menstrual cycle Essential hypertension Unspecified essential hypertension Breast pain Mastodynia documented [facility]* Diagnosis Elevated fasting glucose- Primary Impaired fasting glucose [facility]* Diagnosis Vitamin D deficiency- Primary Unspecified vitamin D deficiency [facility]* Diagnosis Controlled type 2 diabetes mellitus without complication, without long-term current use of insulin (HCC)- Primary Elevated fasting glucose Impaired fasting glucose Diabetes mellitus treated with injections of non-insulin medication (HCC) TSH elevation Nonspecific abnormal results of thyroid function study documented 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* Diagnosis Breast pain Mastodynia documented [facility]* Diagnosis Breast pain Mastodynia documented [facility]* Diagnosis Irregular menstrual cycle- Primary Polycystic ovaries documented [facility]* Diagnosis Labial cyst- Primary Other specified noninflammatory disorder of vulva and perineum [facility] Additional Instructions Your test is negative and your transvaginal ultrasound showed no abnormalities. I am not sure what is causing her pelvic pain recommend Tylenol and ibuprofen and follow- up with [facility] Work Phone: Reason for referral (narrative)* Diagnostic Procedure Only (Routine) - Authorized Specialty Diagnoses / Procedures Referred By Yuli stevens Referred To Contact [facility] Diagnoses Breast pain Procedures KIMBERLY DIAGNOSTIC LEFT DIAGNOSTIC MAMMOGRAPHY COMPUTER-AIDED DETCJ UNI Tashi Colon APRN.CNP [address] [place] [address] [facility] [address] [place] [address] Referral ID Status Reason Start Date Expiration Date Visits Requested Visits Authorized [id number] Authorized Auto-Generat ed Referral 09/15/2024 10/15/2025 1 1 * Diagnostic Procedure Only (Routine) - Authorized Specialty Diagnoses / Procedures Referred By Yuli stevens Referred To Contact [facility] Diagnoses Breast pain Procedures US BREAST LTD LEFT US BREAST UNI REAL TIME WITH IMAGE LIMITED Tashi Colon APRN.CNP [address] [place] [address] [facility] [address] [place] [address] Referral ID Status Reason Start Date Expiration Date Visits Requested Visits Authorized [id number] Authorized Auto-Generat ed Referral 09/15/2024 10/15/2025 1 1 * Diagnostic Procedure Only (Routine) - Open Specialty Diagnoses / Procedures Referred By Contac t Referred To Contact [facility] Diagnoses Irregular menstrual cycle Procedures PELVIC US WHI US PELVIC NONOBSTETRIC REAL-TIME IMAGE COMPLETE Tashi Colon APRN.CNP [address] [place] [address] [facility] [address] [place] [address] Referral ID Status Reason Start Date Expiration Date V isits Requested Visits Authorized [id number] Open Auto-Generate d Referral 09/15/2024 09/15/2025 [address] [facility] (narrative)No reason for referral information availableWWayne Health[facility] Work Phone: Reason for visit Narrative* Diagnostic Procedure Only (Routine) - Closed Specialty Diagnoses / Procedures Referred By Contac t Referred To Contact [facility] Diagnoses Breast pain Procedures KIMBERLY DIAGNOSTIC LEFT DIAGNOSTIC MAMMOGRAPHY COMPUTER-AIDED DETCJ UNI Tashi Colon APRN.CNP [address] [place] [address] Phone: tel: fax: [facility] [address] [place] [address] Referral ID Status Reason Start Date Expiration Date V isits Requested Visits Authorized [id number] Closed Auto-Generate d Referral 09/15/2024 10/15/2025 1 1 [facility] for visit Narrative* Diagnostic Procedure Only (Routine) - Authorized Specialty Diagnoses / Procedures Referred By Contac t Referred To Contact [facility] Diagnoses Breast pain Procedures US BREAST LTD LEFT US BREAST UNI REAL TIME WITH IMAGE LIMITED Tashi Colon APRN.CNP [address] [place] [address] Phone: tel: fax:5 [facility] [address] [place] [address] Referral ID Status Reason Start Date Expiration Date Visits Requested Visits Authorized [id number] Authorized Auto-Generat ed Referral 09/15/2024 10/15/2025 [address] [facility] N[facility]ative* Diagnostic Procedure Only (Routine) - Closed Specialty Diagnoses / Procedures Referred By Contac t Referred To Contact [facility] Diagnoses Irregular menstrual cycle Procedures PELVIC US WHI US PELVIC NONOBSTETRIC REAL-TIME IMAGE COMPLETE Tashi Colon APRN.ASSISTANT MECHANIC [address] [place] [address] Phone: tel: fax:5 [facility] [address] [place] [address] Referral ID Status Reason Start Date Expiration Date V isits Requested Visits Authorized [id number] Closed Auto-Generate d Referral 09/16/2024 08/10/2025 [address] 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 [address] Referral ID Status Reason Start Date Expiration Date Visits Requested Visits Authorized [id number] Authorized PCP Requested Referral 09/15/2024 09/15/2025 1 1 History of Present Illness * Margaret Morales, DISTRIBUTION DISPATCHER-ASSISTANT MECHANIC - 08/19/2018 8:30 AM EST Formatting of this note may be different from the original. Chief Complaint: Chief Complaint Patient presents with Annual Exam Past due for repeat CT scan of chest. No recent labs done. Notes approx weight gain of 20 lb in thepast year. History of Present Illness Alicia Bernal is a 18 y.o. female who comes in for a physical exam. She is not currently on control. Her periods are regular. She is not currently sexually active She does not currently feel she is at risk for a sexually transmitted infection. She has not had any diagnosed sexually transmitted infections in the past. Regarding self breast exams, she does not endorse doing these. Current BMI: Body mass index is 34.04 kg/m ., Last BP: good today, Last Cholesterol: unknown Immunizations: UTD Last Eye Exam: 6 months ago Last Dental Exam: a year ago. Patient has gained 27 pounds since her last visit on 05/08/17. She states that the past 2 semesters in college have been really busy for her. She stopped exercising regularly and her diet has not beenthe best.. Patient had a CT on 04/05/17 that showed an 8 mm nodule to right lung base. It was recommended that CT be repeated in 6-12 months. We attempted to contact patient to verify insurance information for prior authorization. Patient never returned phone call and CT has not been repeated. Current Medications Outpatient Medications Prior to Visit Medication Sig Dispense Refill fluticasone 50 MCG/ACT Suspension 2 sprays by Nasal route daily. ibuprofen 800 MG Tab take 800 mg by mouth every 6 hours as needed. Multiple Vitamins-Minerals (MULTIVITAMIN ADULT PO) take 1 tablet by mouth daily. Probiotic Product (PROBIOTIC-10) Cap take 1 capsule by mouth daily. Pseudoephedrine HCl (SUDAFED PO) take 120 mg by mouth 2 times daily. No facility-administered medications prior to visit. Allergies Allergies Allergen Reactions Sulfa Antibiotics Rash Past Medical History Past Medical History: Diagnosis Date Allergic rhinitis Atopic eczema Calculus of tonsil Coxsackieviruses Dysmenorrhea Sprain of ligaments of cervical spine Past Surgical History No past surgical history on file. Social History Social History Social History Marital status: Single Spouse name: N/A Number of children: N/A Years of education: N/A Occupational History Not on file. Social History Main Topics Smoking status: Never Smoker Smokeless tobacco: Never Used Alcohol use No Drug use: Unknown Sexual activity: No Other Topics Concern Not on file Social History Narrative No narrative on file Family History Family History Problem Relation Age of Onset Migraines Mother Alcoholism Father Colorectal Cancer Maternal Grandfather Myocardial Infarction Paternal Grandmother Hypertension Paternal Grandmother Heart Failure Paternal Grandmother Diabetes Paternal Grandmother Thyroid Disease Paternal Grandmother Immunizations Immunization History Administered Date(s) Administered DTaP 1998, 1998, 1998, 08/25/1999, 05/19/2003 HIB, Unspecified Formulation 1998, 1998, 1998, 06/02/1999 Hepatitis B Vaccine 1998, 1998, 1998 INACTIVATED POLIOVIRUS (IPV) 1998, 1998, 08/25/1999, 05/19/2003 Influenza Vaccine 06/02/1999, 07/04/1999 MMR Vaccine 07/26/1999, 05/19/2003 Meningococcal Vaccine IM (Conjugate) 03/28/2011, 03/28/2016 Tdap Vaccine 03/28/2011 Varicella Vaccine 05/06/2001, 11/10/2006 Health Maintenance Topic Date Due HPV VACCINE ADOL (1 - Female 3-dose series) 2009 HIV SCREENING DISCUSSION 2011 CHLAMYDIA SCREEN 2014 GONORRHEA SCREEN 02/10/2016 TETANUS 03/28/2021 INFLUENZA VACCINE Completed TDAP (ADULT) Completed ROS Review of Systems Constitutional: Negative for fatigue, fever and unexpected weight change (27 lb weight gain in the past 15 months). HENT: Negative for dental problem, ear pain, hearing loss, sore throat and trouble swallowing. Eyes: Negative for visual disturbance. Respiratory: Negative for cough, chest tightness and shortness of breath. Cardiovascular: Negative for chest pain, palpitations and leg swelling. Gastrointestinal: Negative for abdominal pain, blood in stool, constipation and diarrhea. Endocrine: Negative. Genitourinary: Negative for dysuria, frequency and urgency. Musculoskeletal: Negative for back pain, gait problem, joint swelling and myalgias. Skin: Negative for rash. Allergic/Immunologic: Negative for environmental allergies. Neurological: Negative for dizziness, speech difficulty, weakness, light- headedness and headaches. Psychiatric/Behavioral: Negative for confusion, dysphoric mood and sleep disturbance. The patient is not nervous/anxious. Physical Exam Blood pressure 118/68, pulse 84, temperature 97.7 F (36.5 C), temperature source Temporal, resp. rate 12, height 1.645 m (5' 4.75), weight 92.1 kg (203 lb), last menstrual period 08/12/2018, SpO2 97%.Body mass index is 34.04 kg/m . Physical Exam Constitutional: She is oriented to person, place, and time. She appears well- developed and well-nourished. No distress. Obese HENT: Head: Normocephalic and atraumatic. Right Ear: External ear and ear canal normal. Tympanic membrane is bulging. Left Ear: External ear and ear canal normal. Tympanic membrane is bulging. Mouth/Throat: Uvula is midline, oropharynx is clear and moist and mucous membranes are normal. Eyes: Lids are normal. Cardiovascular: Normal rate, regular rhythm, S1 normal and S2 normal. Exam reveals no gallop, no S3and no S4. No murmur heard. Pulmonary/Chest: Effort normal and breath sounds normal. No respiratory distress. Abdominal: Soft. Bowel sounds are increased. There is no tenderness. Obese Musculoskeletal: Normal range of motion. Neurological: She is alert and oriented to person, place, and time. No cranial nerve deficit. Gait normal. Skin: Skin is warm and dry. Psychiatric: She has a normal mood and affect. Her speech is normal and behavior is normal. Judgment and thought content normal. Cognition and memory are normal. Nursing note and vitals reviewed. Assessment/Plan 1. Encounter for routine history and physical examination of adult Discussed with patient as noted on after visit summary from this encounter. Follow up in 1 year. - CBC, EDIF, PLATELET; Future - COMPREHENSIVE METABOLIC PANEL; Future - LIPID PANEL W CALCULATED LDL; Future - TSH W/FT4 REFLEX; Future 2. Nodule of right lung Pt was to have chest CT repeated last year. She is in college in [place] and will need to have CT done there. - CT CHEST WITHOUT CONTRAST; Future 3. BMI 34.0-34.9,adult The patient is asked to make an attempt to improve diet and exercise patterns to aid in medical management of this problem. * Nena GonzalezSRIRAM - 08/19/2018 8:30 AM EST Formatting of this note may be different from the original. Nurse Note: Review of Systems Constitutional: Positive for unexpected weight change. Negative for fatigue and fever. HENT: Negative for dental problem, ear pain, hearing loss, sore throat and trouble swallowing. Eyes: Negative for visual disturbance. Respiratory: Negative for cough, chest tightness and shortness of breath. Cardiovascular: Negative for chest pain, palpitations and leg swelling. Gastrointestinal: Negative for abdominal pain, blood in stool, constipation and diarrhea. Endocrine: Negative. Genitourinary: Negative for dysuria, frequency and urgency. Musculoskeletal: Negative for back pain, gait problem, joint swelling and myalgias. Skin: Negative for rash. Allergic/Immunologic: Negative for environmental allergies. Neurological: Negative for dizziness, speech difficulty, weakness, light- headedness and headaches. Psychiatric/Behavioral: Negative for confusion, dysphoric mood and sleep disturbance. The patient is not nervous/anxious. Nursing Assessment:Labs drawn as ordered 23 G butterfly right antecub Physical Exam in this encounter Assessments Diagnosis Encounter for routine history and physical examination of adult- Primary Nodule of right lung Solitary pulmonary nodule BMI 34.0-34.9,adult Body Mass Index 34.0-34.9, adult Diagnosis Nodule of right lung- Primary Solitary pulmonary nodule Summary Purpose Family History No Family History Records FoundNo Family History Records FoundNo Family History Records FoundNo Family History Records FoundNo Family History Records FoundNo Family History Records Found Advance Directives No Advanced Directives Records Found Advance Directive Response Recorded Date/ Time Living Will No April 26, 2020 6:18pm Power of Parts Department Supervisor No April 6:18pm Advance Directive Response Recorded Date/ Time Living Will No October 09, 2022 9:44am Power of Parts Department Supervisor No October 09 9:44am Advance Directive Response Recorded Date/ Time Living Will No October 09, 2022 8:44am Power of Parts Department Supervisor No October 09 8:44am Advance Directive Response Recorded Date/ Time Living Will No July 01, 023 7:06pm Power of Parts Department Supervisor No July 01, 2023 7:06pm Chief Complaint and Reason for Visit Chief Complaint Rash Chief Complaint e order SINUS CONGESTION Reason for Visit Ethmoid sinusitis Chief Complaint e order SINUS CONGESTION EORDER Reason for Visit Ethmoid sinusitis Chief Complaint EORDER E ORDER Chief Complaint EORDER E ORDER pelvic pain, N/V Chief Complaint Admit Date WW November 11, 2024 7:30 am INT LABS December 16, 2024 7:05am WW December 16, 2024 7:16am Additional Source Comments Reason for Visit (unrecogniz ed section and content) Reason Comments Annual Exam Past due for repeat CT scan of chest. No recent labs done. Notes approx weight gain of 20 lb in the past year. Reason Comments Other Reason Comments Results Reason Comments Results Reason Comments Health Maintenance Reminder Reason Comments Blood Pressure Follow up Reason Comments Blood Pressure Follow up Hives Recurrent Reason Comments Follow Up Blood pressure Reason Comments Blood Pressure Follow up Reason Onset Date Comments Yearly Exam 07/15/2023 Reason Comments Sore Throat Pt has tonsil stones and are irritating, sinus, PENALOZA x 1 week Reason Comments Yearly Exam Reason Comments Results Reason Comments Vitamin D Reason Comments High Blood Sugar Specialty Diagnoses / Procedures Referred By Yuli t Referred To Contact Endocrinology Diagnoses Elevated fasting glucose Procedures CONSULT TO ENDOCRINOLOGY OFFICE/OUTPATIENT NEW HIGH MDM 60 MINUTES Tashi Colon, PRACHI.ASSISTANT MECHANIC [address] [place] [address] Phone: tel: fax: Referral ID Status Reason Start Date Expiration Date V isits Requested Visits Authorized [id number] Closed PCP Requested Referral 09/15/2024 09/15/2025 1 1 Reason Comments EPA/EPic/Mounjaro 2.5 mg/0.5 ml Reason Comments Insurance Authorization tirzepatide (NATHAN NJARO) 5 mg/0.5 mL pen injector [[facility]] Reason Comments Vaginal Problem Reason Comments new OB Reason Comments Early OB Diarrhea INFORMATION SOURCE (unrecogn ized section and content) DATE CREATED AUTHOR 09/30/2018 Darryl issa DATE CREATED AUTHOR AUTHOR'S ORGANIZ ATION 01/17/2019 [facility] DATE CREATED AUTHOR AUTHOR'S ORGANIZ ATION 01/22/2019 [facility] DATE CREATED AUTHOR AUTHOR'S ORGANIZ ATION 09/19/2022 [facility] ([place]) DATE CREATED AUTHOR AUTHOR'S ORGANIZ ATION 01/27/2025 [facility] DATE CREATED AUTHOR AUTHOR'S ORGANIZ ATION 05/20/2025 [facility] Source Comments (unrecognize d section and content) In the event this informatio n is protected by the Federal Confidentiality of Alcohol and Drug Abuse Patient Records regulations: The Federal rules restrict any use of the information to criminally investigate or prosecute any alcohol or drug abuse patient.[facility] the event this information is protected by the Federal Confidentiality of Alcohol and Drug Abuse Patient Records regulations: The Federal rules restrict any use of the information to criminally investigate or prosecute any alcohol or drug abuse patient.[facility] the event this information is protected by the Federal Confidentiality of Alcohol and Drug Abuse Patient Records regulations: The Federal rules restrict any use of the information to criminally investigate or prosecute any alcohol or drug abuse patient.[facility] the event this information is protected by the Federal Confidentiality of Alcohol and Drug Abuse Patient Records regulations: The Federal rules restrict any use of the information to criminally investigate or prosecute any alcohol or drug abuse patient.[facility] the event this information is protected by the Federal Confidentiality of Alcohol and Drug Abuse Patient Records regulations: The Federal rules restrict any use of the information to criminally investigate or prosecute any alcohol or drug abuse patient.[facility] the event this information is protected by the Federal Confidentiality of Alcohol and Drug Abuse Patient Records regulations: The Federal rules restrict any use of the information to criminally investigate or prosecute any alcohol or drug abuse patient.[facility] the event this information is protected by the Federal Confidentiality of Alcohol and Drug Abuse Patient Records regulations: The Federal rules restrict any use of the information to criminally investigate or prosecute any alcohol or drug abuse patient.[facility] the event this information is protected by the Federal Confidentiality of Alcohol and Drug Abuse Patient Records regulations: The Federal rules restrict any use of the information to criminally investigate or prosecute any alcohol or drug abuse patient.[facility] the event this information is protected by the Federal Confidentiality of Alcohol and Drug Abuse Patient Records regulations: The Federal rules restrict any use of the information to criminally investigate or prosecute any alcohol or drug abuse patient.[facility] the event this information is protected by the Federal Confidentiality of Alcohol and Drug Abuse Patient Records regulations: The Federal rules restrict any use of the information to criminally investigate or prosecute any alcohol or drug abuse patient.[facility] the event this information is protected by the Federal Confidentiality of Alcohol and Drug Abuse Patient Records regulations: The Federal rules restrict any use of the information to criminally investigate or prosecute any alcohol or drug abuse patient.[facility] the event this information is protected by the Federal Confidentiality of Alcohol and Drug Abuse Patient Records regulations: The Federal rules restrict any use of the information to criminally investigate or prosecute any alcohol or drug abuse patient.[facility] the event this information is protected by the Federal Confidentiality of Alcohol and Drug Abuse Patient Records regulations: The Federal rules restrict any use of the information to criminally investigate or prosecute any alcohol or drug abuse patient.[facility] the event this information is protected by the Federal Confidentiality of Alcohol and Drug Abuse Patient Records regulations: The Federal rules restrict any use of the information to criminally investigate or prosecute any alcohol or drug abuse patient.[facility] the event this information is protected by the Federal Confidentiality of Alcohol and Drug Abuse Patient Records regulations: The Federal rules restrict any use of the information to criminally investigate or prosecute any alcohol or drug abuse patient.[facility] the event this information is protected by the Federal Confidentiality of Alcohol and Drug Abuse Patient Records regulations: The Federal rules restrict any use of the information to criminally investigate or prosecute any alcohol or drug abuse patient.[facility] Hospital[facility] the event this information is protected by the Federal Confidentiality of Alcohol and Drug Abuse Patient Records regulations: The Federal rules restrict any use of the information to criminally investigate or prosecute any alcohol or drug abuse patient.[facility] the event this information is protected by the Federal Confidentiality of Alcohol and Drug Abuse Patient Records regulations: The Federal rules restrict any use of the information to criminally investigate or prosecute any alcohol or drug abuse patient.[facility] HospitalIn the event this information is protected by the Federal Confidentiality of Alcohol and Drug Abuse Patient Records regulations: The Federal rules restrict any use of the information to criminally investigate or prosecute any alcohol or drug abuse patient.[facility] HospitalIn the event this information is protected by the Federal Confidentiality of Alcohol and Drug Abuse Patient Records regulations: The Federal rules restrict any use of the information to criminally investigate or prosecute any alcohol or drug abuse patient.[facility] HospitalIn the event this information is protected by the Federal Confidentiality of Alcohol and Drug Abuse Patient Records regulations: The Federal rules restrict any use of the information to criminally investigate or prosecute any alcohol or drug abuse patient.[facility] HospitalIn the event this information is protected by the Federal Confidentiality of Alcohol and Drug Abuse Patient Records regulations: The Federal rules restrict any use of the information to criminally investigate or prosecute any alcohol or drug abuse patient.[facility] HospitalIn the event this information is protected by the Federal Confidentiality of Alcohol and Drug Abuse Patient Records regulations: The Federal rules restrict any use of the information to criminally investigate or prosecute any alcohol or drug abuse patient.[facility] HospitalIn the event this information is protected by the Federal Confidentiality of Alcohol and Drug Abuse Patient Records regulations: The Federal rules restrict any use of the information to criminally investigate or prosecute any alcohol or drug abuse patient.[facility] HospitalIn the event this information is protected by the Federal Confidentiality of Alcohol and Drug Abuse Patient Records regulations: The Federal rules restrict any use of the information to criminally investigate or prosecute any alcohol or drug abuse patient.[facility] HospitalIn the event this information is protected by the Federal Confidentiality of Alcohol and Drug Abuse Patient Records regulations: The Federal rules restrict any use of the information to criminally investigate or prosecute any alcohol or drug abuse patient.[facility] HospitalIn the event this information is protected by the Federal Confidentiality of Alcohol and Drug Abuse Patient Records regulations: The Federal rules restrict any use of the information to criminally investigate or prosecute any alcohol or drug abuse patient.[facility] Care Teams (unrecognized sec tion and content) Team Status: Active Member Role Status Dates Jossy Au , DO Primary Care Provider Active Team Status: Inactive Member Role Status Dates Jossy Au , DO Primary Care Provider Active Dr. Jailene Rdz MD Attending Provider, Referring P rovider Active Team Status: Inactive Member Role Status Dates Jossy Au , DO Primary Care Provi karen, Attending Provider, Referring Provider Active Team Status: Inactive Member Role Status Dates Jossy Au , Primary Care Provider Active Tashi Colon NP-C Attending Provider Active Team Status: Inactive Member Role Status Dates Jossy Au , Primary Care Provider Active Dr. Surjit Kellogg , Emergency Provider Active Team Status: Active Member Role Status Dates Jossy Au , Primary Care Provider Active Dr. Jailene Rdz MD Attending Provider, Referring P rovider Active Records Management Analyst Relationship Specialty Start Date End Date Alessandro Jeronimo MD [address] [place], [place] [address] PCP - General Family Medicine 11/14/20 Records Management Analyst Relationship Specialty Start Date End Date Alessandro Jeronimo MD [address] [place], [place] [id number] PCP - General Family Medicine 11/14/20 Records Management Analyst Relationship Specialty Start Date End Date Alessandro Jeronimo MD [address] [place] [address] PCP - General Family Medicine 11/14/20 Records Management Analyst Relationship Specialty Start Date End Date Alessandro Jeronimo MD [address] [place] [address] PCP - General Family Medicine 11/14/20 Team Status: Active Member Role Status Dates Brionna Podlogar WAFER FAB TECHNICIAN, WAFER FAB TECHNICIAN-C Primary Care Provider Active Team Status: Inactive Member Role Status Dates Dr. Dipika Padgett , Attending Provider, Referrin g Provider Active Brionna Carreralogar WAFER FAB TECHNICIAN, WAFER FAB TECHNICIAN-C Primary Care Provider Active Team Status: Inactive Member Role Status Dates Brionna Podlogar WAFER FAB TECHNICIAN, WAFER FAB TECHNICIAN-C Primary Care Provider, Referri ng Provider Active Chandrakant Castellon WAFER FAB TECHNICIAN, WAFER FAB TECHNICIAN-C Attending Provider Active Team Status: Inactive Member Role Status Dates Brionna Podlogar WAFER FAB TECHNICIAN, WAFER FAB TECHNICIAN-C Primary Care Provider Active Jossy Au DO Attending Provider Active Records Management Analyst Relationship Specialty Start Date End Date Alessandro Jeronimo MD [address] [place], [place] [address] PCP - General Family Medicine 11/14/20 Records Management Analyst Relationship Specialty Start Date End Date Alessandro Jeronimo MD [address] [place] [address] PCP - General Family Medicine 11/14/20 Records Management Analyst Relationship Specialty Start Date End Date Alessandro Jeronimo MD [address] [place] [address] PCP - General Family Medicine 11/14/20 Records Management Analyst Relationship Specialty Start Date End Date Jossy Au DO [address] [address] PCP - General Family Medicine 05/31/24 Records Management Analyst Relationship Specialty Start Date End Date Jossy Au DO PCP - General Family Medicine 05/31/24 Records Management Analyst Relationship Specialty Start Date End Date Jossy Au DO PCP - General Family Medicine 05/31/24 Records Management Analyst Relationship Specialty Start Date End Date Jossy Au PCP - General Family Medicine 05/31/24 Records Management Analyst Relationship Specialty Start Date End Date Jossy Au PCP - General Family Medicine 05/31/24 Records Management Analyst Relationship Specialty Start Date End Date Roe Jossy RubaDO PCP - General Family Medicine 05/31/24 Records Management Analyst Relationship Specialty Start Date End Date Roe Jossy RubaDO PCP - General Family Medicine 05/31/24 Records Management Analyst Relationship Specialty Start Date End Date Roe Jossyravi BarajaseDO PCP - General Family Medicine 05/31/24 Records Management Analyst Relationship Specialty Start Date End Date Roe Jossyravi BarajaseDO PCP - General Family Medicine 05/31/24 Records Management Analyst Relationship Specialty Start Date End Date Roe Jossyravi Yeh DO PCP - General Family Medicine 05/31/24 Records Management Analyst Relationship Specialty Start Date End Date Roe Jossyravi Yeh DO PCP - General Family Medicine 05/31/24 Records Management Analyst Relationship Specialty Start Date End Date oReJossy DO PCP - General Family Medicine 05/31/24 Team Status: Active Member Role Status Dates James Cheng MD Primary Care Provider Active Team Status: Inactive Member Role Status Dates Chalon Skylar , MD Primary Care Provider Active St art: November 11, 2024 End: December 08, 2024 James Cheng MD Attending Provider Active Start : November 11, 2024 End: December 08, 2024 James Cheng MD Referring Provider Active Start : November 11, 2024 End: December 08, 2024 Team Status: Inactive Member Role Status Akilah Cheng MD Primary Care Provider Active St art: December 16, 2024 End: December 16, 2024 James Cheng MD Attending Provider Active Start : December 16, 2024 End: December 16, 2024 James Cheng MD Referring Provider Active Start : December 16, 2024 End: December 16, 2024 Team Status: Active Member Role Status Akilah Cheng MD Primary Care Provider Active St art: December 16, 2024 James Cheng MD Attending Provider Active Start : December 16, 2024 James Cheng MD Referring Provider Active Start : December 16, 2024 Team Status: Inactive Member Role Status Akilah Cheng MD Primary Care Provider Active St art: December 16, 2024 End: January 08, 2025 James Cheng MD Attending Provider Active Start : December 16, 2024 End: January 08, 2025 James Cheng MD Referring Provider Active Start : December 16, 2024 End: January 08, 2025 Records Management Analyst Relationship Specialty Start Date End Date Jossy Au DO PCP - General Family Medicine 05/31/24 Records Management Analyst Relationship Specialty Start Date End Date Jossy Au DO PCP - General Family Medicine 05/31/24 Records Management Analyst Relationship Specialty Start Date End Date Jossy Au DO PCP - General Family Medicine 05/31/24 Care Team (unrecognized sect ion and content) Care Team Personnel Name: BRIONNA BUI APRN.ASSISTANT MECHANIC Member Role: Primary Care Physician Address: Address: [address] [place] [phone]- Goals (unrecognized section and content) Goals may be documented in a n alternate section FOR RECORDS PERTAINING TO PATIENTS WHO ARE OR HAVE BEEN ENROLLED IN A CHEMICAL DEPENDENCY/SUBSTANCEABUSE PROGRAM, SOME INFORMATION MAY BE OMITTED. This clinical summary was aggregated from multiple sources. Caution should be exercised in using it in the provision of clinical care. This summary normalizes information from multiple sources, and as a consequence, information in this document may materially change the coding, format and clinical context of patient data. In addition, data may be omitted in some cases. CLINICAL DECISIONS SHOULD BE BASED ON THE PRIMARY CLINICAL RECORDS. [facility] [employer] [facility]. provides no warranty or guarantee of the accuracy or completeness of information in this document.
--- OUTSIDE RECORDS SUMMARY | 2025-05-27 08:08 | XMS RPT_ITS | CCD ---
Author Organization [facility] Care Team Providers Care Time Motion Analyst Name Role Phone Margaret Morales Unavailable MARGARET MORALES Attending Unavailable MORALES MARGARET Referring Unavailable MORALES MARGARET Attending Unavailable MORALESDARYLY Referring Unavailable Margaret Morales M Primary Care Provider MORALES MARGARET Referring Unavailable MORALES, MARGARET Referring Unavailable MoralesMargaret Primary Care Provider Alessandro Jeronimo MD Primary Care Provider Alessandro Jeronimo MD Primary Care Provider [employer] SECURITIES TRADER.BRIONNA FUENTES Primary Care Physician [employer]URITIES TRADER.BRIONNA FUENTES Primary Care Unavail able SIMRAN CHI, FRANK Sams Attending Unavailab le [employer] FOOT TENDER, FOOT TENDER-C Brionna Primary Care Provider [employer] FOOT TENDER, FOOT TENDER-C Brionna Referring Provider Roof FOOT TENDER, FOOT TENDER-C Chandrakant Junior Attending Provider Alessandro Jeronimo MD [...] ROE, JOSSY YEH Primary Care Unavailabl e CIOCEMARIELOSNINA C Referring Unavailable ROE, JOSSY YEH Primary [...] adverse reactions to drug 05-07-20 17 [facility] Work Phone: (20 sources) Sulfamethoxazole / Trimethoprim; Translations: [sulfamethoxazole-tr imethoprim] Drug Allergy 04-01-20 19 [facility] (9 sources) Sulfamethoxazole Drug Allergy 04-26-20 [facility] (9 sources) Trimethoprim Drug Allergy 04-26-20 [facility] (1 source) Sulfamethoxazole Drug Allergy 09-25-19 [facility] (1 source) Trimethoprim Drug Allergy 09-25-19 [facility] Medications Current Medications Medication Drug Class(es) Dates Sig (Normalized) Sig (Original) [id number] 200 actuat albuterol 0.09 mg/actuat metered dose [...] three times daily as needed. bifidobacterium animalis [id number] unt / lactobacillus acidophilus [id number] unt oral capsule (8 sources) take 1 [...] 1 <10,000 CFU/ml Normal urogenital suellen Normal [facility] Comment on above: Performed By: #### 6 30-4 ####[facility] LABCLIA [id number] [place] [address] [place] C. trachomatis+N. gonorrhoea e DNA JONATAN+probe Ql (Unsp spec)on 05-18-2025 C. trachomatis rRNA JONATAN+probe Ql (Unsp spec) Not detected Normal Not detected [facility] Comment on above: Order Comment: Speci men Type: SWABOrdering Facility: [facility] Address: [address] [place] [address] Performed By: #### 3 6902-5, TIMOTHY ####[facility] LABCLIA [id number] [place] [address] [place] N. gonorrhoeae rRNA JONATAN+probe Ql (Unsp spec) Not detected Normal Not detected [facility] Comment on above: Order Comment: Speci men Type: SWABOrdering Facility: [facility] Address: [address] [place] [address] Performed By: #### 3 6902-5, TRVAHEVER ####[facility] LABCLIA [id number] [place] [address] [place] TRICHOMONAS VAGINALIS NAATon 05-18-2025 T. vaginalis DNA JONATAN+probe Ql (Unsp spec) Not detected Normal Not detected [facility] Comment on above: Order Comment: Speci men Type: SWABOrdering Facility: [facility] Address: [address] [place] [address] Performed By: #### 3 6902-5, TIMOTHY ####[facility] LABCLIA [id number] [place] [address] [place] CNPNon 05-10-2025 CNPN Telephone (OBGYWM) ALICIA MULLINS ([id number]) 2000 F Date Time Provider Department 05/10/25 [...] Encounter Status:Closed by JUAN PAREDES on 05/10/25 [facility] ALIC[facility] MULLINS ([id number]) 2000 F Date Time Provider Department 04/20/25 [...] Encounter Status:Closed by MARYANN CHAMPION on 04/20/25 [facility] 04-19-2025 CNPN Telephone (OBGYWM) ALICIA MULLINS ([id number]) 2000 F Date Time Provider Department 04/19/25 PAYAM FIGUEROA OBGYWM During your visit today, we recorded [...] Encounter Status:Closed by JUAN PAREDES on 04/19/25 [facility] CNOVon 02-14-2025 CNOV Office Visit (OBGYWM ) ALICIA MULLINS ([id number]) 2000 F Date Time Provider Department 02/14/25 10:10 AM MAGALY TOVAR OBSHARI During your visit today, we recorded the following information about you: Blood pressure Weight 104/60 82.9 kg Magaly Tovar MD 02/14/2025 3:54 PM Signed Health Care Coach offered: Patient declines. Alicia Mullins is a 25 year old female who presents for problem visit . HPI: Labia cyst. Started on . Started on keflex by PCP. Started draining a few days ago. Still hurts. 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 As applicable, any other physician, advance practice provider, medical student, or other health professional student that will be observing or involved in the sensitive examination for educational or training purposes was discussed with the Patient or Authorized Director Of Planning. The Patient or Authorized Director Of Planning has agreed to proceed with the sensitive [...] external genitalia normal, normal Bartholin's glands, urethra, Dows's glands, no vulvar lesions, no cervical lesions, [...] Ludy Hernández (more content not included)... Normal [facility] 12-26-2024 Indication irregular menstrual cycle Impression [...] Read By: Sari Roque M.D. MATERNAL MEDICINE [facility] US [facility] 12-24-2024 Radiology Study observation (narrative) [facility] Thyroid Stim Immunoglobon THY STIM IMMUNO <0.10 Normal 0.00-0.55 [facility] Comment on above: Order Comment: Order Date: 10/14/24 Order Info: [id number] - TSIMM Result Comment: Perf ormed at: BN - [facility] [id number] Gas Well Pumper: Nikki Fernández MD, Phone: [phone] Performed By: #### L [id number], Q999.4724, H4353.0803 #### [facility] [address] [place], [address] [facility] ALICIA MULLINS ([id number]) 2000 F Date Time Provider Department 12/17/24 NINA PHILLIPS During your visit today, we recorded the following information about you: Chon Guerrier 12/17/2024 10:31 AM Signed Initiated PA for tirzepatide (MOUNJARO) 5 mg/0.5 mL pen injector through [employer] via [employer] Questions Completed Waiting for determination NICOLE MEJIA Linoleum Tile Floor Layer II Endocrinology AND Metabolism [facility] 12/17/2024 11:25 AM Signed Received the following message: Called plan and spoke to Arielle, who states a prior authorization is needed. Answered clinical questions verbally. Faxed clinical notes and lab results to [facility] [employer] Authorizations [phone] Transmitted successfully. Was advised we could receive a determination in 5 calendar days. NICOLE MEJIA Linoleum Tile Floor Layer II Endocrinology AND Metabolism [facility] X-20 Karen De La Cruz 12/22/2024 12:44 PM Signed tirzepatide (MOUNJARO) 5 mg/0.5 mL pen injector has been approved Notified patient through bryanna Low Prior Machine Plaster Mixer Endocrinology and Metabolism [place] Allergies As of Date: 12/17/2024 Noted Allergy Reaction BACTRIM (SULFAMETHOXAZOLE-TRIMETH* 2 - Rash Date Reviewed: 10/13/2024 Reviewed by: Magaly Quinonez MA - Fully Assessed Reason for Visit: Insurance Authorization [1693] Cmt: tirzepatide (MOUNJARO) 5 mg/0.5 mL pen injector [[employer]] Prescriptions as of 12/22/2024 - tirzepatide (MOUNJARO) [...] 35-39.9 [E66.812] 11/14/2020 Encounter Status:Closed by CHON GEURRIER on 12/17/24 Normal [facility] Hemoglobin A1con 12-16-2024 HbA1c (Bld) [Mass fraction] 5.5 % Normal <=5.6 [facility] Comment on above: Order Comment: Order Date: 10/14/24 Order Info: [id number] - A1C Result Comment: Norm al < 5.7 % Prediabetic 5.7 - 6.4 % Diabetic >or= 6.5 % Please note range changes. Performed By: #### L 501.9985, L501.9520, L3400.4700 #### [facility] [address] [place] [address]. [place], [place], [id number] Hemoglobin A1c percentageOrd ered By: James Cheng on 12-16-2024 HbA1c (Bld) [Mass fraction] 5.5 % <5.7 [facility] Comment on above: Normal < 5.7 % Predi abetic 5.7 - 6.4 % Diabetic >or= 6.5 % Please note range changes. TSH DL <= 0.005 mIU/L QnOrde red By: James Cheng on 12-16-2024 TSH Qn 4.010 uIU/mL 0.300-4.20 0 [facility] Thyroid Stim Hormone (TSH)on 12-16-2024 TSH 4.010 uIU/mL Normal 0.300-4.20 0 [facility] Comment on above: Order Comment: Order Date: 10/14/24 Order Info: [id number] - TSH Performed By: #### L 501.9985, L501.9520, L3400.4700 #### [facility] [address] [place], [address] Thyroid stimulating immunogl obulins detectionOrdered By: James Cheng on 12-16-2024 Thyroid stimulating immunoglobulins Ql (S) <0.10 IU/L 0.00-0.55 [facility] Comment on above: Performed at: [address] [id number] Director: Nikki Fernández MD, Phone: [phone] 25(OH)D3 [facility] 2024 25-hydroxyvitamin D3 [Mass/Vol] 45.0 ng/mL Normal 31.0-80.0 [facility] Comment on above: Order Comment: Speci men Type: BLOOD SPECIMENOrdering Facility: [facility] Address: [address] [place] [address] Performed By: #### 1 989-3 ####[facility] LABCLIA [id number] [place] [address] [place] DBT Breast - [...] Dacia Oates M.D. Electronically signed on: 11/10/2024 Raschel Knitting Machine Operator: FLORENCE Transcribe Date/Time: Nov 10 2024 11:13A Dictated by: DACIA OATES MD This examination was interpreted and the report reviewed and electronically signed by: DACIA OATES MD on Nov 10 2024 11:26AM [facility] DIVISION OF RADIOLOGY * * *Final Report* * * DATE OF EXAM: Nov 10 2024 11:21AM [facility] 0628 - KIMBER[place] DIAG W ODELL LT / PROCEDURE REASON: Breast pain * * * * Physician Interpretation * * * * RESULT: [facility] [address] [place] [address] #[id number] - KIMBERLY DIAG W ODELL LT HISTORY: [...] significant interval changes. DIVISION OF RADIOLOGY Provider, [facility] - 11/10/2024 * * *Final Report* * * DATE OF EXAM: Nov 10 2024 11:21AM [facility] 0628 - [place]IM[place] DIAG W ODELL LT / PROCEDURE REASON: Breast pain * * * * Physician Interpretation * * * * RESULT: [facility] [address] [place] [id number] #[id number] - [facility] DIAG W ODELL LT HISTORY: 24 year-old [...] Dacia Oates M.D. Electronically signed on: 11/10/2024 Raschel Knitting Machine Operator: FLORENCE Transcribe Date/Time: Nov 10 2024 11:13A Dictated by: DACIA OATES MD This examination was interpreted and the report reviewed and electronically signed by: DACIA OATES MD on Nov 10 2024 11:26AM EST [facility] Radiology Study observation (narrative) [facility] DBT Breast - left diagnostic for implantOrdered By: Ccf Provider on 11-10-2024 [facility] KIMBERLY DIAG W ODELL LTon 025 KIMBERLY DIAG W ODELL LT * * *Final Report* * * DATE OF EXAM: Nov 10 2024 11:21AM [facility] 0628 - [place]IM[place] DIAG W ODELL LT / PROCEDURE REASON: Breast pain * * * * Physician Interpretation * * * * RESULT: [place] [address] [place] [id number] #[id number] - KIMBERLY DIAG W ODELL LT HISTORY: [...] Dacia Oates M.D. Electronically signed on: 11/10/2024 Raschel Knitting Machine Operator: FLORENCE Transcribe Date/Time: Nov 10 2024 11:13A Dictated by: DACIA OATES MD This examination was interpreted and the report reviewed and electronically signed by: DACIA OATES MD on Nov 10 2024 11:26AM EST [id number] Normal [facility] CNOVon 10-13-2024 CNOV Office Visit (ENWSTR ) ALICIA MULLINS ([id number]) 2000 F Date Time Provider Department 10/13/24 7:15 AM NINA PHILLIPSTR During your visit today, we recorded the following information about you: Temperature Pulse Weight 99.3 degrees 98/minute 97.7 kg Nina Phillips, PRACHI.TERMINAL MAKEUP OPERATOR 10/13/2024 7:39 AM Signed NEW CONSULT OFFICE [...] is trying to go toward and saw ASSISTANT BRANCH OPERATIONS MANAGER for labs She does have a [...] swelling, hypertensi (more content not included)... Normal [facility] CNPNon 10-13-2024 CNPN Telephone (STED) ALICIA MULLINS ([id number]) 2000 F Date Time Provider Department 10/13/24 NINA PHILLIPS During your visit today, we recorded the following information about you: Magaly Miguel RN 10/13/2024 9:48 AM Signed EPA submitted through [employer] for pts Mounjaro 2.5mg/0.5 ml. Attached TAJ [...] Status:Closed by MAGALY MIGUEL on 10/13/24 Normal [facility] THYROGLOBULIN ANTIBODYon Thyroglobulin Ab Qn [IU]/mL Normal <4.0 [facility] Comment on above: Order Comment: Specmohsen ojeda Type: BLOOD SPECIMENOrdering Facility: [facility] Address: [address] [place] [address] Result Comment: The Thyroglobulin Antibody test was performed using the [employer] Unicel DXI paramagnetic particle chemiluminescent immunoassay method. Results obtained with different assay methods or kits cannot be used interchangeably. Performed By: #### T CINTHIA ####[facility] LABIA [id number] [address] OF [facility] THYROID PEROXIDASE ANTIBODYo n 10-13-2024 TPO Ab Qn 10.7 [IU]/mL High <5.6 [facility] Comment on above: Order Comment: Suzette ojeda Type: BLOOD SPECIMENOrdering Facility: [facility] Address: [address] [place] [address] Result Comment: Thyr oid Peroxidase Antibody test is used as an aid in diagnosis of autoimmune thyroid disease. Clinical correlation is required. Performed By: #### M ICRO ####[facility] LABCLIA [id number] [address] [address] [facility] Phuong 09-16-2024 GINAN Telephone (OBGYWM) ALICIA MULLINS ([id number]) 2000 F Date Time Provider Department 09/16/24 TASHI COLON During your visit today, we recorded the following information about you: Magaly Epps RN 09/16/2024 11:31 AM Signed The prescription printed. Do you have it back at your desk to sign? Magaly Epps RN Allergies As of Date: 09/16/2024 Noted Allergy Reaction BACTRIM (SULFAMETHOXAZOLE-TRIMETH* 2 - Rash Date Reviewed: 09/15/2024 Reviewed by: Tashi Colon APRN.TERMINAL MAKEUP OPERATOR - Fully Assessed Reason for Visit: Vitamin D [Other] Primary Visit Diagnosis:Vitamin D deficiency [E55.9] Order(s):VITAMIN D 25 HYDROXY [SQVITD] Order #: [id number] FUTURE cholecalciferol, Vitamin D3, (VITAMIN D3) 1,250 [...] Status:Closed by MAGALY EPPS on 09/16/24 Normal [facility] 25(OH)D3 SerPl-mCncon 2024 25-hydroxyvitamin D3 [Mass/Vol] 10.0 ng/mL Low 31.0-80.0 [facility] Comment on above: Order Comment: Speci men Type: BLOOD SPECIMENOrdering Facility: [facility] Address: [address] [place] [address] Result Comment: Clas sification of 25 [place] Vitamin D status: Deficiency/Insufficiency: < or = 30 ng/ml. Sufficiency/Optimal Levels: 31-80 ng/mL Toxicity: > 100 ng/mL. Test performed by chemiluminescent immunoassay. Performed By: #### 1 989-3 ####[facility] LABCLIA [id number] [facility] [id number] [place] [address] [place] [facility] CBC panel Auto (Bld)on 09-15 Erythrocyte distribution width (RBC) [Ratio] 12.0 % 11.5 - 15.0 % [facility] Hematocrit (Bld) [Volume fraction] 45.0 % 36.0 - 46.0 % [facility] Hemoglobin (Bld) [Mass/Vol] 15.2 g/dL 11.5 - 15.5 g/dL [facility] Interpretation and review of laboratory results Abnormal [facility] MCH (RBC) [Entitic mass] 28.6 pg 26.0 - 34.0 pg [facility] MCHC (RBC) [Mass/Vol] 33.8 g/dL 30.5 - 36.0 g/dL [facility] MCV (RBC) [Entitic vol] 84.7 fL 80.0 - 100.0 fL [facility] Nucleated RBC (Bld) [#/Vol] NINF [facility] Platelet mean volume (Bld) [Entitic vol] 9.9 fL 9.0 - 12.7 fL [facility] Platelets (Bld) [#/Vol] 343 10*3/uL [facility] RBC (Bld) [#/Vol] 5.31 10*6/uL High 3.90 - 5.20 m/uL [facility] WBC (Bld) [#/Vol] 10.60 10*3/uL [facility] Erythrocyte distribution width (RBC) [Ratio] 12.0 % Normal 11.5-15.0 [facility] Comment on above: Order Comment: Speci men Type: BLOOD SPECIMENOrdering Facility: [facility] Address: [address] [place] [address] Performed By: #### 5 8410-2 ####[facility]ACIDNCTRISTIAN [id number] [place] [address] [place] Hematocrit (Bld) [Volume fraction] 45.0 % Normal 36.0-46.0 [facility] Comment on above: Order Comment: Speci men Type: BLOOD SPECIMENOrdering Facility: [facility] Address: [address] [place] [address] Performed By: #### 5 8410-2 ####[facility]ACIDNCLI [id number] [place] [address] [place] Hemoglobin (Bld) [Mass/Vol] 15.2 g/dL Normal 11.5-15.5 [facility] Comment on above: Order Comment: Speci men Type: BLOOD SPECIMENOrdering Facility: [facility] Address: [address] [place] [address] Performed By: #### 5 8410-2 ####[facility] [id number] [place] [address] [place] MCH (RBC) [Entitic mass] 28.6 pg Normal 26.0-34.0 [facility] Comment on above: Order Comment: Speci men Type: BLOOD SPECIMENOrdering Facility: [facility] Address: [address] [place] [address] Performed By: #### 5 8410-2 ####[facility] [id number] [place] [address] [place] MCHC (RBC) [Mass/Vol] 33.8 g/dL Normal 30.5-36.0 [facility] Comment on above: Order Comment: Speci men Type: BLOOD SPECIMENOrdering Facility: [facility] Address: [address] [place] [address] Performed By: #### 5 8410-2 ####[facility] INOFLAT ROCKNCTRISTIAN [id number] [place] [address] [place] MCV (RBC) [Entitic vol] 84.7 fL Normal 80.0-100.0 [facility] Comment on above: Order Comment: Speci men Type: BLOOD SPECIMENOrdering Facility: [facility] Address: [address] [place] [address] Performed By: #### 5 8410-2 ####[facility] [id number] [place] [address] [place] Nucleated RBC (Bld) [#/Vol] 10*3/uL Normal <0.01 [facility] Comment on above: Order Comment: Speci men Type: BLOOD SPECIMENOrdering Facility: [facility] Address: [address] [place] [address] Performed By: #### 5 8410-2 ####[facility] [id number] [place] [address] [place] Platelet mean volume (Bld) [Entitic vol] 9.9 fL Normal 9.0-12.7 [facility] Comment on above: Order Comment: Speci men Type: BLOOD SPECIMENOrdering Facility: [facility] Address: [address] [place] [address] Performed By: #### 5 8410-2 ####[facility] [id number] [place] [address] [place] Platelets (Bld) [#/Vol] 343 10*3/uL Normal 150-400 [facility] Comment on above: Order Comment: Speci men Type: BLOOD SPECIMENOrdering Facility: [facility] Address: [address] [place] [address] Performed By: #### 5 8410-2 ####[facility] [id number] [place] [address] [place] RBC (Bld) [#/Vol] 5.31 10*6/uL High 3.90-5.20 [facility] Comment on above: Order Comment: Speci men Type: BLOOD SPECIMENOrdering Facility: [facility] Address: [address] [place] [address] Performed By: #### 5 8410-2 ####[facility] [id number] [place] [address] [place] WBC (Bld) [#/Vol] 10.60 10*3/uL Normal 3.70-11.00 [facility] Comment on above: Order Comment: Speci men Type: BLOOD SPECIMENOrdering Facility: [facility] Address: [address] [place] [address] Performed By: #### 5 8410-2 ####[facility]ID[facility] [id number] [address] OF [place] CNOVon 09-15-2024 CNOV Office Visit (OBGYWM ) ALICIA MULLINS ([id number]) 2000 F Date Time Provider Department 09/15/24 7:15 AM TASHI COLON During your visit today, we recorded the following information about you: Blood pressure Weight Height Last Period 138/96 103 kg 1.626 m 09/09/24 Tashi Colon APRN.TERMINAL MAKEUP OPERATOR 09/15/2024 7:49 AM Addendum Alicia is a 24 year old who presents for an annual gynecologic exam with complaints, irregular bleeding. Bleeding is inconsistent/irregular. Trying to become . Has been trying for a year. Has had ultrasound at [facility] in the past. 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 As applicable, any other physician, advance practice provider, medical student, or other health professional student that will be observing or involved in the sensitive examination for educational or training purposes was discussed with the Patient or Authorized Director Of Planning. The Patient or Authorized Director Of Planning has agreed to proceed with the sensitive [...] external genitalia normal, normal Bartholin's glands, urethra, Dows's glands, no vulvar lesions, no cervical lesions, [...] Reports tenderness throughout - Had imaging at [facility] in 2022 - reviewed - Nipple is consistent with ecz (more content not included)... Normal [facility] CNPNon 09-15-2024 CNPN Telephone (OBGYWM) ALICIA MULLINS ([id number]) 2000 F Date Time Provider Department 09/15/24 TASHI COLON During your visit today, we recorded the following information about you: Allergies As of Date: 09/15/2024 Noted Allergy Reaction BACTRIM (SULFAMETHOXAZOLE-TRIMETH* 2 - Rash Date Reviewed: 09/15/2024 Reviewed by: Tashi Colon APRN.TERMINAL MAKEUP OPERATOR - Fully Assessed Reason for Visit: Results [95] Primary Visit Diagnosis:Elevated fasting glucose [R73.01] Order(s):CONSULT TO ENDOCRINOLOGY [9007] Order #: [id number]: 1 FUTURE Problem List As Of Date 09/15/2024 Noted Resolved Obesity, Class II, BMI 35-39.9 [E66.812] 11/14/2020 Encounter Status:Closed by NEGAR MIGUEL on 09/15/24 Normal [facility] Comprehensive metabolic 2000 panelOrdered By: Harriett Drew on 09-15-2024 Albumin [Mass/Vol] 4.5 g/dL 3.9 - 4.9 g/dL [facility] ALP [Catalytic activity/Vol] 133 U/L High 34 - 123 U/L [facility] ALT [Catalytic activity/Vol] 83 U/L High 7 - 38 U/L [facility] Anion gap [Moles/Vol] 11 mmol/L 8 - 15 mmol/L [facility] AST [Catalytic activity/Vol] 46 U/L High 13 - 35 U/L [facility] Bilirubin [Mass/Vol] 0.5 mg/dL 0.2 - 1 .3 mg/dL [facility] Calcium [Mass/Vol] 9.3 mg/dL 8.5 - 10. 2 mg/dL [facility] Chloride [Moles/Vol] 104 mmol/L 98 - 10 7 mmol/L [facility] CO2 [Moles/Vol] 22 mmol/L 22 - 30 mmol/L [facility] Creatinine [Mass/Vol] 0.57 mg/dL Low 0.58 - 0.96 mg/dL [facility] GFR/1.73 sq M.predicted among non-blacks MDRD (S/P/Bld) [Vol rate/Area] 129 mL/min/{1.73_m2} - PINF [facility] Comment on above: Estimated Glomerular Filtration [...] 181 mg/dL High 74 - 99 mg/dL [facility] Comment on above: The [place] Diabete s Association (ADA) provides guidance for [...] Standards of Medical Care in Diabetes 2016, [place] Diabetes Association. Diabetes Care. 2016.39(Suppl 1). Interpretation and review of laboratory results Abnormal [facility] Potassium [Moles/Vol] 3.6 mmol/L Low 3.7 - 5.1 mmol/L [facility] Protein [Mass/Vol] 8.1 g/dL High 6.3 - 8.0 g/dL [facility] Sodium [Moles/Vol] 137 mmol/L 136 - 144 mmol/L [facility] Urea nitrogen [Mass/Vol] 8 mg/dL 7 - 21 mg/dL [facility] Comprehensive metabolic 2000 panelon 09-15-2024 Albumin [Mass/Vol] 4.5 g/dL Normal 3.9-4.9 [facility] Comment on above: Order Comment: Speci men Type: BLOOD SPECIMENOrdering Facility: [facility] Address: [address] [place] [address] Performed By: #### 2 4323-8 ####[facility] SHANICE MILLTOWNCLIA [id number] [place] [address] [place] ALP [Catalytic activity/Vol] 133 U/L High 34-123 [facility] Comment on above: Order Comment: Speci men Type: BLOOD SPECIMENOrdering Facility: [facility] Address: [address] [place] [address] Performed By: #### 2 4323-8 ####[facility] MILLTOWNCLIA [id number] [place] [address] [place] ALT [Catalytic activity/Vol] 83 U/L High 7-38 [facility] Comment on above: Order Comment: Speci men Type: BLOOD SPECIMENOrdering Facility: [facility] Address: [address] [place] [address] Performed By: #### 2 4323-8 ####[facility] MILLTOWNCLIA [id number] [place] [address] [place] Anion gap [Moles/Vol] 11 mmol/L Normal 8-15 [facility] Comment on above: Order Comment: Speci men Type: BLOOD SPECIMENOrdering Facility: [facility] Address: [address] [place] [address] Performed By: #### 2 4323-8 ####[facility] SHANICE MILLTOWNCLIA [id number] [place] [address] [place] AST [Catalytic activity/Vol] 46 U/L High 13-35 [facility] Comment on above: Order Comment: Speci men Type: BLOOD SPECIMENOrdering Facility: [facility] Address: [address] [place] [address] Performed By: #### 2 4323-8 ####[facility] SHANICE MILLTOWNCLIA [id number] [place] [address] [place] Bilirubin [Mass/Vol] 0.5 mg/dL Normal 0.2-1.3 [facility] Comment on above: Order Comment: Speci men Type: BLOOD SPECIMENOrdering Facility: [facility] Address: [address] [place] [address] Performed By: #### 2 4323-8 ####[facility] MILLWNCLIA [id number] [place] [address] [place] Calcium [Mass/Vol] 9.3 mg/dL Normal 8.5-10.2 [facility] Comment on above: Order Comment: Speci men Type: BLOOD SPECIMENOrdering Facility: [facility] Address: [address] [place] [address] Performed By: #### 2 4323-8 ####[facility] [id number] [place] [address] [place] Chloride [Moles/Vol] 104 mmol/L Normal 98-107 [facility] Comment on above: Order Comment: Speci men Type: BLOOD SPECIMENOrdering Facility: [facility] Address: [address] [place] [address] Performed By: #### 2 4323-8 ####[facility]ITALL[facility] [id number] [place] [address] [place] CO2 [Moles/Vol] 22 mmol/L Normal 22-30 [facility] Comment on above: Order Comment: Speci men Type: BLOOD SPECIMENOrdering Facility: [facility] Address: [address] [place] [address] Performed By: #### 2 4323-8 ####[facility]ID[facility]CL[facility] [id number] [place] [address] [place] Creatinine [Mass/Vol] 0.57 mg/dL Low 0.58-0.96 [facility] Comment on above: Order Comment: Suzette ojeda Type: BLOOD SPECIMENOrdering Facility: [facility] Address: [address] [place] [address] Performed By: #### 2 4323-8 ####[facility] [id number] [place] [address] [place] Creatinine and Glomerular filtration rate.predicted panel (S/P/Bld) 129 mL/min/1.73m??? Normal >=60 [facility] Comment on above: Order Comment: Suzette ojeda Type: BLOOD SPECIMENOrdering Facility: [facility] Address: [address] [place] [address] Result Comment: Joelle mated Glomerular Filtration Rate [...] actual GFR. Performed By: #### 2 4323-8 ####[facility] [id number] [place] [address] [place] Glucose [Mass/Vol] 181 mg/dL High 74-99 [facility] Comment on above: Order Comment: Suzette ojeda Type: BLOOD SPECIMENOrdering Facility: [facility] Address: [address] [place] [address] Result Comment: The [place] Diabetes Association (ADA) provides guidance for cutoff [...] Standards of Medical Care in Diabetes 2016, [place] Diabetes Association. Diabetes Care. 2016.39(Suppl 1). Performed By: #### 2 4323-8 ####[facility] MILLTOWNCLIA [id number] [place] [address] [place] Potassium [Moles/Vol] 3.6 mmol/L Low 3.7-5.1 [facility] Comment on above: Order Comment: Speci men Type: BLOOD SPECIMENOrdering Facility: [facility] Address: [address] [place] [address] Performed By: #### 2 4323-8 ####[facility] MILLTOWNCLIA [id number] [place] [address] [place] Protein [Mass/Vol] 8.1 g/dL High 6.3-8.0 [facility] Comment on above: Order Comment: Speci men Type: BLOOD SPECIMENOrdering Facility: [facility] Address: [address] [place] [address] Performed By: #### 2 4323-8 ####[facility]CL[facility] [id number] [place] [address] [place] Sodium [Moles/Vol] 137 mmol/L Normal 136-144 [facility] Comment on above: Order Comment: Speci men Type: BLOOD SPECIMENOrdering Facility: [facility] Address: [address] [place] [address] Performed By: #### 2 4323-8 ####[facility] MILLTOWNCLIA [id number] [place] [address] [place] Urea nitrogen [Mass/Vol] 8 mg/dL Normal 7-21 [facility] Comment on above: Order Comment: Speci men Type: BLOOD SPECIMENOrdering Facility: [facility] Address: [address] [place] [address] Performed By: #### 2 4323-8 ####[facility] MILLTOWNCLIA [id number] [place] [address] [place] DHEA-S BLDon 09-15-2024 DHEA-S [Mass/Vol] 142.8 ug/dL Normal 98.8-340.0 [facility] Comment on above: Order Comment: Speci men Type: BLOOD SPECIMENOrdering Facility: [facility] Address: [address] [place] [address] Result Comment: Refe rence ranges are age and gender specific. For additional information, reference range tables can be found in the laboratory test directory. The normal values are based on the following source: Dehydroepiandrosterone sulfate (DHEA S) [package insert V 17.0 Mongolian]. [employer], [place], [place]: March 2013. Performed By: ###Alejandro CAI, 2243-4, 69131-2, 49659-0 ####[facility] LABCLIA [id number] [place] [address] [place] Estradiol SerPl-mCncon 09-15 E2 [Mass/Vol] 54 pg/mL Normal [facility] Comment on above: Order Comment: Speci men Type: BLOOD SPECIMENOrdering Facility: [facility] Address: [address] [place] [address] Result Comment: This test is not suitable [...] 3243 pg/mL Second trimester : 1561 to 42043 pg/mL Third trimester : 8285 to >97322 pg/mL Post-menopausal Estradiol reference range: < 41 pg/mL Reference: 1. Estradiol - E2 (Estradiol III) [package insert V 3.0 Mongolian]. [employer], [place], [place], January 2016. Performed By: #### Leia CAI, 2243-4, 40004-7, 44489-1 ####[facility] LABCLIA [id number] [place] [address] [place] FSH SerPl-aCncon 09-15-2024 Follitropin Qn 6.5 m[IU]/mL Normal See comment [facility] Comment on above: Order Comment: Suzette ojeda Type: BLOOD SPECIMENOrdering Facility: [facility] Address: [address] [place] [address] Result Comment: Refe rence range: Follicular: 3.5-12.5 mIU/mL Ovulation: 4.7-21.5 mIU/mL Luteal: 1.7-7.7 mIU/mL Postmenopausal: 25.8-134.8 mIU/mL Performed By: #### D TRELL, 2243-4, 37446-3, 45530-5 ####[facility] LABIA [id number] [place] [address] [place] Glucose p fast SerPl-mCncon 09-15-2024 Glucose post fast [Mass/Vol] 170 mg/dL High 74-99 [facility] Comment on above: Order Comment: Speci lynette Type: BLOOD SPECIMENOrdering Facility: [facility] Address: [address] [place] [address] Result Comment: [place] Diabetes Association guidelines state that a diabetes mellitus diagnosis is preliminarily made when the fasting plasma glucose meets or exceeds 126 mg/dL. In the absence of unequivocal hyperglycemia, results should be confirmed with repeat testing. Patients are at increased risk for diabetes mellitus (prediabetes) when the fasting glucose is 100 to 125 mg/dL. Performed By: #### 1 558-6 ####[facility] LABIA [id number] [address] [place] HYDROXYPROGESTERONE-17on 17-HYDROXYPROGESTERON E QUANTITATIVE BY HPLC-MS/MS, SERUM OR PLASMA 32.12 ng/dL Normal <=206.00 [facility] Comment on above: Order Comment: Suzette lynette Type: BLOOD SPECIMENOrdering Facility: [facility] Address: [address] [place] [address] Result Comment: INTE RPRETIVE INFORMATION for 17-Hydroxyprogesterone in females: Follicular 15 to 70 ng/dL Luteal 35 to 290 ng/dL REFERENCE INTERVAL: 17-Hydroxyprogesterone Qnt, HPLC-MS/MS Access complete set of age- and/or gender-specific reference intervals for this test in the [employer] [facility] Test Directory (Cohes[employer]FT). This test was developed and its performance characteristics determined by [facility]. It has not been cleared or approved by the US Food and Drug Administration. This test was performed in a CLIA certified laboratory and is intended for clinical purposes. Performed By: [facility] [address] [place] [address] Corporate Manager: Marco Feldman MD, PhD CLIA Number: [id number] Performed By: #### H PROG ####[facility] PulmonxIA [id number] [place] [address] HbA1c (Bld)on 09-15-2024 Average glucose Estimated from glycated hemoglobin (Bld) [Mass/Vol] 148 mg/dL Normal [facility] Comment on above: Order Comment: Speci men Type: BLOOD SPECIMENOrdering Facility: [facility] Address: [address] [place] [address] Result Comment: eAG: (Estimated average glucose) is a calculated value from HgbA1c and is players club representative of the average blood glucose level in the last 2-3 month period. Performed By: #### 5 5454-3 ####[facility] LABCLIA [id number] [facility] [id number] [place] [address] [place] HbA1c (Bld) [Mass fraction] 6.8 % High 4.3-5.6 [facility] Comment on above: Order Comment: Suzette ojeda Type: BLOOD SPECIMENOrdering Facility: [facility] Address: [address] [place] [address] Result Comment: [place] Diabetes Association guidelines indicate that patients with HgbA1c in the range 5.7-6.4% are at increased risk for development of diabetes, and intervention by lifestyle modification may be beneficial. HgbA1c greater or equal to 6.5% is considered diagnostic of diabetes. Performed By: #### 5 5454-3 ####[facility] LABCLIA [id number] [place] [address] [place] LH SerPl-aCncon 09-15-2024 Lutropin Qn 8.0 m[IU]/mL Normal See comment [facility] Comment on above: Order Comment: Speci men Type: BLOOD SPECIMENOrdering Facility: [facility] Address: [address] [place] [address] Result Comment: Refe rence range: Follicular: 2.4-12.6 mIU/mL Midcycle: 14.0-95.6 mIU/mL Luteal: 1.0-11.4 mIU/mL Post Phuong: 7.7-58.5 mIU/mL Performed By: #### D TRELL, 2243-4, 88106-6, 08952-7 ####[facility] LABCLIA [id number] [place] [address] [place] Prolactin SerPl-mCncon 09-15 Prolactin [Mass/Vol] 6.0 ng/mL Normal 4.4-33.8 [facility] Comment on above: Order Comment: Speci men Type: BLOOD SPECIMENOrdering Facility: [facility] Address: [address] [place] [address] Result Comment: Prol actin test is performed using the [employer] Electrochemiluminescence Immunoassay method. Results obtained with different methods or kits cannot be used interchangeably. Performed By: #### 2 132-9, 2842-3, 3016-3 ####[facility] LABCLIA [id number] [place] [address] [place] TESTOSTERONE, FREE AND TOTAL , BY EQUILIBRIUM ULTRAFILTRATION MASS SPECTROMETRYon 09-15-2024 Testosterone [Mass/Vol] 42.3 ng/dL Normal 10.0-55.0 [facility] Comment on above: Order Comment: Speci men Type: BLOOD SPECIMENOrdering Facility: [facility] Address: [address] [place] [address] Performed By: #### T FTEST ####[facility] LABCLIA [id number] [place] [address] Testosterone Free [Mass/Vol] 1.10 ng/dL High 0.10-0.85 [facility] Comment on above: Order Comment: Speci men Type: BLOOD SPECIMENOrdering Facility: [facility] Address: [address] [place] [address] Performed By: #### T FTEST ####[facility] LABCLIA [id number] [place] [address] Testosterone Free/Testosterone.tot al [Mass fraction] 2.61 % Normal 0.50-2.80 [facility] Comment on above: Order Comment: Speci men Type: BLOOD SPECIMENOrdering Facility: [facility] Address: [address] [place] [address] Performed By: #### T FTEST ####[facility] LABCLIA [id number] [place] [address] TSH [facility] 09-15-2024 TSH Qn 3.380 m[IU]/L Normal 0.270-4.20 0 [facility] Comment on above: Order Comment: Speci men Type: BLOOD SPECIMENOrdering Facility: [facility] Address: [address] [place] [address] Result Comment: If t he patient is , TSH reference range varies by gestational period: First Trimester (weeks 9-12): 0.180-2.990 mIU/L Second Trimester: 0.110-3.980 mIU/L Third Trimester: 0.480-4.710 mIU/L Ulises Elizondo et al. A Practical Approach for the Verifications and Determination of Site- and Trimester-Specific Reference Intervals for Thyroid Function tests in . Thyroid, 2019:29:3:412-420. Robson E, et al. 2017 Guidelines of the [place] Thyroid Association for the Diagnosis and Management of Thyroid Disease during and the . Thyroid, 2017:27:3:315-389. Performed By: #### 2 132-9, 2842-3, 3016-3 ####[facility] LABCLIA [id number] [address] [place] Vit B12 SerPl-ncon 05- 025 Cobalamin (Vitamin B12) [Mass/Vol] 673 pg/mL Normal 232-1245 [facility] Comment on above: Order Comment: Speci men Type: BLOOD SPECIMENOrdering Facility: [facility] Address: [address] [place] [address] Performed By: #### 2 132-9, 2842-3, 3016-3 ####[facility] LABCLIA [id number] [facility] [address] OF [facility] CNOVon 05-31-2024 CNOV Office Visit (UCWSTR ) ALICIA MULLINS ([id number]) 2000 F Date Time Provider Department 05/31/24 8:15 AM JACK AGUILAR [facility] During your visit today, we recorded the following information about you: Temperature Pulse Respiration Blood pressure 97.7 degrees 101/minute 21/minute 130/88 Weight 105.7 kg Jack Aguilar PA-C 05/31/2024 8:56 AM Signed This note was created using [employer]. Subjective Alicia Mullins is a 24 year [...] known COVID exposure. She tried some ibuprofen [id number]. Review of Systems Constitutional: Negative. HENT: Positive [...] End A (more content not included)... Normal [facility] Amorphous sediment detection in urine sediment by light microscopyOrdered By: Norma Spangler on 07-01-2023 Amorphous sediment LM Ql (Urine sed) 1+ [facility] Basophil percentageOrdered B y: Norma Spangler on 07-01-2023 Basophil percentage 0 SEEN /hpf 0-5 [facility] Beta hCG serum qualOrdered B y: Norma Spangler on 07-01-2023 Beta HCG ( test) Ql Negative [facility] Bilirubin Test strip Ql (U)O rdered By: Norma Spangler on 07-01-2023 Bilirubin Ql (U) Negative Negative [facility] Ketones Test strip Ql (U)Ord ered By: Norma Spangler on 07-01-2023 Ketones Ql (U) Negative Negative [facility] Mucus LM Ql (Urine sed)Order ed By: Norma Spangler on 07-01-2023 Mucus Ql (Urine sed) 0 SEEN /hpf [facility] Nitrite Test strip Ql (U)Ord ered By: Norma Spangler on 07-01-2023 Nitrite Ql (U) Negative Negative [facility] Protein Test strip Ql (U)Ord ered By: Norma Spangler on 07-01-2023 Protein Ql (U) Negative Negative [facility] Squamous epithelial cells de tection in urine sediment by light microscopyOrdered By: Norma Spangler on 07-01-2023 Epithelial cells.squamous LM Ql (Urine sed) 0 SEEN /hpf 5-10 [facility] Urine blood detectionOrdered By: Norma Spangler on 07-01-2023 RBC Ql (U) Negative Negative [facility] RBC Ql (U) 0 SEEN /hpf 0-5 [facility] Urine clarityOrdered By: Oriana Spangler on 07-01-2023 Clarity (U) Cloudy Clear [facility] Urine color determinationOrd ered By: Norma Spangler on 07-01-2023 Color (U) Yellow Yellow [facility] Urine glucose detectionOrder ed By: Norma Spangler on 07-01-2023 Glucose Ql (U) Normal mg/dl Normal [facility] Urine leukocyte esterase det ection by dipstickOrdered By: Norma Spangler on 07-01-2023 Leukocyte esterase Test strip Ql (U) Negative Negative [facility] Urine pHOrdered By: Norma buckley on 07-01-2023 pH (U) 7.0 [pH] 5.0 - 8.0 [facility] Urine sediment bacteria coun t by microscopy (number/high power field)Ordered By: Norma Spangler on 07-01-2023 Bacteria LM.HPF (Urine sed) [#/Area] 0 /[HPF] None Seen [facility] Urine specific gravity measu rementOrdered By: Norma Spangler on 07-01-2023 Specific gravity (U) [Rel density] 1.010 1.002-1.03 0 [facility] Urobilinogen Auto test strip Ql (U)Ordered By: Norma Spangler on 07-01-2023 Urobilinogen Ql (U) Normal mg/dl Normal [facility] Culture, urineOrdered By: Ludy Rdz on 06-27-2023 Bacteria identified Cx Nom (U) Mixed Gram Pos & Gram Neg Org [facility] Beta hCG serum qualOrdered B y: Jossy Au on 06-25-2023 Beta HCG ( test) Ql Negative [facility] Absolute lymphocyte countOrd ered By: Tashi Colon on 03-25-2023 Lymphocytes Auto (Unsp spec) [#/Vol] 2.87 10*3/uL 0.83-4.51 [facility] Basophil percentageOrdered B y: Tashi Colon on 03-25-2023 Basophils/100 WBC (Bld) 0.6 % 0-1 [facility] Eosinophils/100 WBC (Bld) 2.9 % 0-5 [facility] Neutrophils (Bld) [#/Vol] 6.7 10*3/uL 2.0-7.7 [facility] Neutrophils/100 WBC (Bld) 64.2 % 47-70 [facility] Testosterone [Mass/Vol] 37 ng/dL 13-71 [facility] WBC (Bld) [#/Vol] 10.4 10*3/uL 4.4-11.0 [facility] Blood erythrocytes count (nu mber/volume)Ordered By: Tashi Colon on 03-25-2023 RBC (Bld) [#/Vol] 5.04 10*6/uL 4.2-5.4 [facility] Blood hemoglobin measurement (mass/volume)Ordered By: Tashi Colon on 03-25-2023 Hemoglobin (Bld) [Mass/Vol] 14.4 g/dL 12.0-15.0 [facility] Blood lymphocytes/100 leukoc ytesOrdered By: Tashi Colon on 03-25-2023 Lymphocytes/100 WBC (Bld) 27.5 % 19-41 [facility] Blood monocytes/100 leukocyt esOrdered By: Tashi Colon on 03-25-2023 Monocytes/100 WBC (Bld) 4.3 % 0-10 [facility] Blood platelet mean volumeOr dered By: Tashi Colon on 03-25-2023 Platelet mean volume (Bld) [Entitic vol] 10.2 fL 6.2-12.0 [facility] Determination of erythrocyte mean corpuscular volume (MCV)Ordered By: Tashi Colon on 03-25-2023 MCV (RBC) [Entitic vol] 87.1 fL 81-99 [facility] Free testosterone percentage Ordered By: Tashi Colon on 03-25-2023 Testosterone Free/Testosterone.tot al [Mass fraction] 3.03 % 0.50-2.80 [facility] Comment on above: Performed at: [address] [id number] Director: Boris Chiang PhD, Phone: [phone] at: [address] [id number] Director: Nikki Fernández MD, Phone: [phone] Hematocrit Auto (Bld) [Volum e fraction]Ordered By: Tashi Colon on 03-25-2023 Hematocrit (Bld) [Volume fraction] 43.9 % 37-47 [facility] Laboratory - Chemistry and C hemistry - challengeOrdered By: Tashi Colon on 03-25-2023 Free T4 [Mass/Vol] 1.12 ng/dL 0.76-1.46 [facility] - Hematology and Cell countsOrdered By: Tashi Colon on 03-25-2023 Erythrocyte distribution width (RBC) [Entitic vol] 37.9 fL 35.1-43.9 [facility] Erythrocyte distribution width (RBC) [Ratio] 11.9 % 11.6-14.6 [facility] Immature granulocytes/100 WBC (Bld) 0.500 % 0.0-0.9 [facility] Comment on above: IG% - Immature Granu locytes (promyelocytes, myelocytes and metamyelocytes) > 1% indicates that a LEFT SHIFT is Present. MCH (RBC) [Entitic mass] 28.6 pg 27.0-32.0 [facility] Nucleated RBC/100 WBC (Bld) [Ratio] 0 % 0-5 [facility] MCHC Auto (RBC) [Mass/Vol]Or dered By: Tashi Colon on 03-25-2023 MCHC (RBC) [Mass/Vol] 32.8 g/dL 32-36 [facility] No Panel InformationOrdered By: Tashi Colon on 03-25-2023 Follicle Stimulating Hormone 6.0 mIU/mL [facility] Comment on above: NORMAL REFERENCE RAN GES FEMALE FOLLICULAR 2.3 - 12.6 mIU/mL MID-CYCLE PEAK 5.2 - 17.5 mIU/mL LUTEAL 1.7 - 12.9 mIU/mL POST-MENOPAUSAL ON MHT 5.9 - 72.8 mIU/mL NOT ON MHT 12.7 - 132.2 mlU/mL MALE 0.7 - 10.8 mIU/mL Luteinizing Hormone 8.4 mIU/mL [facility] Comment on above: NORMAL REFERENCE [facility] F[facility] FOLLICULAR 1.9 - 26.2 mIU/mL MID-CYCLE PEAK 22.8 - 76.1 mIU/mL LUTEAL 0.6 - 16.6 mIU/mL POST-MENOPAUSAL ON MHT 1.1 - 52.4 mIU/mL NOT ON MHT 8.6 - 61.8 mIU/mL MALE 1.2 - 10.6 mIU/mL Thyroid Stimulating Hormone (TSH) 2.40 uIU/mL 0.358-3.74 [facility] Platelets bldOrdered By: Windy Colon on 03-25-2023 Platelets (Bld) [#/Vol] 396 10*3/uL 150-450 [facility] Serum or plasma estradiol (E 2) measurement (mass/volume)Ordered By: Tashi Colon on 03-25-2023 E2 [Mass/Vol] 63.9 pg/mL [facility] Comment on above: NORMAL REFERENCE RAN [...] Colon on 03-25-2023 Prolactin [Mass/Vol] 7.8 ng/mL [facility] Comment on above: NORMAL REFERENCE RAN GES FEMALE NON- 2.2 - 30.3 ng/mL 8.1 - 347.6 ng/mL POST-MENOPAUSAL 0.7 - 31.5 ng/mL MALE 2.5 - 17.4 ng/mL Serum or plasma testosterone free measurement (mass/volume)Ordered By: Tashi Colon on 03-25-2023 Testosterone Free [Mass/Vol] 1.12 ng/dL 0.10-0.85 [facility] Absolute lymphocyte countOrd ered By: Jossy Au on 03-11-2023 Lymphocytes Auto (Unsp spec) [#/Vol] 2.94 10*3/uL 0.83-4.51 [facility] Basophil percentageOrdered B y: Jossy Au on 03-11-2023 Basophils/100 WBC (Bld) 0.8 % 0-1 [facility] Eosinophils/100 WBC (Bld) 3.6 % 0-5 [facility] Neutrophils (Bld) [#/Vol] 8.2 10*3/uL 2.0-7.7 [facility] Neutrophils/100 WBC (Bld) 65.9 % 47-70 [facility] WBC (Bld) [#/Vol] 12.4 10*3/uL 4.4-11.0 [facility] Blood erythrocytes count (nu mber/volume)Ordered By: Jossy Au on 03-11-2023 RBC (Bld) [#/Vol] 5.05 10*6/uL 4.2-5.4 [facility] Blood hemoglobin measurement (mass/volume)Ordered By: Jossy Au on 03-11-2023 Hemoglobin (Bld) [Mass/Vol] 14.4 g/dL 12.0-15.0 [facility] Blood lymphocytes/100 leukoc ytesOrdered By: Jossy Au on 03-11-2023 Lymphocytes/100 WBC (Bld) 23.6 % 19-41 [facility] Blood monocytes/100 leukocyt esOrdered By: Jossy Au on 03-11-2023 Monocytes/100 WBC (Bld) 5.7 % 0-10 [facility] Blood platelet mean volumeOr dered By: Jossy Au on 03-11-2023 Platelet mean volume (Bld) [Entitic vol] 9.8 fL 6.2-12.0 [facility] Determination of erythrocyte mean corpuscular volume (MCV)Ordered By: Jossy Au on 03-11-2023 MCV (RBC) [Entitic vol] 88.3 fL 81-99 [facility] Hematocrit Auto (Bld) [Volum e fraction]Ordered By: Jossy Au on 03-11-2023 Hematocrit (Bld) [Volume fraction] 44.6 % 37-47 [facility] Laboratory - Hematology and Cell countsOrdered By: Jossy Au on 03-11-2023 Erythrocyte distribution width (RBC) [Entitic vol] 38.3 fL 35.1-43.9 [facility] Erythrocyte distribution width (RBC) [Ratio] 11.9 % 11.6-14.6 [facility] Immature granulocytes/100 WBC (Bld) 0.400 % 0.0-0.9 [facility] Comment on above: IG% - Immature Granu locytes (promyelocytes, myelocytes and metamyelocytes) > 1% indicates that a LEFT SHIFT is Present. MCH (RBC) [Entitic mass] 28.5 pg 27.0-32.0 [facility] Nucleated RBC/100 WBC (Bld) [Ratio] 0 % 0-5 [facility] MCHC Auto (RBC) [Mass/Vol]Or dered By: Jossy Au on 03-11-2023 MCHC (RBC) [Mass/Vol] 32.3 g/dL 32-36 [facility] Platelets bldOrdered By: Puneet Au on 03-11-2023 Platelets (Bld) [#/Vol] 352 10*3/uL 150-450 [facility] Absolute lymphocyte countOrd ered By: Jossy Au on 01-07-2023 Lymphocytes Auto (Unsp spec) [#/Vol] 3.67 10*3/uL 0.83-4.51 [facility] Basophil percentageOrdered B y: Jossy Au on 01-07-2023 Basophils/100 WBC (Bld) 0.6 % 0-1 [facility] Bilirubin [Mass/Vol] 0.20 mg/dL 0.20-1.00 [facility] Comment on above: For patients on eltr ombopag therapy, use of Dimension [place] TBIL is not recommended. Chloride [Moles/Vol] 103 mmol/L 98-107 [facility] Eosinophils/100 WBC (Bld) 2.2 % 0-5 [facility] Glucose [Mass/Vol] 118 mg/dL 74-106 [facility] Comment on above: Fasting Glucose resu lt from 100 to 125 mg/dL suggests IMPAIRED HOMEOSTASIS per A.D.A. criteria. Neutrophils (Bld) [#/Vol] 9.0 10*3/uL 2.0-7.7 [facility] Neutrophils/100 WBC (Bld) 64.6 % 47-70 [facility] Potassium [Moles/Vol] 3.9 mmol/L 3.5-5.1 [facility] Protein [Mass/Vol] 8.3 g/dL 6.4-8.2 [facility] Sodium [Moles/Vol] 137 mmol/L 136-145 [facility] WBC (Bld) [#/Vol] 13.9 10*3/uL 4.4-11.0 [facility] Blood erythrocytes count (nu mber/volume)Ordered By: Jossy Au on 01-07-2023 RBC (Bld) [#/Vol] 4.84 10*6/uL 4.2-5.4 [facility] Blood hemoglobin measurement (mass/volume)Ordered By: Jossy Au on 01-07-2023 Hemoglobin (Bld) [Mass/Vol] 14.3 g/dL 12.0-15.0 [facility] Blood lymphocytes/100 leukoc ytesOrdered By: Jossy Au on 05-30-2023 Lymphocytes/100 WBC (Bld) 26.4 % 19-41 [facility] Blood monocytes/100 leukocyt esOrdered By: Jossy Au on 01-07-2023 Monocytes/100 WBC (Bld) 5.8 % 0-10 [facility] Blood platelet mean volumeOr dered By: Jossy Au on 01-07-2023 Platelet mean volume (Bld) [Entitic vol] 10.2 fL 6.2-12.0 [facility] Determination of erythrocyte mean corpuscular volume (MCV)Ordered By: Jossy Au on 01-07-2023 MCV (RBC) [Entitic vol] 88.0 fL 81-99 [facility] Hematocrit Auto (Bld) [Volum e fraction]Ordered By: Jossy Au on 01-07-2023 Hematocrit (Bld) [Volume fraction] 42.6 % 37-47 [facility] Laboratory - Chemistry and C hemistry - challengeOrdered By: Jossyravi Au on 01-07-2023 ALP [Catalytic activity/Vol] 126 U/L 45-117 [facility] ALT [Catalytic activity/Vol] 67 U/L 13-56 [facility] CO2 [Moles/Vol] 26.0 mmol/L 21.0-32.0 [facility] Free T4 [Mass/Vol] 1.09 ng/dL 0.76-1.46 [facility] Globulin (S) [Mass/Vol] 4.7 g/dL 2.2-4.2 [facility] Urea nitrogen/Creatinine [Mass ratio] 16.5 mg/mg 10-20 [facility] - Hematology and Cell countsOrdered By: Jossy Au on 01-07-2023 Erythrocyte distribution width (RBC) [Entitic vol] 39.8 fL 35.1-43.9 [facility] Erythrocyte distribution width (RBC) [Ratio] 12.3 % 11.6-14.6 [facility] Immature granulocytes/100 WBC (Bld) 0.400 % 0.0-0.9 [facility] Comment on above: IG% - Immature Granu locytes (promyelocytes, myelocytes and metamyelocytes) > 1% indicates that a LEFT SHIFT is Present. MCH (RBC) [Entitic mass] 29.5 pg 27.0-32.0 [facility] Nucleated RBC/100 WBC (Bld) [Ratio] 0 % 0-5 [facility] ([facility]) [Mass/Vol]Or dered By: Jossy Au on 01-07-2023 MCHC (RBC) [Mass/Vol] 33.6 g/dL 32-36 [facility] No Panel InformationOrdered By: Jossy Au on 01-07-2023 Thyroglobulin Antibody < 1.0 IU/mL 0.0-0.9 [facility] Comment on above: Thyroglobulin Antibo dy measured by Shelton CoulterMethodology Thyroglobulin Level 21.4 ng/mL 1.5-38.5 [facility] Comment on above: According to the [facility] [employer] of Clinical [employer],the reference interval for Thyroglobulin (TG) should berelated to euthyroid patients and not for patients whounderwent thyroidectomy. TG reference intervals for thesepatients depend on the residual mass of the thyroid tissueleft after surgery. Establishing a post-operative baselineis recommended. The assay limit of quantitation is 0.1ng/mLThyroglobulin measured by Shelton Shaniko ImmunometricAssay Estimated GFR (MDRD) Amer 105 mL/min >60 [facility] Comment on above: GFR Calc Estimated GFR (MDRD) Non-Af Amer 87 mL/min >60 [facility] Comment on above: Non- GFR Calc Free Triiodothyronine (T3) pg/dL 2.5 pg/mL 2.18-3.98 [facility] Thyroid Stimulating Hormone (TSH) 3.68 uIU/mL 0.358-3.74 [facility] Platelets bldOrdered By: Puneet Au on 01-07-2023 Platelets (Bld) [#/Vol] 420 10*3/uL 150-450 [facility] Serum or plasma albumin arnold urement (mass/volume)Ordered By: Jossy Au on 01-07-2023 Albumin [Mass/Vol] 3.6 g/dL 3.2-5.0 [facility] Serum or plasma albumin/glob ulin mass ratioOrdered By: Jossy Au on 01-07-2023 Albumin/Globulin [Mass ratio] 0.8 {ratio} 0.9-2.4 [facility] Serum or plasma calcium arnold urement (mass/volume)Ordered By: Jossy Au on 01-07-2023 Calcium [Mass/Vol] 9.8 mg/dL 8.5-10.1 [facility] Serum or plasma cortisol ángela surement (mass/volume)Ordered By: Jossy Au on 01-07-2023 Cortisol [Mass/Vol] 6.70 ug/dL 3.44-22.45 [facility] Comment on above: Adult (AM) 5.27 - 22 .45 ug/dL Adult (PM) 3.44 - 16.76 ug/dLPlease note revised CORTISOL reference range effective 2019. Serum or plasma creatinine m easurement (mass/volume)Ordered By: Jossy Au on 01-07-2023 Creatinine [Mass/Vol] 0.85 mg/dL 0.55-1.02 [facility] Comment on above: The validity of the calculated GFR & GFRAA in patients over 70 years has not been determined. Clinical correlation is essential. Serum or plasma thyroperoxid ase antibody assay (units/volume)Ordered By: Jossy Au on 01-07-2023 TPO Ab Qn 16 [IU]/mL 0-34 [facility] Comment on above: Performed at: [address] [id number] Director: Boris Chiang PhD, Phone: [phone] Serum or plasma urea nitroge n measurement (mass/volume)Ordered By: Jossy Au on 01-07-2023 Urea nitrogen [Mass/Vol] 14 mg/dL 7-18 [facility] Thin prep Papanicolaou smear with manual screeningOrdered By: Jossy Au on 01-07-2023 Thin prep Papanicolaou smear with manual screening 26 U/L 15-37 [facility] Thin prep Papanicolaou smear with manual screening 8 5-15 [facility] XR Chest PA and Lateralon IMPRESSION: Mild central bronchointerstitial prominence suspicious for a viral process/bronchiolitis. Raschel Knitting Machine Operator: RIGO Transcribe Date/Time: Jun 12 2022 11:45A Dictated by : LENORA GERMAIN MD This examination was interpreted and the report reviewed and electronically signed by: LENORA GERMAIN MD on Jun 12 2022 11:46AM [facility] [place] DIVISION OF RADIOLOGY * * *Final Report* [...] soft tissues: Unremarkable. DIVISION OF RADIOLOGY Provider, [facility] - 06/12/2022 * * *Final Report* * [...] bronchointerstitial prominence suspicious for a viral process/bronchiolitis. [employer]chel Knitting Machine Operator: RIGO Transcribe Date/Time: Jun 12 2022 11:45A Dictated by : LENORA GERMAIN MD This examination was interpreted and the report reviewed and electronically signed by: LENORA GERMAIN MD on Jun 12 2022 11:46AM [facility] Radiology Study observation (narrative) [facility] XR Chest PA and LateralOrder ed By: [facility] Provider on 06-12-[address] [facility] [address] CHEST WO CONTRASTon 01-19 CT [...] Daniel Chance DO 01/19/19 Final result Normal [facility] Provider Note - EDon 01-04-2 019 Protein mass conc TIME SEEN: Time [id number] 14:09 CHIEF COMPLAINT/REASON FOR VISIT: REASON FOR [...] Diastolic (mm Hg) Diastolic (mm Hg) 04-Jan-2019 14:[id number] Respiration (breaths/min) Respiration (breaths/min)SpO2 (%) SpO2 (%)Height (ft) Height (ft)Height (remainder in inches) Height (in)Height (cm) Height (cm) [id number] BSA (m2)BMI (kg/m2) BMI (kg/m2)Weight (lbs) Weight (lbs)Weight (kg) Weight (kg)Presence of Pain [id number] of pain/discomfort Pain Rating 6/10 PROGRESS NOTE: [...] sided neck pain, headache DIAGNOSES/PROBLEM LIST: Problem [id number] HeadacheED [id number] Neck pain, acuteED [id number] DISCHARGE DISPOSITION: Disposition: discharged Discharge Type: home CONDITION ON DISCHARGE: Condition on Dispositionstable MEDICATION RECONCILIATION AND DISCHARGE MEDS: * Incomplete Medication History as of 04-Jan-2019 14:06 documented in Structured Notes MedicationInstructionsStart DateStop DateQuantityRefillsSubmitted By cyclobenzaprine 10 mg oral tablet1 tab(s) orally every 8 hours as needed for muscle spasms. Do not drive after taking. [id number], John B naproxen 500 mg oral tablet1 tab(s) orally every 12 hours with food as needed for pain. 14Chandrakant Duffy [id number] Salgado CO-SIGN/ATTESTATION: Attestation: Supervising physician on site, [...] Updated: 04-Jan-2019 16:13 by Joshua Thibodeaux) Normal [facility] PANEL A,B,Con 09-20-2018 HBSAB Non Reactive Normal [facility] Comment on above: Result Comment: (NOT E) Non Reactive: Inconsistent with immunity, less than 10 mIU/mL Reactive: Consistent with immunity, greater than 9.9 mIU/mL Performed By: #### L IVR, GGT, TSH2 #### Testing performed at [address] [address] #### LHEPP #### [place] [address] HBSAG SCREEN Negative Normal Negative [facility] Comment on above: Performed By: #### L IVR, GGT, TSH2 #### Testing performed at [address] [address] #### LHEPP #### Testing performed at [address] [place] [address] HEP A AB TOTAL Negative Normal Negative [facility] Comment on above: Performed By: #### L IVR, GGT, TSH2 #### Testing performed at [place] [id number] #### LHEPP #### Testing performed at [address] [address] HEP B CORE AB Negative Normal Negative [facility] Comment on above: Performed By: #### L IVR, GGT, TSH2 #### [place] [address] #### LHEPP #### Testing performed at [address] [address] HEP C VIRUS AB 0.2 s/co ratio Normal 0.0-0.9 [facility] Comment on above: Result Comment: (NOT E) Negative: < 0.8 Indeterminate: 0.8 - 0.9 Positive: > 0.9 The CDC recommends that a positive HCV antibody result be followed up with a HCV Nucleic Acid Amplification test (138974). PERFORMED AT [facility] Performed By: #### L IVR, GGT, TSH2 #### [place] [address] #### LHEPP #### Testing performed at [address] [address] FREE T3on 09-19-2018 T3 free mass conc 3.56 pg/mL Normal 2.77-5.27 [facility] Comment on above: Performed By: #### L IVR, GGT, TSH2 #### Testing performed at [address] [address] #### LHEPP #### Testing performed at [address] [address] FREE T4on 09-19-2018 T4 free mass conc 1.50 ng/dL Normal 0.78-2.19 [facility] Comment on above: Result Comment: Test ing performed at [facility], [place] [address] Performed By: #### C MPF, LIP2, RTSH, ACBC, T42 #### [place] [address] GGTon 09-19-2018 Gamma glutamyl transferase enzyme act/vol 72 U/L High 12-43 [facility] Comment on above: Result Comment: Test ing performed at [place] [address] Performed By: #### L IVR, GGT, TSH2 #### [place] [address] #### LHEPP #### Testing performed at [address] [place] [address] LIVER PANELon 09-19-2018 Albumin mass conc 4.2 g/dL Normal 2.9-5.3 [facility] Comment on above: Performed By: #### L IVR, GGT, TSH2 #### [place] [address] #### LHEPP #### Testing performed [address] [facility] [place] [address] ALP enzyme act/vol 101 U/L Normal 38-126 [facility] Comment on above: Performed By: #### L IVR, GGT, TSH2 #### [place] [address] #### LHEPP #### Testing performed at [address] [place] [address] ALT enzyme act/vol 61 U/L High 9-52 [facility] Comment on above: Result Comment: Test ing performed at [place] [address] Performed By: #### L IVR, GGT, TSH2 #### [place] [address] #### LHEPP #### Testing performed [address] [place] [address] AST enzyme act/vol 35 U/L Normal 14-36 [facility] Comment on above: Performed By: #### L IVR, GGT, TSH2 #### Testing performed at [address] [address] #### LHEPP #### Testing performed [address] [facility] [place] [address] Bilirubin mass conc 0.4 mg/dL Normal 0.2-1.3 [facility] Comment on above: Performed By: #### L IVR, GGT, TSH2 #### Testing performed at [place] [id number] #### LHEPP #### Testing performed at [address] [address] Bilirubin.direct mass conc 0.2 mg/dL Normal 0-0.4 [facility] Comment on above: Performed By: #### L IVR, GGT, TSH2 #### [place] [address] #### LHEPP #### Testing performed at [address] [address] Protein mass conc 7.5 g/dL Normal 6.3-8.2 [facility] Comment on above: Performed By: #### L IVR, GGT, TSH2 #### [place] [address] #### LHEPP #### Testing performed at [address] [address] TSHon 09-19-2018 Thyrotropin Qn 2.520 uIU/ML Normal 0.46-4.68 [facility] Comment on above: Result Comment: Test ing performed at [place] [address] Performed By: #### L IVR, GGT, TSH2 #### Testing performed at [place] [id number] #### LHEPP #### Testing performed [address] [facility] [place] [address] CT CHEST WO CONTRASTon 09-05 CT CHEST [...] Mark Mcclendon MD 09/05/18 Final result Normal [facility] CBCon 08-19-2018 ABSOLUTE BAS 0.0 X10 Normal [facility] Comment on above: Result Comment: Test ing performed at [place] [address] Performed By: #### C MPF, LIP2, RTSH, ACBC, T42 #### [place] [address] ABSOLUTE EOS 0.50 X10 Normal [facility] Comment on above: Performed By: #### C MPF, LIP2, RTSH, ACBC, T42 #### [place] [address] ABSOLUTE NEUTROPHIL COUNT 6.2 x10 Normal 1.0-7.0 [facility] Comment on above: Performed By: #### C MPF, LIP2, RTSH, ACBC, T42 #### Testing performed at [address] [address] Basophils/100 WBC (Bld) 0.5 % Normal 0.0-2.0 [facility] Comment on above: Performed By: #### C MPF, LIP2, RTSH, ACBC, T42 #### Testing performed at [address] [address] DTYPE AUTO DIFF Normal [facility] Comment on above: Performed By: #### C MPF, LIP2, RTSH, ACBC, T42 #### Testing performed at [address] [address] Eosinophils/100 WBC (Bld) 4.7 % Normal 0.0-11.0 [facility] Comment on above: Performed By: #### C MPF, LIP2, RTSH, ACBC, T42 #### Testing performed at [address] [address] Lymphocytes #/vol (Bld) 2.40 X10 Normal [facility] Comment on above: Performed By: #### C MPF, LIP2, RTSH, ACBC, T42 #### Testing performed at [address] [address] Lymphocytes/100 WBC (Bld) 24.9 % Normal 20.0-55.0 [facility] Comment on above: Performed By: #### C MPF, LIP2, RTSH, ACBC, T42 #### Testing performed at [address] [address] Monocytes #/vol (Bld) 0.[address] [facility] Comment on above: Performed By: #### C MPF, LIP2, RTSH, ACBC, T42 #### Testing performed at [address] [address] Monocytes/100 WBC (Bld) 7.2 % Normal 0.0-10.0 [facility] Comment on above: Performed By: #### C MPF, LIP2, RTSH, ACBC, T42 #### Testing performed at [place] [id number] Neutrophils/100 WBC (Bld) 62.7 % Normal 37.0-75.0 [facility] Comment on above: Performed By: #### C MPF, LIP2, RTSH, ACBC, T42 #### [place] [address] Erythrocyte distribution width Ratio (RBC) 12.7 % Normal 11.5-14.5 [facility] Comment on above: Performed By: #### C MPF, LIP2, RTSH, ACBC, T42 #### [place] [address] Hematocrit Volume Fraction (Bld) 43.2 % Normal 36.0-48.0 [facility] Comment on above: Performed By: #### C MPF, LIP2, RTSH, ACBC, T42 #### [place] [address] Hemoglobin mass conc (Bld) 14.9 g/dL Normal 12.0-16.0 [facility] Comment on above: Performed By: #### C MPF, LIP2, RTSH, ACBC, T42 #### Testing performed at [place] [id number] MCH Entitic mass (RBC) 30.1 pg Normal 26.0-35.0 [facility] Comment on above: Performed By: #### C MPF, LIP2, RTSH, ACBC, T42 #### Testing performed at [place] [id number] MCHC mass conc (RBC) 34.4 g/dL Normal 27.0-37.[address] [facility] Comment on above: Performed By: #### C MPF, LIP2, RTSH, ACBC, T42 #### [place] [address] MCV Entitic volume (RBC) 87.3 fL Normal 80.0-100.0 [facility] Comment on above: Performed By: #### C MPF, LIP2, RTSH, ACBC, T42 #### [place] [address] Platelet mean volume Entitic volume (Bld) 8.4 fL Normal 7.4-11.0 [facility] Comment on above: Performed By: #### C MPF, LIP2, RTSH, ACBC, T42 #### [place] [address] Platelets #/vol (Bld) 336 /cmm Normal 130.0- 400. 0 [facility] Comment on above: Performed By: #### C MPF, LIP2, RTSH, ACBC, T42 #### [place] [address] RBC #/vol (Bld) 4.95 /cmm Normal 4.0-5.4 [facility] Comment on above: Performed By: #### C MPF, LIP2, RTSH, ACBC, T42 #### [place] [address] WBC #/vol (Bld) 9.8 /cmm Normal 3.6-11.0 [facility] Comment on above: Performed By: #### C MPF, LIP2, RTSH, ACBC, T42 #### [place] [address] CMP FASTINGon 08-19-2018 A:G RATIO 1.3 RATIO Normal 1.3-2.2 [facility] Comment on above: Performed By: #### C MPF, LIP2, RTSH, ACBC, T42 #### [place] [address] Albumin mass conc 4.4 G/dl Normal 3.5-5.0 [facility] Comment on above: Performed By: #### C MPF, LIP2, RTSH, ACBC, T42 #### [place] [address] ALP enzyme act/vol 94 U/L Normal 38-126 [facility] Comment on above: Performed By: #### C MPF, LIP2, RTSH, ACBC, T42 #### [place] [address] ALT enzyme act/vol 85 U/L High 9-52 [facility] Comment on above: Performed By: #### C MPF, LIP2, RTSH, ACBC, T42 #### [place] [address] AST enzyme act/vol 46 U/L High 14-36 [facility] Comment on above: Performed By: #### C MPF, LIP2, RTSH, ACBC, T42 #### [place] [address] Bilirubin mass conc 0.6 mg/dL Normal 0.2-1.3 [facility] Comment on above: Performed By: #### C MPF, LIP2, RTSH, ACBC, T42 #### [place] [address] Calcium mass conc 9.4 mg/dL Normal 8.4-10.2 [facility] Comment on above: Performed By: #### C MPF, LIP2, RTSH, ACBC, T42 #### [place] [address] Chloride molar conc 104 mmol/L Normal 98-107 [facility] Comment on above: Result Comment: Mitchell cruz note: Triglyceride levels of 600mg/dL or higher may positively bias chloride results by approximately 2.1 mmol Performed By: #### C MPF, LIP2, RTSH, ACBC, T42 #### [place] [address] CO2 molar conc 26 mmol/L Normal 22-30 [facility] Comment on above: Performed By: #### C MPF, LIP2, RTSH, ACBC, T42 #### [place] [address] Creatinine mass conc 0.6 mg/dL Low 0.7-1.[address] [facility] Comment on above: Performed By: #### C MPF, LIP2, RTSH, ACBC, T42 #### [place] [address] EST. GFR, >60 Normal [facility] Comment on above: Performed By: #### C MPF, LIP2, RTSH, ACBC, T42 #### [place] [address] EST. GFR,Non >60 Normal [facility] Comment on above: Performed By: #### C MPF, LIP2, RTSH, ACBC, T42 #### [place] [address] GFR/1.73 sq M predicted among non-blacks MDRD vol rate/area (S/P/Bld) Average GFR for 20-29 years old = 116. Normal [facility] Comment on above: Result Comment: Brine Tank Separator Operator sisi Kidney disease, GFR = <60. Kidney failure, GFR = <15. The GFR estimate is not adjusted for extreme body surface area or acute process, nor has it been validated for women or ethnic groups other than and . Testing performed at [place] [address] Performed By: #### C MPF, LIP2, RTSH, ACBC, T42 #### [place] [address] Glucose mass conc 98 mg/dL Normal 70-100 [facility] Comment on above: Result Comment: NORMAL <100 mg/dL PREDIABETES 101-126 mg/dL DIABETES 126 mg/dL or higher Performed By: #### C MPF, LIP2, RTSH, ACBC, T42 #### [place] [address] Potassium molar conc 4.2 mmol/L Normal 3.5-5.[address] [facility] Comment on above: Performed By: #### C MPF, LIP2, RTSH, ACBC, T42 #### Testing performed at [address] [address] Protein mass conc 7.9 g/dL Normal 6.3-8.2 [facility] Comment on above: Performed By: #### C MPF, LIP2, RTSH, ACBC, T42 #### Testing performed at [place] [id number] Sodium molar conc 141 mmol/L Normal 137-145 [facility] Comment on above: Performed By: #### C MPF, LIP2, RTSH, ACBC, T42 #### Testing performed at [place] [id number] Urea nitrogen mass conc 15 mg/dL Normal 7-20 [facility] Comment on above: Performed By: #### C MPF, LIP2, RTSH, ACBC, T42 #### [place] [address] FREE T4on 08-19-2018 T4 free mass conc 1.00 ng/dL Normal 0.78-2.19 [facility] Comment on above: Result Comment: Test ing performed at [place] [address] Performed By: #### C MPF, LIP2, RTSH, ACBC, T42 #### Testing performed at [address] [address] LIPID PROFILEon 08-19-2018 Cholesterol in HDL mass conc 40 mg/dL Normal 33-75 [facility] Comment on above: Performed By: #### C MPF, LIP2, RTSH, ACBC, T42 #### Testing performed at [address] [address] Cholesterol in LDL mass conc 103 mg/dL Normal [facility] Comment on above: Performed By: #### C MPF, LIP2, RTSH, ACBC, T42 #### Testing performed at [place] [id number] Cholesterol in VLDL mass conc 21 mg/dL Normal 5.0-25 [facility] Comment on above: Performed By: #### C MPF, LIP2, RTSH, ACBC, T42 #### [place] [address] Cholesterol mass conc 164 mg/dL Normal 107-217 [facility] Comment on above: Performed By: #### C MPF, LIP2, RTSH, ACBC, T42 #### [place] [address] Cholesterol.total/Cho lesterol in HDL mass ratio 4.10 {ratio} Normal [facility] Comment on above: Result Comment: RISK TOTAL/HDL RATIO MEN WOMEN 1/2 AVERAGE 3.43 3.27 AVERAGE 4.97 4.44 2X AVERAGE 9.55 7.05 3X AVERAGE 23.99 11.04 Testing performed at [place] [address] Performed By: #### C MPF, LIP2, RTSH, ACBC, T42 #### [place] [address] Triglyceride mass conc 105 mg/dL Normal 0-150 [facility] Comment on above: Performed By: #### C MPF, LIP2, RTSH, ACBC, T42 #### [place] [address] TSH,REFLEX FREE T4on 019 TSH,REFLEX FREE T4 4.700 uIU/ML High 0.46-4.[address] [facility] Comment on above: Result Comment: Test ing performed at [place] [address] Performed By: #### C MPF, LIP2, RTSH, ACBC, T42 #### [place] [address] Vital Signs Date Time Vital Sign Value Performing Clinician Randy ch 02-14-2025 10:20-0400 Body mass index (BMI) [Ratio] 31.38 kg/m2 Magaly Tovar MD Work Phone: [facility] 02-14-2025 10:20-0400 Body weight 82.92 kg Magayl Tovar MD Work Phone: [facility] 02-14-2025 10:20-0400 Diastolic blood pressure 60 mm[Hg] Magaly Tovar MD Work Phone: [facility] 02-14-2025 10:20-0400 Systolic blood pressure 104 mm[Hg] Magaly Tovar MD Work Phone: [facility] 12-16-2024 07:27-0400 Body height 162.56 cm James Cheng MD Work Phone: [facility] 12-16-2024 07:27-0400 Body weight 91.08 kg James Cheng MD Work Phone: [facility] 11-11-2024 07:36-0400 Body weight 93.53 kg James Cheng MD Work Phone: [facility] 10-13-2024 07:16-0500 Body mass index (BMI) [Ratio] 36.97 kg/m2 Nina Cioce [employer] 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 Phone: [facility] 10-13-2024 07:16-0500 Body temperature 99.3 [degF] Nina Cioce [employer] 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 Phone: [facility] 10-13-2024 07:16-0500 Body weight 97.7 kg Nina Cioce [employer] 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 Phone: [facility] 10-13-2024 07:16-0500 Heart rate 98 /min Nina Cioce [employer] 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 Phone: [facility] 10-13-2024 07:16-0500 SaO2% (BldA) [Mass fraction] 98 % Nina Cioce [employer] 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 Phone: [facility] 09-15-2024 07:13-0500 Body height 162.6 cm Tashi Colon APRN.TERMINAL MAKEUP OPERATOR Work Phone: [facility] 09-15-2024 07:13-0500 Body mass index (BMI) [Ratio] 38.96 kg/m2 Tashi Colon [employer] 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 Phone: [facility] 09-15-2024 07:13-0500 Body weight 102.97 kg Tashi Colon [employer] 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 Phone: [facility] 09-15-2024 07:13-0500 Diastolic blood pressure 96 mm[Hg] Tashi Colon [employer] 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 Phone: [facility] 09-15-2024 07:13-0500 Systolic blood pressure 138 mm[Hg] Tashi Colon [employer] 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 Phone: [facility] 05-31-2024 08:25-0400 Body mass index (BMI) [Ratio] 40 kg/m2 Jack Athy PA-C Work Phone: [facility] 05-31-2024 08:25-0400 Body temperature 97.7 [degF] Jack Athy PA-C Work Phone: [facility] 05-31-2024 08:25-0400 Body weight 105.7 kg Jack Athy PA-C Work Phone: [facility] 05-31-2024 08:25-0400 Diastolic blood pressure 88 mm[Hg] Jack Athy PA-C Work Phone: [facility] 05-31-2024 08:25-0400 Heart rate 101 /min Jack Athy PA-C Work Phone: [facility] 05-31-2024 08:25-0400 Respiratory rate 21 /min Jack Athy PA-C Work Phone: [facility] 05-31-2024 08:25-0400 SaO2% (BldA) [Mass fraction] 98 % Jack Athy PA-C Work Phone: [facility] 05-31-2024 08:25-0400 Systolic blood pressure 130 mm[Hg] Jack Athy PA-C Work Phone: [facility] 07-15-2023 11:55-0500 Body height 162.6 cm Payam Figueroa MD Work Phone: [facility] 07-15-2023 11:55-0500 Body weight 101.42 kg Payam Figueroa MD Work Phone: [facility] 07-15-2023 11:55-0500 Diastolic blood pressure 100 mm[Hg] Payam Figueroa MD Work Phone: [facility] 07-15-2023 11:55-0500 Systolic blood pressure 152 mm[Hg] Payam Figueroa MD Work Phone: [facility] 07-01-2023 18:39-0500 Body height 162.56 cm [facility] 07-01-2023 18:39-0500 Body mass index (BMI) [Ratio] 39.2 kg/m2 [facility] 07-01-2023 18:39-0500 Body temperature 98.1 [degF] [facility] 07-01-2023 18:39-0500 Body weight 103.82 kg [facility] 07-01-2023 18:39-0500 Diastolic blood pressure 115 mm[Hg] [facility] 07-01-2023 18:39-0500 Heart rate 104 /min [facility] 07-01-2023 18:39-0500 Respiratory rate 18 /min [facility] 07-01-2023 18:39-0500 SaO2% (BldA) [Mass fraction] 97 % [facility] 07-01-2023 18:39-0500 Systolic blood pressure 164 mm[Hg] [facility] 01-12-2023 11:08-0400 Body temperature 97.8 [degF] FOOT TENDER-C Brionna Podlogar FOOT TENDER Work Phone: [facility] 01-12-2023 11:08-0400 Diastolic blood pressure 78 mm[Hg] FOOT TENDER-C Brionna Podlogar FOOT TENDER Work Phone: [facility] 01-12-2023 11:08-0400 Heart rate 98 /min FOOT TENDER-C Brionna Podlogar FOOT TENDER Work Phone: [facility] 01-12-2023 11:08-0400 Respiratory rate 16 /min FOOT TENDER-C Brionna Podlogar FOOT TENDER Work Phone: [facility] 01-12-2023 11:08-0400 SaO2% (BldA) [Mass fraction] 97 % FOOT TENDER-C Brionna Bui FOOT TENDER Work Phone: [facility] 01-12-2023 11:08-0400 Systolic blood pressure 128 mm[Hg] FOOT TENDER-C Brionna Bui FOOT TENDER Work Phone: [facility] 09-18-2022 13:28-0500 Body height 162.[address] FRANK KHALIL MD [facility] 09-18-2022 13:28-0500 Body weight 98.[address] FRANK KHALIL MD [facility] 09-18-2022 13:28-0500 Diastolic Blood Pressure Non-Invasive [address] FRANK KHALIL MD [facility] 09-18-2022 13:28-0500 Heart rate 114 /min DR FRANK KHALIL MD [facility] 09-18-2022 13:28-0500 Respiratory rate 20 /min DR FRANK KHALIL MD [facility] 09-18-2022 13:28-0500 Systolic Blood Pressure Non-Invasive [address] FRANK KHALIL MD [facility] 08-06-2022 09:27-0500 Diastolic blood pressure 86 mm[Hg] Brionna Podloggenia [employer] 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 Phone: [facility] 08-06-2022 09:27-0500 Heart rate 93 /min Brionna Bui [employer] 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 Phone: [facility] 08-06-2022 09:27-0500 Systolic blood pressure 127 mm[Hg] Brionna Podlogar [employer] 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 Phone: [facility] 08-06-2022 08:12-0500 Body weight 98.61 kg Brionna Podlogar [employer] 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 Phone: [facility] 08-06-2022 08:12-0500 Respiratory rate 16 /min Brionna Podlogar [employer] 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 Phone: [facility] 08-06-2022 08:12-0500 SaO2% (BldA) [Mass fraction] 94 % Brionna Podlogar [employer] 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 Phone: [facility] 07-23-2022 08:11-0500 Body weight 97.8 kg Brionna Podlogar [employer] 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 Phone: [facility] 07-23-2022 08:11-0500 Diastolic blood pressure 93 mm[Hg] Brionna Podlogar [employer] 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 Phone: [facility] 07-23-2022 08:11-0500 Heart rate 88 /min Brionna Podlogar [employer] 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 Phone: [facility] 07-23-2022 08:11-0500 Respiratory rate 16 /min Brionna Podlogar [employer] 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 Phone: [facility] 07-23-2022 08:11-0500 SaO2% (BldA) [Mass fraction] 95 % Brionna Podlogar [employer] 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 Phone: [facility] 07-23-2022 08:11-0500 Systolic blood pressure 141 mm[Hg] Brionna Podlogar [employer] 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 Phone: [facility] 06-25-2022 08:44-0500 Diastolic blood pressure 86 mm[Hg] Brionna Podlogar [employer] 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 Phone: [facility] 06-25-2022 08:44-0500 Heart rate 95 /min Brionna Podlogar [employer] 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 Phone: [facility] 06-25-2022 08:44-0500 Systolic blood pressure 146 mm[Hg] Brionna Podlogar [employer] 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 Phone: [facility] 06-25-2022 08:19-0500 Body weight 98.52 kg Brionna Podlogar [employer] 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 Phone: [facility] 06-25-2022 08:19-0500 Respiratory rate 18 /min Brionna Podlogar [employer] 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 Phone: [facility] 06-25-2022 08:19-0500 SaO2% (BldA) [Mass fraction] 98 % Brionna Podlogar [employer] 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 Phone: [facility] 05-14-2022 08:27-0400 Diastolic blood pressure 91 mm[Hg] Brionna Podlogar [employer] 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 Phone: [facility] 05-14-2022 08:27-0400 Heart rate 93 /min Brionna Podlogar [employer] 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 Phone: [facility] 05-14-2022 08:27-0400 Systolic blood pressure 141 mm[Hg] Brionna Podlogar [employer] 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 Phone: [facility] 08-19-2018 08:40-0500 BMI (Body Mass Index) 34.04 kg/m2 [facility] Work Phone: 08-19-2018 08:40-0500 Body Temperature 97.7 [degF] [facility] Work Phone: 08-19-2018 08:40-0500 BP Diastolic 68 mm[Hg] [facility] Work Phone: 08-19-2018 08:40-0500 BP Systolic 118 mm[Hg] [facility] Work Phone: 08-19-2018 08:40-0500 Height 164.5 cm [facility] Work Phone: 08-19-2018 08:40-0500 Pulse (Heart Rate) 84 /min Margaret Morales [facility] Work Phone: 08-19-2018 08:40-0500 Pulse Oximetry 97 % Margaret Morales [facility] Work Phone: 08-19-2018 08:40-0500 Respiratory Rate 12 /min Margaret Morales [facility] Work Phone: 08-19-2018 08:40-0500 Weight 92.08 kg Margaret Morales [facility] Work Phone: Encounters Encounter Date Encounter Type Care Provider Facility Start: 05-18-2025 End: 05-18-2025 ambulatory CHRISTINE MAYFIELDCALF Facility:[facility] Start: 04-20-2025 End: 04-20-2025 Telephone encounter Maryann Champion PRITIM Work Phone: OB/Gynecology Comment on above: Early OB Diarrhea Start: 04-19-2025 End: 04-19-2025 Telephone encounter Payam Figueroa MD Work Phone: OB/Gynecology Comment on above: new OB Start: 02-14-2025 End: 02-14-2025 ambulatory MAGALY TOVAR Facility:[facility] Start: 02-14-2025 End: 02-14-2025 Office outpatient visit 15 minutes Magaly Tovar MD Work Phone: OB/Gynecology Comment on above: Labial cyst (Primary Dx) Start: 01-28-2025 ambulatory Chalon Skylar Facility:[facility] Start: 01-19-2025 ambulatory Chalon Skylar Facility:[facility] Start: 12-24-2024 End: 12-24-2024 Patient encounter procedure [employer] [facility] OB/Gynecology Start: 12-24-2024 End: 12-24-2024 ambulatory Photog[employer]ure Press Operator [employer] Work Phone: OB/Gynecology Start: 12-17-2024 End: 12-17-2024 ambulatory Nina Phillips APRN.TERMINAL MAKEUP OPERATOR Work Phone: Endocrinology Comment on above: Pre Approval Start: 12-17-2024 End: 12-17-2024 Telephone encounter Nina Phillips APRN.TERMINAL MAKEUP OPERATOR Work Phone: Endocrinology Comment on above: Insurance Authorizat ion (tirzepatide (MOUNJARO) 5 mg/0.5 mL pen injector [[facility]]) Start: 12-16-2024 End: 01-08-[address] James Cheng MD -Nutritional Servic es Work Phone: Start: 12-16-[address] James Cheng MD -Nutritional Services Work Phone: Start: 12-16-2024 End: 01-08-2025 ambulatory James Cheng MD Work Phone: [facility] Work Phone: Start: 12-16-2024 End: 12-16-[address] James Cheng MD -Laboratory Work Phone: Start: 12-16-2024 End: 12-16-2024 ambulatory James Cheng Facility:[facility] Start: 12-15-2024 End: 02-14-2025 Follow-up encounter Tashi Colon APRN.TERMINAL MAKEUP OPERATOR Work Phone: OB/Gynecology Start: 12-14-2024 End: 12-14-2024 ambulatory TASHI COLON Facility:[facility] Start: 11-11-2024 End: 12-08-[address] James Cheng MD -Nutritional Servic es Work Phone: Start: 11-11-2024 End: 12-08-2024 ambulatory James Cheng Facility:[facility] Start: 11-10-2024 End: 01-10-2025 Follow-up encounter Tashi Colon APRN.TERMINAL MAKEUP OPERATOR Work Phone: OB/Gynecology Start: 11-10-2024 End: 11-10-2024 ambulatory TASHI COLON Facility:[facility] Start: 11-10-2024 End: 11-10-2024 Subsequent hospital visit by physician Diagnostic Mammo [facility] Mammogram Start: 10-13-2024 End: 10-13-2024 Telephone [...] Start: 09-15-2024 End: 09-15-2024 ambulatory TASHI COLON Facility:[facility] Start: 09-15-2024 End: 09-15-2024 Patient encounter procedure Tashi Colon APRN.CNP Work Phone: OB/Gynecology Comment on above: Encounter for gyneco logical examination with abnormal finding (Primary Dx); Irregular menstrual cycle; Essential hypertension; Breast pain Start: 09-15-2024 End: 09-15-2024 Patient encounter status Tashi Colon APRN.CNP Work Phone: [facility] Work Phone: Start: 05-31-2024 End: 05-31-2024 ambulatory JOSSY AU Facility:[facility] Start: 05-31-2024 End: 05-31-2024 Patient encounter procedure Jack Aguilar PA-C Work Phone: [facility] Comment on above: Acute non-recurrent maxillary sinusitis (Primary Dx) Start: 01-19-2024 ambulatory Payam Dupree Work Phone: OB/Gynecology Comment on above: Fertility Questions Start: 07-15-2023 End: 07-15-2023 Patient encounter procedure Payam Figueroa MD Work Phone: OB/Gynecology Comment on above: Pelvic pain (Primary Dx); Cervical lesion; Encounter for screening for malignant neoplasm of cervix; Friable cervix Start: 07-02-2023 Telephone encounter Tanya Nasreen hernandez [employer] 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 Phone: [facility] Comment on above: Results Start: 07-01-2023 End: 07-01-2023 Emergency department patient visit [facility]Emergency Department Work Phone: Start: 06-27-2023 End: 06-27-2023 ambulatory [facility] Work Phone: Start: 06-27-2023 End: 06-27-2023 Patient encounter procedure [facility]Laboratory, Specimen Work Phone: Start: 06-25-2023 End: 06-25-2023 ambulatory [facility] Work Phone: Start: 06-25-2023 End: 06-25-2023 Patient encounter procedure [facility]Labor[facility] Work Phone: Start: 03-25-2023 End: 03-25-2023 ambulatory FOOT TENDER-C Brionna Bui FOOT TENDER Work Phone: [facility] Work Phone: Start: 03-25-2023 End: 03-25-2023 Patient encounter procedure FOOT TENDER-C Brionna Bui FOOT TENDER Work Phone: [facility]-Laboratory, [place] [employer] Start: 03-11-2023 End: 03-11-2023 ambulatory FOOT TENDER-C Brionna Bui FOOT TENDER Work Phone: [facility] Work Phone: Start: 03-11-2023 End: 03-11-2023 Patient encounter procedure FOOT TENDER-C Brionna Willsar FOOT TENDER [facility] Start: 01-12-2023 End: 01-12-2023 Patient encounter procedure FOOT TENDER-C Brionna Bui FOOT TENDER Work Phone: [facility] Work Phone: Start: 01-07-2023 End: 01-07-2023 ambulatory FOOT TENDER-C Brionna Willsar FOOT TENDER Work Phone: [facility] Work Phone: Start: 01-07-2023 End: 01-07-2023 Patient encounter procedure FOOT TENDER-C Brionna Bui FOOT TENDER [facility] Start: 09-24-2022 End: 09-24-2022 ambulatory [facility] Work Phone: Start: 09-24-2022 End: 09-24-2022 Patient encounter procedure [facility]Out[facility] Breast Imaging Start: 09-18-2022 End: 09-18-2022 Emergency department patient visit BRIONNA BUI APRNDayronTERMINAL MAKEUP OPERATOR Facility:B Start: 09-18-2022 End: 09-18-2022 Emergency department patient visit DR FRANK KHALIL MD [facility] Start: 08-07-2022 Telephone encounter Brionna starr [employer] 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 Phone: [facility] [place] Comment on above: Results Start: 08-06-2022 End: 08-06-2022 Patient encounter procedure Brionna Podlogar [employer] 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 Phone: [facility] [place] Comment on above: Hypertension, unspec ified type Start: 07-23-2022 End: 07-23-2022 Patient encounter procedure Brionna Podlogar [employer] 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 Phone: [facility] [place] Comment on above: Hypertension, unspec ified type Start: 06-25-2022 End: 06-25-2022 Patient encounter procedure Brionna Podlogar [employer] 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 Phone: [facility] [place] Comment on above: Hypertension, unspec ified type (Primary Dx); Skin eruption Start: 06-12-2022 End: 06-12-2022 Subsequent hospital visit by physician Xr [facility] [place] Work Phone: Radiology Comment on above: Acute cough [R05.1] Start: 05-14-2022 End: 05-14-2022 Patient encounter procedure Brionna Podloggenia NORRISN.TERMINAL MAKEUP OPERATOR Work Phone: [facility] [place] Comment on above: Hypertension, unspec ified type (Primary Dx); Encounter for immunization; Screening for cholesterol level; Obesity, Class II, BMI 35-39.9 Start: 02-26-2019 End: 02-26-2019 Telephone encounter Nena Gonzalez [facility] ly Medicine Comment on above: Results Start: 02-16-2019 End: 02-16-2019 Telephone encounter [facility] Comment on above: Health Maintenance R eminder Start: 01-19-2019 End: 01-22-2019 Patient encounter procedure MARGARET MORALES [facility] Start: 11-24-2018 End: 11-24-2018 Telephone encounter Nena Gonzalez [facility] Comment on above: Results Start: 11-23-2018 End: 11-23-2018 Telephone encounter Samia Jeff [facility] Comment on above: Results Start: 10-05-2018 End: 10-05-2018 Patient encounter procedure Margaret Morales Work Phone: [facility] Start: 10-05-2018 End: 10-05-2018 Telephone encounter Nena Gonzalez [facility] Comment on above: Results Start: 09-19-2018 Patient encounter procedure MARGARET MORALES [facility] Start: 09-05-2018 End: 09-08-2018 Patient encounter procedure MARGARET MORALES [facility] Start: 08-19-2018 End: 08-19-2018 Patient encounter procedure Nicole Valencia [facility] Comment on above: Other Start: 08-19-2018 End: 08-19-2018 Periodic preventive med est patient 18-39 yrs Margaret Gladis Joseph Work Phone: [facility] Comment on above: Encounter for routin e history and physical examination of adult (Primary Dx); Nodule of right lung; BMI 34.0-34.9,adult Procedures Date Procedure Procedure Detail Performing Clinician Start: 12-24-2024 Us pelvic nonobstetr ic real-time image complete Tashi Colon APRN.TERMINAL MAKEUP OPERATOR Work Phone: Start: 11-10-2024 Digital breast tomosynthesis unilateral Tashi Colon APRN.TERMINAL MAKEUP OPERATOR Work Phone: Start: 07-01-2023 Transvaginal echography Start: 06-27-2023 Bacteria identified in Urine by Culture Start: 06-27-2023 Urine culture Start: 06-12-2022 Radiologic exam ches t 2 views Marco Blandon [employer] 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 Phone: Start: 05-14-2022 INFLUENZA VACCINE QUADRIVALENT 6 MO - 64 YRS IM Brionna Bui [employer] 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 Phone: Start: 01-19-2019 Ct thorax w/o contra st material MARGARET MORALES Start: 09-05-2018 CT (OUTSIDE) Margaret veronica Work Phone: Start: 09-05-2018 Ct thorax w/o contra st material MARGARET MORALES Plan of Treatment Date Care Activity Detail Author Start: 04-15-2032 Urine microalbumin profile DTaP,Tdap,Td Vaccine (8 - Td or Tdap) [facility] Start: 07-15-2026 Screening for malignant neoplasm of cervix Cervical Cancer Screening [facility] Start: 09-16-2025 End: 09-16-2025 Patient encounter procedure 09/16/2025 7:15 AM EST Office Visit OB/Gynecology [address] [place] [address] Tashi Colon APRN.TERMINAL MAKEUP OPERATOR [address] [place] [address] Annual OB/Gynecology Comment on above: Annual Start: 05-19-2025 End: 05-19-2025 Patient encounter procedure 05/19/2025 8:15 AM EDT Initial Office Visit OB/Gynecology [address] [place] [address] Christine Paulino APRN.TERMINAL MAKEUP OPERATOR [address] [place] [address] NOB-LMP 03/07/25 OB/Gynecology Comment on above: NOB-LMP 03/07/25 Start: 04-20-2025 End: 04-20-2025 Patient encounter procedure 04/20/2025 12:15 PM EDT Office Visit Endocrinology [address] [place] [address] Nina Phillips [employer] TRADER.TERMINAL MAKEUP OPERATOR [address] [place] [address] 6 MO OV Endocrinology Comment on above: 6 MO OV Start: 04-11-2025 End: 07-11-2025 Comprehensive metabolic 2000 panel - Serum or Plasma COMPREHENSIVE METABOLIC PANEL Lab Routine Controlled type 2 diabetes mellitus without complication, without long-term current use of insulin (HCC) Expected: 04/11/2025, Expires: 07/11/2025 [facility] Work Phone: Comment on above: Expected: 04/11/2025, Expires: Start: 04-11-2025 End: 07-11-2025 Hemoglobin A1c in Blood HEMOGLOBIN A1C Lab Routine Controlled type 2 diabetes mellitus without complication, without long-term current use of insulin (HCC) Expected: 04/11/2025, Expires: 07/11/2025 [facility] Comment on above: Expected: 04/11/2025, Expires: Start: 04-11-2025 Influenza vaccination [facility] Start: 04-11-2025 End: 07-11-2025 LIPID PANEL, NONFASTING LIPID PANEL, NONFASTING Lab Routine Controlled type 2 diabetes mellitus without complication, without long-term current use of insulin (HCC) Expected: 04/11/2025, Expires: 07/11/2025 [facility] Comment on above: Expected: 04/11/2025, Expires: Start: 04-11-2025 End: 07-11-2025 Microalbumin/Creatinine [Mass Ratio] in Urine ALBUMIN/CREATININE RATIO, URINE Lab Routine Controlled type 2 diabetes mellitus without complication, without long-term current use of insulin (HCC) Expected: 04/11/2025, Expires: 07/11/2025 [facility] Comment on above: Expected: 04/11/2025, Expires: Start: 2025 HPV Vaccine (1 - 3-dose SCDM series) HPV Vaccine (1 - 3-dose SCDM series) [facility] Start: 12-24-2024 End: 12-24-2024 ambulatory 12/24/2024 8:00 AM EDT Procedure OB/Gynecology [address] [place] [address] [facility], Photogravure Press Operator [facility] [address] [place] [address] Irregular menstrual cycle [N92.6] OB/Gynecology Comment on above: Irregular menstrual cycle [N92.6] Start: 12-14-2024 End: 03-15-2025 25-hydroxyvitamin D3 [Mass/volume] in Serum or Plasma VITAMIN D 25 HYDROXY Lab Routine Vitamin D deficiency Expected: 12/14/2024, Expires: 03/15/2025 [facility] Work Phone: Comment on above: Expected: 12/14/2024, Expires: Start: 12-14-2024 End: 12-14-2024 ambulatory 12/14/2024 7:00 AM EDT Results Only Shanice Donovan [facility] [address] [place] [address] [facility] Start: 11-29-2024 End: 02-28-2025 Thyrotropin [Units/volume] in Serum or Plasma THYROID STIMULATING HORMONE Lab Routine 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 Unilat due to age, still start with MG. Start: 11-08-2024 End: 11-08-2024 ambulatory 11/08/2024 1:00 PM EDT Education Endocrinology [address] [place] [address] Molly Vazquez, RD [address] [address] Controlled type 2 diabetes mellitus without complication, without long-term current use of insulin (HCC) [E11.9] Endocrinology Comment on above: Controlled type 2 diabetes mellitus with out complication, without long-term current use of insulin (HCC) [E11.9] Start: 10-19-2024 End: 10-19-2024 ambulatory OB/Gynecology Comment on above: Dx: Irregular menstrual cycle [N92.6] Start: 10-13-2024 End: 01-12-2025 THYROGLOBULIN ANTIBODY [facility] Comment on above: Expected: 10/13/2024, Expires: Start: 10-13-2024 End: 01-12-2025 THYROID PEROXIDASE ANTIBODY [facility] Comment on above: Expected: 10/13/2024, Expires: Start: 10-13-2024 End: 10-13-2024 Patient encounter procedure 10/13/2024 7:15 AM EST Office Visit Endocrinology [address] [place] [address] Nina Phillips, BANK AND SAVINGS SECURITIES TRADER.TERMINAL MAKEUP OPERATOR [address] [place] [address] Elevated fasting glucose [R73.01] Endocrinology Comment on above: Elevated fasting glucose [R73.01] Start: 09-21-2024 End: 09-21-2024 ambulatory 09/21/2024 11:30 AM EST Procedure OB/Gynecology [address] [place] [address] Remote, Photogravure Press Operator [employer] [address] [place] [address] Irregular menstrual cycle [N92.6] OB/Gynecology Comment on above: Irregular menstrual cycle [N92.6] Start: 09-15-2024 End: 12-15-2024 17-Hydroxyprogesterone [Mass/volume] in Serum or Plasma [facility] Comment on above: Expected: 09/15/2024, Expires: Start: 09-15-2024 End: 12-15-2024 25-hydroxyvitamin D3 [Mass/volume] in Serum or Plasma [facility] Comment on above: Expected: 09/15/2024, Expires: Start: 09-15-2024 End: 12-15-2024 Cobalamin (Vitamin B12) [Mass/volume] in Serum or Plasma [facility] Comment on above: Expected: 09/15/2024, Expires: Start: 09-15-2024 End: 12-15-2024 DHEA-S BLD [facility] Comment on above: Expected: 09/15/2024, Expires: Start: 09-15-2024 End: 12-15-2024 Estradiol (E2) [Mass/volume] in Serum or Plasma [facility] Comment on above: Expected: 09/15/2024, Expires: Start: 09-15-2024 End: 12-15-2024 Fasting glucose [Mass/volume] in Serum or Plasma [facility] Comment on above: Expected: 09/15/2024, Expires: Start: 09-15-2024 End: 12-15-2024 Follitropin [Units/volume] in Serum or Plasma [facility] Comment on above: Expected: 09/15/2024, Expires: Start: 09-15-2024 End: 12-15-2024 Hemoglobin A1c in Blood [facility] Comment on above: Expected: 09/15/2024, Expires: Start: 09-15-2024 End: 12-15-2024 Lutropin [Units/volume] in Serum or Plasma [facility] Comment on above: Expected: 09/15/2024, Expires: Start: 09-15-2024 End: 12-15-2024 Prolactin [Mass/volume] in Serum or Plasma [facility] Comment on above: Expected: 09/15/2024, Expires: Start: 09-15-2024 End: 12-15-2024 TESTOSTERONE, FREE AND TOTAL, BY EQUILIBRIUM ULTRAFILTRATION MASS SPECTROMETRY [facility] Comment on above: Expected: 09/15/2024, Expires: Start: 09-15-2024 End: 12-15-2024 Thyrotropin [Units/volume] in Serum or Plasma [facility] Work Phone: Comment on above: Expected: 09/15/2024, Expires: Start: 09-15-2024 End: 09-15-2025 US Pelvis PELVIC US [facility] Anc Imaging Routine Irregular menstrual cycle Expected: 09/15/2024, Expires: 09/15/2025 [facility] Comment on above: Expected: 09/15/2024, Expires: Start: 08-21-2024 PAP TESTING PAP TESTING [facility] Start: 07-01-2024 BP Controlled (<130/80) BP Controlled (<130/80) [facility] Start: 04-11-2024 Covid-19 Vaccine () Covid-19 Vaccine () [facility] Start: 04-11-2024 Influenza vaccination [facility] Start: 02-02-2024 End: 02-02-2024 Patient encounter procedure 02/02/2024 4:00 PM EDT Office Visit OB/Gynecology [address] [place] [address] Tashi Colon APRN.TERMINAL MAKEUP OPERATOR [address] [place] [address] Spotting, no full period since August, fertility OB/Gynecology Comment on above: Spotting, no full period since August, fertility Start: 08-11-2023 Behavioral Health Screening Behavioral Health Screening [facility] Start: 08-06-2023 ANNUAL PCP TEAM CHRONIC DISEASE VISIT ANNUAL PCP TEAM CHRONIC DISEASE VISIT [facility] Start: 07-23-2023 ANNUAL PCP TEAM CHRONIC DISEASE VISIT ANNUAL PCP TEAM CHRONIC DISEASE VISIT [facility] Start: 07-01-2023 [facility] Start: 06-25-2023 ANNUAL PCP TEAM CHRONIC DISEASE VISIT ANNUAL PCP TEAM CHRONIC DISEASE VISIT [facility] Start: 05-14-2023 COVID-19 VACCINE (4 - Booster for Moderna series) COVID-19 VACCINE (4 - Booster for Moderna series) [facility] Comment on above: Postponed from 10/19/2021 (Declined at t his time) Start: 05-14-2023 HEPATITIS B (1 of 3 - 3-dose series) HEPATITIS B (1 of 3 - 3-dose series) [facility] Comment on above: Postponed from 1998 (Declined at t his time) Start: 05-14-2023 HEPATITIS C SCREENING HEPATITIS C SCREENING [facility] Comment on above: Postponed from 02/10/2016 (Declined at t his time) Start: 05-14-2023 HIV SCREENING HIV SCREENING [facility] Comment on above: Postponed from 02/10/2016 (Declined at t his time) Start: 05-14-2023 HPV VACCINE (1 - 2-dose series) HPV VACCINE (1 - 2-dose series) [facility] Comment on above: Postponed from 2009 (Declined at t his time) Start: 05-14-2023 Urine microalbumin profile DTAP,TDAP,TD (1 - Tdap) [facility] Comment on above: Postponed from 2017 (Declined at t his time) Start: 04-11-2023 Covid-19 Vaccine () Covid-19 Vaccine () [facility] Start: 04-11-2023 Influenza vaccination Influenza Vaccine (#1) [facility] Start: 08-11-2022 Depression Assessment Depression Assessment [facility] Start: 06-25-2022 End: 08-25-2022 Basic metabolic 2000 panel - Serum or Plasma BASIC METABOLIC PNL Lab Routine Hypertension, unspecified type Expected: 06/25/2022, Expires: 08/25/2022 [facility] Work Phone: Comment on above: Expected: 06/25/2022, Expires: 3 Start: 05-14-2022 End: 07-14-2022 Comprehensive metabolic 2000 panel - Serum or Plasma [facility] Work Phone: Comment on above: Expected: 05/14/2022, Expires: 2 Start: 05-14-2022 End: 07-14-2022 Lipid 1996 panel - Serum or Plasma [facility] Work Phone: Comment on above: Expected: 05/14/2022, Expires: 2 Start: 08-11-2021 DEPRESSION ASSESSMENT DEPRESSION ASSESSMENT [facility] Start: 03-28-2021 Tetanus vaccination TETANUS [facility] Work Phone: Start: 04-11-2019 Influenza vaccination INFLUENZA VACCINE (#1) [facility] Start: 2019 Screening for malignant neoplasm of cervix PAP SMEAR DISCUSSION [facility] Start: 11-24-2018 End: 11-25-[address] CHEST WITHOUT CONTRAST Imaging Routine Nodule of right lung Expected: 11/24/2018, Expires: 11/25/2019 [facility] Comment on above: Expected: 11/24/2018, Expires: 0 Start: 08-19-2018 End: 08-19-2019 CBC, EDIF, PLATELET CBC, EDIF, PLATELET Routine Encounter for routine history and physical examination of adult Expected: 08/19/2018, Expires: 08/19/2019 [facility] Work Phone: Comment on above: Expected: 08/19/2018, Expires: 0 Start: 08-19-2018 End: 08-19-2019 Comprehensive metabolic 2000 panel - Serum or Plasma COMPREHENSIVE METABOLIC PANEL Routine Encounter for routine history and physical examination of adult Expected: 08/19/2018, Expires: 08/19/2019 [facility] Work Phone: Comment on above: Expected: 08/19/2018, Expires: 0 Start: 08-19-2018 End: 08-19-[address] CHEST WITHOUT CONTRAST Routine Nodule of right lung Expected: 08/19/2018, Expires: 08/19/2019 [facility] Work Phone: Comment on above: Expected: 08/19/2018, Expires: 0 Start: 08-19-2018 End: 08-19-2019 LIPID PANEL W CALCULATED LDL LIPID PANEL W CALCULATED LDL Routine Encounter for routine history and physical examination of adult Expected: 08/19/2018, Expires: 08/19/2019 [facility] Work Phone: Comment on above: Expected: 08/19/2018, Expires: 0 Start: 08-19-2018 End: 08-19-2019 TSH W/FT4 REFLEX TSH W/FT4 REFLEX Routine Encounter for routine history and physical examination of adult Expected: 08/19/2018, Expires: 08/19/2019 [facility] Work Phone: Comment on above: Expected: 08/19/2018, Expires: 0 Start: 2017 Third diphtheria, tetanus and acellular pertussis (DTaP) vaccination TDAP (ADULT) [facility] Start: 02-10-2016 Anxiety Screening Anxiety Screening [facility] Start: 02-10-2016 BP CONTROLLED (<130/80) BP CONTROLLED (<130/80) [facility] Start: 02-10-2016 Depression Screening Depression Screening [facility] Start: 02-10-2016 GONORRHEA SCREEN GONORRHEA SCREEN [facility] Work Phone: Start: 02-10-2016 Hepatitis C Screening Hepatitis C Screening [facility] Start: 02-10-2016 Hepatitis C screening Hepatitis C Screening [facility] Start: 02-10-2016 HIV Screening HIV Screening [facility] Start: 02-10-2016 HIV screening HIV Screening [facility] Start: 2014 Screening for Chlamydia trachomatis CHLAMYDIA SCREEN [facility] Work Phone: Start: 2013 HPV Vaccine (1 - 3-dose series) HPV Vaccine (1 - 3-dose series) [facility] Start: 2013 Vaccination for human papillomavirus HPV VACCINE ADOL (1 - Female 3-dose series) [facility] Start: 02-10-2012 PEDS TO ADULT TRANSITION ANNUAL ASSESSMENT PEDS TO ADULT TRANSITION ANNUAL ASSESSMENT [facility] Start: 2011 HIV screening HIV SCREENING DISCUSSION [facility] Work Phone: Start: 2010 PEDS TO ADULT TRANSITION INITIAL DISCUSSION PEDS TO ADULT TRANSITION INITIAL DISCUSSION [facility] Start: 2009 Vaccination for human papillomavirus HPV VACCINE ADOL (1 - Female 3-dose series) [facility] Work Phone: Start: 2007 HPV Vaccine (1 - 2-dose series) HPV Vaccine (1 - 2-dose series) [facility] Start: 1998 GONORRHEA SCREEN GONORRHEA SCREEN [facility] Biopsy cervix single/mult/excision of lesion spx CERVICAL BIOPSY OR EXCISION Procedures Routine Cervical lesion Ordered: 07/15/2023 [facility] Work Phone: Comment on above: Ordered: 07/15/2023 End: 10-15-2025 MG Breast - left Diagnostic for implant [facility] LEFT Radiology Routine Breast pain 1 Occurrences starting 09/15/2024 until 10/15/2025 [facility] Comment on above: 1 Occurrences starting 09/15/2024 until 10/15/2025 PAP TEST PAP TEST Lab [facility] Encounter for screening for malignant neoplasm of cervix Ordered: 07/15/2023 [facility] Work Phone: Comment on above: Ordered: 07/15/2023 Patient Education ED Pelvic Pain , Unknown Cause [facility] Work Phone: Patient referral [facility] Work Phone: End: 10-15-2025 US Breast - left limited US BREAST LTD LEFT Radiology Routine Breast pain 1 Occurrences starting 09/15/2024 until 10/15/2025 [facility] Comment on above: 1 Occurrences starting 09/15/2024 until 10/15/2025 [facility] Immunizations Immunization Date Immunization Notes Care Provider Ish montelongo 05-14-2022 influenza, injectabl e, quadrivalent, contains preservative Brionna Podloggenia [employer] AND SAVINGS SECURITIES 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 Phone: [facility] 05-14-2022 influenza virus vacc ine, unspecified formulation Tanya Cano [employer] S[employer] SECURITIES 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 Phone: [facility] 04-15-2022 tetanus toxoid, redu dilan diphtheria toxoid, and acellular pertussis vaccine, adsorbed [facility] 08-19-2018 influenza virus vacc ine, unspecified formulation [facility] 03-28-2016 Meningococcal Vaccin e IM (Conjugate) [facility] Work Phone: 03-28-2011 Meningococcal Vaccin e IM (Conjugate) [facility] Work Phone: 03-28-2011 tetanus toxoid, redu dilan diphtheria toxoid, and acellular pertussis vaccine, adsorbed [facility] Work Phone: 11-10-2006 varicella virus vaccine Margaretelvia Morales [facility] Work Phone: 05-19-2003 diphtheria, tetanus toxoids and acellular pertussis vaccine [facility] Work Phone: 05-19-2003 measles, mumps and rubella virus vaccine [facility] Work Phone: 05-19-2003 poliovirus vaccine, inactivated [facility] Work Phone: 05-06-2001 varicella virus vaccine Margaret Morales [facility] Work Phone: 08-25-1999 diphtheria, tetanus toxoids and acellular pertussis vaccine [facility] Work Phone: 08-25-1999 poliovirus vaccine, inactivated [facility] Work Phone: 07-26-1999 measles, mumps and rubella virus vaccine [facility] Work Phone: 07-04-1999 influenza virus vacc ine, whole virus [facility] Work Phone: 06-02-1999 haemophilus influenz ae type b vaccine, conjugate unspecified formulation [facility] Work Phone: 06-02-1999 influenza virus vacc ine, whole virus [facility] Work Phone: 1998 hepatitis B vaccine, pediatric or pediatric/adolescent dosage [facility] Work Phone: 1998 diphtheria, tetanus toxoids and acellular pertussis vaccine Margaret [facility] Work Phone: 1998 haemophilus influenz ae type b vaccine, conjugate unspecified formulation [facility] Work Phone: 1998 diphtheria, tetanus toxoids and acellular pertussis vaccine [facility] Work Phone: 1998 haemophilus influenz ae type b vaccine, conjugate unspecified formulation [facility] Work Phone: 1998 poliovirus vaccine, inactivated [facility] Work Phone: 1998 diphtheria, tetanus toxoids and acellular pertussis vaccine [facility] Work Phone: 1998 haemophilus influenz ae type b vaccine, conjugate unspecified formulation [facility] Work Phone: 1998 hepatitis B vaccine, pediatric or pediatric/adolescent dosage [facility] Work Phone: 1998 poliovirus vaccine, inactivated [facility] Work Phone: 1998 hepatitis B vaccine, pediatric or pediatric/adolescent dosage [facility] Work Phone: Payers Date Payer Category Payer Unknown [id number] 2025 Medicaid [place]ICA[place] [id number] 2024 Unknown [id number] 2024 Self-pay [id number] 2024 Self-pay [id number] 2023 Blue Cross Blue Shield [id number] 2023 Unknown [id number] 2022 Unknown [id number] 2022 Unknown [id number] 2018 Unknown ZEFERINO MCCURDY [facility] xxxxxxxxxxx 2018-Present xxxxxxxxxxx [id number] 2018 Unknown [id number] 1998 Unknown [id number] 1998 Unknown [id number] 1998 Unknown [id number] Unknown [id number] Unknown [id number] Unknown [id number] Unknown [id number] Unknown [id number] Social History Date Type Detail Facility Start: 08-19-2018 End: 06-12-2022 Tobacco smoking status NHIS Never smoker [facility] Sex Assigned At Not on file [facility] Work Phone: Start: 04-01-2019 End: 06-12-2022 Tobacco use and exposure Smokeless tobacco non-user [facility] Start: 08-27-2021 End: 12-27-2024 Alcohol intake Ex-drinker (finding) [facility] Start: 08-27-2021 End: 07-23-2022 History SDOH Alcohol Frequency 3 [facility] Start: 08-27-2021 End: 07-23-2022 History SDOH Alcohol Std Drinks 1 [facility] Start: 08-27-2021 End: 07-23-2022 History SDOH Social Connections Phone 2 [facility] Start: 08-27-2021 History SDOH Physica l Activity DPW 0 [facility] Start: 08-27-2021 End: 07-23-2022 History SDOH Financial 5 [facility] Start: 1998 Sex Assigned At Female C [facility] Start: 06-02-2022 End: 06-12-2022 Exposure to SARS-CoV-2 (event) Not sure [facility] Start: 07-23-2022 History SDOH Social Connections [employer]ational 98 [facility] Tobacco smoking status No Smokin g Status Entered [facility] Start: 05-20-2022 End: 07-01-2023 Tobacco smoking status NHIS Unknown if ever smoked [facility] Start: 04-26-2020 Spouse/ Signif icant Other [facility] Start: 07-22-2022 End: 07-15-2023 History of Social function [facility] Start: 07-22-2022 End: 07-15-2023 Social connection and isolation panel [facility] Start: 04-01-2019 How often do you att end jew or bahai services? Patient refused [facility] Do you belong to any clubs or organizations such as jew groups, unions, fraternal or athletic groups, or school groups? No [facility] Are you now , , , , never or living with a partner? [facility] How often to you hav e a drink containing alcohol? Monthly or less [facility] How many standard drinks containing alcohol do you have on a typical day? 1 or 2 [facility] How often do you hav e 6 or more drinks on 1 occasion? Never [facility] Do you feel stress - tense, restless, nervous, or anxious, or unable to sleep at night because your mind is troubled all the time - these days [OSQ] Not at all [facility] (I/We) worried wheth er (my/our) food would run out before (I/we) got money to buy more. Never true [facility] Start: 04-23-2021 Gender identity Identifies as female gender (finding) [facility] Start: 04-23-2021 Sexual orientation Heterosexual (fin ding) [facility] How often to you hav e a drink containing alcohol? 2-4 times a month [facility] Do you feel stress - tense, restless, nervous, or anxious, or unable to sleep at night because your mind is troubled all the time - these days [OSQ] Only a little [facility] NEGATED: Highlighted row [facility] Medical Equipment Procedure Code Equipment Code Equipment Origin al Text Equipment Identifier Dates Start: 09-17-2024 Functional Status Date Assessment Result Facility 09-18-2022 Functional Status Independent [facility] Mental Status Date Assessment Result Facility 09-18-2022 Mental Status Orientation Oriented x 4 [facility] Clinical Notes 05-14-2022 to 05-16-2025 Telephone Encounter - Negar Miguel RN - 04/20/2025 3:16 PM EDTTelephone Encounter - Negar Miguel RN - 04/20/2025 3:16 PM EDTTelephone Encounter - Juan Paredes RN - 04/19/2025 8:07 AM EDT Note Date & Type Note Facility 05-16-2025 Note HNO ID: [id number] Author: CHRISTINE PAULINO APRN.TERMINAL MAKEUP OPERATOR Service: ? 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 INITIAL OB ASSESSMENT HPI: Alicia is a [...] all that apply)? 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 Negar Miguel RN [facility] 04-20-2025 Miscellaneous Notes Patient notified. Negar [...] Magaly Epps RN documented in this encounter [facility] 04-20-2025 Telephone encounter Note Agree with plan of care. Keep well hydrated so that she does not get dehydrated. Maryann Champion APRN.CNM [facility] Work Phone: 04-20-2025 Telephone encounter Note [...] her symptoms. Please advise. Magaly Epps RN [facility] 04-19-2025 Telephone encounter Note LMP 03/07/25 [...] office. Pt voiced understanding. Juan Paredes RN [facility] 04-19-2025 Miscellaneous Notes LMP 03/07/25 + [...] encounter [facility] 02-14-2025 Note HNO ID: [id number] Author: MAGALY TOVAR MD Service: ? Author Type: Physician Type: Progress Notes Filed: 02/14/2025 15:54 Note Text: Health Care Coach offered: Patient declines. Alicia Mullins is a 25 year old female who presents for problem visit . HPI: Labia cyst. Started on . Started on keflex by PCP. Started draining a few days ago. Still hurts. 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 As applicable, any other physician, advance practice provider, medical student, or other health professional student that will be observing or involved in the sensitive examination for educational or training purposes was discussed with the Patient or Authorized Director Of Planning. The Patient or Authorized Director Of Planning has agreed to proceed with the sensitive [...] external genitalia normal, normal Bartholin's glands, urethra, Dows's glands, no vulvar lesions, no cervical lesions, good vaginal support, physiologic discharge present, normal appearing perineal body and perianal region, Small cyst draining on inner left labia. Expressed for a small amount of purulent fluid BIMANUAL: deferred NEURO: alert and oriented x3,exam grossly non-focal EXTREMITIES: normal ASSESSMENT AND PLAN: Assessment AND Plan Labial cyst Continue kelfex. Sitz bath ok Magaly Tovar MD [facility] 02-14-2025 History of Present illness Narrative Health Care Coach offered: Patient declines. Alicia Mullins is a 25 year old female who presents for problem visit . HPI: Labia cyst. Started on . Started on keflex by PCP. Started draining a few days ago. Still hurts. 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 As applicable, any other physician, advance practice provider, medical student, or other health professional student that will be observing or involved in the sensitive examination for educational or training purposes was discussed with the Patient or Authorized Director Of Planning. The Patient or Authorized Director Of Planning has agreed to proceed with the sensitive [...] external genitalia normal, normal Bartholin's glands, urethra, Dows's glands, no vulvar lesions, no cervical lesions, [...] Magaly Tovar MD documented in this encounter [facility] 12-24-2024 Note HNO ID: [id number] Author: SARI ROQUE MD Service: ? Author Type: Physician Type: Progress Notes Filed: 12/26/2024 09:38 Note Text: The patient presents for requested ultrasound. Full report available in the Imaging tab in [employer]. Sari Roque MD [facility] 12-24-2024 History of Present illness Narrative The patient presents for requested ultrasound. Full report available in the Imaging tab in Epic. Sari Roque MD documented in this encounter [facility] 12-17-2024 Telephone encounter Note Images from the original note were not included. Received the following message: Called plan and spoke to Arielle, who states a prior authorization is needed. Answered clinical questions verbally. Faxed clinical notes and lab results to [place] [facility] [employer] [phone] Transmitted successfully. Was advised we could receive a determination in 5 calendar days. NICOLE MEJIA Linoleum Tile Floor Layer Endocrinology & Metabolism [facility] X-20 [facility] 12-17-2024 Miscellaneous Notes Images from the original note were not included. Received the following message: Called plan and spoke to Arielle, who states a prior authorization is needed. Answered clinical questions verbally. Faxed clinical notes and lab results to [place] [facility] [employer] [phone] Transmitted successfully. Was advised we could receive a determination in 5 calendar days. NICOLE MEJIA Linoleum Tile Floor Layer Endocrinology & Metabolism [facility] X-20 Images from the original note were not included. Initiated PA for tirzepatide (MOUNJARO) 5 mg/0.5 mL pen injector through [facility] via [employer] Questions Completed Waiting for determination NICOLE MEJIA Linoleum Tile Floor Layer II Endocrinology & Metabolism [facility] X-20 documented in this encounter [facility] 12-17-2024 Telephone encounter Note Images from the original note were not included. Initiated PA for tirzepatide (MOUNJARO) 5 mg/0.5 mL pen injector through [facility] via [employer] Questions Completed Waiting for determination NICOLE MEJIA Linoleum Tile Floor Layer II Endocrinology & Metabolism [facility] X-20 [facility] 12-17-2024 Telephone encounter Note Sent patient request to [facility] shanice. Stephenie Christie MA [facility] 12-17-2024 Miscellaneous Notes Sent patient request to KRISTY prasad. Stephenie Christie MA documented in this encounter [facility] 11-10-2024 History of Present illness Narrative [...] PATIENT PRESENTS WITH AN IMPLANTABLE OR ATTACHED DIXONAC OPERATOR: No RADIOLOGY DEPARTMENT: Mammography PERIPHERAL IV DATA: Not applicable SIGNED BY: RT Debra(R) November 10, 2024 11:08 AM documented in this encounter [facility] 11-10-2024 Note HNO ID: [id number] Author: KARON LEMUS RT(Gal) Service: ? Author [...] PATIENT PRESENTS WITH AN IMPLANTABLE OR ATTACHED DIXONAC OPERATOR: No RADIOLOGY DEPARTMENT: Mammography PERIPHERAL IV DATA: Not applicable SIGNED BY: RT Debra(R) November 10, 2024 11:08 AM [facility] 10-15-2024 Telephone encounter Note Phoned patient as requested Left voicemail for patient to return call. 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 Mounjaro is a tool to [...] phone pharmacy and notify patient. Nina Phillips APRN.TERMINAL MAKEUP OPERATOR [facility] 10-13-2024 Telephone encounter Note EPA submitted through [employer] for pts Mounjaro 2.5mg/0.5 ml. Attached TAJ notes/pertinent labs. Awaiting payor response. [facility] 10-13-2024 Miscellaneous Notes EPA submitted through [email or web address] for pts Mounjaro 2.5mg/0.5 ml. Attached TAJ notes/pertinent labs. Awaiting payor response. documented in this encounter [facility] 10-13-2024 History of Present illness Narrative [...] is trying to go toward and saw ASSISTANT BRANCH OPERATIONS MANAGER for labs She does have a [...] complication, without long-term current use of insulin ([facility]) (primary encounter diagnosis) Comment: Patient is on METFORMIN 500 BID Will start GLP1 to assist with DM2 control and weight loss Patient is planning is trying to achieve optimum physical condition prior to Consult to DM ED Consult to ENDO RADIOLOGY ORDERLY Recommended diet: Low carbohydrate and Low saturated [...] Nina Phillips CNP documented in this encounter [facility] 10-13-2024 Note HNO ID: [id number] Author: NINA PHILLIPS APRN.CNP Service: ? Author [...] is trying to go toward and saw ASSISTANT BRANCH OPERATIONS MANAGER for labs She does have a [...] appearing, alert, i (more content not included)... [facility] 09-16-2024 Telephone encounter Note The prescription printed. Do you have it back at your desk to sign? Magaly Epps RN [facility] 09-16-2024 Miscellaneous Notes The prescription printed. Do you have it back at your desk to sign? Magaly Epps RN documented in this encounter [facility] 09-15-2024 Instructions Tashi Colon APRN.TERMINAL MAKEUP OPERATOR - 09/15/2024 7:29 AM EST Calcium and [...] salmon and sardines and vegetables, such as Vietnamese cabbage, kale, and broccoli. Foods fortified with [...] acid, calcium carbonate is found in some nqjx-rlb-imnowsh antacid products, such as Tums and Rolaids [...] by your doctor. documented in this encounter [facility] 09-15-2024 Note HNO ID: [id number] Author: TASHI COLON APRN.GINA Service: ? Author Type: Nurse Practitioner Type: Progress Notes Filed: 09/15/2024 07:49 Note Text: Alicia is a 24 year old who presents for an annual gynecologic exam with complaints, irregular bleeding. Bleeding is inconsistent/irregular. Trying to become . Has been trying for a year. Has had ultrasound at [facility] in the past. 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 As applicable, any other physician, advance practice provider, medical student, or other health professional student that will be observing or involved in the sensitive examination for educational or training purposes was discussed with the Patient or Authorized Director Of Planning. The Patient or Authorized Director Of Planning has agreed to proceed with the sensitive [...] external genitalia normal, normal Bartholin's glands, urethra, Dows's glands, no vulvar lesions, no cervical lesions, [...] Reports tenderness throughout - Had imaging at [facility] in 2022 - reviewed - Nipple is consistent with eczema - Recommend up to date imaging as this issue has persisted Tashi Colon, BANK AND SAVINGS SECURITIES TRADER.TERMINAL MAKEUP OPERATOR Medical Decision Making: Problems: Moderate: 2+ stable chronic illnesses Data: Unique test result(s) reviewed: 2 Unique test(s) ordered: 3+ Risk: Min (more content not included)... [facility] 09-15-2024 History of Present illness Narrative Alicia is a 24 year old who presents for an annual gynecologic exam with complaints, irregular bleeding. Bleeding is inconsistent/irregular. Trying to become . Has been trying for a year. Has had ultrasound at [facility] in the past. 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 As applicable, any other physician, advance practice provider, medical student, or other health professional student that will be observing or involved in the sensitive examination for educational or training purposes was discussed with the Patient or Authorized Director Of Planning. The Patient or Authorized Director Of Planning has agreed to proceed with the sensitive [...] external genitalia normal, normal Bartholin's glands, urethra, Dows's glands, no vulvar lesions, no cervical lesions, [...] Reports tenderness throughout - Had imaging at [facility] in 2022 - reviewed - Nipple is consistent with eczema - Recommend up to date imaging as this issue has persisted Tashi Colon APRN.CNP Medical Decision Making: Problems: Moderate: 2+ stable chronic illnesses Data: Unique test result(s) reviewed: 2 Unique test(s) ordered: 3+ Risk: Minimal: Minimal risk from testing/treatment Medical Decision Making Level: 4 - Moderate documented in this encounter [facility] 05-31-2024 Note HNO ID: [id number] Author: JACK AGUILAR PA-C Service: ? Author Type: Physician Lawyers Type: Progress Notes Filed: 05/31/2024 08:56 Note Text: This note was created using ClassBugter. Subjective Alicia Mullins is a 24 year [...] known COVID exposure. She tried some ibuprofen lubm-oal-tgscuid. Review of Systems Constitutional: Negative. HENT: Positive [...] symptoms persist or worsen. Jack Aguilar PA-C [facility] 05-31-2024 History of Present illness Narrative [...] known COVID exposure. She tried some ibuprofen qhhk-oga-dbqdxcv. Review of Systems Constitutional: Negative. HENT: Positive [...] Jack Aguilar PA-C documented in this encounter [facility] 01-20-2024 Telephone encounter Note She is welcome to schedule a visit to discuss. However, no evaluation needed until as been attempting for 1 year. Payam Figueroa MD [facility] 01-20-2024 Miscellaneous Notes She is welcome to schedule a visit to discuss. However, no evaluation needed until as been attempting for 1 year. Payam Figueroa MD documented in this encounter [facility] 07-15-2023 History of Present illness Narrative [...] L0 SAB0 IAB0 Ectopic0 Multiple0 Live Births0 City Superintendent History LMP: 05/19/2023 (Approximate), Having periods Age at Menarche: Age at First : Age at Menopause: City Superintendent History Comments: Sexual Activity: Yes; Male Contraception: [...] external genitalia normal, normal Bartholin's glands, urethra, Dows's glands, no vulvar lesions, no cervical lesions [...] negative vaginal infection testing Pelvic US at [facility] negative Follow up for possible cervical biopsy after pap results 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 Shira Sauceda LPN Please inform patient that her results have returned and are negative. Gonorrhea and chlamydia are negative BV negative Joana and trich negative HSV and herpes negative. Please advise patient. documented in this encounter [facility] 09-18-2022 Hospital Discharge instructions Patient Education [...] products Chemicals or dyes in clothing, linen, joint setter, hair dyes, soaps, iodine Many viruses and [...] damage the skin. Oral diphenhydramine is an kisu-sbq-ujkrsix antihistamine sold at pharmacy and grocery stores. [...] hours, or as directed by your provider [phone] The [employer]. [address] [place] [address]. All rights reserved. This information is not intended as a substitute for professional medical care. Always follow your healthcare professional's instructions. Follow Up Care 09/18/2022 13:22:03 With:BRIONNA BUI APRN.CNP Address: [address] [place] [phone] When:2-4 days [facility] 09-18-2022 Note Discharge Instructions Thank you for allowing [place] to assist you with your healthcare needs. [...] BUI APRN.CNP When Within 2-4 days Where: [address] [place] [phone] Allergies Bactrim Medications Please ask your primary [...] products Chemicals or dyes in clothing, linen, joint setter, hair dyes, soaps, iodine Many viruses and [...] damage the skin. Oral diphenhydramine is an lbun-zbk-lmsafsc antihistamine sold at pharmacy and grocery stores. [...] hours, or as directed by your provider [phone] [employer]. [address] [place] [address], [place] [address]. All rights reserved. This information is not intended as a substitute for professional medical care. Always follow your healthcare professional's instructions. Additional Information VACCINATE! IT SAVES LIVES! Members of the community who have not yet received the COVID-19 vaccine and would like to receive it can visit one of [facility] vaccine clinics. There are many vaccine clinic locations within the [facility]. For locations and available times, please visit [email or web address]. It is important to note that some COVID mobile vaccine clinics are held outdoors and may be canceled in rainy or stormy conditions. To learn more about pediatric vaccinations (ages 5-11), we invite you to visit the [facility] webpage. [email or web address]/pag [email or web address] zi-[email or web address]-[email or web address].[email or web address] To learn more about the COVID-19 vaccine, we invite you to visit the [place] website for a list of frequently asked questions. [email or web address] ently_[email or web address]-Questions.pdf [facility] Patient Portal Access Instructions: Stay connected with your healthcare team and access your personal medical information anytime with the [facility] Patient Portal. If you would like a full copy of your medical records please contact the [facility] Medical Records Department Friday through Friday between 8a.m. and 4:30p.m. Please follow the directions below to access the portal: 1.Access the email account you provided upon registration to the hospital.2.Look for an invitation email from [facility].3.Open the email and access the invitation link: Accept Invitation to [facility]4.Fill in the required em to create your account. Sign into [email or web address] with your username and password that you [...] you will allow to register on the [facility] Patient Portal for access to your information. You can also access the [facility] Patient Portal on the [employer] shruti. Simply click on Health Records under Health Data and then click on the [employer] logo. HOW TO SAFELY DISPOSE OF PRESCRIPTION [...] Call your local pharmacy or go to [email or web address] to find one close to you.3.Make use of household items: Use cat litter or old coffee grounds to dispose medications if other options are not available. Mix your drugs with these household products, seal them in an airtight container and throw it into the garbage. Call [facility]: [phone] to be sure your drugs can be [...] aware that I should contact my doctor. Patient/Director Of Planning Signature: Date/Time: Relationship to Patient: ___ Witness Name/Signature: Date/Time: [facility] 08-07-2022 Miscellaneous Notes left detailed message of normal labs. Aubree Dominguez LPN Please call patient and let her know her blood work is in acceptable ranges. Brionna Bui APRN.GINA documented in this encounter [facility] 08-06-2022 History of Present illness Narrative [...] which included preparing to see the patient, ezwt-ki-ybth patient care, completing clinical documentation, obtaining and/or reviewing separately obtained history, performing a medically appropriate examination, counseling and educating the patient/family/caregiver, and ordering medications, tests, or procedures. documented in this encounter [facility] 07-23-2022 History of Present illness Narrative [...] which included preparing to see the patient, mjan-yo-nmxp patient care, completing clinical documentation, obtaining and/or reviewing separately obtained history, performing a medically appropriate examination, counseling and educating the patient/family/caregiver, and ordering medications, tests, or procedures. documented in this encounter [facility] 06-25-2022 History of Present illness Narrative [...] which included preparing to see the patient, ummx-tr-bwlb patient care, completing clinical documentation, obtaining and/or reviewing separately obtained history, performing a medically appropriate examination, counseling and educating the patient/family/caregiver, and ordering medications, tests, or procedures. documented in this encounter [facility] 06-12-2022 History of Present illness Narrative [...] 2022 11:31 AM documented in this encounter [facility] 05-14-2022 History of Present illness Narrative [...] calories and exercise as well. Brionna Podlogar, BANK AND SAVINGS SECURITIES TRADER.TERMINAL MAKEUP OPERATOR Prescription instructions reviewed with patient as applicable. [...] which included preparing to see the patient, ccfj-ub-izch patient care, completing clinical documentation, obtaining and/or reviewing separately obtained history, performing a medically appropriate examination, counseling and educating the patient/family/caregiver, and ordering medications, tests, or procedures. documented in this encounter [facility] Evaluation + Plan note No data available for this section [facility] Evaluation note Diagnosis Hypertension, unspecified type- Primary Encounter for immunization Need for other specified prophylactic vaccination against single bacterial disease Screening for cholesterol level Screening for lipoid disorders Obesity, Class II, BMI 35-39.9 Obesity, unspecified [facility] Diagnosis Hypertension, unspecified type- Primary Skin eruption Rash and other nonspecific skin eruption [facility] Diagnosis Hypertension, unspecified type [facility] Diagnosis Hypertension, unspecified type documented in this encounter [facility] noteNo assessment [facility] Work Phone: Evaluation note* Diagnosis Onset Date Resolution Status Ethmoid sinusitis acute [facility] Work Phone: Evaogation note* Diagnosis Pelvic pain- Primary Cervical lesion Unspecified noninflammatory disorder of cervix Encounter for screening for malignant neoplasm of cervix Screening for malignant neoplasm of the cervix Friable cervix Other specified noninflammatory disorder of cervix [facility] Diagnosis Acute non-recurrent maxillary sinusitis- Primary [facility]* Diagnosis Encounter for gynecological examination with abnormal finding- Primary Routine gynecological examination Irregular menstrual cycle Essential hypertension Unspecified essential hypertension Breast pain Mastodynia [facility]* Diagnosis Elevated fasting glucose- Primary Impaired fasting glucose [facility]* Diagnosis Vitamin D deficiency- Primary Unspecified vitamin D deficiency [facility] Diagnosis Controlled type 2 diabetes mellitus without complication, without long-term current use of insulin (HCC)- Primary Elevated fasting glucose Impaired fasting glucose Diabetes mellitus treated with injections of non-insulin medication (HCC) TSH elevation Nonspecific abnormal results of thyroid function study [facility] Diagnosis 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 [facility]* Diagnosis Breast pain Mastodynia [facility]* Diagnosis Breast pain Mastodynia [facility] Diagnosis Irregular menstrual cycle- Primary Polycystic ovaries [facility] this encounter [facility] Diagnosis Labial cyst- Primary Other specified noninflammatory disorder of vulva and perineum [facility] Additional Instructions Your test is negative and your transvaginal ultrasound showed no abnormalities. I am not sure what is causing her pelvic pain recommend Tylenol and ibuprofen and follow- up with SCALPING MACHINE OPERATOR.[facility] Work Phone: Reason for referral (narrative)* Diagnostic Procedure Only (Routine) - Authorized Specialty Diagnoses / Procedures Referred By Yuli stevens Referred To Contact [facility] Diagnoses Breast pain Procedures KIMBERLY DIAGNOSTIC LEFT DIAGNOSTIC MAMMOGRAPHY COMPUTER-AIDED DETCJ UNI Tashi Colon APRN.CNP [address] [place] [address] [facility] [address] [place] [address] Referral ID Status Reason Start Date Expiration Date Visits Requested Visits Authorized [id number] Authorized Auto-Generat ed Referral 09/15/2024 10/15/2025 1 1 * Diagnostic Procedure Only (Routine) - Authorized Specialty Diagnoses / Procedures Referred By Yuli stevens Referred To Contact [facility] Diagnoses Breast pain Procedures US BREAST LTD LEFT US BREAST UNI REAL TIME WITH IMAGE LIMITED Tashi Colon APRN.CNP [address] [place] [address] [facility] [address] [place] [address] Referral ID Status Reason Start Date Expiration Date Visits Requested Visits Authorized [id number] Authorized Auto-Generat ed Referral 09/15/2024 10/15/2025 1 1 * Diagnostic Procedure Only (Routine) - Open Specialty Diagnoses / Procedures Referred By Contac t Referred To Contact [facility] Diagnoses Irregular menstrual cycle Procedures PELVIC US WHI US PELVIC NONOBSTETRIC REAL-TIME IMAGE COMPLETE Tashi Colon APRN.CNP [address] [place] [address] [facility] [address] [place] [address] Referral ID Status Reason Start Date Expiration Date V isits Requested Visits Authorized [id number] Open Auto-Generate d Referral 09/15/2024 09/15/2025 1 1 [facility])No reason for referral information availableWReg[facility] Work Phone: Reason for visit Narrative* Diagnostic Procedure Only (Routine) - Closed Specialty Diagnoses / Procedures Referred By Contac t Referred To Contact [facility] Diagnoses Breast pain Procedures KIMBERLY DIAGNOSTIC LEFT DIAGNOSTIC MAMMOGRAPHY COMPUTER-AIDED DETCJ UNI Tashi Colon APRN.CNP [address] [place] [address] Phone: tel: fax: [facility] [address] [place] [address] Referral ID Status Reason Start Date Expiration Date V isits Requested Visits Authorized [id number] Closed Auto-Generate d Referral 09/15/2024 10/15/2025 1 1 [facility] for visit Narrative* Diagnostic Procedure Only (Routine) - Authorized Specialty Diagnoses / Procedures Referred By Contac t Referred To Contact [facility] Diagnoses Breast pain Procedures US BREAST LTD LEFT US BREAST UNI REAL TIME WITH IMAGE LIMITED Tashi Colon APRN.CNP [address] [place] [address] Phone: tel: fax:5 [facility] [address] [place] [address] Referral ID Status Reason Start Date Expiration Date Visits Requested Visits Authorized [id number] Authorized Auto-Generat ed Referral 09/15/2024 10/15/2025 1 1 [facility]* Diagnostic Procedure Only (Routine) - Closed Specialty Diagnoses / Procedures Referred By Contac t Referred To Contact [facility] Diagnoses Irregular menstrual cycle Procedures PELVIC US WHI US PELVIC NONOBSTETRIC REAL-TIME IMAGE COMPLETE Tashi Colon APRN.TERMINAL MAKEUP OPERATOR [address] [place] [address] Phone: tel: fax:5 [facility] [address] [place] [address] Referral ID Status Reason Start Date Expiration Date V isits Requested Visits Authorized [id number] Closed Auto-Generate d Referral 09/16/2024 08/10/2025 1 1 [facility] Reason for Referral Status Reason Specialty Diagnoses / Procedures Referred By Contact Referred To Contact New Request Diagnoses Nodule of right lung Procedures CT CHEST WITHOUT CONTRAST VT CT SCAN,THORAX,W/O CONTRAST Margaret Morales [employer] TRADER-TERMINAL MAKEUP OPERATOR [address] [place] [address] Status Reason Specialty Diagnoses / Procedures Referred By Contact Referred To Contact New Request Diagnoses Nodule of right lung Procedures CT CHEST WITHOUT CONTRAST VT CT SCAN,THORAX,W/O CONTRAST Margaret Morales [employer] TRADER-TERMINAL MAKEUP OPERATOR [address] [address] Specialty Diagnoses / Procedures Referred By Contac t Referred To Contact Endocrinology Diagnoses Elevated fasting glucose Procedures CONSULT TO ENDOCRINOLOGY OFFICE/OUTPATIENT NEW HIGH MDM 60 MINUTES Tashi Colon APRN.TERMINAL MAKEUP OPERATOR [address] [place] [address] Referral ID Status Reason Start Date Expiration Date Visits Requested Visits Authorized [id number] Authorized PCP Requested Referral 09/15/2024 09/15/2025 1 1 History of Present Illness * Margaret Morales, [employer] TRADER-TERMINAL MAKEUP OPERATOR - 08/19/2018 8:30 AM EST Formatting of [...] last year. She is in college in [place] and will need to have CT done [...] No April 26, 2020 6:18pm Power of Credit Counselor No April 6:18pm Advance Directive Response Recorded Date/ Time Living Will No October 09, 2022 9:44am Power of Credit Counselor No October 09 9:44am Advance Directive Response Recorded Date/ Time Living Will No October 09, 2022 8:44am Power of Credit Counselor No October 09 8:44am Advance Directive Response Recorded Date/ Time Living Will No July 01, 023 7:06pm Power of Credit Counselor No July 01, 2023 7:06pm Chief Complaint [...] NEW HIGH MDM 60 MINUTES Tashi Colon, PRACHI.TERMINAL MAKEUP OPERATOR [address] [place] [address] Phone: tel: fax: Referral ID Status Reason Start Date Expiration Date V isits Requested Visits Authorized [id number] Closed PCP Requested Referral 09/15/2024 09/15/2025 1 1 Reason Comments EPA/EPic/Mounjaro 2.5 mg/0.5 ml Reason Comments Insurance Authorization tirzepatide (NATHAN NJARO) 5 mg/0.5 mL pen injector [[facility]] Reason Comments Vaginal Problem Reason Comments new OB Reason Comments Early OB Diarrhea INFORMATION SOURCE (unrecogn ized section and content) DATE CREATED AUTHOR 09/30/2018 Darryl issa DATE CREATED AUTHOR AUTHOR'S ORGANIZ ATION 01/17/2019 [facility] DATE CREATED AUTHOR AUTHOR'S ORGANIZ ATION 01/22/2019 [facility] DATE CREATED AUTHOR AUTHOR'S ORGANIZ ATION 09/19/2022 [facility]) DATE CREATED AUTHOR AUTHOR'S ORGANIZ ATION 01/27/2025 [facility] DATE CREATED AUTHOR AUTHOR'S ORGANIZ ATION 05/20/2025 [facility] Source Comments (unrecognize d section and content) In the event this informatio n is protected by the Federal Confidentiality of Alcohol and Drug Abuse Patient Records regulations: The Federal rules restrict any use of the information to criminally investigate or prosecute any alcohol or drug abuse patient.[facility] HospitalIn the event this information is protected by the Federal Confidentiality of Alcohol and Drug Abuse Patient Records regulations: The Federal rules restrict any use of the information to criminally investigate or prosecute any alcohol or drug abuse patient.[facility] HospitalIn the event this information is protected by the Federal Confidentiality of Alcohol and Drug Abuse Patient Records regulations: The Federal rules restrict any use of the information to criminally investigate or prosecute any alcohol or drug abuse patient.[facility] HospitalIn the event this information is protected by the Federal Confidentiality of Alcohol and Drug Abuse Patient Records regulations: The Federal rules restrict any use of the information to criminally investigate or prosecute any alcohol or drug abuse patient.[facility] HospitalIn the event this information is protected by the Federal Confidentiality of Alcohol and Drug Abuse Patient Records regulations: The Federal rules restrict any use of the information to criminally investigate or prosecute any alcohol or drug abuse patient.[facility] HospitalIn the event this information is protected by the Federal Confidentiality of Alcohol and Drug Abuse Patient Records regulations: The Federal rules restrict any use of the information to criminally investigate or prosecute any alcohol or drug abuse patient.[facility] HospitalIn the event this information is protected by the Federal Confidentiality of Alcohol and Drug Abuse Patient Records regulations: The Federal rules restrict any use of the information to criminally investigate or prosecute any alcohol or drug abuse patient.[facility] HospitalIn the event this information is protected by the Federal Confidentiality of Alcohol and Drug Abuse Patient Records regulations: The Federal rules restrict any use of the information to criminally investigate or prosecute any alcohol or drug abuse patient.[facility] HospitalIn the event this information is protected by the Federal Confidentiality of Alcohol and Drug Abuse Patient Records regulations: The Federal rules restrict any use of the information to criminally investigate or prosecute any alcohol or drug abuse patient.[facility] HospitalIn the event this information is protected by the Federal Confidentiality of Alcohol and Drug Abuse Patient Records regulations: The Federal rules restrict any use of the information to criminally investigate or prosecute any alcohol or drug abuse patient.[facility] HospitalIn the event this information is protected by the Federal Confidentiality of Alcohol and Drug Abuse Patient Records regulations: The Federal rules restrict any use of the information to criminally investigate or prosecute any alcohol or drug abuse patient.[facility] HospitalIn the event this information is protected by the Federal Confidentiality of Alcohol and Drug Abuse Patient Records regulations: The Federal rules restrict any use of the information to criminally investigate or prosecute any alcohol or drug abuse patient.[facility] HospitalIn the event this information is protected by the Federal Confidentiality of Alcohol and Drug Abuse Patient Records regulations: The Federal rules restrict any use of the information to criminally investigate or prosecute any alcohol or drug abuse patient.[facility] HospitalIn the event this information is protected by the Federal Confidentiality of Alcohol and Drug Abuse Patient Records regulations: The Federal rules restrict any use of the information to criminally investigate or prosecute any alcohol or drug abuse patient.[facility] HospitalIn the event this information is protected by the Federal Confidentiality of Alcohol and Drug Abuse Patient Records regulations: The Federal rules restrict any use of the information to criminally investigate or prosecute any alcohol or drug abuse patient.[facility] HospitalIn the event this information is protected by the Federal Confidentiality of Alcohol and Drug Abuse Patient Records regulations: The Federal rules restrict any use of the information to criminally investigate or prosecute any alcohol or drug abuse patient.[facility] HospitalIn the event this information is protected by the Federal Confidentiality of Alcohol and Drug Abuse Patient Records regulations: The Federal rules restrict any use of the information to criminally investigate or prosecute any alcohol or drug abuse patient.[facility] HospitalIn the event this information is protected by the Federal Confidentiality of Alcohol and Drug Abuse Patient Records regulations: The Federal rules restrict any use of the information to criminally investigate or prosecute any alcohol or drug abuse patient.[facility] HospitalIn the event this information is protected by the Federal Confidentiality of Alcohol and Drug Abuse Patient Records regulations: The Federal rules restrict any use of the information to criminally investigate or prosecute any alcohol or drug abuse patient.[facility] HospitalIn the event this information is protected by the Federal Confidentiality of Alcohol and Drug Abuse Patient Records regulations: The Federal rules restrict any use of the information to criminally investigate or prosecute any alcohol or drug abuse patient.[facility] HospitalIn the event this information is protected by the Federal Confidentiality of Alcohol and Drug Abuse Patient Records regulations: The Federal rules restrict any use of the information to criminally investigate or prosecute any alcohol or drug abuse patient.[facility] HospitalIn the event this information is protected by the Federal Confidentiality of Alcohol and Drug Abuse Patient Records regulations: The Federal rules restrict any use of the information to criminally investigate or prosecute any alcohol or drug abuse patient.[facility] HospitalIn the event this information is protected by the Federal Confidentiality of Alcohol and Drug Abuse Patient Records regulations: The Federal rules restrict any use of the information to criminally investigate or prosecute any alcohol or drug abuse patient.[facility] HospitalIn the event this information is protected by the Federal Confidentiality of Alcohol and Drug Abuse Patient Records regulations: The Federal rules restrict any use of the information to criminally investigate or prosecute any alcohol or drug abuse patient.[facility] HospitalIn the event this information is protected by the Federal Confidentiality of Alcohol and Drug Abuse Patient Records regulations: The Federal rules restrict any use of the information to criminally investigate or prosecute any alcohol or drug abuse patient.[facility] HospitalIn the event this information is protected by the Federal Confidentiality of Alcohol and Drug Abuse Patient Records regulations: The Federal rules restrict any use of the information to criminally investigate or prosecute any alcohol or drug abuse patient.[facility] HospitalIn the event this information is protected by the Federal Confidentiality of Alcohol and Drug Abuse Patient Records regulations: The Federal rules restrict any use of the information to criminally investigate or prosecute any alcohol or drug abuse patient.[facility] Care Teams (unrecognized sec tion and [...] MD Attending Provider, Referring P rovider Active Time Motion Analyst Relationship Specialty Start Date End Date Alessandro Jeronimo MD [address] [place], [place] [address] PCP - General Family Medicine 11/14/20 Time Motion Analyst Relationship Specialty Start Date End Date Alessandro Jeronimo MD [address] [place], [place] [address] PCP - General Family Medicine 11/14/20 Time Motion Analyst Relationship Specialty Start Date End Date Alessandro Jeronimo MD [address] [place] [address] PCP - General Family Medicine 11/14/20 Time Motion Analyst Relationship Specialty Start Date End Date Alessandro Jeronimo MD [address] [place] [address] PCP - General Family Medicine 11/14/20 Team Status: Active Member Role Status Dates Brionna Podlogar FOOT TENDER, FOOT TENDER-C Primary Care Provider Active Team Status: Inactive Member Role Status Dates Dr. Dipika Padgett , Attending Provider, Referrin g Provider Active Brionna Carreralogar FOOT TENDER, FOOT TENDER-C Primary Care Provider Active Team Status: Inactive Member Role Status Dates Brionna Podlogar FOOT TENDER, FOOT TENDER-C Primary Care Provider, Referri ng Provider Active Chandrakant Castellon FOOT TENDER, FOOT TENDER-C Attending Provider Active Team Status: Inactive Member Role Status Dates Brionna Podlogar FOOT TENDER, FOOT TENDER-C Primary Care Provider Active Jossy Au DO Attending Provider Active Time Motion Analyst Relationship Specialty Start Date End Date Alessandro Jeronimo MD [address] [place], [place] [address] PCP - General Family Medicine 11/14/20 Time Motion Analyst Relationship Specialty Start Date End Date Alessandro Jeronimo MD [address] [place] [address] PCP - General Family Medicine 11/14/20 Time Motion Analyst Relationship Specialty Start Date End Date Alessandro Jeronimo MD [address] [place] [address] PCP - General Family Medicine 11/14/20 Time Motion Analyst Relationship Specialty Start Date End Date Jossy Au DO [address] [address] PCP - General Family Medicine 05/31/24 Time Motion Analyst Relationship Specialty Start Date End Date Jossy Au DO PCP - General Family Medicine 05/31/24 Time Motion Analyst Relationship Specialty Start Date End Date Jossy Au DO PCP - General Family Medicine 05/31/24 Time Motion Analyst Relationship Specialty Start Date End Date Jossy Au PCP - General Family Medicine 05/31/24 Time Motion Analyst Relationship Specialty Start Date End Date Jossy Au PCP - General Family Medicine 05/31/24 Time Motion Analyst Relationship Specialty Start Date End Date Roe Jossy RubaDO PCP - General Family Medicine 05/31/24 Time Motion Analyst Relationship Specialty Start Date End Date Roe Jossy RubaDO PCP - General Family Medicine 05/31/24 Time Motion Analyst Relationship Specialty Start Date End Date Roe Jossyravi BarajaseDO PCP - General Family Medicine 05/31/24 Time Motion Analyst Relationship Specialty Start Date End Date Roe Jossyravi BarajaseDO PCP - General Family Medicine 05/31/24 Time Motion Analyst Relationship Specialty Start Date End Date Roe Jossyravi Yeh DO PCP - General Family Medicine 05/31/24 Time Motion Analyst Relationship Specialty Start Date End Date Roe Jossyravi Yeh DO PCP - General Family Medicine 05/31/24 Time Motion Analyst Relationship Specialty Start Date End Date RoeJossy DO PCP - General Family Medicine 05/31/24 [...] December 16, 2024 End: January 08, 2025 Time Motion Analyst Relationship Specialty Start Date End Date Jossy Au DO PCP - General Family Medicine 05/31/24 Time Motion Analyst Relationship Specialty Start Date End Date Jossy Au DO PCP - General Family Medicine 05/31/24 Time Motion Analyst Relationship Specialty Start Date End Date Jossy Au DO PCP - General Family Medicine 05/31/24 Care Team (unrecognized sect ion and content) Care Team Personnel Name: BRIONNA BUI APRN.TERMINAL MAKEUP OPERATOR Member Role: Primary Care Physician Address: Address: [address] [place] [phone] Goals (unrecognized section and content) Goals may [...] BE BASED ON THE PRIMARY CLINICAL RECORDS. [facility]. provides no warranty or guarantee of the accuracy or completeness of information in this document.
[2025-06-05 11:07] LABS: Cotinine Screen Blood <1.0 ng/mL (.)
== END | disposition home or self-care (01) ==
LOC: LAB 07:49
PROVIDERS: PCP Family Medicine; Referring Provider Family Medicine; Visit Provider Family Medicine
DX: Z34.90 Encounter for supervision of normal pregnancy, unspecified, unspecified trimester (principal); R76.89 Other specified abnormal immunological findings in serum
CPT/HCPCS: 36415; 80323; 84443; G0480